=== PATIENT | male | born 1945 | race Caucasian/White ===

== ENCOUNTER 2016-09-10 17:21 | Inpatient (IN) | payer MEDICARE, OTHER ==
[~2016-09-10] VITALS: Ht 157.5 cm; Wt 54.0 kg
[2016-09-10 18:25] LABS: BASO % 1 % (0-3); EOS % 0 % (0-3); HEMATOCRIT 51.1 % (39.0-53.0); HEMOGLOBIN 16.7 g/dL (13.0-17.5); LYMPH # 1.4 x10^3/uL (1.0-4.8); LYMPH % 18 % (24-48); MEAN CORPUSCULAR HEMOGLOBIN 26 pg (25-35); MEAN CORPUSCULAR HGB CONC 33 g/dL (31-37); MEAN CORPUSCULAR VOLUME 81 fL (79-100); MONO % 12 % (0-9); NEUT # 5.6 x10^3uL (1.8-7.7); NEUT % 70 % (31-73); PLATELET COUNT 220 x10^3/uL (140-400); RED BLOOD COUNT 6.33 x10^6/uL (4.30-5.70); RED CELL DISTRIBUTION WIDTH 19.1 % (11.5-14.5)
[2016-09-10 18:38] LABS: ALBUMIN 4.1 g/dL (3.4-5.0); ALBUMIN/GLOBULIN RATIO 0.7 (1.0-1.7); CALCIUM 10.2 mg/dL (8.5-10.1); CREATININE 1.4 mg/dL (0.7-1.3); GFR 49.8; MAGNESIUM 2.7 mg/dL (1.8-2.4); POTASSIUM 4.3 mmol/L (3.5-5.1); TOTAL BILIRUBIN 1.3 mg/dL (0.2-1.0); TOTAL PROTEIN 9.9 g/dL (6.4-8.2)
--- NOTE | 2016-09-10 18:53 | PHYS DOC ---
General Chief Complaint: PSYCH EVALUATION Stated Complaint: ALTERED MENTAL STATUS Time Seen by MD: 18:25 Source: patient, group home records Exam Limitations: clinical condition Problems: History of Present Illness Initial Comments Pt is 71/M to ED from [facility] in [place], [place] for medical clearance and [facility] admission. [place] records indicate pt has been refusing meds, combative, not eating, and resistant to redirection for past week. Pt has h/o schizophrenia/dementia, he' s been paranoid he'll be electrocuted and claiming to have fur. Prior ERP gave zyprexa on pt arrival as he was refusing labs etc initially. Pt is confused, alert, oriented only to self. He is full code Timing/Duration: 1 week, getting worse Severity: severe Modifying Factors: improves with other Associated Symptoms: denies symptoms Allergies: Coded Allergies: Aminoglycosides (Verified Allergy, Unknown, 09/10/16) benzalkonium (Verified Allergy, Unknown, 09/10/16) pramoxine (Verified Allergy, Unknown, 09/10/16) Past Medical History Medical History: other (urosepsis, schizophrenia, dementia, CAD, CHF, CVA, COPD , depression, GERD, HLP, schizoaffective) Surgical History: noncontributory Social History Smoker: non-smoker Alcohol: none Drugs: none Review of Systems All Other Systems: Reviewed and Negative (pt confused accurate ROS unobtainable ) Physical Exam General Appearance: no apparent distress (lying naked, resting), thin Eyes: bilateral eye normal inspection, bilateral eye PERRL, bilateral eye EOMI Ear, Nose, Throat: hearing grossly normal, normal ENT inspection, normal pharynx Neck: non-tender, supple Respiratory: normal breath sounds, no respiratory distress Cardiovascular: normal peripheral pulses, regular rate, rhythm Gastrointestinal: non tender, soft Back: no CVA tenderness, no vertebral tenderness Extremities: non-tender, normal inspection Neurologic/Psychiatric: male model II-XII nml as tested, no motor/sensory deficits, alert, depressed affect, disoriented x 3 Skin: warm/dry COURSE Allergies Coded Allergies Type Severity Reaction Last Updated Verified Aminoglycosides Allergy Unknown 09/10/16 Yes benzalkonium Allergy Unknown 09/10/16 Yes pramoxine Allergy Unknown 09/10/16 Yes Laboratory Tests Test 09/10/16 18:10 09/10/16 18:30 White Blood Count 8.0 x10^3/uL (4.0-11.0) Red Blood Count 6.33 x10^6/uL (4.30-5.70) Hemoglobin 16.7 g/dL (13.0-17.5) Hematocrit 51.1 % (39.0-53.0) Mean Corpuscular Volume 81 fL (79-100) Mean Corpuscular Hemoglobin 26 pg (25-35) Mean Corpuscular Hemoglobin Concent 33 g/dL (31-37) Red Cell Distribution Width 19.1 % (11.5-14.5) Platelet Count 220 x10^3/uL (140-400) Neutrophils (%) (Auto) 70 % (31-73) Lymphocytes (%) (Auto) 18 % (24-48) Monocytes (%) (Auto) 12 % (0-9) Eosinophils (%) (Auto) 0 % (0-3) Basophils (%) (Auto) 1 % (0-3) Neutrophils # (Auto) 5.6 x10^3uL (1.8-7.7) Lymphocytes # (Auto) 1.4 x10^3/uL (1.0-4.8) Monocytes # (Auto) 1.0 x10^3/uL (0.0-1.1) Eosinophils # (Auto) 0.0 x10^3/uL (0.0-0.7) Basophils # (Auto) 0.0 x10^3/uL (0.0-0.2) Sodium Level 145 mmol/L (136-145) Potassium Level 4.3 mmol/L (3.5-5.1) Chloride Level 102 mmol/L (98-107) Carbon Dioxide Level 20 mmol/L (21-32) Anion Gap 23 (6-14) Blood Urea Nitrogen 26 mg/dL (8-26) Creatinine 1.4 mg/dL (0.7-1.3) Estimated GFR (Cockcroft-Gault) 49.8 BUN/Creatinine Ratio 19 (6-20) Glucose Level 88 mg/dL (70-99) Calcium Level 10.2 mg/dL (8.5-10.1) Magnesium Level 2.7 mg/dL (1.8-2.4) Total Bilirubin 1.3 mg/dL (0.2-1.0) Aspartate Amino Transf (AST/SGOT) 44 U/L (15-37) Alanine Aminotransferase (ALT/SGPT) 22 U/L (16-63) Alkaline Phosphatase 107 U/L (46-116) Total Protein 9.9 g/dL (6.4-8.2) Albumin 4.1 g/dL (3.4-5.0) Albumin/Globulin Ratio 0.7 (1.0-1.7) Creatine Kinase 461 U/L (39-308) Troponin I Quantitative < 0.017 ng/mL (0-0.055) Current Medications Medications (Trade) Dose Ordered Sig/Gilles Route PRN Reason Start Time Stop Time Status Last Admin Dose Admin Olanzapine (ZyPREXA ZYDIS) 5 mg 1X ONCE PO 09/10/16 18:45 09/10/16 20:28 DC Haloperidol Lactate (Haldol) 5 mg 1X ONCE IM 09/10/16 19:00 09/10/16 20:28 DC 09/10/16 19:08 Lorazepam (Ativan) 1 mg 1X ONCE IM 09/10/16 21:30 09/10/16 21:31 DC 09/10/16 21:25 Orders Procedure Category Date Status Time Ua, Cult If Indicated LAB 09/10/16 Logged 17:39 Cbc W Autodiff LAB 09/10/16 Complete 17:39 Comprehensive LAB 09/10/16 Complete Metabolic Panel 17:39 Magnesium LAB 09/10/16 Complete 17:39 Iron Profile LAB 09/10/16 In Process 17:39 Troponin I LAB 09/10/16 Complete 18:33 Creatine Kinase LAB 09/10/16 Complete 18:33 Thyroid Stim Hormone LAB 09/10/16 In Process (Tsh) 18:33 Olanzapine Zydis PHA 09/10/16 Complete (Zyprexa Zydis) 18:45 Haloperidol Lact PHA 09/10/16 Complete (Haldol) 19:00 Lorazepam (Ativan) PHA 09/10/16 Complete 21:30 Admit Orders ADT 09/10/16 Transmitted 22:42 Code Status CODE 09/10/16 Transmitted 22:42 Vital Signs, Per MARILIA 09/10/16 In Process Protocol 22:42 Weight Every Saturday MARILIA 09/10/16 In Process 22:42 Notify Provider MARILIA 7/3/17 In Process 22:42 Notify Provider MARILIA 09/10/16 In Process 22:42 Notify Provider-Neuro MARILIA 09/10/16 In Process Deficit 22:42 Fall Precautions MARILIA 09/10/16 In Process 22:42 Escape/Elopement MARILIA 09/10/16 In Process 22:42 Advance Diet As MARILIA 09/10/16 In Process Tolerated 22:42 Ambulate Ad Toshia MARILIA 09/10/16 In Process 22:42 Creatine Kinase LAB 09/11/16 Verified 07:00 Cbc W Autodiff LAB 09/11/16 Verified 07:00 Comprehensive LAB 09/11/16 Verified Metabolic Panel 07:00 Vital Signs Date Time Temp Pulse Resp B/P (MAP) Pulse Ox O2 Delivery O2 Flow Rate FiO2 09/10/16 17:43 97.3 62 18 93 Room Air Haldol 5mg IM, ativan 1mg IM given in ED to try to settle pt and allow UA collection. 2238: Pt has refused to produce urine specimen. ED staff obtained cath specimen, results pending. BUN 26, Cr 1.4, mg 2.7, t. bili 1.3, AST 44, CK 461 , UA pending. Pt medically clear for [facility] admission Dr Weiner is accepting Departure Time of Disposition: 22:40 Disposition: ADMITTED INPATIENT Diagnosis: MDD, schizoaffective disorder, Elev CK, renal insu Condition: STABLE Additional Instructions: Admit to [facility] Dr Weiner is accepting. Recheck CK in am. Departure Disposition: ADMITTED INPATIENT Diagnosis: MDD, schizoaffective disorder, Elev CK, renal insu Condition: STABLE Additional Instructions: Admit to [facility] Dr Weiner is accepting. Recheck CK in am. AMALIA BUCKLEY DO Sep 10, 2016 18:53
[2016-09-10] MEDS ORDERED: HALOPERIDOL LACT 5 MG/ML VIAL. IM ONE (19:00)
[2016-09-10] MEDS ORDERED: LORazepam 2 MG/ML VIAL IM ONE (21:30)
[2016-09-10] MEDS ORDERED: MINE120C TP (21:58)
[2016-09-10] MEDS ORDERED: PHEN26CR RC (21:58)
[2016-09-10] MEDS ORDERED: ACET325T9 PO (21:58)
[2016-09-10] MEDS ORDERED: CETI10TA16 PO (21:58)
[2016-09-10] MEDS ORDERED: CHOL10003 PO (21:58)
[2016-09-10] MEDS ORDERED: OLAN5TAB5 PO (21:58)
[2016-09-10] MEDS ORDERED: CYAN10002 SQ (21:58)
[2016-09-10] MEDS ORDERED: ASPI-630 PO (21:58)
[2016-09-10] MEDS ORDERED: FURO40TA4 PO (21:58)
[2016-09-10] MEDS ORDERED: FOLI1TAB16 PO (21:58)
[2016-09-10] MEDS ORDERED: TAMS0.4C97 PO (21:58)
[2016-09-10] MEDS ORDERED: CLOP75TA57 PO (21:58)
[2016-09-10] MEDS ORDERED: SIME80TA14 PO (21:58)
[2016-09-10] MEDS ORDERED: FURO20TA3 PO (21:58)
[2016-09-10] MEDS ORDERED: METO25TA4 PO (21:58)
[2016-09-10] MEDS ORDERED: GABA-586 PO (21:58)
[2016-09-10] MEDS ORDERED: PANT40TA3 PO (21:58)
[2016-09-10] MEDS ORDERED: ISOS30TA19 PO (21:58)
[2016-09-10] MEDS ORDERED: NITR0.4T SL (21:58)
[2016-09-10 22:58] VITALS: BP 149/86
[2016-09-10 23:13] LABS: BILIRUBIN,URINE NEG (NEG); CLARITY,URINE HAZY; COLOR,URINE AMBER; GLUCOSE,URINE NEG (NEG); NITRITE,URINE POS (NEG); UROBILINOGEN,URINE 1 mg/dL (0.2 mg/dL)
[2016-09-10 23:14] LABS: AMORPHOUS SEDIMENT,UR PRESENT /HPF; BACTERIA,URINE FEW /HPF (0-FEW); SQUAMOUS EPITHELIAL CELL,UR FEW /LPF; WBC,URINE OCC /HPF (0-4)
[2016-09-10] MEDS ORDERED: ACETAMINOPHEN 325 MG TABLET PO PRN (23:45)
[2016-09-10] MEDS ORDERED: MAGNESIUM HYDROXIDE 2,400 MG/30 ML ORAL.SUSP. PO PRN (23:45)
[2016-09-10] MEDS ORDERED: MAG HYDROX/AL HYDROX/SIMETH 30 ML ORAL.SUSP PO PRN (23:45)
[2016-09-10] MEDS ORDERED: METHYL SALICYLATE/MENTHOL TOPICAL OINTMENT 29GM TUBE. TP PRN (23:45)
[2016-09-11] MEDS ORDERED: NITROGLYCERIN SUBLINGUAL 0.4 MG BOTTLE OF 25. SL PRN
[2016-09-11] MEDS ORDERED: PHENYLEPH/MINERAL OIL/PETROLAT RECTAL OINTMENT 28GM TUBE. RC PRN
[2016-09-11] MEDS ORDERED: ACETAMINOPHEN 325 MG TABLET PO PRN
[2016-09-11] MEDS ORDERED: MINERAL OIL/PETROLATUM TOPICAL CREAM 113GM JAR. TP PRN
[2016-09-11] MEDS ORDERED: IV NORMAL SALINE 1,000ML 1,000 ML ONE (01:27)
--- NOTE | 2016-09-11 03:31 | ACF ---
Admission Criteria Forms MAJOR DEPRESSIVE DISORDER Clinical Indications for Admission to Inpatient Care ( Place 'X' for any and all applicable criteria): Hospital admission is needed for appropriate care of the patient because of ANY ONE of the following[A](3)(4)(5): [ ]I. Inpatient behavioral care is needed as indicated by ALL of the following: [ ]a) Treatment is needed because of patient risk due to ANY ONE of the following: [ ]i) Imminent danger to self due to ANY ONE of the following ( 7)(8): [ ]1) Imminent risk for recurrence of a suicide attempt or act of serious self-harm as indicated by ALL of the following: [ ]A. Very recent suicide attempt or deliberate act of serious self-harm [ ]B. Absence of sufficient relief of the action' s precipitants [ ]2) Current plan for suicide or serious self-harm [ ]3) Persistent thoughts of suicide or serious self- harm that cannot be adequately monitored at a lower level of care because of ANY ONE of the following: [ ]A. Insufficient behavioral care provider availability [ ]B. Inadequate patient support system [ ]C. Patient characteristics such as high impulsivity or unreliability [ ]D. Ruminative flooding; uncontrollable and overwhelming profusion of negative thoughts [ ]E. Frantic hopelessness; fatalistic conviction that life will not improve along with oppressive sense of entrapment and doom [ ]F. Active substance use disorder is present [ ]G. Ready access to lethal means is present [ ]ii) Imminent danger to others due to ANY ONE of the following( 10)(11): [ ]1) Imminent risk for recurrence of an attempt to seriously harm another as indicated by ALL of the following: [ ]A. Very recent attempt to seriously harm another [ ]B. Absence of sufficient relief of the action' s precipitants [ ]2) Current plan for homicide or seriously harming another [ ]3) Command auditory hallucination for serious self harm to self or others [ ]4) Persistent thoughts of homicide or seriously harming another that cannot be adequately monitored at a lower level of care because of ANY ONE of the following: [ ]A. Insufficient behavioral care provider availability [ ]B. Inadequate patient support system [ ]C. Patient characteristics such as high impulsivity or unreliability [ ]D. Active substance use disorder is present [ ]E. Ready access to lethal means is present [ ]iii) Behavioral health disorder is present with ALL of the following: (12)(16)(17)(18): [ ]1) Severe psychiatric or behavioral symptoms are present , including ANY ONE of the following: [ ]A. Hallucinations that are very bothersome to patient or are associated with severe pressure to respond to voices(17)(18) [ ]B. Delusions that are very bothersome to patient or are associated with severe pressure to act on beliefs(17)(18) [ ]C. Disorganized speech that is almost impossible to follow(17)(18) [ ]D. Motor behavior that is almost constantly abnormal or bizarre or catatonic(17)(18) [ ]E. Severe negative symptoms (eg, severe decrease in facial expression or self-initiated behavior)(17)(18) [ ]F. Severe nydia (eg, daily periods of extensive mood elevation or irritability)(19)(20)(21)(22) [ ]G. Severe depression (eg, daily symptoms of deep hopelessness)[C] [ ]H. Severe anxiety[D] [ ]I. Severe comorbid substance use disorder with inability to control use, intense withdrawal symptoms, or extreme negative impact on primary psychiatric disorder(2)(7)(25) [ ]J. Severe impairment in cognition, memory, judgment, or impulse control(26)(27) [ ]K. Severe impairment in behavior, including physical or verbal aggression, disruptive behaviors, or internal or external anger manifestations (eg, rumination or outbursts)(28) [ ]L. Other psychiatric symptoms which are acute or represent worsening over baseline (eg, hyperactivity, agitation, obsessions, or compulsions)(29)(30)(31) [ ]2) Severe dysfunction in daily living is present as indicated by ANY ONE of the following: [ ]A. Extreme deterioration in social interactions ( eg, threatening behaviors with little or no provocation) [ ]B. Complete withdrawal from all social interactions [ ]C. Complete neglect of self-care with associated impairment in physical status [ ]D. Extreme disruption in vegetative function (eg , life-sustaining functions such as eating) [ ]E. Complete inability to maintain any appropriate aspect of personal responsibility in any adult roles (eg, occupational, parental) [ ]b) Treatment situation and needs are appropriate for level as indicated by ANY ONE of the following(13)(16): [ ]i) Patient unwilling to participate voluntarily and requires treatment (eg, legal commitment) in an involuntary unit [ ]ii) Voluntary treatment at lower level not feasible (e.g., very short-term crisis intervention or residential care unavailable or unacceptable for patient condition) [ ]iii) Need for physical restraint, seclusion, or other involuntary control (e.g., actively violent patient and adequate clinical rapport cannot be established to control violence) (25) [ ]iv) Vofhdy-imo-sraps medical or nursing care to address symptoms and initiate intervention is required; specific need has been identified [ ]II. Delirium as described by ANY ONE of the following (26)(27)(28): [ ]a) Delirium due to alcohol or sedative [B] withdrawal (16)(29)(30)( 31) [ ]b) Delirium of uncertain etiology that has not responded to appropriate treatment in emergency department or urgent care setting (32)(33) [ ]c) Delirium that prevents performance of a life-sustaining function (eg, feeding or hydrating oneself) (9) [ ]III. Administration of a somatic treatment that requires uqaenp-yvs-evkvd medical or nursing care because of a potential adverse physical effect or medical comorbidity(7) [X]IV. Behavioral Health condition, symptom, or finding for which emergency and observation care have failed or are not considered appropriate (Contents from [facility] clinical indications for admission to inpatient care have been integrated in this form) The original [facility] content created by [facility] has been revised. The portions of the content which have been revised are identified through the use of italic text or in bold, and [facility] has neither reviewed nor approved the modified material. All other unmodified content is copyright [facility]. Please see references footnoted in the original [facility] edition 2016 Admission Criteria Met?: Yes MISSY URENA Sep 11, 2016 03:31
[2016-09-11] MEDS ORDERED: PANTOPRAZOLE 40 MG TABLET. PO SCH (07:30)
[2016-09-11] MEDS ORDERED: TAMSULOSIN 0.4 MG CAP.ER.24H. PO SCH (09:00)
[2016-09-11] MEDS ORDERED: FUROSEMIDE 40 MG TABLET PO SCH (09:00)
[2016-09-11] MEDS ORDERED: GABAPENTIN 300 MG CAPSULE. PO SCH (09:00)
[2016-09-11] MEDS ORDERED: CETIRIZINE HCL 10 MG TABLET PO SCH (09:00)
[2016-09-11] MEDS ORDERED: CLOPIDOGREL BISULFATE 75 MG TABLET PO SCH (09:00)
[2016-09-11] MEDS ORDERED: METOPROLOL TART IMMED RELEASE 25 MG TABLET PO SCH (09:00)
[2016-09-11] MEDS ORDERED: CHOLECALCIFEROL (VITAMIN D3) 1,000 UNIT TABLET PO SCH (09:00)
[2016-09-11] MEDS ORDERED: FOLIC ACID 1 MG TABLET PO SCH (09:00)
[2016-09-11] MEDS ORDERED: FUROSEMIDE 20 MG TABLET PO SCH (09:00)
[2016-09-11] MEDS ORDERED: SIMETHICONE 80 MG TAB.CHEW PO SCH (09:00)
[2016-09-11] MEDS ORDERED: ASPIRIN 81 MG TAB.CHEW PO SCH (09:00)
--- NOTE | 2016-09-11 15:01 | PDOC1 ---
History of Present Illness Reason for Visit: Transferred from [facility] for marked dehydration History of Present Illness The patient was sent to [facility] from [facility] as he has been refusing to eat or drink refusing to take his medication He states that he has no mouth claiming that he is elctrocuted and that he has fur rather than hair Chief Complaint: PSYCH EVALUATION Allergies: Coded Allergies: Aminoglycosides (Verified Allergy, Intermediate, 09/11/16) benzalkonium (Verified Allergy, Intermediate, 09/11/16) pramoxine (Verified Allergy, Intermediate, 09/11/16) Past Medical History Cardiac: CAD, CHF, hyperipidemia Pulmonary: COPD 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 See HPI for pertinent positives and negative responses, other hodges all other systems are negative, non pertinent or non contributory Allergies: Coded Allergies: Aminoglycosides (Verified Allergy, Intermediate, 09/11/16) benzalkonium (Verified Allergy, Intermediate, 09/11/16) pramoxine (Verified Allergy, Intermediate, 09/11/16) Medications Current Medications Olanzapine (ZyPREXA ZYDIS) 5 mg 1X ONCE PO ; Start 09/10/16 at 18:45; Stop at 20:28; Status DC Haloperidol Lactate (Haldol) 5 mg 1X ONCE IM Last administered on 09/10/16 19: 08; Start 09/10/16 at 19:00; Stop 09/10/16 at 20:28; Status DC Lorazepam (Ativan) 1 mg 1X ONCE IM Last administered on 09/10/16 21:25; Start 09/10/16 at 21:30; Stop 09/10/16 at 21:31; Status DC Acetaminophen (Tylenol) 650 mg PRN Q6HRS PRN PO PAIN / TEMP; Start 09/10/16 at 23:45; Stop 09/11/16 at 01:20; Status DC Multi-Ingredient Ointment (Analgesic Fishers) 1 francia PRN QID PRN TP MUSCLE PAIN; Start 09/10/16 at 23:45; Stop 09/11/16 at 01:20; Status DC Al Hydroxide/Mg Hydroxide (Mylanta Plus Xs) 15 ml PRN AFTMEALHC PRN PO DYSPEPSIA; Start 09/10/16 at 23:45; Stop 09/11/16 at 01:20; Status DC Magnesium Hydroxide (Milk Of Magnesia) 2,400 mg PRN QHS PRN PO CONSTIPATION; Start 09/10/16 at 23:45; Stop 09/11/16 at 01:20; Status DC Olanzapine (ZyPREXA ZYDIS) 5 mg HS PO ; Start 09/11/16 at 21:00; Stop 09/11/16 at 21:00; Status DC Acetaminophen (Tylenol) 650 mg PRN Q4HRS PRN PO PAIN / TEMP; Start 09/11/16 at 00:00; Stop 09/11/16 at 01:20; Status DC Aspirin (Children'S Aspirin) 81 mg DAILY PO ; Start 09/11/16 at 09:00; Stop at 09:00; Status DC Cetirizine HCl (ZyrTEC) 10 mg DAILY PO ; Start 09/11/16 at 09:00; Stop 09/11/16 at 09:00; Status DC Vitamin D (Vitamin D3) 2,000 unit DAILY PO ; Start 09/11/16 at 09:00; Stop at 09:00; Status DC Clopidogrel Bisulfate (Plavix) 75 mg DAILY PO ; Start 09/11/16 at 09:00; Stop 09/11/16 at 09:00; Status DC Cyanocobalamin (Vitamin B-12) 1,000 mcg QMONTH SQ ; Start 10/10/16 at 09:00; Stop 10/10/16 at 09:00; Status DC Folic Acid (Folic Acid) 1 mg DAILY PO ; Start 09/11/16 at 09:00; Stop 09/11/16 at 09:00; Status DC Furosemide (Lasix) 20 mg DAILY PO ; Start 09/11/16 at 09:00; Stop 09/11/16 at 09: 00; Status DC Furosemide (Lasix) 40 mg DAILY PO ; Start 09/11/16 at 09:00; Stop 09/11/16 at 09: 00; Status DC Gabapentin (Neurontin) 300 mg TID PO ; Start 09/11/16 at 09:00; Stop 09/11/16 at 09:00; Status DC Metoprolol Tartrate (Lopressor) 12.5 mg BID PO ; Start 09/11/16 at 09:00; Stop at 09:00; Status DC Multi-Ingred Cream/Lotion/Oil/ Oint (Hydrocerin) 1 francia PRN BID PRN TP Dry Skin ; Start 09/11/16 at 00:00; Stop 09/11/16 at 01:20; Status DC Nitroglycerin (Nitrostat) 0.4 mg PRN Q5MIN PRN SL CHEST PAIN; Start 09/11/16 at 00:00; Stop 09/11/16 at 01:20; Status DC Pantoprazole Sodium (Protonix) 40 mg BIDBFRMEAL PO ; Start 09/11/16 at 07:30; Stop 09/11/16 at 07:30; Status DC Simethicone (Gas-X) 120 mg BID PO ; Start 09/11/16 at 09:00; Stop 09/11/16 at 09: 00; Status DC Tamsulosin HCl (Flomax) 0.4 mg BID PO ; Start 09/11/16 at 09:00; Stop 09/11/16 at 09:00; Status DC Non-Formulary Medication 30 mg HS PO ; Start 09/11/16 at 21:00; Stop 09/11/16 at 21:00; Status DC Phenyleph/Shark Oil/Min Oil/Petrol (Preparation H) 1 francia PRN BID PRN RC Hemmoroids; Start 09/11/16 at 00:00; Stop 09/11/16 at 01:20; Status DC Sodium Chloride 1,000 ml @ As Directed STK-MED ONCE .ROUTE ; Start 09/11/16 at 01:27; Stop 09/11/16 at 01:28; Status DC Active Scripts Active Reported Preparation H Cream (Phenyleph/Pramoxin/Glycr/W.pet) 26 Gm Cream..g. 1 Francia RC PRN BID PRN Tylenol (Acetaminophen) 325 Mg Tablet 650 Mg PO PRN Q4HRS PRN Nitrostat (Nitroglycerin) 0.4 Mg Tab.subl 0.4 Mg SL PRN Q5MIN PRN Eucerin Creme (Mineral Oil/Petrolatum,White) 120 Gm Cream..g. 1 Francia TP PRN PRN Gabapentin 300 Mg Capsule 300 Mg PO TID Vitamin D3 (Cholecalciferol (Vitamin D3)) 1,000 Unit Tablet 2,000 Unit PO DAILY Flomax (Tamsulosin Hcl) 0.4 Mg Cap.er.24h 0.4 Mg PO BID Simethicone 80 Mg Tab.chew 120 Mg PO BID Protonix (Pantoprazole Sodium) 40 Mg Tablet.dr 40 Mg PO BID Cyanocobalamin Injection (Cyanocobalamin (Vitamin B-12)) 1,000 Mcg/1 Ml Vial 1, 000 Mcg SQ QMONTH Once monthly on the Furosemide 20 Mg Tablet 20 Mg PO DAILY Daily on Saturday, Saturday, & Saturday Folic Acid 1 Mg Tablet 1 Tab PO DAILY Plavix (Clopidogrel Bisulfate) 75 Mg Tablet 75 Mg PO DAILY Cetirizine Hcl 10 Mg Tablet 10 Mg PO DAILY Aspirin 81 Mg Tab.chew 81 Mg PO DAILY Zyprexa Zydis (Olanzapine) 5 Mg Tab.rapdis 5 Mg PO HS Furosemide 40 Mg Tablet 40 Mg PO DAILY Daily on Saturday, Saturday, , & Saturday only Metoprolol Tartrate 25 Mg Tablet 12.5 Mg PO BID Isosorbide Dinitrate 30 Mg Tablet 30 Mg PO HS Exam Vital Signs Vital Signs Date Time Temp Pulse Resp B/P (MAP) Pulse Ox O2 Delivery O2 Flow Rate FiO2 09/10/16 22:58 83 16 149/86 (107) 90 09/10/16 17:43 97.3 Room Air General Appearance: Alert, No acute distress, Other HEENT: Atraumatic, PERRLA Heart: Regular rate, Normal S1, Normal S2 Cardiac: CAD, CHF, HTN, hyperipidemia BREASTS: Normal Abdominal: Normal bowel sounds Male Genitals Exam: normal genitalia Extremities: No clubbing, No cyanosis, No edema, Normal pulses, No tenderness/ swelling Rectal Exam: Deferred, not indicated Pelvic Exam: Nml ext genitalia Skin: No rashes Neuro: Normal tone, Cranial nerves 3-12 NL, Reflexes 2+ Psych/Mental Status: Other (Paranoid schzophrenia, denentia) Assessment/Plan Assessment/Plan Paranoid Schizophrenia Dementia Marked Dehydration Rhabdomyolysis CATALINA COURSE Allergies Coded Allergies Type Severity Reaction Last Updated Verified Aminoglycosides Allergy Intermediate 09/11/16 Yes benzalkonium Allergy Intermediate 09/11/16 Yes pramoxine Allergy Intermediate 09/11/16 Yes Laboratory Tests Test 09/10/16 16:10 09/10/16 18:10 09/10/16 18:30 09/10/16 22:30 Thyroid Stimulating Hormone (TSH) 1.097 uIU/mL (0.358-3.740) White Blood Count 8.0 x10^3/uL (4.0-11.0) Red Blood Count 6.33 x10^6/uL (4.30-5.70) Hemoglobin 16.7 g/dL (13.0-17.5) Hematocrit 51.1 % (39.0-53.0) Mean Corpuscular Volume 81 fL (79-100) Mean Corpuscular Hemoglobin 26 pg (25-35) Mean Corpuscular Hemoglobin Concent 33 g/dL (31-37) Red Cell Distribution Width 19.1 % (11.5-14.5) Platelet Count 220 x10^3/uL (140-400) Neutrophils (%) (Auto) 70 % (31-73) Lymphocytes (%) (Auto) 18 % (24-48) Monocytes (%) (Auto) 12 % (0-9) Eosinophils (%) (Auto) 0 % (0-3) Basophils (%) (Auto) 1 % (0-3) Neutrophils # (Auto) 5.6 x10^3uL (1.8-7.7) Lymphocytes # (Auto) 1.4 x10^3/uL (1.0-4.8) Monocytes # (Auto) 1.0 x10^3/uL (0.0-1.1) Eosinophils # (Auto) 0.0 x10^3/uL (0.0-0.7) Basophils # (Auto) 0.0 x10^3/uL (0.0-0.2) Sodium Level 145 mmol/L (136-145) Potassium Level 4.3 mmol/L (3.5-5.1) Chloride Level 102 mmol/L (98-107) Carbon Dioxide Level 20 mmol/L (21-32) Anion Gap 23 (6-14) Blood Urea Nitrogen 26 mg/dL (8-26) Creatinine 1.4 mg/dL (0.7-1.3) Estimated GFR (Cockcroft-Gault) 49.8 BUN/Creatinine Ratio 19 (6-20) Glucose Level 88 mg/dL (70-99) Calcium Level 10.2 mg/dL (8.5-10.1) Magnesium Level 2.7 mg/dL (1.8-2.4) Iron Level 66 ug/dL (65-175) Total Iron Binding Capacity 311 ug/dL (250-450) Iron Saturation 21 % (15-34) Total Bilirubin 1.3 mg/dL (0.2-1.0) Aspartate Amino Transf (AST/SGOT) 44 U/L (15-37) Alanine Aminotransferase (ALT/SGPT) 22 U/L (16-63) Alkaline Phosphatase 107 U/L (46-116) Total Protein 9.9 g/dL (6.4-8.2) Albumin 4.1 g/dL (3.4-5.0) Albumin/Globulin Ratio 0.7 (1.0-1.7) Triglycerides Level 104 mg/dL (0-150) Cholesterol Level 258 mg/dL (0-200) LDL Cholesterol, Calculated 188 mg/dL (0-100) VLDL Cholesterol, Calculated 20 mg/dL (0-40) Non-HDL Cholesterol Calculated 208 mg/dL (0-129) HDL Cholesterol 50 mg/dL (40-60) Cholesterol/HDL Ratio 5.0 Vitamin B12 Level > 2000 pg/mL (247-911) Creatine Kinase 461 U/L (39-308) Troponin I Quantitative < 0.017 ng/mL (0-0.055) Urine Collection Type Unknown Urine Color Michell Urine Clarity Hazy Urine pH 5.0 Urine Specific [place] >=1.030 Urine Protein 100 mg/dl (NEG-TRACE) Urine Glucose (UA) Neg mg/dL (NEG) Urine Ketones (Stick) 15 mg/dL (NEG) Urine Blood Small (NEG) Urine Nitrite Pos (NEG) Urine Bilirubin Neg (NEG) Urine Urobilinogen Dipstick 1 mg/dL (0.2 mg/dL) Urine Leukocyte Esterase Neg (NEG) Urine RBC 3-5 /HPF (0-2) Urine WBC Occ /HPF (0-4) Urine Squamous Epithelial Cells Few /LPF Urine Transitional Epithelial Cells Few /LPF Urine Amorphous Sediment Present /HPF Urine Bacteria Few /HPF (0-FEW) Current Medications Medications (Trade) Dose Ordered Sig/Gilles Route PRN Reason Start Time Stop Time Status Last Admin Dose Admin Olanzapine (ZyPREXA ZYDIS) 5 mg 1X ONCE PO 09/10/16 18:45 09/10/16 20:28 DC Haloperidol Lactate (Haldol) 5 mg 1X ONCE IM 09/10/16 19:00 09/10/16 20:28 DC 09/10/16 19:08 Lorazepam (Ativan) 1 mg 1X ONCE IM 09/10/16 21:30 09/10/16 21:31 DC 09/10/16 21:25 Acetaminophen (Tylenol) 650 mg PRN Q6HRS PRN PO PAIN / TEMP 09/10/16 23:45 09/11/16 01:20 DC Multi-Ingredient Ointment (Analgesic Fishers) 1 francia PRN QID PRN TP MUSCLE PAIN 09/10/16 23:45 09/11/16 01:20 DC Al Hydroxide/Mg Hydroxide (Mylanta Plus Xs) 15 ml PRN AFTMEALHC PRN PO DYSPEPSIA 09/10/16 23:45 09/11/16 01:20 DC Magnesium Hydroxide (Milk Of Magnesia) 2,400 mg PRN QHS PRN PO CONSTIPATION 09/10/16 23:45 09/11/16 01:20 DC Olanzapine (ZyPREXA ZYDIS) 5 mg HS PO 09/11/16 21:00 09/11/16 21:00 DC Acetaminophen (Tylenol) 650 mg PRN Q4HRS PRN PO PAIN / TEMP 09/11/16 00:00 09/11/16 01:20 DC Aspirin (Children'S Aspirin) 81 mg DAILY PO 09/11/16 09:00 09/11/16 09:00 DC Cetirizine HCl (ZyrTEC) 10 mg DAILY PO 09/11/16 09:00 09/11/16 09:00 DC Vitamin D (Vitamin D3) 2,000 unit DAILY PO 09/11/16 09:00 09/11/16 09:00 DC Clopidogrel Bisulfate (Plavix) 75 mg DAILY PO 09/11/16 09:00 09/11/16 09:00 DC Cyanocobalamin (Vitamin B-12) 1,000 mcg QMONTH SQ 10/10/16 09:00 10/10/16 09:00 DC Folic Acid (Folic Acid) 1 mg DAILY PO 09/11/16 09:00 09/11/16 09:00 DC Furosemide (Lasix) 20 mg DAILY PO 09/11/16 09:00 09/11/16 09:00 DC Furosemide (Lasix) 40 mg DAILY PO 09/11/16 09:00 09/11/16 09:00 DC Gabapentin (Neurontin) 300 mg TID PO 09/11/16 09:00 09/11/16 09:00 DC Metoprolol Tartrate (Lopressor) 12.5 mg BID PO 09/11/16 09:00 09/11/16 09:00 DC Multi-Ingred Cream/Lotion/Oil/ Oint (Hydrocerin) 1 francia PRN BID PRN TP Dry Skin 09/11/16 00:00 09/11/16 01:20 DC Nitroglycerin (Nitrostat) 0.4 mg PRN Q5MIN PRN SL CHEST PAIN 09/11/16 00:00 09/11/16 01:20 DC Pantoprazole Sodium (Protonix) 40 mg BIDBFRMEAL PO 09/11/16 07:30 09/11/16 07:30 DC Simethicone (Gas-X) 120 mg BID PO 09/11/16 09:00 09/11/16 09:00 DC Tamsulosin HCl (Flomax) 0.4 mg BID PO 09/11/16 09:00 09/11/16 09:00 DC Non-Formulary Medication 30 mg HS PO 09/11/16 21:00 09/11/16 21:00 DC Phenyleph/Shark Oil/Min Oil/Petrol (Preparation H) 1 francia PRN BID PRN RC Hemmoroids 09/11/16 00:00 09/11/16 01:20 DC Sodium Chloride 1,000 ml @ As Directed STK-MED ONCE .ROUTE 09/11/16 01:27 09/11/16 01:28 DC Orders Procedure Category Date Status Time Cbc W Autodiff LAB 09/10/16 Complete 17:39 Comprehensive LAB 09/10/16 Complete Metabolic Panel 17:39 Magnesium LAB 09/10/16 Complete 17:39 Iron Profile LAB 09/10/16 Complete 17:39 Troponin I LAB 09/10/16 Complete 18:33 Creatine Kinase LAB 09/10/16 Complete 18:33 Thyroid Stim Hormone LAB 09/10/16 Complete (Tsh) 18:33 Olanzapine Zydis PHA 09/10/16 Complete (Zyprexa Zydis) 18:45 Haloperidol Lact PHA 09/10/16 Complete (Haldol) 19:00 Lorazepam (Ativan) PHA 09/10/16 Complete 21:30 Admit Orders ADT 09/10/16 Transmitted 22:42 Code Status CODE 09/10/16 Transmitted 22:42 Vital Signs, Per [facility] 09/10/16 Complete Protocol 22:42 Weight Every Saturday [facility] 09/10/16 Complete 22:42 Notify Provider [facility] 09/10/16 Complete 22:42 Notify Provider [facility] 09/10/16 Complete 22:42 Notify Provider-Neuro [facility] 09/10/16 Complete Deficit 22:42 Fall Precautions [facility] 09/10/16 Complete 22:42 Escape/Elopement [facility] 09/10/16 Complete 22:42 Advance Diet As [facility] 09/10/16 Complete Tolerated 22:42 Ambulate Ad Toshia [facility] 09/10/16 Complete 22:42 Ua W Microscopic LAB 09/10/16 Complete 22:30 Dietary Cons For NOURISH 09/10/16 Transmitted Malnutrition 23:31 Admit Orders ADT 09/10/16 Transmitted 23:43 Voluntary [facility] 09/10/16 Complete 23:43 Guardian Status [facility] 09/10/16 Complete 23:43 Pt Will Attend Group [facility] 09/10/16 Complete & Activit 23:43 Ambulate With [facility] 09/10/16 Complete Assistance 23:43 Acetaminophen PHA 09/10/16 Complete (Tylenol) 23:45 Methyl PHA 09/10/16 Complete Salicylate/Menthol 23:45 Mag Hydrox/Al PHA 09/10/16 Complete Hydrox/Simeth 23:45 Magnesium Hydroxide PHA 09/10/16 Complete (Milk Of Magnesia) 23:45 Ua, Cult If Indicated LAB 09/10/16 Uncollected 23:43 Pt Eval And Treat PT 09/10/16 Logged 23:43 Ot Eval And Treat OT 09/10/16 Logged 23:43 12 Lead Ekg EKG 09/10/16 Logged 23:43 Hemoglobin A1c LAB 09/10/16 In Process 23:43 Lipid Panel LAB 09/10/16 Complete 23:43 Vitamin-B12 LAB 09/10/16 Complete 23:43 Vte Prophylax OTHER 09/10/16 Transmitted Contraindication 23:43 Olanzapine Zydis PHA 09/11/16 Complete (Zyprexa Zydis) 21:00 Acetaminophen PHA 09/11/16 Complete (Tylenol) 00:00 Aspirin (Children's PHA 09/11/16 Complete Aspirin) 09:00 Cetirizine Hcl PHA 09/11/16 Complete (Zyrtec) 09:00 Cholecalciferol PHA 09/11/16 Complete (Vitamin D3) (Vitamin 09:00 Clopidogrel Bisulfate PHA 09/11/16 Complete (Plavix) 09:00 Cyanocobalamin PHA 10/10/16 Complete (Vitamin B-12) 09:00 Folic Acid (Folic PHA 09/11/16 Complete Acid) 09:00 Furosemide Tablet PHA 09/11/16 Complete (Lasix) 09:00 Furosemide Tablet PHA 09/11/16 Complete (Lasix) 09:00 Gabapentin (Neurontin) PHA 09/11/16 Complete 09:00 Metoprolol Tart Immed PHA 09/11/16 Complete Release (Lopressor 09:00 Mineral PHA 09/11/16 Complete Oil/Petrolatum 00:00 Nitroglycerin PHA 09/11/16 Complete Sublingual (Nitrostat) 00:00 Pantoprazole PHA 09/11/16 Complete (Protonix) 07:30 Simethicone (Gas-X) PHA 09/11/16 Complete 09:00 Tamsulosin (Flomax) PHA 09/11/16 Complete 09:00 (Nf) Isosorbide PHA 09/11/16 Complete Dinitrate 21:00 Phenyleph/Mineral PHA 09/11/16 Complete Oil/Petrolat (Preparat 00:00 Discharge From ADT 09/11/16 Transmitted Hospital Iv Normal Saline PHA 09/11/16 Complete 1,000ml (Iv Sodium 01:27 Vital Signs Date Time Temp Pulse Resp B/P (MAP) Pulse Ox O2 Delivery O2 Flow Rate FiO2 09/10/16 22:58 83 16 149/86 (107) 90 09/10/16 17:43 97.3 Room Air RALPH MORROW MD Sep 11, 2016 15:01
[2016-09-11] MEDS ORDERED: IV DEXTROSE 5 %-0.2 % NACL 1,000 ML IV SCH (15:30)
[2016-09-11] MEDS ORDERED: ISOSORBIDE DINITRATE 30 MG PO SCH (21:00)
[2016-09-12 00:06] LABS: HEMOGLOBIN A1C 5.4 % (4.8-5.6)
[2016-09-12] MEDS ORDERED: FURO40TA4 PO (20:42)
--- NOTE | 2016-09-13 21:30 | PDOC ---
Exam Harjeet Demential Exam: Harjeet Note: Please also refer to the separate dictated note~for this date of service dictated separately.~Patient seen individually. Discussed the patient with Nursing staff reviewed the chart.~Reviewed interim history and current functioning. Reviewed vital signs,~Labs/ Radiology~and current medications noted below. Continue current treatment with the changes noted in the dictated addendum note DATE OF SERVICE: 09/11/2016. ADMISSION/DISCHARGE NOTE IDENTIFYING DATA: The patient is a 71-year-old male referred to us from [facility] by Dr. Domínguez for worsening psychotic symptoms, agitation, confusion, failure of outpatient psychiatric interventions in the past, history of schizoaffective disorder. The patient went to the emergency room at [facility], was seen by Dr. Guerra. Then admitted on the geriatric psychiatry unit, but he was found to be medically unstable to be on our unit and Dr. Moncada transferred him to the medical surgical floor for treatment of his urosepsis and dehydration. I did not see the patient as he was on our unit on 09/10/2016 for just about one hour and this note essentially covers for the admission/discharge notes. FINAL DIAGNOSES: Psychotic disorder unspecified; urosepsis; cognitive disorder , unspecified; elevated CK; altered mental status. PLAN: The patient is transferred to [facility] and once he is medically stable we will reassess whether he needs to be back on our unit for psychiatric stabilization. Assessment: Vital Signs: Vital Signs Date Time Temp Pulse Resp B/P (MAP) Pulse Ox O2 Delivery O2 Flow Rate FiO2 09/10/16 22:58 83 16 149/86 (107) 90 09/10/16 17:43 97.3 Room Air Current Medications: Meds: Current Medications Olanzapine (ZyPREXA ZYDIS) 5 mg 1X ONCE PO ; Start 09/10/16 at 18:45; Stop at 20:28; Status DC Haloperidol Lactate (Haldol) 5 mg 1X ONCE IM Last administered on 09/10/16 19: 08; Start 09/10/16 at 19:00; Stop 09/10/16 at 20:28; Status DC Lorazepam (Ativan) 1 mg 1X ONCE IM Last administered on 09/10/16 21:25; Start 09/10/16 at 21:30; Stop 09/10/16 at 21:31; Status DC Acetaminophen (Tylenol) 650 mg PRN Q6HRS PRN PO PAIN / TEMP; Start 09/10/16 at 23:45; Stop 09/11/16 at 01:20; Status DC Multi-Ingredient Ointment (Analgesic [place]) 1 francia PRN QID PRN TP MUSCLE PAIN; Start 09/10/16 at 23:45; Stop 09/11/16 at 01:20; Status DC Al Hydroxide/Mg Hydroxide (Mylanta Plus Xs) 15 ml PRN AFTMEALHC PRN PO DYSPEPSIA; Start 09/10/16 at 23:45; Stop 09/11/16 at 01:20; Status DC Magnesium Hydroxide (Milk Of Magnesia) 2,400 mg PRN QHS PRN PO CONSTIPATION; Start 09/10/16 at 23:45; Stop 09/11/16 at 01:20; Status DC Olanzapine (ZyPREXA ZYDIS) 5 mg HS PO ; Start 09/11/16 at 21:00; Stop 09/11/16 at 21:00; Status DC Acetaminophen (Tylenol) 650 mg PRN Q4HRS PRN PO PAIN / TEMP; Start 09/11/16 at 00:00; Stop 09/11/16 at 01:20; Status DC Aspirin (Children'S Aspirin) 81 mg DAILY PO ; Start 09/11/16 at 09:00; Stop at 09:00; Status DC Cetirizine HCl (ZyrTEC) 10 mg DAILY PO ; Start 09/11/16 at 09:00; Stop 09/11/16 at 09:00; Status DC Vitamin D (Vitamin D3) 2,000 unit DAILY PO ; Start 09/11/16 at 09:00; Stop at 09:00; Status DC Clopidogrel Bisulfate (Plavix) 75 mg DAILY PO ; Start 09/11/16 at 09:00; Stop 09/11/16 at 09:00; Status DC Cyanocobalamin (Vitamin B-12) 1,000 mcg QMONTH SQ ; Start 10/10/16 at 09:00; Stop 10/10/16 at 09:00; Status DC Folic Acid (Folic Acid) 1 mg DAILY PO ; Start 09/11/16 at 09:00; Stop 09/11/16 at 09:00; Status DC Furosemide (Lasix) 20 mg DAILY PO ; Start 09/11/16 at 09:00; Stop 09/11/16 at 09: 00; Status DC Furosemide (Lasix) 40 mg DAILY PO ; Start 09/11/16 at 09:00; Stop 09/11/16 at 09: 00; Status DC Gabapentin (Neurontin) 300 mg TID PO ; Start 09/11/16 at 09:00; Stop 09/11/16 at 09:00; Status DC Metoprolol Tartrate (Lopressor) 12.5 mg BID PO ; Start 09/11/16 at 09:00; Stop at 09:00; Status DC Multi-Ingred Cream/Lotion/Oil/ Oint (Hydrocerin) 1 francia PRN BID PRN TP Dry Skin ; Start 09/11/16 at 00:00; Stop 09/11/16 at 01:20; Status DC Nitroglycerin (Nitrostat) 0.4 mg PRN Q5MIN PRN SL CHEST PAIN; Start 09/11/16 at 00:00; Stop 09/11/16 at 01:20; Status DC Pantoprazole Sodium (Protonix) 40 mg BIDBFRMEAL PO ; Start 09/11/16 at 07:30; Stop 09/11/16 at 07:30; Status DC Simethicone (Gas-X) 120 mg BID PO ; Start 09/11/16 at 09:00; Stop 09/11/16 at 09: 00; Status DC Tamsulosin HCl (Flomax) 0.4 mg BID PO ; Start 09/11/16 at 09:00; Stop 09/11/16 at 09:00; Status DC Non-Formulary Medication 30 mg HS PO ; Start 09/11/16 at 21:00; Stop 09/11/16 at 21:00; Status DC Phenyleph/Shark Oil/Min Oil/Petrol (Preparation H) 1 francia PRN BID PRN RC Hemmoroids; Start 09/11/16 at 00:00; Stop 09/11/16 at 01:20; Status DC Sodium Chloride 1,000 ml @ As Directed STK-MED ONCE .ROUTE ; Start 09/11/16 at 01:27; Stop 09/11/16 at 15:06; Status DC Dextrose/Sodium Chloride 1,000 ml @ 100 mls/hr Q10H IV ; Start 09/11/16 at 15:30 Active Scripts Active Reported Risperidone 0.5 Mg Tablet 1 Tab PO HS Furosemide 40 Mg Tablet 40 Mg PO SAT,,,SAT Tylenol (Acetaminophen) 325 Mg Tablet 650 Mg PO PRN Q4HRS PRN Nitrostat (Nitroglycerin) 0.4 Mg Tab.subl 0.4 Mg SL PRN Q5MIN PRN Eucerin Creme (Mineral Oil/Petrolatum,White) 120 Gm Cream..g. 1 Francia TP PRN PRN Gabapentin 300 Mg Capsule 300 Mg PO TID Vitamin D3 (Cholecalciferol (Vitamin D3)) 1,000 Unit Tablet 2,000 Unit PO DAILY Flomax (Tamsulosin Hcl) 0.4 Mg Cap.er.24h 0.4 Mg PO BID Simethicone 80 Mg Tab.chew 120 Mg PO BID Protonix (Pantoprazole Sodium) 40 Mg Tablet.dr 40 Mg PO BID Cyanocobalamin Injection (Cyanocobalamin (Vitamin B-12)) 1,000 Mcg/1 Ml Vial 1, 000 Mcg SQ QMONTH Once monthly on the Furosemide 20 Mg Tablet 20 Mg PO DAILY Daily on Saturday, Saturday, & Saturday Folic Acid 1 Mg Tablet 1 Tab PO DAILY Plavix (Clopidogrel Bisulfate) 75 Mg Tablet 75 Mg PO DAILY Cetirizine Hcl 10 Mg Tablet 10 Mg PO DAILY Aspirin 81 Mg Tab.chew 81 Mg PO DAILY Metoprolol Tartrate 25 Mg Tablet 12.5 Mg PO BID Isosorbide Dinitrate 30 Mg Tablet 30 Mg PO HS CHELY LAMB MD Sep 13, 2016 21:30
[2016-10-10] MEDS ORDERED: CYANOCOBALAMIN (VITAMIN B-12) 1,000 MCG/ML VIAL SQ SCH (09:00)
== END 2016-09-11 01:15 | disposition short-term general hospital (02) | DRG 885 ==
LOC: ER 17:21 → GEROPSY 23:06
PROVIDERS: ADMIT Psychiatry & Neurology Psychiatry; ATTEND Psychiatry & Neurology Psychiatry
DX: F20.0 Paranoid schizophrenia (principal); M62.82 Rhabdomyolysis; N17.9 Acute kidney failure, unspecified; I25.10 Atherosclerotic heart disease of native coronary artery without angina pectoris; I50.9 Heart failure, unspecified; F03.90 Unspecified dementia, unspecified severity, without behavioral disturbance, psychotic disturbance, mood disturbance, and anxiety; E86.0 Dehydration; E78.5 Hyperlipidemia, unspecified; J44.9 Chronic obstructive pulmonary disease, unspecified; K21.9 Gastro-esophageal reflux disease without esophagitis; F32.9 Major depressive disorder, single episode, unspecified; Z86.73 Personal history of transient ischemic attack (TIA), and cerebral infarction without residual deficits; Z88.4 Allergy status to anesthetic agent; Z88.8 Allergy status to other drugs, medicaments and biological substances
CPT/HCPCS: 36415; 80053; 80061; 81001; 82550; 82607; 83036; 83540; 83550; 83735; 84443; 84484; 85027; 96372; J1630; J2060; 99285-25

== ENCOUNTER 2016-09-11 01:15 | Inpatient (IN) | payer MEDICARE, OTHER ==
[~2016-09-11] VITALS: Ht 157.5 cm; Wt 51.8 kg
[~2016-09-11 01:15] MED LIST: ACET325T9 PO; ASPI-630 PO; CETI10TA16 PO; CHOL10003 PO; CLOP75TA57 PO; CYAN10002 SQ; FOLI1TAB16 PO; FURO20TA3 PO; FURO40TA4 PO; GABA-586 PO; ISOS30TA19 PO; METO25TA4 PO; MINE120C TP; NITR0.4T SL; OLAN5TAB5 PO; PANT40TA3 PO; PHEN26CR RC; SIME80TA14 PO; TAMS0.4C97 PO
[2016-09-11] MEDS: IV NORMAL SALINE 1,000ML 1,000 ML IV SCH ×2 (02:00→14:30)
[2016-09-11] MEDS ORDERED: MINERAL OIL/PETROLATUM TOPICAL CREAM 113GM JAR. TP PRN (02:15)
[2016-09-11] MEDS ORDERED: NITROGLYCERIN SUBLINGUAL 0.4 MG BOTTLE OF 25. SL PRN (02:15)
[2016-09-11] MEDS ORDERED: PHENYLEPH/MINERAL OIL/PETROLAT RECTAL OINTMENT 28GM TUBE. RC PRN (02:15)
[2016-09-11] MEDS ORDERED: ACETAMINOPHEN 325 MG TABLET PO PRN (02:15)
[2016-09-11 02:17] VITALS: BP 161/95
[2016-09-11 05:30] VITALS: BP 149/75
[2016-09-11 06:27] LABS: BASO # 0.1 x10^3/uL (0.0-0.2); BASO % 1 % (0-3); EOS % 0 % (0-3); HEMATOCRIT 43.7 % (39.0-53.0); HEMOGLOBIN 14.5 g/dL (13.0-17.5); LYMPH # 0.8 x10^3/uL (1.0-4.8); LYMPH % 12 % (24-48); MEAN CORPUSCULAR HEMOGLOBIN 26 pg (25-35); MEAN CORPUSCULAR HGB CONC 33 g/dL (31-37); MEAN CORPUSCULAR VOLUME 79 fL (79-100); MONO # 0.8 x10^3/uL (0.0-1.1); MONO % 12 % (0-9); NEUT # 5.1 x10^3uL (1.8-7.7); NEUT % 74 % (31-73); PLATELET COUNT 173 x10^3/uL (140-400); RED BLOOD COUNT 5.55 x10^6/uL (4.30-5.70); RED CELL DISTRIBUTION WIDTH 18.9 % (11.5-14.5); WHITE BLOOD COUNT 6.9 x10^3/uL (4.0-11.0)
[2016-09-11 06:46] LABS: ALBUMIN 3.6 g/dL (3.4-5.0); ALBUMIN/GLOBULIN RATIO 0.8 (1.0-1.7); CALCIUM 9.5 mg/dL (8.5-10.1); CREATININE 1.3 mg/dL (0.7-1.3); GFR 54.3; POTASSIUM 4.3 mmol/L (3.5-5.1); TOTAL BILIRUBIN 0.9 mg/dL (0.2-1.0); TOTAL PROTEIN 8.4 g/dL (6.4-8.2)
[2016-09-11] MEDS ORDERED: CYANOCOBALAMIN (VITAMIN B-12) 1,000 MCG/ML VIAL SQ SCH (09:00)
[2016-09-11] MEDS: FOLIC ACID 1 MG TABLET PO SCH (12:14)
[2016-09-11] MEDS: PANTOPRAZOLE 40 MG TABLET. PO SCH ×2 (12:14→16:30)
[2016-09-11] MEDS: TAMSULOSIN 0.4 MG CAP.ER.24H. PO SCH ×2 (12:14→21:48)
[2016-09-11] MEDS: ASPIRIN 81 MG TAB.CHEW PO SCH (12:14)
[2016-09-11] MEDS: SIMETHICONE 80 MG TAB.CHEW PO SCH ×2 (12:15→21:48)
[2016-09-11] MEDS: CETIRIZINE HCL 10 MG TABLET PO SCH (12:16)
[2016-09-11] MEDS: CLOPIDOGREL BISULFATE 75 MG TABLET PO SCH (12:16)
[2016-09-11] MEDS: GABAPENTIN 300 MG CAPSULE. PO SCH ×3 (12:16→21:48)
[2016-09-11] MEDS: METOPROLOL TART IMMED RELEASE 25 MG TABLET PO SCH ×2 (12:16→21:49)
[2016-09-11 13:56] VITALS: BP 164/80
[2016-09-11] MEDS: IV DEXTROSE 5 %-0.2 % NACL 1,000 ML IV SCH (17:49)
[2016-09-11 19:00] VITALS: BP 159/80
--- NOTE | 2016-09-11 20:58 | PDOC ---
Exam Harjeet Demential Exam: Harjeet Note: Please also refer to the separate dictated note~for this date of service dictated separately.~Patient seen individually. Discussed the patient with Nursing staff reviewed the chart.~Reviewed interim history and current functioning. Reviewed vital signs,~Labs/ Radiology~and current medications noted below. Continue current treatment with the changes noted in the dictated addendum note Assessment: Vital Signs: Vital Signs Date Time Temp Pulse Resp B/P (MAP) Pulse Ox O2 Delivery O2 Flow Rate FiO2 09/11/16 13:56 97.5 92 20 164/80 (108) 97 Room Air I&O Intake and Output 09/11/16 07:00 Intake Total 360 ml Output Total 0 ml Balance 360 ml Intake Oral 0 ml IV Total 360 ml Output Urine Total 0 ml Labs: Laboratory Tests Test 09/11/16 01:20 09/11/16 06:05 Nasal Screen MRSA (PCR) Positive (Negative) H White Blood Count 6.9 x10^3/uL (4.0-11.0) Red Blood Count 5.55 x10^6/uL (4.30-5.70) Hemoglobin 14.5 g/dL (13.0-17.5) Hematocrit 43.7 % (39.0-53.0) Mean Corpuscular Volume 79 fL (79-100) Mean Corpuscular Hemoglobin 26 pg (25-35) Mean Corpuscular Hemoglobin Concent 33 g/dL (31-37) Red Cell Distribution Width 18.9 % (11.5-14.5) H Platelet Count 173 x10^3/uL (140-400) Neutrophils (%) (Auto) 74 % (31-73) H Lymphocytes (%) (Auto) 12 % (24-48) L Monocytes (%) (Auto) 12 % (0-9) H Eosinophils (%) (Auto) 0 % (0-3) Basophils (%) (Auto) 1 % (0-3) Neutrophils # (Auto) 5.1 x10^3uL (1.8-7.7) Lymphocytes # (Auto) 0.8 x10^3/uL (1.0-4.8) L Monocytes # (Auto) 0.8 x10^3/uL (0.0-1.1) Eosinophils # (Auto) 0.0 x10^3/uL (0.0-0.7) Basophils # (Auto) 0.1 x10^3/uL (0.0-0.2) Sodium Level 146 mmol/L (136-145) H Potassium Level 4.3 mmol/L (3.5-5.1) Chloride Level 106 mmol/L (98-107) Carbon Dioxide Level 28 mmol/L (21-32) Anion Gap 12 (6-14) Blood Urea Nitrogen 31 mg/dL (8-26) H Creatinine 1.3 mg/dL (0.7-1.3) Estimated GFR (Cockcroft-Gault) 54.3 BUN/Creatinine Ratio 24 (6-20) H Glucose Level 96 mg/dL (70-99) Calcium Level 9.5 mg/dL (8.5-10.1) Total Bilirubin 0.9 mg/dL (0.2-1.0) Aspartate Amino Transferase (AST) 33 U/L (15-37) Alanine Aminotransferase (ALT) 20 U/L (16-63) Alkaline Phosphatase 88 U/L (46-116) Creatine Kinase 440 U/L (39-308) H Total Protein 8.4 g/dL (6.4-8.2) H Albumin 3.6 g/dL (3.4-5.0) Albumin/Globulin Ratio 0.8 (1.0-1.7) L Current Medications: Meds: Current Medications Sodium Chloride 1,000 ml @ 75 mls/hr [id number] IV Last administered on 09/11/16 14:30; Start 09/11/16 at 02:00; Stop 09/11/16 at 17:01; Status DC Acetaminophen (Tylenol) 650 mg PRN Q4HRS PRN PO PAIN / TEMP; Start 09/11/16 at 02:15 Aspirin (Children'S Aspirin) 81 mg DAILY PO Last administered on 09/11/16 12:14 ; Start 09/11/16 at 09:00 Cetirizine HCl (ZyrTEC) 10 mg DAILY PO Last administered on 09/11/16 12:16; Start 09/11/16 at 09:00 Clopidogrel Bisulfate (Plavix) 75 mg DAILY PO Last administered on 09/11/16 12: 16; Start 09/11/16 at 09:00 Cyanocobalamin (Vitamin B-12) 1,000 mcg QMONTH SQ Last administered on 17:53; Start 09/11/16 at 09:00 Folic Acid (Folic Acid) 1 mg DAILY PO Last administered on 09/11/16 12:14; Start 09/11/16 at 09:00 Gabapentin (Neurontin) 300 mg TID PO Last administered on 09/11/16 14:45; Start 09/11/16 at 09:00 Metoprolol Tartrate (Lopressor) 12.5 mg BID PO Last administered on 09/11/16 12 :16; Start 09/11/16 at 09:00 Multi-Ingred Cream/Lotion/Oil/ Oint (Hydrocerin) 1 francia PRN BID PRN TP Dry Skin ; Start 09/11/16 at 02:15 Nitroglycerin (Nitrostat) 0.4 mg PRN Q5MIN PRN SL CHEST PAIN; Start 09/11/16 at 02:15 Olanzapine (ZyPREXA ZYDIS) 5 mg HS PO ; Start 09/11/16 at 21:00 Pantoprazole Sodium (Protonix) 40 mg BIDBFRMEAL PO Last administered on 12:14; Start 09/11/16 at 07:30; Stop 09/11/16 at 17:25; Status DC Simethicone (Gas-X) 120 mg BID PO Last administered on 09/11/16 12:15; Start at 09:00 Tamsulosin HCl (Flomax) 0.4 mg BID PO Last administered on 09/11/16 12:14; Start 09/11/16 at 09:00 Isosorbide Mononitrate (Imdur) 30 mg QHS PO ; Start 09/11/16 at 21:00 Phenyleph/Shark Oil/Min Oil/Petrol (Preparation H) 1 francia PRN BID PRN RC Hemmoroids; Start 09/11/16 at 02:15 Dextrose/Sodium Chloride 1,000 ml @ 100 mls/hr Q10H IV Last administered on 17:49; Start 09/11/16 at 17:00 Pantoprazole Sodium (Protonix Vial) 40 mg DAILYAC IVP ; Start 09/12/16 at 07:30 Active Scripts Active Reported Preparation H Cream (Phenyleph/Pramoxin/Glycr/W.pet) 26 Gm Cream..g. 1 Francia RC PRN BID PRN Tylenol (Acetaminophen) 325 Mg Tablet 650 Mg PO PRN Q4HRS PRN Nitrostat (Nitroglycerin) 0.4 Mg Tab.subl 0.4 Mg SL PRN Q5MIN PRN Eucerin Creme (Mineral Oil/Petrolatum,White) 120 Gm Cream..g. 1 Francia TP PRN PRN Gabapentin 300 Mg Capsule 300 Mg PO TID Vitamin D3 (Cholecalciferol (Vitamin D3)) 1,000 Unit Tablet 2,000 Unit PO DAILY Flomax (Tamsulosin Hcl) 0.4 Mg Cap.er.24h 0.4 Mg PO BID Simethicone 80 Mg Tab.chew 120 Mg PO BID Protonix (Pantoprazole Sodium) 40 Mg Tablet.dr 40 Mg PO BID Cyanocobalamin Injection (Cyanocobalamin (Vitamin B-12)) 1,000 Mcg/1 Ml Vial 1, 000 Mcg SQ QMONTH Once monthly on the Furosemide 20 Mg Tablet 20 Mg PO DAILY Daily on Saturday, Saturday, & Saturday Folic Acid 1 Mg Tablet 1 Tab PO DAILY Plavix (Clopidogrel Bisulfate) 75 Mg Tablet 75 Mg PO DAILY Cetirizine Hcl 10 Mg Tablet 10 Mg PO DAILY Aspirin 81 Mg Tab.chew 81 Mg PO DAILY Zyprexa Zydis (Olanzapine) 5 Mg Tab.rapdis 5 Mg PO HS Furosemide 40 Mg Tablet 40 Mg PO DAILY Daily on Saturday, Saturday, , & Saturday only Metoprolol Tartrate 25 Mg Tablet 12.5 Mg PO BID Isosorbide Dinitrate 30 Mg Tablet 30 Mg PO HS Diagnosis: Problems: (1) Schizophrenia, disorganized, subchronic with acute exacerbation (2) Schizoaffective disorder (3) Major depressive disorder CHELY LAMB MD Sep 11, 2016 20:58
[2016-09-11] MEDS ORDERED: ISOSORBIDE MONONITRATE ER 30 MG TAB.ER.24H PO SCH (21:00)
[2016-09-12 00:54] VITALS: BP 115/64
[2016-09-12] MEDS: IV DEXTROSE 5 %-0.2 % NACL 1,000 ML IV SCH ×2 (03:22→13:36)
[2016-09-12 06:30] LABS: BASO # 0.1 x10^3/uL (0.0-0.2); BASO % 1 % (0-3); EOS # 0.1 x10^3/uL (0.0-0.7); EOS % 1 % (0-3); HEMATOCRIT 40.1 % (39.0-53.0); HEMOGLOBIN 12.4 g/dL (13.0-17.5); LYMPH # 1.3 x10^3/uL (1.0-4.8); LYMPH % 19 % (24-48); MEAN CORPUSCULAR HEMOGLOBIN 26 pg (25-35); MEAN CORPUSCULAR HGB CONC 31 g/dL (31-37); MEAN CORPUSCULAR VOLUME 84 fL (79-100); MONO # 0.8 x10^3/uL (0.0-1.1); MONO % 11 % (0-9); NEUT # 4.4 x10^3uL (1.8-7.7); NEUT % 67 % (31-73); PLATELET COUNT 134 x10^3/uL (140-400); RED BLOOD COUNT 4.76 x10^6/uL (4.30-5.70); RED CELL DISTRIBUTION WIDTH 19.2 % (11.5-14.5); WHITE BLOOD COUNT 6.6 x10^3/uL (4.0-11.0)
[2016-09-12 06:31] VITALS: BP 93/57
[2016-09-12] MEDS ORDERED: PANTOPRAZOLE IV PUSH 40 MG VIAL. IVP SCH (07:30)
[2016-09-12 07:36] LABS: CALCIUM 8.3 mg/dL (8.5-10.1); CREATININE 1.3 mg/dL (0.7-1.3); GFR 54.3
[2016-09-12] MEDS: METOPROLOL TART IMMED RELEASE 25 MG TABLET PO SCH (09:00)
[2016-09-12] MEDS: TAMSULOSIN 0.4 MG CAP.ER.24H. PO SCH (09:26)
[2016-09-12] MEDS: CLOPIDOGREL BISULFATE 75 MG TABLET PO SCH (09:27)
[2016-09-12] MEDS: FOLIC ACID 1 MG TABLET PO SCH (09:27)
[2016-09-12] MEDS: GABAPENTIN 300 MG CAPSULE. PO SCH ×2 (09:27→13:36)
[2016-09-12] MEDS: ASPIRIN 81 MG TAB.CHEW PO SCH (09:28)
[2016-09-12] MEDS: SIMETHICONE 80 MG TAB.CHEW PO SCH (09:28)
[2016-09-12] MEDS: CETIRIZINE HCL 10 MG TABLET PO SCH (09:28)
[2016-09-12 13:21] VITALS: BP 121/68
--- NOTE | 2016-09-12 15:19 | DISCH ---
DISCHARGE INSTRUCTIONS-DC Condition on Discharge Condition on Discharge: Stable Problems: Activity after Discharge Activity Instructions for Disc: No restrictions Diet after Discharge Diet after Discharge: Regular RALPH MORROW MD Sep 12, 2016 15:19
--- NOTE | 2016-09-12 15:24 | PDOC3 ---
Discharge Summary Visit Information Date of Admission: Sep 11, 2016 Date of Discharge: Sep 12, 2016 Problems: (1) Renal insufficiency (2) Elevated creatine kinase (3) Major depressive disorder (4) Schizophrenia, disorganized, subchronic with acute exacerbation (5) Dehydration Brief Hospital Course Allergies Allergies Coded Allergies Type Severity Reaction Last Updated Verified Aminoglycosides Allergy Intermediate 09/11/16 Yes benzalkonium Allergy Intermediate 09/11/16 Yes pramoxine Allergy Intermediate 09/11/16 Yes I S O L A T I O N *CONTACT* Allergy Unknown 09/12/16 Yes Vital Signs Vital Signs Date Time Temp Pulse Resp B/P (MAP) Pulse Ox O2 Delivery O2 Flow Rate FiO2 09/12/16 13:21 98.0 89 16 121/68 (85) 98 Room Air Lab Results Laboratory Tests Test 09/11/16 01:20 09/11/16 06:05 09/12/16 06:15 Nasal Screen MRSA (PCR) Positive (Negative) White Blood Count 6.9 x10^3/uL (4.0-11.0) 6.6 x10^3/uL (4.0-11.0) Red Blood Count 5.55 x10^6/uL (4.30-5.70) 4.76 x10^6/uL (4.30-5.70) Hemoglobin 14.5 g/dL (13.0-17.5) 12.4 g/dL (13.0-17.5) Hematocrit 43.7 % (39.0-53.0) 40.1 % (39.0-53.0) Mean Corpuscular Volume 79 fL (79-100) 84 fL (79-100) Mean Corpuscular Hemoglobin 26 pg (25-35) 26 pg (25-35) Mean Corpuscular Hemoglobin Concent 33 g/dL (31-37) 31 g/dL (31-37) Red Cell Distribution Width 18.9 % (11.5-14.5) 19.2 % (11.5-14.5) Platelet Count 173 x10^3/uL (140-400) 134 x10^3/uL (140-400) Neutrophils (%) (Auto) 74 % (31-73) 67 % (31-73) Lymphocytes (%) (Auto) 12 % (24-48) 19 % (24-48) Monocytes (%) (Auto) 12 % (0-9) 11 % (0-9) Eosinophils (%) (Auto) 0 % (0-3) 1 % (0-3) Basophils (%) (Auto) 1 % (0-3) 1 % (0-3) Neutrophils # (Auto) 5.1 x10^3uL (1.8-7.7) 4.4 x10^3uL (1.8-7.7) Lymphocytes # (Auto) 0.8 x10^3/uL (1.0-4.8) 1.3 x10^3/uL (1.0-4.8) Monocytes # (Auto) 0.8 x10^3/uL (0.0-1.1) 0.8 x10^3/uL (0.0-1.1) Eosinophils # (Auto) 0.0 x10^3/uL (0.0-0.7) 0.1 x10^3/uL (0.0-0.7) Basophils # (Auto) 0.1 x10^3/uL (0.0-0.2) 0.1 x10^3/uL (0.0-0.2) Sodium Level 146 mmol/L (136-145) 138 mmol/L (136-145) Potassium Level 4.3 mmol/L (3.5-5.1) 3.0 mmol/L (3.5-5.1) Chloride Level 106 mmol/L (98-107) 103 mmol/L (98-107) Carbon Dioxide Level 28 mmol/L (21-32) 28 mmol/L (21-32) Anion Gap 12 (6-14) 7 (6-14) Blood Urea Nitrogen 31 mg/dL (8-26) 20 mg/dL (8-26) Creatinine 1.3 mg/dL (0.7-1.3) 1.3 mg/dL (0.7-1.3) Estimated GFR (Cockcroft-Gault) 54.3 54.3 BUN/Creatinine Ratio 24 (6-20) Glucose Level 96 mg/dL (70-99) 131 mg/dL (70-99) Calcium Level 9.5 mg/dL (8.5-10.1) 8.3 mg/dL (8.5-10.1) Total Bilirubin 0.9 mg/dL (0.2-1.0) Aspartate Amino Transf (AST/SGOT) 33 U/L (15-37) Alanine Aminotransferase (ALT/SGPT) 20 U/L (16-63) Alkaline Phosphatase 88 U/L (46-116) Creatine Kinase 440 U/L (39-308) 254 U/L (39-308) Total Protein 8.4 g/dL (6.4-8.2) Albumin 3.6 g/dL (3.4-5.0) Albumin/Globulin Ratio 0.8 (1.0-1.7) Brief Hospital Course Mr. Marrero is a 71 old male who presented with was [facility] on account of severe dehydration and elevated BUN/creatinine as well as was hypernatremia He was started on IV fluid form of D5 quarter saline his kidney function and sodium had normalized We transferred back to [facility] behavioral unit inpatient psychiatric treatment. Discharge Information Dischare Medications Current Medications Sodium Chloride 1,000 ml @ 75 mls/hr [id number] IV Last administered on 09/11/16 14:30; Start 09/11/16 at 02:00; Stop 09/11/16 at 17:01; Status DC Acetaminophen (Tylenol) 650 mg PRN Q4HRS PRN PO PAIN / TEMP; Start 09/11/16 at 02:15 Aspirin (Children'S Aspirin) 81 mg DAILY PO Last administered on 09/12/16 09:28 ; Start 09/11/16 at 09:00 Cetirizine HCl (ZyrTEC) 10 mg DAILY PO Last administered on 09/12/16 09:28; Start 09/11/16 at 09:00 Clopidogrel Bisulfate (Plavix) 75 mg DAILY PO Last administered on 09/12/16 09: 27; Start 09/11/16 at 09:00 Cyanocobalamin (Vitamin B-12) 1,000 mcg QMONTH SQ Last administered on 17:53; Start 09/11/16 at 09:00 Folic Acid (Folic Acid) 1 mg DAILY PO Last administered on 09/12/16 09:27; Start 09/11/16 at 09:00 Gabapentin (Neurontin) 300 mg TID PO Last administered on 09/12/16 13:36; Start 09/11/16 at 09:00 Metoprolol Tartrate (Lopressor) 12.5 mg BID PO Last administered on 09/11/16 21 :49; Start 09/11/16 at 09:00 Multi-Ingred Cream/Lotion/Oil/ Oint (Hydrocerin) 1 francia PRN BID PRN TP Dry Skin ; Start 09/11/16 at 02:15 Nitroglycerin (Nitrostat) 0.4 mg PRN Q5MIN PRN SL CHEST PAIN; Start 09/11/16 at 02:15 Olanzapine (ZyPREXA ZYDIS) 5 mg HS PO Last administered on 09/11/16 21:48; Start 09/11/16 at 21:00 Pantoprazole Sodium (Protonix) 40 mg BIDBFRMEAL PO Last administered on 12:14; Start 09/11/16 at 07:30; Stop 09/11/16 at 17:25; Status DC Simethicone (Gas-X) 120 mg BID PO Last administered on 09/12/16 09:28; Start at 09:00 Tamsulosin HCl (Flomax) 0.4 mg BID PO Last administered on 09/12/16 09:26; Start 09/11/16 at 09:00 Isosorbide Mononitrate (Imdur) 30 mg QHS PO Last administered on 09/11/16 21:48 ; Start 09/11/16 at 21:00 Phenyleph/Shark Oil/Min Oil/Petrol (Preparation H) 1 francia PRN BID PRN RC Hemmoroids; Start 09/11/16 at 02:15 Dextrose/Sodium Chloride 1,000 ml @ 100 mls/hr Q10H IV Last administered on 13:36; Start 09/11/16 at 17:00 Pantoprazole Sodium (Protonix Vial) 40 mg DAILYAC IVP Last administered on 09:46; Start 09/12/16 at 07:30 Potassium Chloride (Klor-Con) 40 meq 1X ONCE PO ; Start 09/12/16 at 15:30; Stop 09/12/16 at 15:31 Active Scripts Active Reported Preparation H Cream (Phenyleph/Pramoxin/Glycr/W.pet) 26 Gm Cream..g. 1 Francia RC PRN BID PRN Tylenol (Acetaminophen) 325 Mg Tablet 650 Mg PO PRN Q4HRS PRN Nitrostat (Nitroglycerin) 0.4 Mg Tab.subl 0.4 Mg SL PRN Q5MIN PRN Eucerin Creme (Mineral Oil/Petrolatum,White) 120 Gm Cream..g. 1 Francia TP PRN PRN Gabapentin 300 Mg Capsule 300 Mg PO TID Vitamin D3 (Cholecalciferol (Vitamin D3)) 1,000 Unit Tablet 2,000 Unit PO DAILY Flomax (Tamsulosin Hcl) 0.4 Mg Cap.er.24h 0.4 Mg PO BID Simethicone 80 Mg Tab.chew 120 Mg PO BID Protonix (Pantoprazole Sodium) 40 Mg Tablet.dr 40 Mg PO BID Cyanocobalamin Injection (Cyanocobalamin (Vitamin B-12)) 1,000 Mcg/1 Ml Vial 1, 000 Mcg SQ QMONTH Once monthly on the Furosemide 20 Mg Tablet 20 Mg PO DAILY Daily on Saturday, Saturday, & Saturday Folic Acid 1 Mg Tablet 1 Tab PO DAILY Plavix (Clopidogrel Bisulfate) 75 Mg Tablet 75 Mg PO DAILY Cetirizine Hcl 10 Mg Tablet 10 Mg PO DAILY Aspirin 81 Mg Tab.chew 81 Mg PO DAILY Zyprexa Zydis (Olanzapine) 5 Mg Tab.rapdis 5 Mg PO HS Metoprolol Tartrate 25 Mg Tablet 12.5 Mg PO BID Isosorbide Dinitrate 30 Mg Tablet 30 Mg PO HS RALPH MORROW MD Sep 12, 2016 15:24
[2016-09-12] MEDS ORDERED: POTASSIUM CHLORIDE 20 MEQ TABLET.ER. PO ONE (15:30)
[2016-09-12 16:16] VITALS: BP 120/67
[2016-09-12] MEDS ORDERED: FURO40TA4 PO (20:42)
[2016-09-13] MEDS ORDERED: RISP0.5T3 PO (14:00)
== END 2016-09-12 19:00 | DRG 641 ==
LOC: 1 SOUTH 01:15 → UNDOADMIN 01:26 → 1 SOUTH 01:26
PROVIDERS: ADMIT Internal Medicine; ATTEND Internal Medicine
DX: E86.0 Dehydration (principal); F20.1 Disorganized schizophrenia; E87.0 Hyperosmolality and hypernatremia; N28.9 Disorder of kidney and ureter, unspecified; F32.9 Major depressive disorder, single episode, unspecified; Z79.02 Long term (current) use of antithrombotics/antiplatelets; Z79.82 Long term (current) use of aspirin; Z79.899 Other long term (current) drug therapy; Z88.8 Allergy status to other drugs, medicaments and biological substances
CPT/HCPCS: 36415; 80048; 80053; 82550; 85027; 87641; C9113; J3420; J7030

== ENCOUNTER 2016-09-12 18:44 | Inpatient (IN) | payer MEDICARE, OTHER ==
[~2016-09-12] VITALS: Ht 157.5 cm; Wt 51.7 kg
[2016-09-12 19:00] VITALS: BP 124/57
--- NOTE | 2016-09-12 19:49 | PDOC ---
Exam Harjeet Demential Exam: Harjeet Note: Please also refer to the separate dictated note~for this date of service dictated separately.~Patient seen individually. Discussed the patient with Nursing staff reviewed the chart.~Reviewed interim history and current functioning. Reviewed vital signs,~Labs/ Radiology~and current medications noted below. Continue current treatment with the changes noted in the dictated addendum note Current Medications: Meds: Active Scripts Active Reported Preparation H Cream (Phenyleph/Pramoxin/Glycr/W.pet) 26 Gm Cream..g. 1 Francia RC PRN BID PRN Tylenol (Acetaminophen) 325 Mg Tablet 650 Mg PO PRN Q4HRS PRN Nitrostat (Nitroglycerin) 0.4 Mg Tab.subl 0.4 Mg SL PRN Q5MIN PRN Eucerin Creme (Mineral Oil/Petrolatum,White) 120 Gm Cream..g. 1 Francia TP PRN PRN Gabapentin 300 Mg Capsule 300 Mg PO TID Vitamin D3 (Cholecalciferol (Vitamin D3)) 1,000 Unit Tablet 2,000 Unit PO DAILY Flomax (Tamsulosin Hcl) 0.4 Mg Cap.er.24h 0.4 Mg PO BID Simethicone 80 Mg Tab.chew 120 Mg PO BID Protonix (Pantoprazole Sodium) 40 Mg Tablet.dr 40 Mg PO BID Cyanocobalamin Injection (Cyanocobalamin (Vitamin B-12)) 1,000 Mcg/1 Ml Vial 1, 000 Mcg SQ QMONTH Once monthly on the Furosemide 20 Mg Tablet 20 Mg PO DAILY Daily on Saturday, Saturday, & Saturday Folic Acid 1 Mg Tablet 1 Tab PO DAILY Plavix (Clopidogrel Bisulfate) 75 Mg Tablet 75 Mg PO DAILY Cetirizine Hcl 10 Mg Tablet 10 Mg PO DAILY Aspirin 81 Mg Tab.chew 81 Mg PO DAILY Zyprexa Zydis (Olanzapine) 5 Mg Tab.rapdis 5 Mg PO HS Metoprolol Tartrate 25 Mg Tablet 12.5 Mg PO BID Isosorbide Dinitrate 30 Mg Tablet 30 Mg PO HS Diagnosis: Problems: (1) Major depressive disorder (2) Schizoaffective disorder (3) Schizophrenia, disorganized, subchronic with acute exacerbation CHELY LAMB MD Sep 12, 2016 19:49
[2016-09-12] MEDS ORDERED: FURO40TA4 PO (20:42)
[2016-09-12] MEDS ORDERED: MINERAL OIL/PETROLATUM TOPICAL CREAM 113GM JAR. TP PRN (20:45)
[2016-09-12] MEDS ORDERED: [UNRECOGNIZED DRUG - OTHER] RC PRN (20:45)
[2016-09-12] MEDS ORDERED: ACETAMINOPHEN 325 MG TABLET PO PRN ×2 (20:45→21:00)
[2016-09-12] MEDS ORDERED: NITROGLYCERIN SUBLINGUAL 0.4 MG BOTTLE OF 25. SL PRN (20:45)
[2016-09-12] MEDS ORDERED: MAG HYDROX/AL HYDROX/SIMETH 30 ML ORAL.SUSP PO PRN (21:00)
[2016-09-12] MEDS ORDERED: METHYL SALICYLATE/MENTHOL TOPICAL OINTMENT 29GM TUBE. TP PRN (21:00)
[2016-09-12] MEDS ORDERED: MAGNESIUM HYDROXIDE 2,400 MG/30 ML ORAL.SUSP. PO PRN (21:00)
[2016-09-12] MEDS: METOPROLOL TART IMMED RELEASE 25 MG TABLET PO SCH (21:30)
[2016-09-12] MEDS: ISOSORBIDE MONONITRATE ER 30 MG TAB.ER.24H PO SCH ×2 (21:30→22:19)
[2016-09-12] MEDS: PANTOPRAZOLE 40 MG TABLET. PO SCH (21:30)
[2016-09-12 21:37] LABS: BASO % 0 % (0-3); EOS % 0 % (0-3); HEMATOCRIT 38.4 % (39.0-53.0); HEMOGLOBIN 12.6 g/dL (13.0-17.5); LYMPH # 0.6 x10^3/uL (1.0-4.8); LYMPH % 6 % (24-48); MEAN CORPUSCULAR HEMOGLOBIN 26 pg (25-35); MEAN CORPUSCULAR HGB CONC 33 g/dL (31-37); MEAN CORPUSCULAR VOLUME 80 fL (79-100); MONO # 0.6 x10^3/uL (0.0-1.1); MONO % 6 % (0-9); NEUT # 8.7 x10^3uL (1.8-7.7); NEUT % 87 % (31-73); PLATELET COUNT 192 x10^3/uL (140-400); RED BLOOD COUNT 4.82 x10^6/uL (4.30-5.70); RED CELL DISTRIBUTION WIDTH 19.6 % (11.5-14.5)
[2016-09-12 21:52] LABS: ALBUMIN/GLOBULIN RATIO 0.7 (1.0-1.7); CALCIUM 8.3 mg/dL (8.5-10.1); CREATININE 1.2 mg/dL (0.7-1.3); GFR 59.5; MAGNESIUM 1.8 mg/dL (1.8-2.4); POTASSIUM 4.2 mmol/L (3.5-5.1); TOTAL BILIRUBIN 0.9 mg/dL (0.2-1.0); TOTAL PROTEIN 7.2 g/dL (6.4-8.2)
[2016-09-12] MEDS: SIMETHICONE 80 MG TAB.CHEW PO SCH (22:19)
[2016-09-12] MEDS: TAMSULOSIN 0.4 MG CAP.ER.24H. PO SCH (22:19)
[2016-09-12] MEDS: GABAPENTIN 300 MG CAPSULE. PO SCH (22:19)
[2016-09-12] MEDS ORDERED: risperiDONE 0.5 MG TABLET. PO SCH (22:30)
[2016-09-13 06:06] VITALS: BP 150/65
--- NOTE | 2016-09-13 06:21 | EKG ---
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
[2016-09-13] MEDS: METOPROLOL TART IMMED RELEASE 25 MG TABLET PO SCH ×2 (09:00→09:22)
[2016-09-13] MEDS: FUROSEMIDE 40 MG TABLET PO SCH ×2 (09:00→09:28)
[2016-09-13] MEDS: PANTOPRAZOLE 40 MG TABLET. PO SCH ×2 (09:00→09:20)
[2016-09-13] MEDS: TAMSULOSIN 0.4 MG CAP.ER.24H. PO SCH ×2 (09:00→09:20)
[2016-09-13] MEDS: SIMETHICONE 80 MG TAB.CHEW PO SCH ×2 (09:00→09:30)
[2016-09-13] MEDS: CETIRIZINE HCL 10 MG TABLET PO SCH ×2 (09:00→09:27)
[2016-09-13] MEDS: ASPIRIN 81 MG TAB.CHEW PO SCH ×2 (09:00→09:27)
[2016-09-13] MEDS: FOLIC ACID 1 MG TABLET PO SCH ×2 (09:00→09:28)
[2016-09-13] MEDS: GABAPENTIN 300 MG CAPSULE. PO SCH ×3 (09:00→14:00)
[2016-09-13] MEDS: CLOPIDOGREL BISULFATE 75 MG TABLET PO SCH ×2 (09:00→09:27)
[2016-09-13] MEDS: CHOLECALCIFEROL (VITAMIN D3) 1,000 UNIT TABLET PO SCH ×2 (09:00→09:27)
[2016-09-13 12:29] LABS: BILIRUBIN,URINE NEG (NEG); CLARITY,URINE HAZY; COLOR,URINE AMBER; GLUCOSE,URINE NEG (NEG); NITRITE,URINE NEG (NEG); UROBILINOGEN,URINE 1 mg/dL (0.2 mg/dL)
[2016-09-13 12:30] LABS: BACTERIA,URINE MOD /HPF (0-FEW); SQUAMOUS EPITHELIAL CELL,UR FEW /LPF
[2016-09-13] MEDS ORDERED: RISP0.5T3 PO (14:00)
[2016-09-13 15:48] LABS: THYROID STIM HORMONE (TSH) 0.861 uIU/mL (0.358-3.740)
[2016-09-13 19:13] LABS: T3 TOTAL 67 ng/dL (71-180); THYROXINE 9.1 ug/dL (4.5-12.0)
--- NOTE | 2016-09-13 21:34 | PDOC ---
Exam Harjeet Demential Exam: Harjeet Note: Please also refer to the separate dictated note~for this date of service dictated separately.~Patient seen individually. Discussed the patient with Nursing staff reviewed the chart.~Reviewed interim history and current functioning. Reviewed vital signs,~Labs/ Radiology~and current medications noted below. Continue current treatment with the changes noted in the dictated addendum note DATE OF SERVICE: 09/11/2016 PSYCHIATRIC EVALUATION The patient seen individually evening of September 11, 2016, for this assessment, discussed with nursing staff, reviewed the chart. Also discussed with nursing staff on the [facility] Unit. IDENTIFYING DATA: The patient is a 71-year-old male initially referred to us from [facility] for psychiatric stabilization on account of worsening psychosis, confusion, refusing medications, being combative, making statements I do not have a throat and therefore I cannot eat and I am not real. The patient states he was going to get electrocuted, refusing to eat. I do no have whiskers on my face, I have fur. He had failed outpatient psychiatric interventions with Dr. Clark. He is briefly admitted to [facility], felt to be medically unstable, transferred to [facility] for treatment of urosepsis, and I have been asked to consult to follow him from a physiatric standpoint. CHIEF COMPLAINT: I came here today. I do not have a throat. Things are not real. I am burning in my skin. There is electricity in me. My memory is alright. It is September 11, 2016. 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 I used to drink heavy when I was young. I do not have any children. I have never been . I used to see a psychiatrist in [facility]. HISTORY OF PRESENT ILLNESS: The patient has a history of schizophrenia versus schizoaffective disorder and has been treated on Zyprexa [facility] mg h.s[facility]. Over the last several days he has been increasingly psychotic, agitated, with sleep and appetite changes, worsening confusion. No active suicidal or homicidal ideation. No clear symptoms of bipolar disorder. PAST PSYCHIATRIC HISTORY: Positive for schizophrenia versus schizoaffective disorder. MEDICAL HISTORY: Well documented in the chart. Positive for dehydration, coronary artery disease, CHF, hyperlipidemia, COPD status post CABG, GERD. DRUG ALLERGIES: Aminoglycosides, Benzalkonium, pramoxine. CURRENT PSYCHOTROPICS: Zyprexa 5 mg p.o. h.s. FAMILY HISTORY: Noncontributory. SOCIAL HISTORY: The patient is single. Past history of alcohol abuse. No physical, sexual, elder abuse history. MENTAL STATUS EXAM: The patient is aware is September 11, 2016. He knew that he was admitted last night. Speech is coherent. He is quite delusional, psychotic, convinced he has got electricity flowing through him amongst other things noted above. No active suicidal or homicidal ideation. Attention span short. Short- term memory, does have some deficits. LABS: Reviewed. IMPRESSION: Psychotic disorder, unspecified versus schizophrenia chronic undifferentiated with acute exacerbation; anxiety disorder, unspecified. Rest diagnoses as above. PLAN: Change Zyprexa to Risperdal later once his medically stable and if psychotic symptoms persist. He does have a history of CVA and we will have to be careful with the change, and I would like to defer it until after he is medically stabilized. Assessment: Vital Signs: Vital Signs Date Time Temp Pulse Resp B/P (MAP) Pulse Ox O2 Delivery O2 Flow Rate FiO2 09/13/16 06:06 97.7 84 20 150/65 (93) 94 Room Air I&O Intake and Output 09/13/16 07:00 Intake Total 120 ml Output Total 450 ml Balance -330 ml Intake Oral 120 ml Output Urine Total 450 ml Labs: Laboratory Tests Test 09/13/16 11:45 Urine Collection Type U cath Urine Color Michell Urine Clarity Hazy Urine pH 5.0 Urine Specific Homer <=1.005 Urine Protein Neg (NEG-TRACE) Urine Glucose (UA) Neg mg/dL (NEG) Urine Ketones (Stick) Neg mg/dL (NEG) Urine Blood Large (NEG) Urine Nitrite Neg (NEG) Urine Bilirubin Neg (NEG) Urine Urobilinogen Dipstick 1 mg/dL (0.2 mg/dL) Urine Leukocyte Esterase Trace (NEG) Urine RBC 11-20 /HPF (0-2) Urine WBC 11-20 /HPF (0-4) Urine Squamous Epithelial Cells Few /LPF Urine Bacteria Mod /HPF (0-FEW) Urine Mucus Mod /LPF Current Medications: Meds: Current Medications Olanzapine (ZyPREXA ZYDIS) 5 mg HS PO ; Start 09/12/16 at 21:00; Stop 09/12/16 at 22:20; Status DC Acetaminophen (Tylenol) 650 mg PRN Q4HRS PRN PO PAIN / TEMP; Start 09/12/16 at 20:45; Stop 09/13/16 at 15:36; Status DC Aspirin (Children'S Aspirin) 81 mg DAILY PO ; Start 09/13/16 at 09:00; Stop at 15:36; Status DC Cetirizine HCl (ZyrTEC) 10 mg DAILY PO ; Start 09/13/16 at 09:00; Stop 09/13/16 at 15:36; Status DC Vitamin D (Vitamin D3) 2,000 unit DAILY PO ; Start 09/13/16 at 09:00; Stop at 15:36; Status DC Clopidogrel Bisulfate (Plavix) 75 mg DAILY PO ; Start 09/13/16 at 09:00; Stop 09/13/16 at 15:36; Status DC Cyanocobalamin (Vitamin B-12) 1,000 mcg QMONTH SQ ; Start 10/12/16 at 09:00; Stop 10/12/16 at 09:00; Status DC Folic Acid (Folic Acid) 1 mg DAILY PO ; Start 09/13/16 at 09:00; Stop 09/13/16 at 15:36; Status DC Furosemide (Lasix) 20 mg QWE PO ; Start 09/19/16 at 16:00; Stop 09/19/16 at 16: 00; Status DC Furosemide (Lasix) 40 mg QMTUTHSA PO ; Start 09/13/16 at 09:00; Stop 09/13/16 at 15:36; Status DC Gabapentin (Neurontin) 300 mg TID PO ; Start 09/12/16 at 21:00; Stop 09/13/16 at 15:36; Status DC Metoprolol Tartrate (Lopressor) 12.5 mg BID PO ; Start 09/12/16 at 21:30; Stop at 15:36; Status DC Multi-Ingred Cream/Lotion/Oil/ Oint (Hydrocerin) 1 francia PRN BID PRN TP Dry Skin ; Start 09/12/16 at 20:45; Stop 09/13/16 at 15:36; Status DC Nitroglycerin (Nitrostat) 0.4 mg PRN Q5MIN PRN SL CHEST PAIN; Start 09/12/16 at 20:45; Stop 09/13/16 at 15:36; Status DC Pantoprazole Sodium (Protonix) 40 mg BID PO ; Start 09/12/16 at 21:30; Stop at 15:36; Status DC Simethicone (Gas-X) 120 mg BID PO ; Start 09/12/16 at 21:30; Stop 09/13/16 at 15: 36; Status DC Tamsulosin HCl (Flomax) 0.4 mg BID PO ; Start 09/12/16 at 21:30; Stop 09/13/16 at 15:36; Status DC Isosorbide Mononitrate (Imdur) 30 mg QHS PO ; Start 09/12/16 at 21:30; Stop at 15:36; Status DC Non-Formulary Medication 1 frnacia PRN BID PRN RC Hemmoroids; Start 09/12/16 at 20: 45; Stop 09/12/16 at 21:20; Status DC Acetaminophen (Tylenol) 650 mg PRN Q6HRS PRN PO PAIN / TEMP; Start 09/12/16 at 21:00; Stop 09/12/16 at 21:07; Status DC Multi-Ingredient Ointment (Analgesic [place]) 1 francia PRN QID PRN TP MUSCLE PAIN; Start 09/12/16 at 21:00; Stop 09/13/16 at 15:36; Status DC Al Hydroxide/Mg Hydroxide (Mylanta Plus Xs) 15 ml PRN AFTMEALHC PRN PO DYSPEPSIA; Start 09/12/16 at 21:00; Stop 09/13/16 at 15:36; Status DC Magnesium Hydroxide (Milk Of Magnesia) 2,400 mg PRN QHS PRN PO CONSTIPATION; Start 09/12/16 at 21:00; Stop 09/13/16 at 15:36; Status DC Furosemide (Lasix) 20 mg QFR PO ; Start 09/14/16 at 16:00; Stop 09/14/16 at 16:00 ; Status DC Furosemide (Lasix) 20 mg QSU PO ; Start 09/16/16 at 16:00; Stop 09/16/16 at 16:00 ; Status DC Risperidone (RisperDAL) 0.5 mg HS PO ; Start 09/12/16 at 22:30; Stop 09/13/16 at 15:36; Status DC Active Scripts Active Reported Risperidone 0.5 Mg Tablet 1 Tab PO HS Furosemide 40 Mg Tablet 40 Mg PO SAT,,,SAT Tylenol (Acetaminophen) 325 Mg Tablet 650 Mg PO PRN Q4HRS PRN Nitrostat (Nitroglycerin) 0.4 Mg Tab.subl 0.4 Mg SL PRN Q5MIN PRN Eucerin Creme (Mineral Oil/Petrolatum,White) 120 Gm Cream..g. 1 Francia TP PRN PRN Gabapentin 300 Mg Capsule 300 Mg PO TID Vitamin D3 (Cholecalciferol (Vitamin D3)) 1,000 Unit Tablet 2,000 Unit PO DAILY Flomax (Tamsulosin Hcl) 0.4 Mg Cap.er.24h 0.4 Mg PO BID Simethicone 80 Mg Tab.chew 120 Mg PO BID Protonix (Pantoprazole Sodium) 40 Mg Tablet.dr 40 Mg PO BID Cyanocobalamin Injection (Cyanocobalamin (Vitamin B-12)) 1,000 Mcg/1 Ml Vial 1, 000 Mcg SQ QMONTH Once monthly on the Furosemide 20 Mg Tablet 20 Mg PO DAILY Daily on Saturday, Saturday, & Saturday Folic Acid 1 Mg Tablet 1 Tab PO DAILY Plavix (Clopidogrel Bisulfate) 75 Mg Tablet 75 Mg PO DAILY Cetirizine Hcl 10 Mg Tablet 10 Mg PO DAILY Aspirin 81 Mg Tab.chew 81 Mg PO DAILY Metoprolol Tartrate 25 Mg Tablet 12.5 Mg PO BID Isosorbide Dinitrate 30 Mg Tablet 30 Mg PO HS CHELY LAMB MD Sep 13, 2016 21:34
[2016-09-14 03:22] LABS: HEMOGLOBIN A1C 5.4 % (4.8-5.6)
[2016-09-14] MEDS ORDERED: FUROSEMIDE 20 MG TABLET PO SCH (16:00)
[2016-09-16] MEDS ORDERED: FUROSEMIDE 20 MG TABLET PO SCH (16:00)
--- NOTE | 2016-09-18 20:26 | PDOC3 ---
Discharge Summary Brief Hospital Course Allergies Allergies Coded Allergies Type Severity Reaction Last Updated Verified Aminoglycosides Allergy Intermediate 09/11/16 Yes benzalkonium Allergy Intermediate 09/11/16 Yes pramoxine Allergy Intermediate 09/11/16 Yes I S O L A T I O N *CONTACT* Allergy Unknown 09/12/16 Yes Vital Signs Vital Signs Date Time Temp Pulse Resp B/P (MAP) Pulse Ox O2 Delivery O2 Flow Rate FiO2 09/13/16 06:06 97.7 84 20 150/65 (93) 94 Room Air Brief Hospital Course Mr. Marrero is a 71 old [sex] who presented with [ ] This is a late entry for date of service 09/13/2016. Reason for Admission: Please refer the admission history for detail. Briefly, the patient is a 71-year-old male referred to us from [facility] Surgical floor after he was stabilized there for dehydration, acute kidney injury within the context of a UTI after he was referred from [facility] for increasing psychotic symptoms and delusions that are well described in my initial psychiatric assessment. Significant Findings/Clinical Course Following Admission: The patient was seen daily individually by myself, followed medically by Dr. Fountain/Dr. Moncada. The patient remains psychotic and delusional within the context of his past history of schizophrenia and borderline intellectual functioning. He believed he was being electrocuted, had no throat, and had fur on his feet, which he believed the electrocution was burning off. 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 The patient's Zyprexa 5 mg h.s. was changed to Risperdal 0.5 mg h.s. evening of September 12. On September 13, he was found to have urinary retention and was transferred to [facility] per Dr. Moncada for further medical follow up. Review of Systems: No CV, , Pulmonary, Eye system symptoms on review. Reliability varies. MSE: The patient remains psychotic. No active suicidal or homicidal ideation. Conditions at Discharge: Slightly improved from admission since the hospitalization was abbreviated due to his medical condition. Final Diagnoses: Schizophrenia, chronic undifferentiated with acute exacerbation; anxiety disorder unspecified; impulse control disorder unspecified. Rest of the diagnoses is unchanged from admission. Discharge Medications: Please refer to the EMRAD. If the patient is stable post medical stabilization at [place], he will return back to the residential. If he is still extremely psychotic, we will reassess whether he meets readmission criteria to our unit. Discharge Information Dischare Medications Current Medications Olanzapine (ZyPREXA ZYDIS) 5 mg HS PO ; Start 09/12/16 at 21:00; Stop 09/12/16 at 22:20; Status DC Acetaminophen (Tylenol) 650 mg PRN Q4HRS PRN PO PAIN / TEMP; Start 09/12/16 at 20:45; Stop 09/13/16 at 15:36; Status DC Aspirin (Children'S Aspirin) 81 mg DAILY PO ; Start 09/13/16 at 09:00; Stop at 15:36; Status DC Cetirizine HCl (ZyrTEC) 10 mg DAILY PO ; Start 09/13/16 at 09:00; Stop 09/13/16 at 15:36; Status DC Vitamin D (Vitamin D3) 2,000 unit DAILY PO ; Start 09/13/16 at 09:00; Stop at 15:36; Status DC Clopidogrel Bisulfate (Plavix) 75 mg DAILY PO ; Start 09/13/16 at 09:00; Stop 09/13/16 at 15:36; Status DC Cyanocobalamin (Vitamin B-12) 1,000 mcg QMONTH SQ ; Start 10/12/16 at 09:00; Stop 10/12/16 at 09:00; Status DC Folic Acid (Folic Acid) 1 mg DAILY PO ; Start 09/13/16 at 09:00; Stop 09/13/16 at 15:36; Status DC Furosemide (Lasix) 20 mg QWE PO ; Start 09/19/16 at 16:00; Stop 09/19/16 at 16: 00; Status DC Furosemide (Lasix) 40 mg QMTUTHSA PO ; Start 09/13/16 at 09:00; Stop 09/13/16 at 15:36; Status DC Gabapentin (Neurontin) 300 mg TID PO ; Start 09/12/16 at 21:00; Stop 09/13/16 at 15:36; Status DC Metoprolol Tartrate (Lopressor) 12.5 mg BID PO ; Start 09/12/16 at 21:30; Stop at 15:36; Status DC Multi-Ingred Cream/Lotion/Oil/ Oint (Hydrocerin) 1 francia PRN BID PRN TP Dry Skin ; Start 09/12/16 at 20:45; Stop 09/13/16 at 15:36; Status DC Nitroglycerin (Nitrostat) 0.4 mg PRN Q5MIN PRN SL CHEST PAIN; Start 09/12/16 at 20:45; Stop 09/13/16 at 15:36; Status DC Pantoprazole Sodium (Protonix) 40 mg BID PO ; Start 09/12/16 at 21:30; Stop at 15:36; Status DC Simethicone (Gas-X) 120 mg BID PO ; Start 09/12/16 at 21:30; Stop 09/13/16 at 15: 36; Status DC Tamsulosin HCl (Flomax) 0.4 mg BID PO ; Start 09/12/16 at 21:30; Stop 09/13/16 at 15:36; Status DC Isosorbide Mononitrate (Imdur) 30 mg QHS PO ; Start 09/12/16 at 21:30; Stop at 15:36; Status DC Non-Formulary Medication 1 francia PRN BID PRN RC Hemmoroids; Start 09/12/16 at 20: 45; Stop 09/12/16 at 21:20; Status DC Acetaminophen (Tylenol) 650 mg PRN Q6HRS PRN PO PAIN / TEMP; Start 09/12/16 at 21:00; Stop 09/12/16 at 21:07; Status DC Multi-Ingredient Ointment (Analgesic [place]) 1 francia PRN QID PRN TP MUSCLE PAIN; Start 09/12/16 at 21:00; Stop 09/13/16 at 15:36; Status DC Al Hydroxide/Mg Hydroxide (Mylanta Plus Xs) 15 ml PRN AFTMEALHC PRN PO DYSPEPSIA; Start 09/12/16 at 21:00; Stop 09/13/16 at 15:36; Status DC Magnesium Hydroxide (Milk Of Magnesia) 2,400 mg PRN QHS PRN PO CONSTIPATION; Start 09/12/16 at 21:00; Stop 09/13/16 at 15:36; Status DC Furosemide (Lasix) 20 mg QFR PO ; Start 09/14/16 at 16:00; Stop 09/14/16 at 16:00 ; Status DC Furosemide (Lasix) 20 mg QSU PO ; Start 09/16/16 at 16:00; Stop 09/16/16 at 16:00 ; Status DC Risperidone (RisperDAL) 0.5 mg HS PO ; Start 09/12/16 at 22:30; Stop 09/13/16 at 15:36; Status DC Active Scripts Active Reported Risperidone 0.5 Mg Tablet 0.5 Mg PO HS Furosemide 40 Mg Tablet 40 Mg PO QMTUTHSA Tylenol (Acetaminophen) 325 Mg Tablet 650 Mg PO PRN Q4HRS PRN Nitrostat (Nitroglycerin) 0.4 Mg Tab.subl 0.4 Mg SL PRN Q5MIN PRN Eucerin Creme (Mineral Oil/Petrolatum,White) 120 Gm Cream..g. 1 Francia TP PRN PRN Gabapentin 300 Mg Capsule 300 Mg PO TID Vitamin D3 (Cholecalciferol (Vitamin D3)) 1,000 Unit Tablet 2,000 Unit PO DAILY Flomax (Tamsulosin Hcl) 0.4 Mg Cap.er.24h 0.4 Mg PO BID Simethicone 80 Mg Tab.chew 120 Mg PO BID Protonix (Pantoprazole Sodium) 40 Mg Tablet.dr 40 Mg PO BID Cyanocobalamin Injection (Cyanocobalamin (Vitamin B-12)) 1,000 Mcg/1 Ml Vial 1, 000 Mcg SQ QMONTH Once monthly on the Furosemide 20 Mg Tablet 20 Mg PO 3X/WEEK On Saturday, Saturday, & Saturday Folic Acid 1 Mg Tablet 1 Mg PO DAILY Plavix (Clopidogrel Bisulfate) 75 Mg Tablet 75 Mg PO DAILY Cetirizine Hcl 10 Mg Tablet 10 Mg PO DAILY Aspirin 81 Mg Tab.chew 81 Mg PO DAILY Metoprolol Tartrate 25 Mg Tablet 12.5 Mg PO BID Isosorbide Dinitrate 30 Mg Tablet 30 Mg PO HS CHELY LAMB MD Sep 18, 2016 20:26
[2016-09-19] MEDS ORDERED: FUROSEMIDE 20 MG TABLET PO SCH (16:00)
[2016-10-12] MEDS ORDERED: CYANOCOBALAMIN (VITAMIN B-12) 1,000 MCG/ML VIAL SQ SCH (09:00)
== END 2016-09-13 15:34 | disposition short-term general hospital (02) | DRG 885 ==
LOC: GEROPSY 18:44
PROVIDERS: ADMIT Psychiatry & Neurology Psychiatry; ATTEND Psychiatry & Neurology Psychiatry
DX: F20.1 Disorganized schizophrenia (principal); E86.0 Dehydration; E78.5 Hyperlipidemia, unspecified; F32.9 Major depressive disorder, single episode, unspecified; F41.9 Anxiety disorder, unspecified; I25.10 Atherosclerotic heart disease of native coronary artery without angina pectoris; I50.9 Heart failure, unspecified; J44.9 Chronic obstructive pulmonary disease, unspecified; K21.9 Gastro-esophageal reflux disease without esophagitis; F10.10 Alcohol abuse, uncomplicated; F29 Unspecified psychosis not due to a substance or known physiological condition; Z95.1 Presence of aortocoronary bypass graft; Z88.1 Allergy status to other antibiotic agents; Z88.8 Allergy status to other drugs, medicaments and biological substances; Z86.73 Personal history of transient ischemic attack (TIA), and cerebral infarction without residual deficits
CPT/HCPCS: 36415; 80053; 80061; 81001; 82306; 82607; 83036; 83540; 83550; 83735; 84436; 84443; 84480; 85027; 86592; 86593; 87086; 93005

== ENCOUNTER 2016-09-14 18:56 | Inpatient (IN) | payer MEDICARE, OTHER ==
[~2016-09-14] VITALS: Ht 165.1 cm; Wt 57.4 kg
[~2016-09-14 18:56] MED LIST changes: +RISP0.5T3 PO
[2016-09-14 19:51] VITALS: BP 123/70
--- NOTE | 2016-09-14 20:04 | PDOC ---
Exam Harjeet Demential Exam: Harjeet Note: Please also refer to the separate dictated note~for this date of service dictated separately.~Patient seen individually. Discussed the patient with Nursing staff reviewed the chart.~Reviewed interim history and current functioning. Reviewed vital signs,~Labs/ Radiology~and current medications noted below. Continue current treatment with the changes noted in the dictated addendum note Assessment: Vital Signs: Vital Signs Date Time Temp Pulse Resp B/P (MAP) Pulse Ox O2 Delivery O2 Flow Rate FiO2 09/14/16 19:51 98.5 101 20 123/70 (87) 95.0 Current Medications: Meds: Active Scripts Active Reported Risperidone 0.5 Mg Tablet 1 Tab PO HS Furosemide 40 Mg Tablet 40 Mg PO SAT,,,SAT Tylenol (Acetaminophen) 325 Mg Tablet 650 Mg PO PRN Q4HRS PRN Nitrostat (Nitroglycerin) 0.4 Mg Tab.subl 0.4 Mg SL PRN Q5MIN PRN Eucerin Creme (Mineral Oil/Petrolatum,White) 120 Gm Cream..g. 1 Francia TP PRN PRN Gabapentin 300 Mg Capsule 300 Mg PO TID Vitamin D3 (Cholecalciferol (Vitamin D3)) 1,000 Unit Tablet 2,000 Unit PO DAILY Flomax (Tamsulosin Hcl) 0.4 Mg Cap.er.24h 0.4 Mg PO BID Simethicone 80 Mg Tab.chew 120 Mg PO BID Protonix (Pantoprazole Sodium) 40 Mg Tablet.dr 40 Mg PO BID Cyanocobalamin Injection (Cyanocobalamin (Vitamin B-12)) 1,000 Mcg/1 Ml Vial 1, 000 Mcg SQ QMONTH Once monthly on the Furosemide 20 Mg Tablet 20 Mg PO DAILY Daily on Saturday, Saturday, & Saturday Folic Acid 1 Mg Tablet 1 Tab PO DAILY Plavix (Clopidogrel Bisulfate) 75 Mg Tablet 75 Mg PO DAILY Cetirizine Hcl 10 Mg Tablet 10 Mg PO DAILY Aspirin 81 Mg Tab.chew 81 Mg PO DAILY Metoprolol Tartrate 25 Mg Tablet 12.5 Mg PO BID Isosorbide Dinitrate 30 Mg Tablet 30 Mg PO HS Diagnosis: Problems: (1) Major depressive disorder (2) Schizoaffective disorder (3) Schizophrenia, disorganized, subchronic with acute exacerbation CHELY LAMB MD Sep 14, 2016 20:04
[2016-09-14] MEDS ORDERED: NITROGLYCERIN SUBLINGUAL 0.4 MG BOTTLE OF 25. SL PRN (21:30)
[2016-09-14] MEDS ORDERED: MINERAL OIL/PETROLATUM TOPICAL CREAM 113GM JAR. TP PRN (21:30)
[2016-09-14] MEDS: risperiDONE 0.5 MG TABLET. PO SCH (21:52)
[2016-09-14 22:21] VITALS: BP 123/77
[2016-09-15 06:08] VITALS: BP 132/65
[2016-09-15] MEDS: CLOPIDOGREL BISULFATE 75 MG TABLET PO SCH (07:47)
[2016-09-15] MEDS: SIMETHICONE 80 MG TAB.CHEW PO SCH ×2 (07:47→19:52)
[2016-09-15] MEDS: CHOLECALCIFEROL (VITAMIN D3) 1,000 UNIT TABLET PO SCH (07:47)
[2016-09-15] MEDS: FOLIC ACID 1 MG TABLET PO SCH (07:48)
[2016-09-15] MEDS: METOPROLOL TART IMMED RELEASE 25 MG TABLET PO SCH ×2 (07:48→19:52)
[2016-09-15] MEDS: ASPIRIN 81 MG TAB.CHEW PO SCH (07:48)
[2016-09-15] MEDS: TAMSULOSIN 0.4 MG CAP.ER.24H. PO SCH ×2 (07:48→19:52)
[2016-09-15] MEDS: GABAPENTIN 300 MG CAPSULE. PO SCH ×3 (07:48→19:52)
[2016-09-15] MEDS: CETIRIZINE HCL 10 MG TABLET PO SCH (07:49)
[2016-09-15] MEDS: PANTOPRAZOLE 40 MG TABLET. PO SCH ×2 (07:49→19:52)
[2016-09-15] MEDS: FUROSEMIDE 40 MG TABLET PO SCH (07:50)
[2016-09-15 08:02] LABS: BASO % 0 % (0-3); EOS % 0 % (0-3); HEMATOCRIT 36.7 % (39.0-53.0); HEMOGLOBIN 12.2 g/dL (13.0-17.5); LYMPH # 0.9 x10^3/uL (1.0-4.8); LYMPH % 12 % (24-48); MEAN CORPUSCULAR HEMOGLOBIN 26 pg (25-35); MEAN CORPUSCULAR HGB CONC 33 g/dL (31-37); MEAN CORPUSCULAR VOLUME 78 fL (79-100); MONO # 0.7 x10^3/uL (0.0-1.1); MONO % 9 % (0-9); NEUT # 5.6 x10^3uL (1.8-7.7); NEUT % 78 % (31-73); PLATELET COUNT 143 x10^3/uL (140-400); RED BLOOD COUNT 4.68 x10^6/uL (4.30-5.70); RED CELL DISTRIBUTION WIDTH 19.6 % (11.5-14.5); WHITE BLOOD COUNT 7.2 x10^3/uL (4.0-11.0)
[2016-09-15 08:12] LABS: ALBUMIN 2.7 g/dL (3.4-5.0); ALBUMIN/GLOBULIN RATIO 0.6 (1.0-1.7); CALCIUM 8.6 mg/dL (8.5-10.1); CREATININE 1.3 mg/dL (0.7-1.3); GFR 54.3; TOTAL BILIRUBIN 0.3 mg/dL (0.2-1.0); TOTAL PROTEIN 7.2 g/dL (6.4-8.2)
[2016-09-15 11:31] LABS: THYROID STIM HORMONE (TSH) 1.236 uIU/mL (0.358-3.740)
[2016-09-15 14:09] LABS: T3 TOTAL 59 ng/dL (71-180); THYROXINE 8.6 ug/dL (4.5-12.0)
--- NOTE | 2016-09-15 14:33 | PDOC1 ---
History of Present Illness Reason for Visit: Behaviors History of Present Illness Pt sent to [facility] for eval in our [facility] unit. He was discharged from [facility] after having a cloud catheter placed via cystoscopy. His scope was unremarkable except for some bladder atony. Pt is to have his catheter in for 2 weeks. He is a poor historian and per nursing is doing ok, but he does not respond to questions other than to say he is "feeling fine." Chief Complaint: Behaviors Allergies: Coded Allergies: Aminoglycosides (Verified Allergy, Intermediate, 09/11/16) benzalkonium (Verified Allergy, Intermediate, 09/11/16) pramoxine (Verified Allergy, Intermediate, 09/11/16) I S O L A T I O N *CONTACT* (Verified Allergy, Unknown, 09/12/16) +MRSA nares 09/11/2016 Past Medical History Cardiac: CAD, HTN Pulmonary: COPD [employer]: Dementia Renal/: Benign prostatic enlarg., Other (Urinary retention) Past Surgical History: Other (Angioplasty, TURP, cystoscopy) Family History: No pertinent hx Past Social History Smoke: No Alcohol: none Drugs: None Review of Systems Review Of Systems ROS unobtainable due to pt's mental status Allergies: Coded Allergies: Aminoglycosides (Verified Allergy, Intermediate, 09/11/16) benzalkonium (Verified Allergy, Intermediate, 09/11/16) pramoxine (Verified Allergy, Intermediate, 09/11/16) I S O L A T I O N *CONTACT* (Verified Allergy, Unknown, 09/12/16) +MRSA nares 09/11/2016 Medications Current Medications Risperidone (RisperDAL) 0.5 mg HS PO Last administered on 09/14/16 21:52; Start 09/14/16 at 21:30 Acetaminophen (Tylenol) 650 mg PRN Q4HRS PRN PO PAIN / TEMP; Start 09/14/16 at 21:30 Aspirin (Children'S Aspirin) 81 mg DAILY PO Last administered on 09/15/16 07:48 ; Start 09/15/16 at 09:00 Cetirizine HCl (ZyrTEC) 10 mg DAILY PO Last administered on 09/15/16 07:49; Start 09/15/16 at 09:00 Vitamin D (Vitamin D3) 2,000 unit DAILY PO Last administered on 09/15/16 07:47 ; Start 09/15/16 at 09:00 Clopidogrel Bisulfate (Plavix) 75 mg DAILY PO Last administered on 09/15/16 07: 47; Start 09/15/16 at 09:00 Cyanocobalamin (Vitamin B-12) 1,000 mcg QMONTH SQ ; Start 10/14/16 at 09:00 Folic Acid (Folic Acid) 1 mg DAILY PO Last administered on 09/15/16 07:48; Start 09/15/16 at 09:00 Furosemide (Lasix) 20 mg SuWeFr PO ; Start 09/16/16 at 09:00 Furosemide (Lasix) 40 mg MoTuThSa PO Last administered on 09/15/16 07:50; Start 09/15/16 at 09:00 Gabapentin (Neurontin) 300 mg TID PO Last administered on 09/15/16 12:23; Start 09/15/16 at 09:00 Metoprolol Tartrate (Lopressor) 12.5 mg BID PO Last administered on 09/15/16 07 :48; Start 09/15/16 at 09:00 Multi-Ingred Cream/Lotion/Oil/ Oint (Hydrocerin) 1 francia DAILY PRN TP Dry Skin; Start 09/14/16 at 21:30 Nitroglycerin (Nitrostat) 0.4 mg PRN Q5MIN PRN SL CHEST PAIN; Start 09/14/16 at 21:30 Pantoprazole Sodium (Protonix) 40 mg BID PO Last administered on 09/15/16 07:49 ; Start 09/15/16 at 09:00 Simethicone (Gas-X) 120 mg BID PO Last administered on 09/15/16 07:47; Start at 09:00 Tamsulosin HCl (Flomax) 0.4 mg BID PO Last administered on 09/15/16 07:48; Start 09/15/16 at 09:00 Isosorbide Mononitrate (Imdur) 30 mg HS PO ; Start 09/15/16 at 21:00 Active Scripts Active Reported Risperidone 0.5 Mg Tablet 0.5 Mg PO HS Furosemide 40 Mg Tablet 40 Mg PO QMTUTHSA Tylenol (Acetaminophen) 325 Mg Tablet 650 Mg PO PRN Q4HRS PRN Nitrostat (Nitroglycerin) 0.4 Mg Tab.subl 0.4 Mg SL PRN Q5MIN PRN Eucerin Creme (Mineral Oil/Petrolatum,White) 120 Gm Cream..g. 1 Francia TP PRN PRN Gabapentin 300 Mg Capsule 300 Mg PO TID Vitamin D3 (Cholecalciferol (Vitamin D3)) 1,000 Unit Tablet 2,000 Unit PO DAILY Flomax (Tamsulosin Hcl) 0.4 Mg Cap.er.24h 0.4 Mg PO BID Simethicone 80 Mg Tab.chew 120 Mg PO BID Protonix (Pantoprazole Sodium) 40 Mg Tablet.dr 40 Mg PO BID Cyanocobalamin Injection (Cyanocobalamin (Vitamin B-12)) 1,000 Mcg/1 Ml Vial 1, 000 Mcg SQ QMONTH Once monthly on the Furosemide 20 Mg Tablet 20 Mg PO 3X/WEEK On Saturday, Saturday, & Saturday Folic Acid 1 Mg Tablet 1 Mg PO DAILY Plavix (Clopidogrel Bisulfate) 75 Mg Tablet 75 Mg PO DAILY Cetirizine Hcl 10 Mg Tablet 10 Mg PO DAILY Aspirin 81 Mg Tab.chew 81 Mg PO DAILY Metoprolol Tartrate 25 Mg Tablet 12.5 Mg PO BID Isosorbide Dinitrate 30 Mg Tablet 30 Mg PO HS Exam Vital Signs Vital Signs Date Time Temp Pulse Resp B/P (MAP) Pulse Ox O2 Delivery O2 Flow Rate FiO2 09/15/16 07:48 93 132/65 09/15/16 06:08 97.9 20 90 Room Air 09/14/16 19:51 95.0 General Appearance: Alert, Cooperative, No acute distress HEENT: Atraumatic, PERRLA, EOMI, Mucous membr. moist/pink, Other (Neck without JVD or LAD) Respiratory: Clear to auscultation, Normal air movement Heart: Regular rate, Normal S1, Normal S2, No murmurs Abdominal: Soft, No tenderness Male Genitals Exam: other (Catheter in place, no bleeding or swelling. ) Extremities: No edema, Normal pulses Skin: No rashes Neuro: Strength at 5/5 X4 ext, Normal tone Psych/Mental Status: Other (Baseline per staff) Assessment/Plan Assessment/Plan 1. Dementia w/ behaviors: Per Dr. Weiner. 2. Urinary retention: Continue cloud for 7-14 days per urology, and f/u with urology. 3. CAD: Cont home meds. 4. HTN: COnt home meds. 5. DVT proph: Pt is a fall risk, will defer anticoagulants beyond what he is already on. COURSE Allergies Coded Allergies Type Severity Reaction Last Updated Verified Aminoglycosides Allergy Intermediate 09/11/16 Yes benzalkonium Allergy Intermediate 09/11/16 Yes pramoxine Allergy Intermediate 09/11/16 Yes I S O L A T I O N *CONTACT* Allergy Unknown 09/12/16 Yes Laboratory Tests Test 09/15/16 07:33 White Blood Count 7.2 x10^3/uL (4.0-11.0) Red Blood Count 4.68 x10^6/uL (4.30-5.70) Hemoglobin 12.2 g/dL (13.0-17.5) Hematocrit 36.7 % (39.0-53.0) Mean Corpuscular Volume 78 fL (79-100) Mean Corpuscular Hemoglobin 26 pg (25-35) Mean Corpuscular Hemoglobin Concent 33 g/dL (31-37) Red Cell Distribution Width 19.6 % (11.5-14.5) Platelet Count 143 x10^3/uL (140-400) Neutrophils (%) (Auto) 78 % (31-73) Lymphocytes (%) (Auto) 12 % (24-48) Monocytes (%) (Auto) 9 % (0-9) Eosinophils (%) (Auto) 0 % (0-3) Basophils (%) (Auto) 0 % (0-3) Neutrophils # (Auto) 5.6 x10^3uL (1.8-7.7) Lymphocytes # (Auto) 0.9 x10^3/uL (1.0-4.8) Monocytes # (Auto) 0.7 x10^3/uL (0.0-1.1) Eosinophils # (Auto) 0.0 x10^3/uL (0.0-0.7) Basophils # (Auto) 0.0 x10^3/uL (0.0-0.2) Sodium Level 140 mmol/L (136-145) Potassium Level 4.0 mmol/L (3.5-5.1) Chloride Level 103 mmol/L (98-107) Carbon Dioxide Level 33 mmol/L (21-32) Anion Gap 4 (6-14) Blood Urea Nitrogen 21 mg/dL (8-26) Creatinine 1.3 mg/dL (0.7-1.3) Estimated GFR (Cockcroft-Gault) 54.3 BUN/Creatinine Ratio 16 (6-20) Glucose Level 82 mg/dL (70-99) Calcium Level 8.6 mg/dL (8.5-10.1) Magnesium Level 2.0 mg/dL (1.8-2.4) Iron Level 34 ug/dL (65-175) Total Iron Binding Capacity 209 ug/dL (250-450) Iron Saturation 16 % (15-34) Total Bilirubin 0.3 mg/dL (0.2-1.0) Aspartate Amino Transf (AST/SGOT) 27 U/L (15-37) Alanine Aminotransferase (ALT/SGPT) 20 U/L (16-63) Alkaline Phosphatase 89 U/L (46-116) Total Protein 7.2 g/dL (6.4-8.2) Albumin 2.7 g/dL (3.4-5.0) Albumin/Globulin Ratio 0.6 (1.0-1.7) Triglycerides Level 82 mg/dL (0-150) Cholesterol Level 156 mg/dL (0-200) LDL Cholesterol, Calculated 103 mg/dL (0-100) VLDL Cholesterol, Calculated 16 mg/dL (0-40) Non-HDL Cholesterol Calculated 119 mg/dL (0-129) HDL Cholesterol 37 mg/dL (40-60) Cholesterol/HDL Ratio 4.0 Thyroid Stimulating Hormone (TSH) 1.236 uIU/mL (0.358-3.740) Thyroxine (T4) 8.6 ug/dL (4.5-12.0) Total Triiodothyronine 59 ng/dL (71-180) Current Medications Medications (Trade) Dose Ordered Sig/Gilles Route PRN Reason Start Time Stop Time Status Last Admin Dose Admin Risperidone (RisperDAL) 0.5 mg HS PO 09/14/16 21:30 09/14/16 21:52 Acetaminophen (Tylenol) 650 mg PRN Q4HRS PRN PO PAIN / TEMP 09/14/16 21:30 Aspirin (Children'S Aspirin) 81 mg DAILY PO 09/15/16 09:00 09/15/16 07:48 Cetirizine HCl (ZyrTEC) 10 mg DAILY PO 09/15/16 09:00 09/15/16 07:49 Vitamin D (Vitamin D3) 2,000 unit DAILY PO 09/15/16 09:00 09/15/16 07:47 Clopidogrel Bisulfate (Plavix) 75 mg DAILY PO 09/15/16 09:00 09/15/16 07:47 Cyanocobalamin (Vitamin B-12) 1,000 mcg QMONTH SQ 10/14/16 09:00 Folic Acid (Folic Acid) 1 mg DAILY PO 09/15/16 09:00 09/15/16 07:48 Furosemide (Lasix) 20 mg SuWeFr PO 09/16/16 09:00 Furosemide (Lasix) 40 mg MoTuThSa PO 09/15/16 09:00 09/15/16 07:50 Gabapentin (Neurontin) 300 mg TID PO 09/15/16 09:00 09/15/16 12:23 Metoprolol Tartrate (Lopressor) 12.5 mg BID PO 09/15/16 09:00 09/15/16 07:48 Multi-Ingred Cream/Lotion/Oil/ Oint (Hydrocerin) 1 francia DAILY PRN TP Dry Skin 09/14/16 21:30 Nitroglycerin (Nitrostat) 0.4 mg PRN Q5MIN PRN SL CHEST PAIN 09/14/16 21:30 Pantoprazole Sodium (Protonix) 40 mg BID PO 09/15/16 09:00 09/15/16 07:49 Simethicone (Gas-X) 120 mg BID PO 09/15/16 09:00 09/15/16 07:47 Tamsulosin HCl (Flomax) 0.4 mg BID PO 09/15/16 09:00 09/15/16 07:48 Isosorbide Mononitrate (Imdur) 30 mg HS PO 09/15/16 21:00 I & O 09/14/16 23:59 Intake Total 480 ml Balance 480 ml Date Time Temp Pulse Resp B/P (MAP) Pulse Ox O2 Delivery O2 Flow Rate FiO2 09/15/16 07:48 93 132/65 09/15/16 06:08 97.9 20 90 Room Air 09/14/16 19:51 95.0 MARYAM HOOD MD Sep 15, 2016 14:33
[2016-09-15 15:16] LABS: BILIRUBIN,URINE NEG (NEG); CLARITY,URINE CLEAR; COLOR,URINE YELLOW; GLUCOSE,URINE NEG (NEG)
[2016-09-15 15:17] LABS: BACTERIA,URINE 0 /HPF (0-FEW); NITRITE,URINE NEG (NEG); SQUAMOUS EPITHELIAL CELL,UR FEW /LPF; UROBILINOGEN,URINE 1 mg/dL (0.2 mg/dL); WBC,URINE 0 /HPF (0-4)
[2016-09-15 15:52] VITALS: BP 127/72
[2016-09-15] MEDS: risperiDONE 0.5 MG TABLET. PO SCH (19:52)
[2016-09-15] MEDS: ISOSORBIDE MONONITRATE ER 30 MG TAB.ER.24H PO SCH (19:53)
--- NOTE | 2016-09-15 23:19 | PDOC ---
Exam Harjeet Demential Exam: Harjeet Note: Please also refer to the separate dictated note~for this date of service dictated separately.~Patient seen individually. Discussed the patient with Nursing staff reviewed the chart.~Reviewed interim history and current functioning. Reviewed vital signs,~Labs/ Radiology~and current medications noted below. Continue current treatment with the changes noted in the dictated addendum note Assessment: Vital Signs: Vital Signs Date Time Temp Pulse Resp B/P (MAP) Pulse Ox O2 Delivery O2 Flow Rate FiO2 09/15/16 19:53 79 127/72 09/15/16 15:52 97.6 18 93 Room Air 09/14/16 19:51 95.0 I&O Intake and Output 09/15/16 07:00 Intake Total 480 ml Output Total 125 ml Balance 355 ml Intake Oral 480 ml Output Urine Total 125 ml Labs: Laboratory Tests Test 09/15/16 07:33 09/15/16 15:00 White Blood Count 7.2 x10^3/uL (4.0-11.0) Red Blood Count 4.68 x10^6/uL (4.30-5.70) Hemoglobin 12.2 g/dL (13.0-17.5) L Hematocrit 36.7 % (39.0-53.0) L Mean Corpuscular Volume 78 fL (79-100) L Mean Corpuscular Hemoglobin 26 pg (25-35) Mean Corpuscular Hemoglobin Concent 33 g/dL (31-37) Red Cell Distribution Width 19.6 % (11.5-14.5) H Platelet Count 143 x10^3/uL (140-400) Neutrophils (%) (Auto) 78 % (31-73) H Lymphocytes (%) (Auto) 12 % (24-48) L Monocytes (%) (Auto) 9 % (0-9) Eosinophils (%) (Auto) 0 % (0-3) Basophils (%) (Auto) 0 % (0-3) Neutrophils # (Auto) 5.6 x10^3uL (1.8-7.7) Lymphocytes # (Auto) 0.9 x10^3/uL (1.0-4.8) L Monocytes # (Auto) 0.7 x10^3/uL (0.0-1.1) Eosinophils # (Auto) 0.0 x10^3/uL (0.0-0.7) Basophils # (Auto) 0.0 x10^3/uL (0.0-0.2) Sodium Level 140 mmol/L (136-145) Potassium Level 4.0 mmol/L (3.5-5.1) Chloride Level 103 mmol/L (98-107) Carbon Dioxide Level 33 mmol/L (21-32) H Anion Gap 4 (6-14) L Blood Urea Nitrogen 21 mg/dL (8-26) Creatinine 1.3 mg/dL (0.7-1.3) Estimated GFR (Cockcroft-Gault) 54.3 BUN/Creatinine Ratio 16 (6-20) Glucose Level 82 mg/dL (70-99) Calcium Level 8.6 mg/dL (8.5-10.1) Magnesium Level 2.0 mg/dL (1.8-2.4) Iron Level 34 ug/dL (65-175) L Total Iron Binding Capacity 209 ug/dL (250-450) L Iron Saturation 16 % (15-34) Total Bilirubin 0.3 mg/dL (0.2-1.0) Aspartate Amino Transferase (AST) 27 U/L (15-37) Alanine Aminotransferase (ALT) 20 U/L (16-63) Alkaline Phosphatase 89 U/L (46-116) Total Protein 7.2 g/dL (6.4-8.2) Albumin 2.7 g/dL (3.4-5.0) L Albumin/Globulin Ratio 0.6 (1.0-1.7) L Triglycerides Level 82 mg/dL (0-150) Cholesterol Level 156 mg/dL (0-200) LDL Cholesterol, Calculated 103 mg/dL (0-100) H VLDL Cholesterol, Calculated 16 mg/dL (0-40) Non-HDL Cholesterol Calculated 119 mg/dL (0-129) HDL Cholesterol 37 mg/dL (40-60) L Cholesterol/HDL Ratio 4.0 25-Hydroxy Vitamin D Total Pending Thyroid Stimulating Hormone (TSH) 1.236 uIU/mL (0.358-3.740) Thyroxine (T4) 8.6 ug/dL (4.5-12.0) Total Triiodothyronine (TT3) 59 ng/dL (71-180) L RPR Titer Additional Testing Pending Urine Collection Type Void Urine Color Yellow Urine Clarity Clear Urine pH 5.0 Urine Specific [place] 1.020 Urine Protein 30 mg/dl (NEG-TRACE) Urine Glucose (UA) Neg mg/dL (NEG) Urine Ketones (Stick) Neg mg/dL (NEG) Urine Blood Large (NEG) Urine Nitrite Neg (NEG) Urine Bilirubin Neg (NEG) Urine Urobilinogen Dipstick 1 mg/dL (0.2 mg/dL) Urine Leukocyte Esterase Neg (NEG) Urine RBC 6-10 /HPF (0-2) Urine WBC 0 /HPF (0-4) Urine Squamous Epithelial Cells Few /LPF Urine Bacteria 0 /HPF (0-FEW) Current Medications: Meds: Current Medications Risperidone (RisperDAL) 0.5 mg HS PO Last administered on 09/15/16 19:52; Start 09/14/16 at 21:30 Acetaminophen (Tylenol) 650 mg PRN Q4HRS PRN PO PAIN / TEMP; Start 09/14/16 at 21:30 Aspirin (Children'S Aspirin) 81 mg DAILY PO Last administered on 09/15/16 07:48 ; Start 09/15/16 at 09:00 Cetirizine HCl (ZyrTEC) 10 mg DAILY PO Last administered on 09/15/16 07:49; Start 09/15/16 at 09:00 Vitamin D (Vitamin D3) 2,000 unit DAILY PO Last administered on 09/15/16 07:47 ; Start 09/15/16 at 09:00 Clopidogrel Bisulfate (Plavix) 75 mg DAILY PO Last administered on 09/15/16 07: 47; Start 09/15/16 at 09:00 Cyanocobalamin (Vitamin B-12) 1,000 mcg QMONTH SQ ; Start 10/14/16 at 09:00 Folic Acid (Folic Acid) 1 mg DAILY PO Last administered on 09/15/16 07:48; Start 09/15/16 at 09:00 Furosemide (Lasix) 20 mg SuWeFr PO ; Start 09/16/16 at 09:00 Furosemide (Lasix) 40 mg MoTuThSa PO Last administered on 09/15/16 07:50; Start 09/15/16 at 09:00 Gabapentin (Neurontin) 300 mg TID PO Last administered on 09/15/16 19:52; Start 09/15/16 at 09:00 Metoprolol Tartrate (Lopressor) 12.5 mg BID PO Last administered on 09/15/16 19 :52; Start 09/15/16 at 09:00 Multi-Ingred Cream/Lotion/Oil/ Oint (Hydrocerin) 1 francia DAILY PRN TP Dry Skin; Start 09/14/16 at 21:30 Nitroglycerin (Nitrostat) 0.4 mg PRN Q5MIN PRN SL CHEST PAIN; Start 09/14/16 at 21:30 Pantoprazole Sodium (Protonix) 40 mg BID PO Last administered on 09/15/16 19:52 ; Start 09/15/16 at 09:00 Simethicone (Gas-X) 120 mg BID PO Last administered on 09/15/16 19:52; Start at 09:00 Tamsulosin HCl (Flomax) 0.4 mg BID PO Last administered on 09/15/16 19:52; Start 09/15/16 at 09:00 Isosorbide Mononitrate (Imdur) 30 mg HS PO Last administered on 09/15/16 19:53 ; Start 09/15/16 at 21:00 Active Scripts Active Reported Risperidone 0.5 Mg Tablet 0.5 Mg PO HS Furosemide 40 Mg Tablet 40 Mg PO QMTUTHSA Tylenol (Acetaminophen) 325 Mg Tablet 650 Mg PO PRN Q4HRS PRN Nitrostat (Nitroglycerin) 0.4 Mg Tab.subl 0.4 Mg SL PRN Q5MIN PRN Eucerin Creme (Mineral Oil/Petrolatum,White) 120 Gm Cream..g. 1 Francia TP PRN PRN Gabapentin 300 Mg Capsule 300 Mg PO TID Vitamin D3 (Cholecalciferol (Vitamin D3)) 1,000 Unit Tablet 2,000 Unit PO DAILY Flomax (Tamsulosin Hcl) 0.4 Mg Cap.er.24h 0.4 Mg PO BID Simethicone 80 Mg Tab.chew 120 Mg PO BID Protonix (Pantoprazole Sodium) 40 Mg Tablet.dr 40 Mg PO BID Cyanocobalamin Injection (Cyanocobalamin (Vitamin B-12)) 1,000 Mcg/1 Ml Vial 1, 000 Mcg SQ QMONTH Once monthly on the Furosemide 20 Mg Tablet 20 Mg PO 3X/WEEK On Saturday, Saturday, & Saturday Folic Acid 1 Mg Tablet 1 Mg PO DAILY Plavix (Clopidogrel Bisulfate) 75 Mg Tablet 75 Mg PO DAILY Cetirizine Hcl 10 Mg Tablet 10 Mg PO DAILY Aspirin 81 Mg Tab.chew 81 Mg PO DAILY Metoprolol Tartrate 25 Mg Tablet 12.5 Mg PO BID Isosorbide Dinitrate 30 Mg Tablet 30 Mg PO HS Diagnosis: Problems: (1) Major depressive disorder (2) Schizoaffective disorder (3) Schizophrenia, disorganized, subchronic with acute exacerbation CHELY LAMB MD Sep 15, 2016 23:19
[2016-09-16 00:09] LABS: HEMOGLOBIN A1C 5.4 % (4.8-5.6)
--- NOTE | 2016-09-16 00:34 | EKG ---
[address] [address] Test Date: 2016-09-15 Test Time: 21:52:27 Pat Name: KEYSHA SUH Department: Room: [address] [place] [address] Gender: M Rn Plastics: : 1945 Requested By: CHELY LAMB Order Number: [id number] Reading MD: Measurements Intervals [place] Rate: 94 P: 9 MT: 138 QRS: 3 QRSD: 82 T: 36 QT: 366 QTc: 463 Interpretive Statements SINUS RHYTHM NO SPECIFIC ECG ABNORMALITIES RI6.01 Unconfirmed report No previous ECG available for comparison
[2016-09-16 06:17] VITALS: BP 119/61
[2016-09-16] MEDS: ASPIRIN 81 MG TAB.CHEW PO SCH (07:34)
[2016-09-16] MEDS: FOLIC ACID 1 MG TABLET PO SCH (07:34)
[2016-09-16] MEDS: METOPROLOL TART IMMED RELEASE 25 MG TABLET PO SCH ×2 (07:34→19:51)
[2016-09-16] MEDS: SIMETHICONE 80 MG TAB.CHEW PO SCH ×2 (07:35→19:50)
[2016-09-16] MEDS: TAMSULOSIN 0.4 MG CAP.ER.24H. PO SCH ×2 (07:35→19:50)
[2016-09-16] MEDS: CLOPIDOGREL BISULFATE 75 MG TABLET PO SCH (07:35)
[2016-09-16] MEDS: GABAPENTIN 300 MG CAPSULE. PO SCH ×3 (07:35→19:52)
[2016-09-16] MEDS: CETIRIZINE HCL 10 MG TABLET PO SCH (07:35)
[2016-09-16] MEDS: PANTOPRAZOLE 40 MG TABLET. PO SCH ×2 (07:35→19:52)
[2016-09-16] MEDS: CHOLECALCIFEROL (VITAMIN D3) 1,000 UNIT TABLET PO SCH (07:36)
[2016-09-16] MEDS: FUROSEMIDE 20 MG TABLET PO SCH (07:37)
[2016-09-16 16:37] VITALS: BP 107/60
[2016-09-16] MEDS: ISOSORBIDE MONONITRATE ER 30 MG TAB.ER.24H PO SCH (19:52)
[2016-09-16] MEDS: risperiDONE 0.5 MG TABLET. PO SCH (19:52)
--- NOTE | 2016-09-16 20:13 | PDOC ---
Exam Harjeet Demential Exam: Harjeet Note: Please also refer to the separate dictated note~for this date of service dictated separately.~Patient seen individually. Discussed the patient with Nursing staff reviewed the chart.~Reviewed interim history and current functioning. Reviewed vital signs,~Labs/ Radiology~and current medications noted below. Continue current treatment with the changes noted in the dictated addendum note Assessment: Vital Signs: Vital Signs Date Time Temp Pulse Resp B/P (MAP) Pulse Ox O2 Delivery O2 Flow Rate FiO2 09/16/16 19:52 79 127/72 09/16/16 16:37 98.2 20 93 09/16/16 06:17 Room Air 09/14/16 19:51 95.0 I&O Intake and Output 09/16/16 07:00 Intake Total 1440 ml Output Total 1050 ml Balance 390 ml Intake Oral 1440 ml Output Urine Total 1050 ml Current Medications: Meds: Current Medications Risperidone (RisperDAL) 0.5 mg HS PO Last administered on 09/16/16 19:52; Start 09/14/16 at 21:30 Acetaminophen (Tylenol) 650 mg PRN Q4HRS PRN PO PAIN / TEMP; Start 09/14/16 at 21:30 Aspirin (Children'S Aspirin) 81 mg DAILY PO Last administered on 09/16/16 07:34 ; Start 09/15/16 at 09:00 Cetirizine HCl (ZyrTEC) 10 mg DAILY PO Last administered on 09/16/16 07:35; Start 09/15/16 at 09:00 Vitamin D (Vitamin D3) 2,000 unit DAILY PO Last administered on 09/16/16 07:36 ; Start 09/15/16 at 09:00 Clopidogrel Bisulfate (Plavix) 75 mg DAILY PO Last administered on 09/16/16 07: 35; Start 09/15/16 at 09:00 Cyanocobalamin (Vitamin B-12) 1,000 mcg QMONTH SQ ; Start 10/14/16 at 09:00 Folic Acid (Folic Acid) 1 mg DAILY PO Last administered on 09/16/16 07:34; Start 09/15/16 at 09:00 Furosemide (Lasix) 20 mg SuWeFr PO Last administered on 09/16/16 07:37; Start 09/16/16 at 09:00 Furosemide (Lasix) 40 mg MoTuThSa PO Last administered on 09/15/16 07:50; Start 09/15/16 at 09:00 Gabapentin (Neurontin) 300 mg TID PO Last administered on 09/16/16 19:52; Start 09/15/16 at 09:00 Metoprolol Tartrate (Lopressor) 12.5 mg BID PO Last administered on 09/16/16 19 :51; Start 09/15/16 at 09:00 Multi-Ingred Cream/Lotion/Oil/ Oint (Hydrocerin) 1 francia DAILY PRN TP Dry Skin; Start 09/14/16 at 21:30 Nitroglycerin (Nitrostat) 0.4 mg PRN Q5MIN PRN SL CHEST PAIN; Start 09/14/16 at 21:30 Pantoprazole Sodium (Protonix) 40 mg BID PO Last administered on 09/16/16 19:52 ; Start 09/15/16 at 09:00 Simethicone (Gas-X) 120 mg BID PO Last administered on 09/16/16 19:50; Start at 09:00 Tamsulosin HCl (Flomax) 0.4 mg BID PO Last administered on 09/16/16 19:50; Start 09/15/16 at 09:00 Isosorbide Mononitrate (Imdur) 30 mg HS PO Last administered on 09/16/16 19:52 ; Start 09/15/16 at 21:00 Active Scripts Active Reported Risperidone 0.5 Mg Tablet 0.5 Mg PO HS Furosemide 40 Mg Tablet 40 Mg PO QMTUTHSA Tylenol (Acetaminophen) 325 Mg Tablet 650 Mg PO PRN Q4HRS PRN Nitrostat (Nitroglycerin) 0.4 Mg Tab.subl 0.4 Mg SL PRN Q5MIN PRN Eucerin Creme (Mineral Oil/Petrolatum,White) 120 Gm Cream..g. 1 Francia TP PRN PRN Gabapentin 300 Mg Capsule 300 Mg PO TID Vitamin D3 (Cholecalciferol (Vitamin D3)) 1,000 Unit Tablet 2,000 Unit PO DAILY Flomax (Tamsulosin Hcl) 0.4 Mg Cap.er.24h 0.4 Mg PO BID Simethicone 80 Mg Tab.chew 120 Mg PO BID Protonix (Pantoprazole Sodium) 40 Mg Tablet.dr 40 Mg PO BID Cyanocobalamin Injection (Cyanocobalamin (Vitamin B-12)) 1,000 Mcg/1 Ml Vial 1, 000 Mcg SQ QMONTH Once monthly on the Furosemide 20 Mg Tablet 20 Mg PO 3X/WEEK On Saturday, Saturday, & Saturday Folic Acid 1 Mg Tablet 1 Mg PO DAILY Plavix (Clopidogrel Bisulfate) 75 Mg Tablet 75 Mg PO DAILY Cetirizine Hcl 10 Mg Tablet 10 Mg PO DAILY Aspirin 81 Mg Tab.chew 81 Mg PO DAILY Metoprolol Tartrate 25 Mg Tablet 12.5 Mg PO BID Isosorbide Dinitrate 30 Mg Tablet 30 Mg PO HS Diagnosis: Problems: (1) Major depressive disorder (2) Schizoaffective disorder (3) Schizophrenia, disorganized, subchronic with acute exacerbation CHELY LAMB MD Sep 16, 2016 20:13
[2016-09-16] MEDS: ACETAMINOPHEN 325 MG TABLET PO PRN (21:17)
[2016-09-17 05:52] VITALS: BP 118/55
[2016-09-17] MEDS: METOPROLOL TART IMMED RELEASE 25 MG TABLET PO SCH ×2 (08:10→19:35)
[2016-09-17] MEDS: ASPIRIN 81 MG TAB.CHEW PO SCH ×2 (08:11→09:00)
[2016-09-17] MEDS: FUROSEMIDE 40 MG TABLET PO SCH ×2 (08:11→09:00)
[2016-09-17] MEDS: GABAPENTIN 300 MG CAPSULE. PO SCH ×4 (08:12→19:35)
[2016-09-17] MEDS: CHOLECALCIFEROL (VITAMIN D3) 1,000 UNIT TABLET PO SCH ×2 (08:12→09:00)
[2016-09-17] MEDS: CLOPIDOGREL BISULFATE 75 MG TABLET PO SCH ×2 (08:12→09:00)
[2016-09-17] MEDS: SIMETHICONE 80 MG TAB.CHEW PO SCH ×3 (08:12→19:34)
[2016-09-17] MEDS: PANTOPRAZOLE 40 MG TABLET. PO SCH ×3 (08:12→19:35)
[2016-09-17] MEDS: CETIRIZINE HCL 10 MG TABLET PO SCH ×2 (08:12→09:00)
[2016-09-17] MEDS: FOLIC ACID 1 MG TABLET PO SCH ×2 (08:12→09:00)
[2016-09-17] MEDS: TAMSULOSIN 0.4 MG CAP.ER.24H. PO SCH ×3 (08:12→19:34)
[2016-09-17 15:32] VITALS: BP 139/74
[2016-09-17] MEDS: ISOSORBIDE MONONITRATE ER 30 MG TAB.ER.24H PO SCH (19:35)
[2016-09-17] MEDS: risperiDONE ORAL 1 MG/ML 30ml BOTTLE. SL SCH (19:39)
--- NOTE | 2016-09-17 20:09 | PDOC ---
Exam Harjeet Demential Exam: Harjeet Note: Please also refer to the separate dictated note~for this date of service dictated separately.~Patient seen individually. Discussed the patient with Nursing staff reviewed the chart.~Reviewed interim history and current functioning. Reviewed vital signs,~Labs/ Radiology~and current medications noted below. Continue current treatment with the changes noted in the dictated addendum note Assessment: Vital Signs: Vital Signs Date Time Temp Pulse Resp B/P (MAP) Pulse Ox O2 Delivery O2 Flow Rate FiO2 09/17/16 19:35 96 139/74 09/17/16 15:32 98.9 20 97 09/16/16 06:17 Room Air 09/14/16 19:51 95.0 I&O Intake and Output 09/17/16 07:00 Intake Total 1020 ml Output Total 850 ml Balance 170 ml Intake Oral 1020 ml Output Urine Total 850 ml Current Medications: Meds: Current Medications Risperidone (RisperDAL) 0.5 mg HS PO Last administered on 09/16/16 19:52; Start 09/14/16 at 21:30; Stop 09/17/16 at 18:20; Status DC Acetaminophen (Tylenol) 650 mg PRN Q4HRS PRN PO PAIN / TEMP Last administered on 09/16/16 21:17; Start 09/14/16 at 21:30 Aspirin (Children'S Aspirin) 81 mg DAILY PO Last administered on 09/16/16 07:34 ; Start 09/15/16 at 09:00 Cetirizine HCl (ZyrTEC) 10 mg DAILY PO Last administered on 09/16/16 07:35; Start 09/15/16 at 09:00 Vitamin D (Vitamin D3) 2,000 unit DAILY PO Last administered on 09/16/16 07:36 ; Start 09/15/16 at 09:00 Clopidogrel Bisulfate (Plavix) 75 mg DAILY PO Last administered on 09/16/16 07: 35; Start 09/15/16 at 09:00 Cyanocobalamin (Vitamin B-12) 1,000 mcg QMONTH SQ ; Start 10/14/16 at 09:00 Folic Acid (Folic Acid) 1 mg DAILY PO Last administered on 09/16/16 07:34; Start 09/15/16 at 09:00 Furosemide (Lasix) 20 mg SuWeFr PO Last administered on 09/16/16 07:37; Start 09/16/16 at 09:00 Furosemide (Lasix) 40 mg MoTuThSa PO Last administered on 09/15/16 07:50; Start 09/15/16 at 09:00 Gabapentin (Neurontin) 300 mg TID PO Last administered on 09/17/16 19:35; Start 09/15/16 at 09:00 Metoprolol Tartrate (Lopressor) 12.5 mg BID PO Last administered on 09/17/16 19:35; Start 09/15/16 at 09:00 Multi-Ingred Cream/Lotion/Oil/ Oint (Hydrocerin) 1 francia DAILY PRN TP Dry Skin; Start 09/14/16 at 21:30 Nitroglycerin (Nitrostat) 0.4 mg PRN Q5MIN PRN SL CHEST PAIN; Start 09/14/16 at 21:30 Pantoprazole Sodium (Protonix) 40 mg BID PO Last administered on 09/17/16 19: 35; Start 09/15/16 at 09:00 Simethicone (Gas-X) 120 mg BID PO Last administered on 09/17/16 19:34; Start 09/15/16 at 09:00 Tamsulosin HCl (Flomax) 0.4 mg BID PO Last administered on 09/17/16 19:34; Start 09/15/16 at 09:00 Isosorbide Mononitrate (Imdur) 30 mg HS PO Last administered on 09/17/16 19:35 ; Start 09/15/16 at 21:00 Sertraline HCl (Zoloft) 50 mg DAILY PO ; Start 09/18/16 at 09:00 Risperidone (RisperDAL) 0.5 mg BID SL Last administered on 09/17/16 19:39; Start 09/17/16 at 21:00 Active Scripts Active Reported Risperidone 0.5 Mg Tablet 0.5 Mg PO HS Furosemide 40 Mg Tablet 40 Mg PO QMTUTHSA Tylenol (Acetaminophen) 325 Mg Tablet 650 Mg PO PRN Q4HRS PRN Nitrostat (Nitroglycerin) 0.4 Mg Tab.subl 0.4 Mg SL PRN Q5MIN PRN Eucerin Creme (Mineral Oil/Petrolatum,White) 120 Gm Cream..g. 1 Francia TP PRN PRN Gabapentin 300 Mg Capsule 300 Mg PO TID Vitamin D3 (Cholecalciferol (Vitamin D3)) 1,000 Unit Tablet 2,000 Unit PO DAILY Flomax (Tamsulosin Hcl) 0.4 Mg Cap.er.24h 0.4 Mg PO BID Simethicone 80 Mg Tab.chew 120 Mg PO BID Protonix (Pantoprazole Sodium) 40 Mg Tablet.dr 40 Mg PO BID Cyanocobalamin Injection (Cyanocobalamin (Vitamin B-12)) 1,000 Mcg/1 Ml Vial 1, 000 Mcg SQ QMONTH Once monthly on the Furosemide 20 Mg Tablet 20 Mg PO 3X/WEEK On Saturday, Saturday, & Saturday Folic Acid 1 Mg Tablet 1 Mg PO DAILY Plavix (Clopidogrel Bisulfate) 75 Mg Tablet 75 Mg PO DAILY Cetirizine Hcl 10 Mg Tablet 10 Mg PO DAILY Aspirin 81 Mg Tab.chew 81 Mg PO DAILY Metoprolol Tartrate 25 Mg Tablet 12.5 Mg PO BID Isosorbide Dinitrate 30 Mg Tablet 30 Mg PO HS Diagnosis: Problems: (1) Major depressive disorder (2) Schizoaffective disorder (3) Schizophrenia, disorganized, subchronic with acute exacerbation CHELY LAMB MD Sep 17, 2016 20:09
--- NOTE | 2016-09-17 21:21 | PDOC1 ---
History and Physicial PSYCHIATRIC ADMISSION HISTORY/EVALUATION This is a late entry for Date of Service 09/12/2016. The patient seen individually evening of 09/12/2016. Discussed with nursing staff. Reviewed the chart. IDENTIFYING DATA: The patient is a 71-year-old male transferred from [facility] after patient was treated for dehydration, acute kidney injury, rhabdomyolysis, and medically stabilized. He was initially referred from the [facility] to the [facility] having failed outpatient psychiatric interventions by Dr. Clark, and now on account of worsening delusions believing he is going to be electrocuted that he had no throat that he had fur rather than hair on his face. He is making all gestures with sign language, quite psychotic, had an exacerbation of his schizophrenia chronic undifferentiated, had failed outpatient psychiatric interventions resulting in this referral. Once he is medically stabilized he is transferred to us for psychiatric stabilization. CHIEF COMPLAINT: There is electricity running under my skin. HISTORY OF PRESENT ILLNESS: The patient has a long history of schizophrenia chronic undifferentiated. He had been stable recently but over the past several days has been increasingly psychotic, delusional, refusing medications, believes he has no throat amongst other things. No active suicidal or homicidal ideation. No clear history of bipolar disorder. PAST PSYCHIATRIC HISTORY: As above. 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 CURRENT PSYCHOTROPICS: Zyprexa 5 mg h.s. FAMILY HISTORY: Noncontributory. SOCIAL HISTORY: Past history of alcohol abuse. No drug abuse. No physical, sexual, elder abuse history is noted. He is not known to be a perpetrator. 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 Lived in [facility]. MENTAL STATUS EXAM: The patient is in his wheelchair. He is oriented to himself and situation at times. Speech has some latency, coherent. Abstraction fair. Computation impaired. Language function intact. Mood and affect somewhat labile. He is delusional. Again talking about being electrocuted and electricity under his skin amongst other things. Suspicious. No active suicidal or homicidal ideation. Intellect borderline. LABS: Reviewed. 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 Rest diagnoses as above. PLAN: Continue the patient on his current psychotropics. We will go ahead and change the Zyprexa to Risperdal 0.5 mg p.o. h.s. S. We will go ahead and change the Zyprexa to Risperdal 0.5 mg p.o. h.s. We need to add Depakote. I will see the patient daily individually from a psychiatric standpoint. Request medical followup with Dr. Fountain/Dr. Moncada. Problems: CHELY LAMB MD Sep 17, 2016 21:21
[2016-09-18 06:04] VITALS: BP 136/74
[2016-09-18] MEDS: GABAPENTIN 300 MG CAPSULE. PO SCH ×3 (09:01→19:38)
[2016-09-18] MEDS: FOLIC ACID 1 MG TABLET PO SCH (09:01)
[2016-09-18] MEDS: CLOPIDOGREL BISULFATE 75 MG TABLET PO SCH (09:01)
[2016-09-18] MEDS: TAMSULOSIN 0.4 MG CAP.ER.24H. PO SCH ×2 (09:01→19:36)
[2016-09-18] MEDS: FUROSEMIDE 40 MG TABLET PO SCH (09:01)
[2016-09-18] MEDS: CETIRIZINE HCL 10 MG TABLET PO SCH (09:01)
[2016-09-18] MEDS: ASPIRIN 81 MG TAB.CHEW PO SCH (09:01)
[2016-09-18] MEDS: PANTOPRAZOLE 40 MG TABLET. PO SCH ×2 (09:01→19:38)
[2016-09-18] MEDS: METOPROLOL TART IMMED RELEASE 25 MG TABLET PO SCH ×2 (09:02→19:38)
[2016-09-18] MEDS: CHOLECALCIFEROL (VITAMIN D3) 1,000 UNIT TABLET PO SCH (09:02)
[2016-09-18] MEDS: SIMETHICONE 80 MG TAB.CHEW PO SCH ×2 (09:02→19:37)
[2016-09-18] MEDS: SERTRALINE 25 MG TABLET. PO SCH (09:03)
[2016-09-18] MEDS: risperiDONE ORAL 1 MG/ML 30ml BOTTLE. SL SCH ×2 (09:04→19:39)
[2016-09-18 15:56] VITALS: BP 126/73
[2016-09-18] MEDS: ISOSORBIDE MONONITRATE ER 30 MG TAB.ER.24H PO SCH (19:37)
--- NOTE | 2016-09-18 20:13 | PDOC ---
Exam Harjeet Demential Exam: Harjeet Note: Please also refer to the separate dictated note~for this date of service dictated separately.~Patient seen individually. Discussed the patient with Nursing staff reviewed the chart.~Reviewed interim history and current functioning. Reviewed vital signs,~Labs/ Radiology~and current medications noted below. Continue current treatment with the changes noted in the dictated addendum note Assessment: Vital Signs: Vital Signs Date Time Temp Pulse Resp B/P (MAP) Pulse Ox O2 Delivery O2 Flow Rate FiO2 09/18/16 19:38 97 126/73 09/18/16 15:56 98.6 16 94 Room Air 09/14/16 19:51 95.0 I&O Intake and Output 09/18/16 07:00 Intake Total 920 ml Output Total 600 ml Balance 320 ml Intake Oral 920 ml Output Urine Total 600 ml Current Medications: Meds: Current Medications Risperidone (RisperDAL) 0.5 mg HS PO Last administered on 09/16/16 19:52; Start 09/14/16 at 21:30; Stop 09/17/16 at 18:20; Status DC Acetaminophen (Tylenol) 650 mg PRN Q4HRS PRN PO PAIN / TEMP Last administered on 09/16/16 21:17; Start 09/14/16 at 21:30 Aspirin (Children'S Aspirin) 81 mg DAILY PO Last administered on 09/18/16 09: 01; Start 09/15/16 at 09:00 Cetirizine HCl (ZyrTEC) 10 mg DAILY PO Last administered on 09/18/16 09:01; Start 09/15/16 at 09:00 Vitamin D (Vitamin D3) 2,000 unit DAILY PO Last administered on 09/18/16 09:02 ; Start 09/15/16 at 09:00 Clopidogrel Bisulfate (Plavix) 75 mg DAILY PO Last administered on 09/18/16 09 :01; Start 09/15/16 at 09:00 Cyanocobalamin (Vitamin B-12) 1,000 mcg QMONTH SQ ; Start 10/14/16 at 09:00 Folic Acid (Folic Acid) 1 mg DAILY PO Last administered on 09/18/16 09:01; Start 09/15/16 at 09:00 Furosemide (Lasix) 20 mg SuWeFr PO Last administered on 09/16/16 07:37; Start 09/16/16 at 09:00 Furosemide (Lasix) 40 mg MoTuThSa PO Last administered on 09/18/16 09:01; Start 09/15/16 at 09:00 Gabapentin (Neurontin) 300 mg TID PO Last administered on 09/18/16 19:38; Start 09/15/16 at 09:00 Metoprolol Tartrate (Lopressor) 12.5 mg BID PO Last administered on 09/18/16 19:38; Start 09/15/16 at 09:00 Multi-Ingred Cream/Lotion/Oil/ Oint (Hydrocerin) 1 francia DAILY PRN TP Dry Skin; Start 09/14/16 at 21:30 Nitroglycerin (Nitrostat) 0.4 mg PRN Q5MIN PRN SL CHEST PAIN; Start 09/14/16 at 21:30 Pantoprazole Sodium (Protonix) 40 mg BID PO Last administered on 09/18/16 19: 38; Start 09/15/16 at 09:00 Simethicone (Gas-X) 120 mg BID PO Last administered on 09/18/16 19:37; Start 09/15/16 at 09:00 Tamsulosin HCl (Flomax) 0.4 mg BID PO Last administered on 09/18/16 19:36; Start 09/15/16 at 09:00 Isosorbide Mononitrate (Imdur) 30 mg HS PO Last administered on 09/18/16 19:37 ; Start 09/15/16 at 21:00 Sertraline HCl (Zoloft) 50 mg DAILY PO Last administered on 09/18/16 09:03; Start 09/18/16 at 09:00 Risperidone (RisperDAL) 0.5 mg BID SL Last administered on 09/18/16 19:39; Start 09/17/16 at 21:00 Active Scripts Active Reported Risperidone 0.5 Mg Tablet 0.5 Mg PO HS Furosemide 40 Mg Tablet 40 Mg PO QMTUTHSA Tylenol (Acetaminophen) 325 Mg Tablet 650 Mg PO PRN Q4HRS PRN Nitrostat (Nitroglycerin) 0.4 Mg Tab.subl 0.4 Mg SL PRN Q5MIN PRN Eucerin Creme (Mineral Oil/Petrolatum,White) 120 Gm Cream..g. 1 Francia TP PRN PRN Gabapentin 300 Mg Capsule 300 Mg PO TID Vitamin D3 (Cholecalciferol (Vitamin D3)) 1,000 Unit Tablet 2,000 Unit PO DAILY Flomax (Tamsulosin Hcl) 0.4 Mg Cap.er.24h 0.4 Mg PO BID Simethicone 80 Mg Tab.chew 120 Mg PO BID Protonix (Pantoprazole Sodium) 40 Mg Tablet.dr 40 Mg PO BID Cyanocobalamin Injection (Cyanocobalamin (Vitamin B-12)) 1,000 Mcg/1 Ml Vial 1, 000 Mcg SQ QMONTH Once monthly on the Furosemide 20 Mg Tablet 20 Mg PO 3X/WEEK On Saturday, Saturday, & Saturday Folic Acid 1 Mg Tablet 1 Mg PO DAILY Plavix (Clopidogrel Bisulfate) 75 Mg Tablet 75 Mg PO DAILY Cetirizine Hcl 10 Mg Tablet 10 Mg PO DAILY Aspirin 81 Mg Tab.chew 81 Mg PO DAILY Metoprolol Tartrate 25 Mg Tablet 12.5 Mg PO BID Isosorbide Dinitrate 30 Mg Tablet 30 Mg PO HS Diagnosis: Problems: (1) Major depressive disorder (2) Schizoaffective disorder (3) Schizophrenia, disorganized, subchronic with acute exacerbation CHELY LAMB MD Sep 18, 2016 20:12
[2016-09-19 05:51] VITALS: BP 115/62
[2016-09-19] MEDS: CLOPIDOGREL BISULFATE 75 MG TABLET PO SCH (08:32)
[2016-09-19] MEDS: TAMSULOSIN 0.4 MG CAP.ER.24H. PO SCH ×2 (08:32→19:47)
[2016-09-19] MEDS: CETIRIZINE HCL 10 MG TABLET PO SCH (08:32)
[2016-09-19] MEDS: GABAPENTIN 300 MG CAPSULE. PO SCH ×3 (08:32→19:48)
[2016-09-19] MEDS: SIMETHICONE 80 MG TAB.CHEW PO SCH ×2 (08:32→19:47)
[2016-09-19] MEDS: CHOLECALCIFEROL (VITAMIN D3) 1,000 UNIT TABLET PO SCH (08:32)
[2016-09-19] MEDS: SERTRALINE 25 MG TABLET. PO SCH (08:32)
[2016-09-19] MEDS: FUROSEMIDE 20 MG TABLET PO SCH (08:33)
[2016-09-19] MEDS: PANTOPRAZOLE 40 MG TABLET. PO SCH ×2 (08:34→19:48)
[2016-09-19] MEDS: ASPIRIN 81 MG TAB.CHEW PO SCH (08:34)
[2016-09-19] MEDS: METOPROLOL TART IMMED RELEASE 25 MG TABLET PO SCH ×2 (08:34→19:48)
[2016-09-19] MEDS: FOLIC ACID 1 MG TABLET PO SCH (08:34)
[2016-09-19] MEDS: risperiDONE ORAL 1 MG/ML 30ml BOTTLE. SL SCH ×2 (08:35→19:49)
[2016-09-19 16:08] VITALS: BP 145/76
[2016-09-19] MEDS: ISOSORBIDE MONONITRATE ER 30 MG TAB.ER.24H PO SCH (19:48)
--- NOTE | 2016-09-19 19:49 | PDOC ---
Exam Harjeet Demential Exam: Harjeet Note: Please also refer to the separate dictated note~for this date of service dictated separately.~Patient seen individually. Discussed the patient with Nursing staff reviewed the chart.~Reviewed interim history and current functioning. Reviewed vital signs,~Labs/ Radiology~and current medications noted below. Continue current treatment with the changes noted in the dictated addendum note Assessment: Vital Signs: Vital Signs Date Time Temp Pulse Resp B/P (MAP) Pulse Ox O2 Delivery O2 Flow Rate FiO2 09/19/16 16:08 99.2 70 18 145/76 (99) 98 Room Air 09/14/16 19:51 95.0 I&O Intake and Output 09/19/16 07:00 Intake Total 1500 ml Output Total 1225 ml Balance 275 ml Intake Oral 1500 ml Output Urine Total 1225 ml Current Medications: Meds: Current Medications Risperidone (RisperDAL) 0.5 mg HS PO Last administered on 09/16/16 19:52; Start 09/14/16 at 21:30; Stop 09/17/16 at 18:20; Status DC Acetaminophen (Tylenol) 650 mg PRN Q4HRS PRN PO PAIN / TEMP Last administered on 09/16/16 21:17; Start 09/14/16 at 21:30 Aspirin (Children'S Aspirin) 81 mg DAILY PO Last administered on 09/19/16 08: 34; Start 09/15/16 at 09:00 Cetirizine HCl (ZyrTEC) 10 mg DAILY PO Last administered on 09/19/16 08:32; Start 09/15/16 at 09:00 Vitamin D (Vitamin D3) 2,000 unit DAILY PO Last administered on 09/19/16 08:32 ; Start 09/15/16 at 09:00 Clopidogrel Bisulfate (Plavix) 75 mg DAILY PO Last administered on 09/19/16 08 :32; Start 09/15/16 at 09:00 Cyanocobalamin (Vitamin B-12) 1,000 mcg QMONTH SQ ; Start 10/14/16 at 09:00 Folic Acid (Folic Acid) 1 mg DAILY PO Last administered on 09/19/16 08:34; Start 09/15/16 at 09:00 Furosemide (Lasix) 20 mg SuWeFr PO Last administered on 09/19/16 08:33; Start 09/16/16 at 09:00 Furosemide (Lasix) 40 mg MoTuThSa PO Last administered on 09/18/16 09:01; Start 09/15/16 at 09:00 Gabapentin (Neurontin) 300 mg TID PO Last administered on 09/19/16 12:44; Start 09/15/16 at 09:00 Metoprolol Tartrate (Lopressor) 12.5 mg BID PO Last administered on 09/19/16 08:34; Start 09/15/16 at 09:00 Multi-Ingred Cream/Lotion/Oil/ Oint (Hydrocerin) 1 francia DAILY PRN TP Dry Skin; Start 09/14/16 at 21:30 Nitroglycerin (Nitrostat) 0.4 mg PRN Q5MIN PRN SL CHEST PAIN; Start 09/14/16 at 21:30 Pantoprazole Sodium (Protonix) 40 mg BID PO Last administered on 09/19/16 08: 34; Start 09/15/16 at 09:00 Simethicone (Gas-X) 120 mg BID PO Last administered on 09/19/16 08:32; Start 09/15/16 at 09:00 Tamsulosin HCl (Flomax) 0.4 mg BID PO Last administered on 09/19/16 08:32; Start 09/15/16 at 09:00 Isosorbide Mononitrate (Imdur) 30 mg HS PO Last administered on 09/18/16 19:37 ; Start 09/15/16 at 21:00 Sertraline HCl (Zoloft) 50 mg DAILY PO Last administered on 09/19/16 08:32; Start 09/18/16 at 09:00 Risperidone (RisperDAL) 0.5 mg BID SL Last administered on 09/19/16 08:35; Start 09/17/16 at 21:00 Active Scripts Active Reported Risperidone 0.5 Mg Tablet 0.5 Mg PO HS Furosemide 40 Mg Tablet 40 Mg PO QMTUTHSA Tylenol (Acetaminophen) 325 Mg Tablet 650 Mg PO PRN Q4HRS PRN Nitrostat (Nitroglycerin) 0.4 Mg Tab.subl 0.4 Mg SL PRN Q5MIN PRN Eucerin Creme (Mineral Oil/Petrolatum,White) 120 Gm Cream..g. 1 Francia TP PRN PRN Gabapentin 300 Mg Capsule 300 Mg PO TID Vitamin D3 (Cholecalciferol (Vitamin D3)) 1,000 Unit Tablet 2,000 Unit PO DAILY Flomax (Tamsulosin Hcl) 0.4 Mg Cap.er.24h 0.4 Mg PO BID Simethicone 80 Mg Tab.chew 120 Mg PO BID Protonix (Pantoprazole Sodium) 40 Mg Tablet.dr 40 Mg PO BID Cyanocobalamin Injection (Cyanocobalamin (Vitamin B-12)) 1,000 Mcg/1 Ml Vial 1, 000 Mcg SQ QMONTH Once monthly on the Furosemide 20 Mg Tablet 20 Mg PO 3X/WEEK On Saturday, Saturday, & Saturday Folic Acid 1 Mg Tablet 1 Mg PO DAILY Plavix (Clopidogrel Bisulfate) 75 Mg Tablet 75 Mg PO DAILY Cetirizine Hcl 10 Mg Tablet 10 Mg PO DAILY Aspirin 81 Mg Tab.chew 81 Mg PO DAILY Metoprolol Tartrate 25 Mg Tablet 12.5 Mg PO BID Isosorbide Dinitrate 30 Mg Tablet 30 Mg PO HS Diagnosis: Problems: (1) Major depressive disorder (2) Schizoaffective disorder (3) Schizophrenia, disorganized, subchronic with acute exacerbation CHELY LAMB MD Sep 19, 2016 19:49
--- NOTE | 2016-09-19 20:08 | PDOC1 ---
History and Physicial This is a late entry for 09/15/2016. Identifying data: The patient is a 71-year-old male who returns [facility] to us [facility] where he was transferred from the [facility] due to urinary retention. The patient is medically stabilized, continued to be psychotic, believing he has no esophagus, he has fur growing all over him, making statements he does not have a throat and therefore cannot eat "I'm not real." This is similar to what he has been convinced off in the past but he had medical problems necessitating the transfer , now referred back to us by Dr. Moncada. Chief complaint: "There is electricity running under my skin. My tools are dropping off." H P I: The patient was in his room on the unit in the wheelchair with the urine bag on the floor and staffer wants to assist him with this. The patient has a history of schizophrenia, chronic undifferentiated type but he has been stable in the recent past living at [facility] followed from the psychiatric standpoint by Dr. Clark. Over the last few weeks, he has been increasingly psychotic delusional as noted above, refusing to eat. Confusion has been worsening as well. No active suicidal or homicidal ideation. No clear history of bipolar disorder. Past Psychiatric History: As above. Borderline intellectual functioning. Medical History: Positive for urinary retention, CHF, coronary artery disease, BPH, status post UTI, COPD, neuropathy, and urinary retention. He is a full code. Allergies: Aminoglycosides, pramoxine, Benzalkonium. Current Psychotropics: Risperdal 0.5 mg h.s., he has not been eating well except Boost and takes his meds and Boost. Quite withdrawn to his room. Family H/o: Noncontributory. Social H/o: No alcohol or drug abuse, physical, sexual, and/or abuse history is noted. He is not known to be a perpetrator. 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 and then at [facility] before he retired. MSE: The patient is seen in his room, in his wheelchair, urinary bag on the floor, Black in place. He has consumed by describing to me the electricity he believes was running in his body. Speech is coherent. Abstraction is fair. Computation is impaired. Language function is intact. Attention span is short. Mood and affect is somewhat labile. No active suicidal or homicidal ideation. Labs: Reviewed. Impression: Psychotic disorder, unspecified versus schizophrenia chronic and differentiated with acute exacerbation; anxiety disorder, unspecified. Rest of the diagnoses as above. Plan: Continue Risperdal 0.5 mg h.s. We need to increase this gradually. I will see the patient daily, individually from a psychiatric standpoint. Request medical follow up with Dr. Fountain/Dr. Moncada. Problems: CHELY LAMB MD Sep 19, 2016 20:08
--- NOTE | 2016-09-19 20:47 | PDOC ---
Exam Harjeet Demential Exam: Harjeet Note: Please also refer to the separate dictated note~for this date of service dictated separately.~Patient seen individually. Discussed the patient with Nursing staff reviewed the chart.~Reviewed interim history and current functioning. Reviewed vital signs,~Labs/ Radiology~and current medications noted below. Continue current treatment with the changes noted in the dictated addendum note S/O: This is a late entry for date of service 09/16/2016 and covers the elements that are not covered in my initial note. The patient was seen individually on evening of 09/16/2016. Per nursing report, the patient is eating well. Appetite is fair. Took Boost for breakfast, lunch, and at supper. He is somewhat withdrawn to his mood, still psychotic, believes there is electricity running under his skin. Review of Systems: Ambulation impaired, in wheelchair. No CV, , Eye, ENT, Pulmonary system symptoms on review. Paresthesia is in his hands. MSE: Oriented to himself and situation. Speech is coherent. Abstraction, fair. Computation, impaired. Language function, intact. Mood and affect, still somewhat anxious and labile. Labs: Reviewed. Imp: Unchanged from the initial note. Plan: Continue Risperdal 0.5 mg h.s. We need to increase this in due course. Assessment: Vital Signs: Vital Signs Date Time Temp Pulse Resp B/P (MAP) Pulse Ox O2 Delivery O2 Flow Rate FiO2 09/19/16 19:48 70 145/76 09/19/16 16:08 99.2 18 98 Room Air 09/14/16 19:51 95.0 I&O Intake and Output 09/19/16 07:00 Intake Total 1500 ml Output Total 1225 ml Balance 275 ml Intake Oral 1500 ml Output Urine Total 1225 ml Current Medications: Meds: Current Medications Risperidone (RisperDAL) 0.5 mg HS PO Last administered on 09/16/16 19:52; Start 09/14/16 at 21:30; Stop 09/17/16 at 18:20; Status DC Acetaminophen (Tylenol) 650 mg PRN Q4HRS PRN PO PAIN / TEMP Last administered on 09/16/16 21:17; Start 09/14/16 at 21:30 Aspirin (Children'S Aspirin) 81 mg DAILY PO Last administered on 09/19/16 08: 34; Start 09/15/16 at 09:00 Cetirizine HCl (ZyrTEC) 10 mg DAILY PO Last administered on 09/19/16 08:32; Start 09/15/16 at 09:00 Vitamin D (Vitamin D3) 2,000 unit DAILY PO Last administered on 09/19/16 08:32 ; Start 09/15/16 at 09:00 Clopidogrel Bisulfate (Plavix) 75 mg DAILY PO Last administered on 09/19/16 08 :32; Start 09/15/16 at 09:00 Cyanocobalamin (Vitamin B-12) 1,000 mcg QMONTH SQ ; Start 10/14/16 at 09:00 Folic Acid (Folic Acid) 1 mg DAILY PO Last administered on 09/19/16 08:34; Start 09/15/16 at 09:00 Furosemide (Lasix) 20 mg SuWeFr PO Last administered on 09/19/16 08:33; Start 09/16/16 at 09:00 Furosemide (Lasix) 40 mg MoTuThSa PO Last administered on 09/18/16 09:01; Start 09/15/16 at 09:00 Gabapentin (Neurontin) 300 mg TID PO Last administered on 09/19/16 19:48; Start 09/15/16 at 09:00 Metoprolol Tartrate (Lopressor) 12.5 mg BID PO Last administered on 09/19/16 19:48; Start 09/15/16 at 09:00 Multi-Ingred Cream/Lotion/Oil/ Oint (Hydrocerin) 1 francia DAILY PRN TP Dry Skin; Start 09/14/16 at 21:30 Nitroglycerin (Nitrostat) 0.4 mg PRN Q5MIN PRN SL CHEST PAIN; Start 09/14/16 at 21:30 Pantoprazole Sodium (Protonix) 40 mg BID PO Last administered on 09/19/16 19: 48; Start 09/15/16 at 09:00 Simethicone (Gas-X) 120 mg BID PO Last administered on 09/19/16 19:47; Start 09/15/16 at 09:00 Tamsulosin HCl (Flomax) 0.4 mg BID PO Last administered on 09/19/16 19:47; Start 09/15/16 at 09:00 Isosorbide Mononitrate (Imdur) 30 mg HS PO Last administered on 09/19/16 19:48 ; Start 09/15/16 at 21:00 Sertraline HCl (Zoloft) 50 mg DAILY PO Last administered on 09/19/16 08:32; Start 09/18/16 at 09:00 Risperidone (RisperDAL) 0.5 mg BID SL Last administered on 09/19/16 19:49; Start 09/17/16 at 21:00 Active Scripts Active Reported Risperidone 0.5 Mg Tablet 0.5 Mg PO HS Furosemide 40 Mg Tablet 40 Mg PO QMTUTHSA Tylenol (Acetaminophen) 325 Mg Tablet 650 Mg PO PRN Q4HRS PRN Nitrostat (Nitroglycerin) 0.4 Mg Tab.subl 0.4 Mg SL PRN Q5MIN PRN Eucerin Creme (Mineral Oil/Petrolatum,White) 120 Gm Cream..g. 1 Francia TP PRN PRN Gabapentin 300 Mg Capsule 300 Mg PO TID Vitamin D3 (Cholecalciferol (Vitamin D3)) 1,000 Unit Tablet 2,000 Unit PO DAILY Flomax (Tamsulosin Hcl) 0.4 Mg Cap.er.24h 0.4 Mg PO BID Simethicone 80 Mg Tab.chew 120 Mg PO BID Protonix (Pantoprazole Sodium) 40 Mg Tablet.dr 40 Mg PO BID Cyanocobalamin Injection (Cyanocobalamin (Vitamin B-12)) 1,000 Mcg/1 Ml Vial 1, 000 Mcg SQ QMONTH Once monthly on the Furosemide 20 Mg Tablet 20 Mg PO 3X/WEEK On Saturday, Saturday, & Saturday Folic Acid 1 Mg Tablet 1 Mg PO DAILY Plavix (Clopidogrel Bisulfate) 75 Mg Tablet 75 Mg PO DAILY Cetirizine Hcl 10 Mg Tablet 10 Mg PO DAILY Aspirin 81 Mg Tab.chew 81 Mg PO DAILY Metoprolol Tartrate 25 Mg Tablet 12.5 Mg PO BID Isosorbide Dinitrate 30 Mg Tablet 30 Mg PO HS CHELY LAMB MD Sep 19, 2016 20:47
[2016-09-20 05:51] VITALS: BP 147/75
[2016-09-20] MEDS: ASPIRIN 81 MG TAB.CHEW PO SCH (09:00)
[2016-09-20] MEDS: CHOLECALCIFEROL (VITAMIN D3) 1,000 UNIT TABLET PO SCH (09:00)
[2016-09-20] MEDS: CETIRIZINE HCL 10 MG TABLET PO SCH (09:00)
[2016-09-20] MEDS: FOLIC ACID 1 MG TABLET PO SCH (09:00)
[2016-09-20] MEDS: FUROSEMIDE 40 MG TABLET PO SCH (09:00)
[2016-09-20] MEDS: PANTOPRAZOLE 40 MG TABLET. PO SCH ×2 (09:00→20:51)
[2016-09-20] MEDS: risperiDONE ORAL 1 MG/ML 30ml BOTTLE. SL SCH ×3 (09:45→21:00)
[2016-09-20] MEDS: SIMETHICONE 80 MG TAB.CHEW PO SCH ×3 (11:03→21:00)
[2016-09-20] MEDS: CLOPIDOGREL BISULFATE 75 MG TABLET PO SCH (11:03)
[2016-09-20] MEDS: SERTRALINE 25 MG TABLET. PO SCH (11:03)
[2016-09-20] MEDS: TAMSULOSIN 0.4 MG CAP.ER.24H. PO SCH ×2 (11:03→20:51)
[2016-09-20] MEDS: METOPROLOL TART IMMED RELEASE 25 MG TABLET PO SCH ×3 (11:04→21:00)
[2016-09-20] MEDS: GABAPENTIN 300 MG CAPSULE. PO SCH ×4 (11:04→21:00)
[2016-09-20 15:31] VITALS: BP 147/75
[2016-09-20 15:53] LABS: BASO # 0.1 x10^3/uL (0.0-0.2); BASO % 1 % (0-3); EOS # 0.1 x10^3/uL (0.0-0.7); EOS % 2 % (0-3); HEMATOCRIT 35.6 % (39.0-53.0); HEMOGLOBIN 11.8 g/dL (13.0-17.5); LYMPH # 0.8 x10^3/uL (1.0-4.8); LYMPH % 13 % (24-48); MEAN CORPUSCULAR HEMOGLOBIN 26 pg (25-35); MEAN CORPUSCULAR HGB CONC 33 g/dL (31-37); MEAN CORPUSCULAR VOLUME 80 fL (79-100); MONO # 0.8 x10^3/uL (0.0-1.1); MONO % 13 % (0-9); NEUT # 4.3 x10^3uL (1.8-7.7); NEUT % 71 % (31-73); PLATELET COUNT 207 x10^3/uL (140-400); RED BLOOD COUNT 4.48 x10^6/uL (4.30-5.70); RED CELL DISTRIBUTION WIDTH 19.7 % (11.5-14.5); WHITE BLOOD COUNT 6.1 x10^3/uL (4.0-11.0)
[2016-09-20 15:54] LABS: ALBUMIN 3.2 g/dL (3.4-5.0); ALBUMIN/GLOBULIN RATIO 0.6 (1.0-1.7); CREATININE 1.3 mg/dL (0.7-1.3); GFR 54.3; MAGNESIUM 2.2 mg/dL (1.8-2.4); POTASSIUM 4.3 mmol/L (3.5-5.1); TOTAL BILIRUBIN 0.4 mg/dL (0.2-1.0); TOTAL PROTEIN 8.2 g/dL (6.4-8.2)
--- NOTE | 2016-09-20 20:01 | PDOC ---
Exam Harjeet Demential Exam: Harjeet Note: Please also refer to the separate dictated note~for this date of service dictated separately.~Patient seen individually. Discussed the patient with Nursing staff reviewed the chart.~Reviewed interim history and current functioning. Reviewed vital signs,~Labs/ Radiology~and current medications noted below. Continue current treatment with the changes noted in the dictated addendum note Assessment: Vital Signs: Vital Signs Date Time Temp Pulse Resp B/P (MAP) Pulse Ox O2 Delivery O2 Flow Rate FiO2 09/20/16 15:31 97.7 66 18 147/75 (99) 96 09/19/16 16:08 Room Air 09/14/16 19:51 95.0 I&O Intake and Output 09/20/16 07:00 Intake Total 360 ml Output Total 650 ml Balance -290 ml Intake Oral 360 ml Output Urine Total 650 ml Labs: Laboratory Tests Test 09/20/16 15:33 White Blood Count 6.1 x10^3/uL (4.0-11.0) Red Blood Count 4.48 x10^6/uL (4.30-5.70) Hemoglobin 11.8 g/dL (13.0-17.5) L Hematocrit 35.6 % (39.0-53.0) L Mean Corpuscular Volume 80 fL (79-100) Mean Corpuscular Hemoglobin 26 pg (25-35) Mean Corpuscular Hemoglobin Concent 33 g/dL (31-37) Red Cell Distribution Width 19.7 % (11.5-14.5) H Platelet Count 207 x10^3/uL (140-400) Neutrophils (%) (Auto) 71 % (31-73) Lymphocytes (%) (Auto) 13 % (24-48) L Monocytes (%) (Auto) 13 % (0-9) H Eosinophils (%) (Auto) 2 % (0-3) Basophils (%) (Auto) 1 % (0-3) Neutrophils # (Auto) 4.3 x10^3uL (1.8-7.7) Lymphocytes # (Auto) 0.8 x10^3/uL (1.0-4.8) L Monocytes # (Auto) 0.8 x10^3/uL (0.0-1.1) Eosinophils # (Auto) 0.1 x10^3/uL (0.0-0.7) Basophils # (Auto) 0.1 x10^3/uL (0.0-0.2) Sodium Level 138 mmol/L (136-145) Potassium Level 4.3 mmol/L (3.5-5.1) Chloride Level 99 mmol/L (98-107) Carbon Dioxide Level 35 mmol/L (21-32) H Anion Gap 4 (6-14) L Blood Urea Nitrogen 28 mg/dL (8-26) H Creatinine 1.3 mg/dL (0.7-1.3) Estimated GFR (Cockcroft-Gault) 54.3 BUN/Creatinine Ratio 22 (6-20) H Glucose Level 122 mg/dL (70-99) H Calcium Level 9.0 mg/dL (8.5-10.1) Magnesium Level 2.2 mg/dL (1.8-2.4) Total Bilirubin 0.4 mg/dL (0.2-1.0) Aspartate Amino Transferase (AST) 23 U/L (15-37) Alanine Aminotransferase (ALT) 23 U/L (16-63) Alkaline Phosphatase 100 U/L (46-116) Total Protein 8.2 g/dL (6.4-8.2) Albumin 3.2 g/dL (3.4-5.0) L Albumin/Globulin Ratio 0.6 (1.0-1.7) L Current Medications: Meds: Current Medications Risperidone (RisperDAL) 0.5 mg HS PO Last administered on 09/16/16 19:52; Start 09/14/16 at 21:30; Stop 09/17/16 at 18:20; Status DC Acetaminophen (Tylenol) 650 mg PRN Q4HRS PRN PO PAIN / TEMP Last administered on 09/16/16 21:17; Start 09/14/16 at 21:30 Aspirin (Children'S Aspirin) 81 mg DAILY PO Last administered on 09/20/16 09: 00; Start 09/15/16 at 09:00 Cetirizine HCl (ZyrTEC) 10 mg DAILY PO Last administered on 09/19/16 08:32; Start 09/15/16 at 09:00 Vitamin D (Vitamin D3) 2,000 unit DAILY PO Last administered on 09/19/16 08:32 ; Start 09/15/16 at 09:00 Clopidogrel Bisulfate (Plavix) 75 mg DAILY PO Last administered on 09/20/16 11 :03; Start 09/15/16 at 09:00 Cyanocobalamin (Vitamin B-12) 1,000 mcg QMONTH SQ ; Start 10/14/16 at 09:00 Folic Acid (Folic Acid) 1 mg DAILY PO Last administered on 09/19/16 08:34; Start 09/15/16 at 09:00 Furosemide (Lasix) 20 mg SuWeFr PO Last administered on 09/19/16 08:33; Start 09/16/16 at 09:00 Furosemide (Lasix) 40 mg MoTuThSa PO Last administered on 09/18/16 09:01; Start 09/15/16 at 09:00 Gabapentin (Neurontin) 300 mg TID PO Last administered on 09/20/16 13:59; Start 09/15/16 at 09:00 Metoprolol Tartrate (Lopressor) 12.5 mg BID PO Last administered on 09/20/16 11:04; Start 09/15/16 at 09:00 Multi-Ingred Cream/Lotion/Oil/ Oint (Hydrocerin) 1 francia DAILY PRN TP Dry Skin; Start 09/14/16 at 21:30 Nitroglycerin (Nitrostat) 0.4 mg PRN Q5MIN PRN SL CHEST PAIN; Start 09/14/16 at 21:30 Pantoprazole Sodium (Protonix) 40 mg BID PO Last administered on 09/19/16 19: 48; Start 09/15/16 at 09:00 Simethicone (Gas-X) 120 mg BID PO Last administered on 09/20/16 11:03; Start 09/15/16 at 09:00 Tamsulosin HCl (Flomax) 0.4 mg BID PO Last administered on 09/20/16 11:03; Start 09/15/16 at 09:00 Isosorbide Mononitrate (Imdur) 30 mg HS PO Last administered on 09/19/16 19:48 ; Start 09/15/16 at 21:00 Sertraline HCl (Zoloft) 50 mg DAILY PO Last administered on 09/20/16 11:03; Start 09/18/16 at 09:00 Risperidone (RisperDAL) 0.5 mg BID SL Last administered on 09/20/16t 09:45; Start 09/17/16 at 21:00 Active Scripts Active Reported Risperidone 0.5 Mg Tablet 0.5 Mg PO HS Furosemide 40 Mg Tablet 40 Mg PO QMTUTHSA Tylenol (Acetaminophen) 325 Mg Tablet 650 Mg PO PRN Q4HRS PRN Nitrostat (Nitroglycerin) 0.4 Mg Tab.subl 0.4 Mg SL PRN Q5MIN PRN Eucerin Creme (Mineral Oil/Petrolatum,White) 120 Gm Cream..g. 1 Francia TP PRN PRN Gabapentin 300 Mg Capsule 300 Mg PO TID Vitamin D3 (Cholecalciferol (Vitamin D3)) 1,000 Unit Tablet 2,000 Unit PO DAILY Flomax (Tamsulosin Hcl) 0.4 Mg Cap.er.24h 0.4 Mg PO BID Simethicone 80 Mg Tab.chew 120 Mg PO BID Protonix (Pantoprazole Sodium) 40 Mg Tablet.dr 40 Mg PO BID Cyanocobalamin Injection (Cyanocobalamin (Vitamin B-12)) 1,000 Mcg/1 Ml Vial 1, 000 Mcg SQ QMONTH Once monthly on the Furosemide 20 Mg Tablet 20 Mg PO 3X/WEEK On Saturday, Saturday, & Saturday Folic Acid 1 Mg Tablet 1 Mg PO DAILY Plavix (Clopidogrel Bisulfate) 75 Mg Tablet 75 Mg PO DAILY Cetirizine Hcl 10 Mg Tablet 10 Mg PO DAILY Aspirin 81 Mg Tab.chew 81 Mg PO DAILY Metoprolol Tartrate 25 Mg Tablet 12.5 Mg PO BID Isosorbide Dinitrate 30 Mg Tablet 30 Mg PO HS Diagnosis: Problems: (1) Major depressive disorder (2) Schizoaffective disorder (3) Schizophrenia, disorganized, subchronic with acute exacerbation CHELY LAMB MD Sep 20, 2016 20:01
--- NOTE | 2016-09-20 20:19 | PDOC ---
Exam Harjeet Demential Exam: Harjeet Note: Please also refer to the separate dictated note~for this date of service dictated separately.~Patient seen individually. Discussed the patient with Nursing staff reviewed the chart.~Reviewed interim history and current functioning. Reviewed vital signs,~Labs/ Radiology~and current medications noted below. Continue current treatment with the changes noted in the dictated addendum note S/O: This is a late entry for 09/17/2016 and covers elements not covered in my initial note. The patient was seen individually on the evening of 09/17/2016. He continues to be psychotic, believes he has no throat, there is electricity running under his skin but perhaps a little less than before. Review of Systems: Positive for vague somatic symptoms as above, impaired ambulation, in wheelchair. No CV, , Pulmonary, Eye system symptoms on review. MSE: Oriented to himself and situation. Speech is coherent. Abstraction fair. Computation impaired. He is quite psychotic. No active suicidal or homicidal ideation. Anxious and obsessive. Labs: Reviewed. Imp: Unchanged from initial note. Plan: Increase Risperdal from 0.5 mg daily to 0.5 mg twice a day liquid and start Zoloft 50 mg a day, adjust as clinically indicated. Assessment: Vital Signs: Vital Signs Date Time Temp Pulse Resp B/P (MAP) Pulse Ox O2 Delivery O2 Flow Rate FiO2 09/20/16 15:31 97.7 66 18 147/75 (99) 96 09/19/16 16:08 Room Air 09/14/16 19:51 95.0 I&O Intake and Output 09/20/16 07:00 Intake Total 360 ml Output Total 650 ml Balance -290 ml Intake Oral 360 ml Output Urine Total 650 ml Labs: Laboratory Tests Test 09/20/16 15:33 White Blood Count 6.1 x10^3/uL (4.0-11.0) Red Blood Count 4.48 x10^6/uL (4.30-5.70) Hemoglobin 11.8 g/dL (13.0-17.5) L Hematocrit 35.6 % (39.0-53.0) L Mean Corpuscular Volume 80 fL (79-100) Mean Corpuscular Hemoglobin 26 pg (25-35) Mean Corpuscular Hemoglobin Concent 33 g/dL (31-37) Red Cell Distribution Width 19.7 % (11.5-14.5) H Platelet Count 207 x10^3/uL (140-400) Neutrophils (%) (Auto) 71 % (31-73) Lymphocytes (%) (Auto) 13 % (24-48) L Monocytes (%) (Auto) 13 % (0-9) H Eosinophils (%) (Auto) 2 % (0-3) Basophils (%) (Auto) 1 % (0-3) Neutrophils # (Auto) 4.3 x10^3uL (1.8-7.7) Lymphocytes # (Auto) 0.8 x10^3/uL (1.0-4.8) L Monocytes # (Auto) 0.8 x10^3/uL (0.0-1.1) Eosinophils # (Auto) 0.1 x10^3/uL (0.0-0.7) Basophils # (Auto) 0.1 x10^3/uL (0.0-0.2) Sodium Level 138 mmol/L (136-145) Potassium Level 4.3 mmol/L (3.5-5.1) Chloride Level 99 mmol/L (98-107) Carbon Dioxide Level 35 mmol/L (21-32) H Anion Gap 4 (6-14) L Blood Urea Nitrogen 28 mg/dL (8-26) H Creatinine 1.3 mg/dL (0.7-1.3) Estimated GFR (Cockcroft-Gault) 54.3 BUN/Creatinine Ratio 22 (6-20) H Glucose Level 122 mg/dL (70-99) H Calcium Level 9.0 mg/dL (8.5-10.1) Magnesium Level 2.2 mg/dL (1.8-2.4) Total Bilirubin 0.4 mg/dL (0.2-1.0) Aspartate Amino Transferase (AST) 23 U/L (15-37) Alanine Aminotransferase (ALT) 23 U/L (16-63) Alkaline Phosphatase 100 U/L (46-116) Total Protein 8.2 g/dL (6.4-8.2) Albumin 3.2 g/dL (3.4-5.0) L Albumin/Globulin Ratio 0.6 (1.0-1.7) L Current Medications: Meds: Current Medications Risperidone (RisperDAL) 0.5 mg HS PO Last administered on 09/16/16 19:52; Start 09/14/16 at 21:30; Stop 09/17/16 at 18:20; Status DC Acetaminophen (Tylenol) 650 mg PRN Q4HRS PRN PO PAIN / TEMP Last administered on 09/16/16 21:17; Start 09/14/16 at 21:30 Aspirin (Children'S Aspirin) 81 mg DAILY PO Last administered on 09/20/16 09: 00; Start 09/15/16 at 09:00 Cetirizine HCl (ZyrTEC) 10 mg DAILY PO Last administered on 09/19/16 08:32; Start 09/15/16 at 09:00 Vitamin D (Vitamin D3) 2,000 unit DAILY PO Last administered on 09/19/16 08:32 ; Start 09/15/16 at 09:00 Clopidogrel Bisulfate (Plavix) 75 mg DAILY PO Last administered on 09/20/16 11 :03; Start 09/15/16 at 09:00 Cyanocobalamin (Vitamin B-12) 1,000 mcg QMONTH SQ ; Start 10/14/16 at 09:00 Folic Acid (Folic Acid) 1 mg DAILY PO Last administered on 09/19/16 08:34; Start 09/15/16 at 09:00 Furosemide (Lasix) 20 mg SuWeFr PO Last administered on 09/19/16 08:33; Start 09/16/16 at 09:00 Furosemide (Lasix) 40 mg MoTuThSa PO Last administered on 09/18/16 09:01; Start 09/15/16 at 09:00 Gabapentin (Neurontin) 300 mg TID PO Last administered on 09/20/16 13:59; Start 09/15/16 at 09:00 Metoprolol Tartrate (Lopressor) 12.5 mg BID PO Last administered on 09/20/16 11:04; Start 09/15/16 at 09:00 Multi-Ingred Cream/Lotion/Oil/ Oint (Hydrocerin) 1 francia DAILY PRN TP Dry Skin; Start 09/14/16 at 21:30 Nitroglycerin (Nitrostat) 0.4 mg PRN Q5MIN PRN SL CHEST PAIN; Start 09/14/16 at 21:30 Pantoprazole Sodium (Protonix) 40 mg BID PO Last administered on 09/19/16 19: 48; Start 09/15/16 at 09:00 Simethicone (Gas-X) 120 mg BID PO Last administered on 09/20/16 11:03; Start 09/15/16 at 09:00 Tamsulosin HCl (Flomax) 0.4 mg BID PO Last administered on 09/20/16 11:03; Start 09/15/16 at 09:00 Isosorbide Mononitrate (Imdur) 30 mg HS PO Last administered on 09/19/16 19:48 ; Start 09/15/16 at 21:00 Sertraline HCl (Zoloft) 50 mg DAILY PO Last administered on 09/20/16 11:03; Start 09/18/16 at 09:00 Risperidone (RisperDAL) 0.5 mg BID SL Last administered on 09/20/16 09:45; Start 09/17/16 at 21:00 Active Scripts Active Reported Risperidone 0.5 Mg Tablet 0.5 Mg PO HS Furosemide 40 Mg Tablet 40 Mg PO QMTUTHSA Tylenol (Acetaminophen) 325 Mg Tablet 650 Mg PO PRN Q4HRS PRN Nitrostat (Nitroglycerin) 0.4 Mg Tab.subl 0.4 Mg SL PRN Q5MIN PRN Eucerin Creme (Mineral Oil/Petrolatum,White) 120 Gm Cream..g. 1 Francia TP PRN PRN Gabapentin 300 Mg Capsule 300 Mg PO TID Vitamin D3 (Cholecalciferol (Vitamin D3)) 1,000 Unit Tablet 2,000 Unit PO DAILY Flomax (Tamsulosin Hcl) 0.4 Mg Cap.er.24h 0.4 Mg PO BID Simethicone 80 Mg Tab.chew 120 Mg PO BID Protonix (Pantoprazole Sodium) 40 Mg Tablet.dr 40 Mg PO BID Cyanocobalamin Injection (Cyanocobalamin (Vitamin B-12)) 1,000 Mcg/1 Ml Vial 1, 000 Mcg SQ QMONTH Once monthly on the Furosemide 20 Mg Tablet 20 Mg PO 3X/WEEK On Saturday, Saturday, & Saturday Folic Acid 1 Mg Tablet 1 Mg PO DAILY Plavix (Clopidogrel Bisulfate) 75 Mg Tablet 75 Mg PO DAILY Cetirizine Hcl 10 Mg Tablet 10 Mg PO DAILY Aspirin 81 Mg Tab.chew 81 Mg PO DAILY Metoprolol Tartrate 25 Mg Tablet 12.5 Mg PO BID Isosorbide Dinitrate 30 Mg Tablet 30 Mg PO HS CHELY LAMB MD Sep 20, 2016 20:19
[2016-09-20] MEDS: ISOSORBIDE MONONITRATE ER 30 MG TAB.ER.24H PO SCH ×2 (20:53→21:00)
--- NOTE | 2016-09-20 20:54 | PDOC ---
Exam Harjeet Demential Exam: Harjeet Note: Please also refer to the separate dictated note~for this date of service dictated separately.~Patient seen individually. Discussed the patient with Nursing staff reviewed the chart.~Reviewed interim history and current functioning. Reviewed vital signs,~Labs/ Radiology~and current medications noted below. Continue current treatment with the changes noted in the dictated addendum note S/O: This is a late entry for 09/18/2016 and covers elements not covered in my initial note. The patient was seen individually on the evening of 09/18/2016. Per nursing report, the patient has been delusional. He states he does not have an esophagus and cannot swallow, though he was able to take his medications whole later and seemed less psychotic. Review of Systems: Ambulation impaired, in wheelchair. No CV, , Eye, ENT system symptoms on review. Reliability poor. MSE: Oriented to himself and situation. Speech coherent. Abstraction fair. Computation impaired. Language function intact. Mood and affect remain somewhat withdrawn. I met with him in his room. Labs: Reviewed. Imp: Unchanged from initial note. Plan: Continue current psychotropics. May need to increase Risperdal in due course. Continue Zoloft 50 mg a day. Assessment: Vital Signs: Vital Signs Date Time Temp Pulse Resp B/P (MAP) Pulse Ox O2 Delivery O2 Flow Rate FiO2 09/20/16 15:31 97.7 66 18 147/75 (99) 96 09/19/16 16:08 Room Air 09/14/16 19:51 95.0 I&O Intake and Output 09/20/16 07:00 Intake Total 360 ml Output Total 650 ml Balance -290 ml Intake Oral 360 ml Output Urine Total 650 ml Labs: Laboratory Tests Test 09/20/16 15:33 White Blood Count 6.1 x10^3/uL (4.0-11.0) Red Blood Count 4.48 x10^6/uL (4.30-5.70) Hemoglobin 11.8 g/dL (13.0-17.5) L Hematocrit 35.6 % (39.0-53.0) L Mean Corpuscular Volume 80 fL (79-100) Mean Corpuscular Hemoglobin 26 pg (25-35) Mean Corpuscular Hemoglobin Concent 33 g/dL (31-37) Red Cell Distribution Width 19.7 % (11.5-14.5) H Platelet Count 207 x10^3/uL (140-400) Neutrophils (%) (Auto) 71 % (31-73) Lymphocytes (%) (Auto) 13 % (24-48) L Monocytes (%) (Auto) 13 % (0-9) H Eosinophils (%) (Auto) 2 % (0-3) Basophils (%) (Auto) 1 % (0-3) Neutrophils # (Auto) 4.3 x10^3uL (1.8-7.7) Lymphocytes # (Auto) 0.8 x10^3/uL (1.0-4.8) L Monocytes # (Auto) 0.8 x10^3/uL (0.0-1.1) Eosinophils # (Auto) 0.1 x10^3/uL (0.0-0.7) Basophils # (Auto) 0.1 x10^3/uL (0.0-0.2) Sodium Level 138 mmol/L (136-145) Potassium Level 4.3 mmol/L (3.5-5.1) Chloride Level 99 mmol/L (98-107) Carbon Dioxide Level 35 mmol/L (21-32) H Anion Gap 4 (6-14) L Blood Urea Nitrogen 28 mg/dL (8-26) H Creatinine 1.3 mg/dL (0.7-1.3) Estimated GFR (Cockcroft-Gault) 54.3 BUN/Creatinine Ratio 22 (6-20) H Glucose Level 122 mg/dL (70-99) H Calcium Level 9.0 mg/dL (8.5-10.1) Magnesium Level 2.2 mg/dL (1.8-2.4) Total Bilirubin 0.4 mg/dL (0.2-1.0) Aspartate Amino Transferase (AST) 23 U/L (15-37) Alanine Aminotransferase (ALT) 23 U/L (16-63) Alkaline Phosphatase 100 U/L (46-116) Total Protein 8.2 g/dL (6.4-8.2) Albumin 3.2 g/dL (3.4-5.0) L Albumin/Globulin Ratio 0.6 (1.0-1.7) L Current Medications: Meds: Current Medications Risperidone (RisperDAL) 0.5 mg HS PO Last administered on 09/16/16 19:52; Start 09/14/16 at 21:30; Stop 09/17/16 at 18:20; Status DC Acetaminophen (Tylenol) 650 mg PRN Q4HRS PRN PO PAIN / TEMP Last administered on 09/16/16 21:17; Start 09/14/16 at 21:30 Aspirin (Children'S Aspirin) 81 mg DAILY PO Last administered on 09/20/16 09: 00; Start 09/15/16 at 09:00 Cetirizine HCl (ZyrTEC) 10 mg DAILY PO Last administered on 09/19/16 08:32; Start 09/15/16 at 09:00 Vitamin D (Vitamin D3) 2,000 unit DAILY PO Last administered on 09/19/16 08:32 ; Start 09/15/16 at 09:00 Clopidogrel Bisulfate (Plavix) 75 mg DAILY PO Last administered on 09/20/16 11 :03; Start 09/15/16 at 09:00 Cyanocobalamin (Vitamin B-12) 1,000 mcg QMONTH SQ ; Start 10/14/16 at 09:00 Folic Acid (Folic Acid) 1 mg DAILY PO Last administered on 09/19/16 08:34; Start 09/15/16 at 09:00 Furosemide (Lasix) 20 mg SuWeFr PO Last administered on 09/19/16 08:33; Start 09/16/16 at 09:00 Furosemide (Lasix) 40 mg MoTuThSa PO Last administered on 09/18/16 09:01; Start 09/15/16 at 09:00 Gabapentin (Neurontin) 300 mg TID PO Last administered on 09/20/16 13:59; Start 09/15/16 at 09:00 Metoprolol Tartrate (Lopressor) 12.5 mg BID PO Last administered on 09/20/16 11:04; Start 09/15/16 at 09:00 Multi-Ingred Cream/Lotion/Oil/ Oint (Hydrocerin) 1 francia DAILY PRN TP Dry Skin; Start 09/14/16 at 21:30 Nitroglycerin (Nitrostat) 0.4 mg PRN Q5MIN PRN SL CHEST PAIN; Start 09/14/16 at 21:30 Pantoprazole Sodium (Protonix) 40 mg BID PO Last administered on 09/19/16 19: 48; Start 09/15/16 at 09:00 Simethicone (Gas-X) 120 mg BID PO Last administered on 09/20/16 11:03; Start 09/15/16 at 09:00 Tamsulosin HCl (Flomax) 0.4 mg BID PO Last administered on 09/20/16 11:03; Start 09/15/16 at 09:00 Isosorbide Mononitrate (Imdur) 30 mg HS PO Last administered on 09/19/16 19:48 ; Start 09/15/16 at 21:00 Sertraline HCl (Zoloft) 50 mg DAILY PO Last administered on 09/20/16 11:03; Start 09/18/16 at 09:00 Risperidone (RisperDAL) 0.5 mg BID SL Last administered on 09/20/16 09:45; Start 09/17/16 at 21:00 Active Scripts Active Reported Risperidone 0.5 Mg Tablet 0.5 Mg PO HS Furosemide 40 Mg Tablet 40 Mg PO QMTUTHSA Tylenol (Acetaminophen) 325 Mg Tablet 650 Mg PO PRN Q4HRS PRN Nitrostat (Nitroglycerin) 0.4 Mg Tab.subl 0.4 Mg SL PRN Q5MIN PRN Eucerin Creme (Mineral Oil/Petrolatum,White) 120 Gm Cream..g. 1 Francia TP PRN PRN Gabapentin 300 Mg Capsule 300 Mg PO TID Vitamin D3 (Cholecalciferol (Vitamin D3)) 1,000 Unit Tablet 2,000 Unit PO DAILY Flomax (Tamsulosin Hcl) 0.4 Mg Cap.er.24h 0.4 Mg PO BID Simethicone 80 Mg Tab.chew 120 Mg PO BID Protonix (Pantoprazole Sodium) 40 Mg Tablet.dr 40 Mg PO BID Cyanocobalamin Injection (Cyanocobalamin (Vitamin B-12)) 1,000 Mcg/1 Ml Vial 1, 000 Mcg SQ QMONTH Once monthly on the Furosemide 20 Mg Tablet 20 Mg PO 3X/WEEK On Saturday, Saturday, & Saturday Folic Acid 1 Mg Tablet 1 Mg PO DAILY Plavix (Clopidogrel Bisulfate) 75 Mg Tablet 75 Mg PO DAILY Cetirizine Hcl 10 Mg Tablet 10 Mg PO DAILY Aspirin 81 Mg Tab.chew 81 Mg PO DAILY Metoprolol Tartrate 25 Mg Tablet 12.5 Mg PO BID Isosorbide Dinitrate 30 Mg Tablet 30 Mg PO HS CHELY LAMB MD Sep 20, 2016 20:54
[2016-09-21 06:14] VITALS: BP 111/60
[2016-09-21 06:19] LABS: BASO # 0.1 x10^3/uL (0.0-0.2); BASO % 1 % (0-3); EOS # 0.2 x10^3/uL (0.0-0.7); EOS % 3 % (0-3); HEMATOCRIT 30.3 % (39.0-53.0); LYMPH # 0.9 x10^3/uL (1.0-4.8); LYMPH % 16 % (24-48); MEAN CORPUSCULAR HEMOGLOBIN 26 pg (25-35); MEAN CORPUSCULAR HGB CONC 33 g/dL (31-37); MEAN CORPUSCULAR VOLUME 79 fL (79-100); MONO # 0.9 x10^3/uL (0.0-1.1); MONO % 16 % (0-9); NEUT # 3.5 x10^3uL (1.8-7.7); NEUT % 65 % (31-73); PLATELET COUNT 178 x10^3/uL (140-400); RED BLOOD COUNT 3.83 x10^6/uL (4.30-5.70); RED CELL DISTRIBUTION WIDTH 19.6 % (11.5-14.5); WHITE BLOOD COUNT 5.5 x10^3/uL (4.0-11.0)
[2016-09-21 06:26] LABS: ALBUMIN 2.5 g/dL (3.4-5.0); ALBUMIN/GLOBULIN RATIO 0.6 (1.0-1.7); CREATININE 1.2 mg/dL (0.7-1.3); GFR 59.5; POTASSIUM 4.2 mmol/L (3.5-5.1); TOTAL BILIRUBIN 0.4 mg/dL (0.2-1.0); TOTAL PROTEIN 6.4 g/dL (6.4-8.2)
[2016-09-21] MEDS: TAMSULOSIN 0.4 MG CAP.ER.24H. PO SCH ×2 (08:02→20:42)
[2016-09-21] MEDS: GABAPENTIN 300 MG CAPSULE. PO SCH ×3 (08:02→20:41)
[2016-09-21] MEDS: SERTRALINE 25 MG TABLET. PO SCH (08:02)
[2016-09-21] MEDS: CLOPIDOGREL BISULFATE 75 MG TABLET PO SCH (08:02)
[2016-09-21] MEDS: risperiDONE ORAL 1 MG/ML 30ml BOTTLE. SL SCH ×2 (08:04→20:45)
[2016-09-21] MEDS: FUROSEMIDE 20 MG TABLET PO SCH (08:04)
[2016-09-21] MEDS: FOLIC ACID 1 MG TABLET PO SCH (08:08)
[2016-09-21] MEDS: SIMETHICONE 80 MG TAB.CHEW PO SCH ×2 (08:08→20:42)
[2016-09-21] MEDS: ASPIRIN 81 MG TAB.CHEW PO SCH (08:08)
[2016-09-21] MEDS: CETIRIZINE HCL 10 MG TABLET PO SCH (08:08)
[2016-09-21] MEDS: CHOLECALCIFEROL (VITAMIN D3) 1,000 UNIT TABLET PO SCH (08:08)
[2016-09-21] MEDS: PANTOPRAZOLE 40 MG TABLET. PO SCH ×2 (08:09→20:42)
[2016-09-21] MEDS: METOPROLOL TART IMMED RELEASE 25 MG TABLET PO SCH ×2 (09:10→20:41)
[2016-09-21 16:31] VITALS: BP 132/67
--- NOTE | 2016-09-21 20:03 | PDOC ---
Exam Harjeet Demential Exam: Harjeet Note: Please also refer to the separate dictated note~for this date of service dictated separately.~Patient seen individually. Discussed the patient with Nursing staff reviewed the chart.~Reviewed interim history and current functioning. Reviewed vital signs,~Labs/ Radiology~and current medications noted below. Continue current treatment with the changes noted in the dictated addendum note Assessment: Vital Signs: Vital Signs Date Time Temp Pulse Resp B/P (MAP) Pulse Ox O2 Delivery O2 Flow Rate FiO2 09/21/16 16:31 98.0 70 16 132/67 (88) 96 09/19/16 16:08 Room Air I&O Intake and Output 09/21/16 07:00 Intake Total 870 ml Output Total 325 ml Balance 545 ml Intake Oral 870 ml Output Urine Total 325 ml # Voids 1 Labs: Laboratory Tests Test 09/21/16 05:47 White Blood Count 5.5 x10^3/uL (4.0-11.0) Red Blood Count 3.83 x10^6/uL (4.30-5.70) L Hemoglobin 10.0 g/dL (13.0-17.5) L Hematocrit 30.3 % (39.0-53.0) L Mean Corpuscular Volume 79 fL (79-100) Mean Corpuscular Hemoglobin 26 pg (25-35) Mean Corpuscular Hemoglobin Concent 33 g/dL (31-37) Red Cell Distribution Width 19.6 % (11.5-14.5) H Platelet Count 178 x10^3/uL (140-400) Neutrophils (%) (Auto) 65 % (31-73) Lymphocytes (%) (Auto) 16 % (24-48) L Monocytes (%) (Auto) 16 % (0-9) H Eosinophils (%) (Auto) 3 % (0-3) Basophils (%) (Auto) 1 % (0-3) Neutrophils # (Auto) 3.5 x10^3uL (1.8-7.7) Lymphocytes # (Auto) 0.9 x10^3/uL (1.0-4.8) L Monocytes # (Auto) 0.9 x10^3/uL (0.0-1.1) Eosinophils # (Auto) 0.2 x10^3/uL (0.0-0.7) Basophils # (Auto) 0.1 x10^3/uL (0.0-0.2) Sodium Level 139 mmol/L (136-145) Potassium Level 4.2 mmol/L (3.5-5.1) Chloride Level 103 mmol/L (98-107) Carbon Dioxide Level 31 mmol/L (21-32) Anion Gap 5 (6-14) L Blood Urea Nitrogen 27 mg/dL (8-26) H Creatinine 1.2 mg/dL (0.7-1.3) Estimated GFR (Cockcroft-Gault) 59.5 BUN/Creatinine Ratio 23 (6-20) H Glucose Level 85 mg/dL (70-99) Calcium Level 8.0 mg/dL (8.5-10.1) #L Magnesium Level 2.0 mg/dL (1.8-2.4) Total Bilirubin 0.4 mg/dL (0.2-1.0) Aspartate Amino Transferase (AST) 20 U/L (15-37) Alanine Aminotransferase (ALT) 15 U/L (16-63) L Alkaline Phosphatase 73 U/L (46-116) Total Protein 6.4 g/dL (6.4-8.2) Albumin 2.5 g/dL (3.4-5.0) L Albumin/Globulin Ratio 0.6 (1.0-1.7) L Current Medications: Meds: Current Medications Risperidone (RisperDAL) 0.5 mg HS PO Last administered on 09/16/16 19:52; Start 09/14/16 at 21:30; Stop 09/17/16 at 18:20; Status DC Acetaminophen (Tylenol) 650 mg PRN Q4HRS PRN PO PAIN / TEMP Last administered on 09/16/16 21:17; Start 09/14/16 at 21:30 Aspirin (Children'S Aspirin) 81 mg DAILY PO Last administered on 09/21/16 08: 08; Start 09/15/16 at 09:00 Cetirizine HCl (ZyrTEC) 10 mg DAILY PO Last administered on 09/21/16 08:08; Start 09/15/16 at 09:00 Vitamin D (Vitamin D3) 2,000 unit DAILY PO Last administered on 09/21/16 08:08 ; Start 09/15/16 at 09:00 Clopidogrel Bisulfate (Plavix) 75 mg DAILY PO Last administered on 09/21/16 08 :02; Start 09/15/16 at 09:00 Cyanocobalamin (Vitamin B-12) 1,000 mcg QMONTH SQ ; Start 10/14/16 at 09:00 Folic Acid (Folic Acid) 1 mg DAILY PO Last administered on 09/21/16 08:08; Start 09/15/16 at 09:00 Furosemide (Lasix) 20 mg SuWeFr PO Last administered on 09/21/16 08:04; Start 09/16/16 at 09:00 Furosemide (Lasix) 40 mg MoTuThSa PO Last administered on 09/18/16 09:01; Start 09/15/16 at 09:00 Gabapentin (Neurontin) 300 mg TID PO Last administered on 09/21/16 15:58; Start 09/15/16 at 09:00 Metoprolol Tartrate (Lopressor) 12.5 mg BID PO Last administered on 09/21/16 09:10; Start 09/15/16 at 09:00 Multi-Ingred Cream/Lotion/Oil/ Oint (Hydrocerin) 1 francia DAILY PRN TP Dry Skin; Start 09/14/16 at 21:30 Nitroglycerin (Nitrostat) 0.4 mg PRN Q5MIN PRN SL CHEST PAIN; Start 09/14/16 at 21:30 Pantoprazole Sodium (Protonix) 40 mg BID PO Last administered on 09/21/16 08: 09; Start 09/15/16 at 09:00 Simethicone (Gas-X) 120 mg BID PO Last administered on 09/21/16 08:08; Start 09/15/16 at 09:00 Tamsulosin HCl (Flomax) 0.4 mg BID PO Last administered on 09/21/16 08:02; Start 09/15/16 at 09:00 Isosorbide Mononitrate (Imdur) 30 mg HS PO Last administered on 09/19/16 19:48 ; Start 09/15/16 at 21:00 Sertraline HCl (Zoloft) 50 mg DAILY PO Last administered on 09/21/16 08:02; Start 09/18/16 at 09:00 Risperidone (RisperDAL) 0.5 mg BID SL Last administered on 09/21/16t 08:04; Start 09/17/16 at 21:00 Ferrous Sulfate (Feosol) 325 mg DAILYWBKFT PO ; Start 09/22/16 at 08:00 Active Scripts Active Reported Risperidone 0.5 Mg Tablet 0.5 Mg PO HS Furosemide 40 Mg Tablet 40 Mg PO QMTUTHSA Tylenol (Acetaminophen) 325 Mg Tablet 650 Mg PO PRN Q4HRS PRN Nitrostat (Nitroglycerin) 0.4 Mg Tab.subl 0.4 Mg SL PRN Q5MIN PRN Eucerin Creme (Mineral Oil/Petrolatum,White) 120 Gm Cream..g. 1 Francia TP PRN PRN Gabapentin 300 Mg Capsule 300 Mg PO TID Vitamin D3 (Cholecalciferol (Vitamin D3)) 1,000 Unit Tablet 2,000 Unit PO DAILY Flomax (Tamsulosin Hcl) 0.4 Mg Cap.er.24h 0.4 Mg PO BID Simethicone 80 Mg Tab.chew 120 Mg PO BID Protonix (Pantoprazole Sodium) 40 Mg Tablet.dr 40 Mg PO BID Cyanocobalamin Injection (Cyanocobalamin (Vitamin B-12)) 1,000 Mcg/1 Ml Vial 1, 000 Mcg SQ QMONTH Once monthly on the Furosemide 20 Mg Tablet 20 Mg PO 3X/WEEK On Saturday, Saturday, & Saturday Folic Acid 1 Mg Tablet 1 Mg PO DAILY Plavix (Clopidogrel Bisulfate) 75 Mg Tablet 75 Mg PO DAILY Cetirizine Hcl 10 Mg Tablet 10 Mg PO DAILY Aspirin 81 Mg Tab.chew 81 Mg PO DAILY Metoprolol Tartrate 25 Mg Tablet 12.5 Mg PO BID Isosorbide Dinitrate 30 Mg Tablet 30 Mg PO HS Diagnosis: Problems: (1) Major depressive disorder (2) Schizoaffective disorder (3) Schizophrenia, disorganized, subchronic with acute exacerbation CHELY LAMB MD Sep 21, 2016 20:03
--- NOTE | 2016-09-21 20:36 | PDOC ---
Exam Harjeet Demential Exam: Harjeet Note: Please also refer to the separate dictated note~for this date of service dictated separately.~Patient seen individually. Discussed the patient with Nursing staff reviewed the chart.~Reviewed interim history and current functioning. Reviewed vital signs,~Labs/ Radiology~and current medications noted below. Continue current treatment with the changes noted in the dictated addendum note S/O: This is a late entry for September 19 covers elements not covered in my initial note. The patient was seen individually in the evening of September 19. Overall, the patient slept post breakfast this morning, took one bite of his meds, refused the evening medications, later took them in Boost, still remains psychotic, and states the electricity is running under his skin. Review of Systems: Ambulation impaired, in wheelchair. No CV, , Pulmonary, Eye, ENT system symptoms on review though he still believes he does not have an esophagus. MSE: Oriented to himself and situation. Speech is coherent, has some latency. Abstraction fair. Computation impaired. Language function intact. Attention span short. Mood and affect somewhat anxious, labile, still psychotic. Labs: Reviewed. Imp: Unchanged from initial note. Plan: Continue current psychotropics. Neurology consult with Dr. Thorne to rule out neuropathy causing his paresthesias. We will increase Risperdal gradually, but for now we will keep it 0.5 mg b.i.d. to be given any time of the day together with Zoloft 50 mg a day. Assessment: Vital Signs: Vital Signs Date Time Temp Pulse Resp B/P (MAP) Pulse Ox O2 Delivery O2 Flow Rate FiO2 09/21/16 16:31 98.0 70 16 132/67 (88) 96 09/19/16 16:08 Room Air I&O Intake and Output 09/21/16 07:00 Intake Total 870 ml Output Total 325 ml Balance 545 ml Intake Oral 870 ml Output Urine Total 325 ml # Voids 1 Labs: Laboratory Tests Test 09/21/16 05:47 White Blood Count 5.5 x10^3/uL (4.0-11.0) Red Blood Count 3.83 x10^6/uL (4.30-5.70) L Hemoglobin 10.0 g/dL (13.0-17.5) L Hematocrit 30.3 % (39.0-53.0) L Mean Corpuscular Volume 79 fL (79-100) Mean Corpuscular Hemoglobin 26 pg (25-35) Mean Corpuscular Hemoglobin Concent 33 g/dL (31-37) Red Cell Distribution Width 19.6 % (11.5-14.5) H Platelet Count 178 x10^3/uL (140-400) Neutrophils (%) (Auto) 65 % (31-73) Lymphocytes (%) (Auto) 16 % (24-48) L Monocytes (%) (Auto) 16 % (0-9) H Eosinophils (%) (Auto) 3 % (0-3) Basophils (%) (Auto) 1 % (0-3) Neutrophils # (Auto) 3.5 x10^3uL (1.8-7.7) Lymphocytes # (Auto) 0.9 x10^3/uL (1.0-4.8) L Monocytes # (Auto) 0.9 x10^3/uL (0.0-1.1) Eosinophils # (Auto) 0.2 x10^3/uL (0.0-0.7) Basophils # (Auto) 0.1 x10^3/uL (0.0-0.2) Sodium Level 139 mmol/L (136-145) Potassium Level 4.2 mmol/L (3.5-5.1) Chloride Level 103 mmol/L (98-107) Carbon Dioxide Level 31 mmol/L (21-32) Anion Gap 5 (6-14) L Blood Urea Nitrogen 27 mg/dL (8-26) H Creatinine 1.2 mg/dL (0.7-1.3) Estimated GFR (Cockcroft-Gault) 59.5 BUN/Creatinine Ratio 23 (6-20) H Glucose Level 85 mg/dL (70-99) Calcium Level 8.0 mg/dL (8.5-10.1) #L Magnesium Level 2.0 mg/dL (1.8-2.4) Total Bilirubin 0.4 mg/dL (0.2-1.0) Aspartate Amino Transferase (AST) 20 U/L (15-37) Alanine Aminotransferase (ALT) 15 U/L (16-63) L Alkaline Phosphatase 73 U/L (46-116) Total Protein 6.4 g/dL (6.4-8.2) Albumin 2.5 g/dL (3.4-5.0) L Albumin/Globulin Ratio 0.6 (1.0-1.7) L Current Medications: Meds: Current Medications Risperidone (RisperDAL) 0.5 mg HS PO Last administered on 09/16/16 19:52; Start 09/14/16 at 21:30; Stop 09/17/16 at 18:20; Status DC Acetaminophen (Tylenol) 650 mg PRN Q4HRS PRN PO PAIN / TEMP Last administered on 09/16/16 21:17; Start 09/14/16 at 21:30 Aspirin (Children'S Aspirin) 81 mg DAILY PO Last administered on 09/21/16 08: 08; Start 09/15/16 at 09:00 Cetirizine HCl (ZyrTEC) 10 mg DAILY PO Last administered on 09/21/16 08:08; Start 09/15/16 at 09:00 Vitamin D (Vitamin D3) 2,000 unit DAILY PO Last administered on 09/21/16 08:08 ; Start 09/15/16 at 09:00 Clopidogrel Bisulfate (Plavix) 75 mg DAILY PO Last administered on 09/21/16 08 :02; Start 09/15/16 at 09:00 Cyanocobalamin (Vitamin B-12) 1,000 mcg QMONTH SQ ; Start 10/14/16 at 09:00 Folic Acid (Folic Acid) 1 mg DAILY PO Last administered on 09/21/16 08:08; Start 09/15/16 at 09:00 Furosemide (Lasix) 20 mg SuWeFr PO Last administered on 09/21/16 08:04; Start 09/16/16 at 09:00 Furosemide (Lasix) 40 mg MoTuThSa PO Last administered on 09/18/16 09:01; Start 09/15/16 at 09:00 Gabapentin (Neurontin) 300 mg TID PO Last administered on 09/21/16 15:58; Start 09/15/16 at 09:00 Metoprolol Tartrate (Lopressor) 12.5 mg BID PO Last administered on 09/21/16 09:10; Start 09/15/16 at 09:00 Multi-Ingred Cream/Lotion/Oil/ Oint (Hydrocerin) 1 francia DAILY PRN TP Dry Skin; Start 09/14/16 at 21:30 Nitroglycerin (Nitrostat) 0.4 mg PRN Q5MIN PRN SL CHEST PAIN; Start 09/14/16 at 21:30 Pantoprazole Sodium (Protonix) 40 mg BID PO Last administered on 09/21/16 08: 09; Start 09/15/16 at 09:00 Simethicone (Gas-X) 120 mg BID PO Last administered on 09/21/16 08:08; Start 09/15/16 at 09:00 Tamsulosin HCl (Flomax) 0.4 mg BID PO Last administered on 09/21/16 08:02; Start 09/15/16 at 09:00 Isosorbide Mononitrate (Imdur) 30 mg HS PO Last administered on 09/19/16 19:48 ; Start 09/15/16 at 21:00 Sertraline HCl (Zoloft) 50 mg DAILY PO Last administered on 09/21/16 08:02; Start 09/18/16 at 09:00 Risperidone (RisperDAL) 0.5 mg BID SL Last administered on 09/21/16 08:04; Start 09/17/16 at 21:00 Ferrous Sulfate (Feosol) 325 mg DAILYWBKFT PO ; Start 09/22/16 at 08:00 Active Scripts Active Reported Risperidone 0.5 Mg Tablet 0.5 Mg PO HS Furosemide 40 Mg Tablet 40 Mg PO QMTUTHSA Tylenol (Acetaminophen) 325 Mg Tablet 650 Mg PO PRN Q4HRS PRN Nitrostat (Nitroglycerin) 0.4 Mg Tab.subl 0.4 Mg SL PRN Q5MIN PRN Eucerin Creme (Mineral Oil/Petrolatum,White) 120 Gm Cream..g. 1 Francia TP PRN PRN Gabapentin 300 Mg Capsule 300 Mg PO TID Vitamin D3 (Cholecalciferol (Vitamin D3)) 1,000 Unit Tablet 2,000 Unit PO DAILY Flomax (Tamsulosin Hcl) 0.4 Mg Cap.er.24h 0.4 Mg PO BID Simethicone 80 Mg Tab.chew 120 Mg PO BID Protonix (Pantoprazole Sodium) 40 Mg Tablet.dr 40 Mg PO BID Cyanocobalamin Injection (Cyanocobalamin (Vitamin B-12)) 1,000 Mcg/1 Ml Vial 1, 000 Mcg SQ QMONTH Once monthly on the Furosemide 20 Mg Tablet 20 Mg PO 3X/WEEK On Saturday, Saturday, & Saturday Folic Acid 1 Mg Tablet 1 Mg PO DAILY Plavix (Clopidogrel Bisulfate) 75 Mg Tablet 75 Mg PO DAILY Cetirizine Hcl 10 Mg Tablet 10 Mg PO DAILY Aspirin 81 Mg Tab.chew 81 Mg PO DAILY Metoprolol Tartrate 25 Mg Tablet 12.5 Mg PO BID Isosorbide Dinitrate 30 Mg Tablet 30 Mg PO HS CHELY LAMB MD Sep 21, 2016 20:36
[2016-09-21] MEDS: ISOSORBIDE MONONITRATE ER 30 MG TAB.ER.24H PO SCH (20:42)
[2016-09-22 06:03] VITALS: BP 117/63
[2016-09-22] MEDS: FERROUS SULFATE 325 MG TABLET PO SCH ×2 (08:00→08:14)
[2016-09-22] MEDS: CHOLECALCIFEROL (VITAMIN D3) 1,000 UNIT TABLET PO SCH ×2 (08:10→09:00)
[2016-09-22] MEDS: SIMETHICONE 80 MG TAB.CHEW PO SCH ×3 (08:11→20:32)
[2016-09-22] MEDS: FOLIC ACID 1 MG TABLET PO SCH ×2 (08:11→09:00)
[2016-09-22] MEDS: METOPROLOL TART IMMED RELEASE 25 MG TABLET PO SCH ×3 (08:11→20:31)
[2016-09-22] MEDS: PANTOPRAZOLE 40 MG TABLET. PO SCH ×3 (08:11→20:29)
[2016-09-22] MEDS: ASPIRIN 81 MG TAB.CHEW PO SCH ×2 (08:11→09:00)
[2016-09-22] MEDS: SERTRALINE 25 MG TABLET. PO SCH ×2 (08:11→09:00)
[2016-09-22] MEDS: TAMSULOSIN 0.4 MG CAP.ER.24H. PO SCH ×3 (08:11→20:31)
[2016-09-22] MEDS: CETIRIZINE HCL 10 MG TABLET PO SCH ×2 (08:12→09:00)
[2016-09-22] MEDS: GABAPENTIN 300 MG CAPSULE. PO SCH ×4 (08:12→20:31)
[2016-09-22] MEDS: CLOPIDOGREL BISULFATE 75 MG TABLET PO SCH ×2 (08:12→09:00)
[2016-09-22] MEDS: risperiDONE ORAL 1 MG/ML 30ml BOTTLE. SL SCH ×3 (08:14→20:42)
[2016-09-22] MEDS: FUROSEMIDE 40 MG TABLET PO SCH ×2 (08:18→09:00)
[2016-09-22 16:08] VITALS: BP 151/79
--- NOTE | 2016-09-22 19:09 | PDOC ---
Exam Harjeet Demential Exam: Harjeet Note: ~Patient seen individually. Discussed the patient with Nursing staff reviewed the chart.~Reviewed interim history and current functioning. Reviewed vital signs,~Labs/ Radiology~and current medications noted below. Continue current treatment with the changes noted in the dictated addendum note I met with the patient individually evening of 09/22. Per nursing report patient continues to refuse his medications. He did take the Risperdal at lunchtime and later took the Neurontin but nothing else. He remains paranoid and delusional according to nursing staff complaining of electricity running under his skin. This is reflective of his neuropathy and he is on Neurontin to help with this. Review of systems: Positive for impaired ambulation. He is in his wheelchair complains of electricity as above and paresthesias no CV GI/ pulmonary eye ENT system symptoms on review Mental status exam patient was seen in his room. He is oriented to himself and situation speech has some latency coherent abstraction fair computation somewhat impaired language function intact attention span short he remains somewhat delusional no suicidal or homicidal ideation. During their visit we processed his perceived symptoms of electricity under his skin as symptoms of neuropathy and he showed some insight into this. Plan: Increase Zoloft to 75 mg a day continued Risperdal liquid 0.5 mg twice a day. If obsessive repetitive thought processes persistently may change the Zoloft to Luvox Assessment: Vital Signs: Vital Signs Date Time Temp Pulse Resp B/P (MAP) Pulse Ox O2 Delivery O2 Flow Rate FiO2 09/22/16 16:08 97.9 86 18 151/79 (103) 97 Room Air I&O Intake and Output 09/22/16 07:00 Intake Total 120 ml Output Total 1050 ml Balance -930 ml Intake Oral 120 ml Output Urine Total 1050 ml Current Medications: Meds: Current Medications Risperidone (RisperDAL) 0.5 mg HS PO Last administered on 09/16/16 19:52; Start 09/14/16 at 21:30; Stop 09/17/16 at 18:20; Status DC Acetaminophen (Tylenol) 650 mg PRN Q4HRS PRN PO PAIN / TEMP Last administered on 09/16/16 21:17; Start 09/14/16 at 21:30 Aspirin (Children'S Aspirin) 81 mg DAILY PO Last administered on 09/21/16 08: 08; Start 09/15/16 at 09:00 Cetirizine HCl (ZyrTEC) 10 mg DAILY PO Last administered on 09/21/16 08:08; Start 09/15/16 at 09:00 Vitamin D (Vitamin D3) 2,000 unit DAILY PO Last administered on 09/21/16 08:08 ; Start 09/15/16 at 09:00 Clopidogrel Bisulfate (Plavix) 75 mg DAILY PO Last administered on 09/21/16 08 :02; Start 09/15/16 at 09:00 Cyanocobalamin (Vitamin B-12) 1,000 mcg QMONTH SQ ; Start 10/14/16 at 09:00 Folic Acid (Folic Acid) 1 mg DAILY PO Last administered on 09/21/16 08:08; Start 09/15/16 at 09:00 Furosemide (Lasix) 20 mg SuWeFr PO Last administered on 09/21/16 08:04; Start 09/16/16 at 09:00 Furosemide (Lasix) 40 mg MoTuThSa PO Last administered on 09/18/16 09:01; Start 09/15/16 at 09:00 Gabapentin (Neurontin) 300 mg TID PO Last administered on 09/22/16 14:01; Start 09/15/16 at 09:00 Metoprolol Tartrate (Lopressor) 12.5 mg BID PO Last administered on 09/21/16 20:41; Start 09/15/16 at 09:00 Multi-Ingred Cream/Lotion/Oil/ Oint (Hydrocerin) 1 francia DAILY PRN TP Dry Skin; Start 09/14/16 at 21:30 Nitroglycerin (Nitrostat) 0.4 mg PRN Q5MIN PRN SL CHEST PAIN; Start 09/14/16 at 21:30 Pantoprazole Sodium (Protonix) 40 mg BID PO Last administered on 09/21/16 20: 42; Start 09/15/16 at 09:00 Simethicone (Gas-X) 120 mg BID PO Last administered on 09/21/16 20:42; Start 09/15/16 at 09:00 Tamsulosin HCl (Flomax) 0.4 mg BID PO Last administered on 09/21/16 20:42; Start 09/15/16 at 09:00 Isosorbide Mononitrate (Imdur) 30 mg HS PO Last administered on 09/21/16 20:42 ; Start 09/15/16 at 21:00 Sertraline HCl (Zoloft) 50 mg DAILY PO Last administered on 09/21/16 08:02; Start 09/18/16 at 09:00; Stop 09/22/16 at 16:27; Status DC Risperidone (RisperDAL) 0.5 mg BID SL Last administered on 09/21/16 20:45; Start 09/17/16 at 21:00 Ferrous Sulfate (Feosol) 325 mg DAILYWBKFT PO ; Start 09/22/16 at 08:00 Sertraline HCl (Zoloft) 50 mg DAILY PO ; Start 09/23/16 at 09:00; Stop 09/23/16 at 09:00; Status DC Sertraline HCl (Zoloft) 75 mg DAILY PO ; Start 09/23/16 at 09:00 Active Scripts Active Reported Risperidone 0.5 Mg Tablet 0.5 Mg PO HS Furosemide 40 Mg Tablet 40 Mg PO QMTUTHSA Tylenol (Acetaminophen) 325 Mg Tablet 650 Mg PO PRN Q4HRS PRN Nitrostat (Nitroglycerin) 0.4 Mg Tab.subl 0.4 Mg SL PRN Q5MIN PRN Eucerin Creme (Mineral Oil/Petrolatum,White) 120 Gm Cream..g. 1 Francia TP PRN PRN Gabapentin 300 Mg Capsule 300 Mg PO TID Vitamin D3 (Cholecalciferol (Vitamin D3)) 1,000 Unit Tablet 2,000 Unit PO DAILY Flomax (Tamsulosin Hcl) 0.4 Mg Cap.er.24h 0.4 Mg PO BID Simethicone 80 Mg Tab.chew 120 Mg PO BID Protonix (Pantoprazole Sodium) 40 Mg Tablet.dr 40 Mg PO BID Cyanocobalamin Injection (Cyanocobalamin (Vitamin B-12)) 1,000 Mcg/1 Ml Vial 1, 000 Mcg SQ QMONTH Once monthly on the Furosemide 20 Mg Tablet 20 Mg PO 3X/WEEK On Saturday, Saturday, & Saturday Folic Acid 1 Mg Tablet 1 Mg PO DAILY Plavix (Clopidogrel Bisulfate) 75 Mg Tablet 75 Mg PO DAILY Cetirizine Hcl 10 Mg Tablet 10 Mg PO DAILY Aspirin 81 Mg Tab.chew 81 Mg PO DAILY Metoprolol Tartrate 25 Mg Tablet 12.5 Mg PO BID Isosorbide Dinitrate 30 Mg Tablet 30 Mg PO HS Diagnosis: Problems: (1) Schizophrenia, disorganized, subchronic with acute exacerbation (2) Major depressive disorder (3) Schizoaffective disorder CHELY LAMB MD Sep 22, 2016 19:09
[2016-09-22] MEDS: ISOSORBIDE MONONITRATE ER 30 MG TAB.ER.24H PO SCH (20:29)
[2016-09-22] MEDS: ACETAMINOPHEN 325 MG TABLET PO PRN (23:36)
[2016-09-23 06:38] VITALS: BP 113/53
[2016-09-23] MEDS: FERROUS SULFATE 325 MG TABLET PO SCH (07:48)
[2016-09-23] MEDS: TAMSULOSIN 0.4 MG CAP.ER.24H. PO SCH ×2 (07:48→20:02)
[2016-09-23] MEDS: CHOLECALCIFEROL (VITAMIN D3) 1,000 UNIT TABLET PO SCH (07:48)
[2016-09-23] MEDS: CETIRIZINE HCL 10 MG TABLET PO SCH (07:48)
[2016-09-23] MEDS: GABAPENTIN 300 MG CAPSULE. PO SCH ×3 (07:48→20:02)
[2016-09-23] MEDS: SIMETHICONE 80 MG TAB.CHEW PO SCH ×3 (07:49→20:16)
[2016-09-23] MEDS: PANTOPRAZOLE 40 MG TABLET. PO SCH ×2 (07:49→20:02)
[2016-09-23] MEDS: FOLIC ACID 1 MG TABLET PO SCH (07:49)
[2016-09-23] MEDS: CLOPIDOGREL BISULFATE 75 MG TABLET PO SCH (07:49)
[2016-09-23] MEDS: FUROSEMIDE 20 MG TABLET PO SCH (07:49)
[2016-09-23] MEDS: ASPIRIN 81 MG TAB.CHEW PO SCH (07:49)
[2016-09-23] MEDS: SERTRALINE 50 MG TABLET. PO SCH (07:51)
[2016-09-23] MEDS: risperiDONE ORAL 1 MG/ML 30ml BOTTLE. SL SCH ×2 (08:54→23:47)
[2016-09-23] MEDS: METOPROLOL TART IMMED RELEASE 25 MG TABLET PO SCH ×2 (08:55→20:02)
[2016-09-23] MEDS ORDERED: SERTRALINE 50 MG TABLET. PO SCH (09:00)
[2016-09-23 15:16] LABS: BASO # 0.1 x10^3/uL (0.0-0.2); BASO % 1 % (0-3); EOS # 0.1 x10^3/uL (0.0-0.7); EOS % 2 % (0-3); HEMOGLOBIN 10.5 g/dL (13.0-17.5); LYMPH # 0.8 x10^3/uL (1.0-4.8); LYMPH % 12 % (24-48); MEAN CORPUSCULAR HEMOGLOBIN 27 pg (25-35); MEAN CORPUSCULAR HGB CONC 33 g/dL (31-37); MEAN CORPUSCULAR VOLUME 81 fL (79-100); MONO # 0.6 x10^3/uL (0.0-1.1); MONO % 9 % (0-9); NEUT # 4.8 x10^3uL (1.8-7.7); NEUT % 76 % (31-73); PLATELET COUNT 203 x10^3/uL (140-400); RED BLOOD COUNT 3.97 x10^6/uL (4.30-5.70); RED CELL DISTRIBUTION WIDTH 19.5 % (11.5-14.5); WHITE BLOOD COUNT 6.3 x10^3/uL (4.0-11.0)
[2016-09-23 15:56] VITALS: BP 137/68
--- NOTE | 2016-09-23 20:01 | PDOC ---
Exam Harjeet Demential Exam: Harjeet Note: Please also refer to the separate dictated note~for this date of service dictated separately.~Patient seen individually. Discussed the patient with Nursing staff reviewed the chart.~Reviewed interim history and current functioning. Reviewed vital signs,~Labs/ Radiology~and current medications noted below. Continue current treatment with the changes noted in the dictated addendum note Assessment: Vital Signs: Vital Signs Date Time Temp Pulse Resp B/P (MAP) Pulse Ox O2 Delivery O2 Flow Rate FiO2 09/23/16 15:56 97.5 62 19 137/68 (91) 99 09/22/16 16:08 Room Air I&O Intake and Output 09/23/16 07:00 Intake Total 690 ml Output Total 700 ml Balance -10 ml Intake Oral 690 ml Output Urine Total 700 ml # Bowel Movements 1 Labs: Laboratory Tests Test 09/23/16 14:54 White Blood Count 6.3 x10^3/uL (4.0-11.0) Red Blood Count 3.97 x10^6/uL (4.30-5.70) L Hemoglobin 10.5 g/dL (13.0-17.5) L Hematocrit 32.0 % (39.0-53.0) L Mean Corpuscular Volume 81 fL (79-100) Mean Corpuscular Hemoglobin 27 pg (25-35) Mean Corpuscular Hemoglobin Concent 33 g/dL (31-37) Red Cell Distribution Width 19.5 % (11.5-14.5) H Platelet Count 203 x10^3/uL (140-400) Neutrophils (%) (Auto) 76 % (31-73) H Lymphocytes (%) (Auto) 12 % (24-48) L Monocytes (%) (Auto) 9 % (0-9) Eosinophils (%) (Auto) 2 % (0-3) Basophils (%) (Auto) 1 % (0-3) Neutrophils # (Auto) 4.8 x10^3uL (1.8-7.7) Lymphocytes # (Auto) 0.8 x10^3/uL (1.0-4.8) L Monocytes # (Auto) 0.6 x10^3/uL (0.0-1.1) Eosinophils # (Auto) 0.1 x10^3/uL (0.0-0.7) Basophils # (Auto) 0.1 x10^3/uL (0.0-0.2) Current Medications: Meds: Current Medications Risperidone (RisperDAL) 0.5 mg HS PO Last administered on 09/16/16 19:52; Start 09/14/16 at 21:30; Stop 09/17/16 at 18:20; Status DC Acetaminophen (Tylenol) 650 mg PRN Q4HRS PRN PO PAIN / TEMP Last administered on 09/22/16 23:36; Start 09/14/16 at 21:30 Aspirin (Children'S Aspirin) 81 mg DAILY PO Last administered on 09/23/16 07: 49; Start 09/15/16 at 09:00 Cetirizine HCl (ZyrTEC) 10 mg DAILY PO Last administered on 09/23/16 07:48; Start 09/15/16 at 09:00 Vitamin D (Vitamin D3) 2,000 unit DAILY PO Last administered on 09/23/16 07:48 ; Start 09/15/16 at 09:00 Clopidogrel Bisulfate (Plavix) 75 mg DAILY PO Last administered on 09/23/16 07 :49; Start 09/15/16 at 09:00 Cyanocobalamin (Vitamin B-12) 1,000 mcg QMONTH SQ ; Start 10/14/16 at 09:00 Folic Acid (Folic Acid) 1 mg DAILY PO Last administered on 09/23/16 07:49; Start 09/15/16 at 09:00 Furosemide (Lasix) 20 mg SuWeFr PO Last administered on 09/23/16 07:49; Start 09/16/16 at 09:00 Furosemide (Lasix) 40 mg MoTuThSa PO Last administered on 09/18/16 09:01; Start 09/15/16 at 09:00 Gabapentin (Neurontin) 300 mg TID PO Last administered on 09/23/16 13:12; Start 09/15/16 at 09:00 Metoprolol Tartrate (Lopressor) 12.5 mg BID PO Last administered on 09/22/16 20:31; Start 09/15/16 at 09:00 Multi-Ingred Cream/Lotion/Oil/ Oint (Hydrocerin) 1 francia DAILY PRN TP Dry Skin; Start 09/14/16 at 21:30 Nitroglycerin (Nitrostat) 0.4 mg PRN Q5MIN PRN SL CHEST PAIN; Start 09/14/16 at 21:30 Pantoprazole Sodium (Protonix) 40 mg BID PO Last administered on 09/23/16 07: 49; Start 09/15/16 at 09:00 Simethicone (Gas-X) 120 mg BID PO Last administered on 09/23/16 07:49; Start 09/15/16 at 09:00 Tamsulosin HCl (Flomax) 0.4 mg BID PO Last administered on 09/23/16 07:48; Start 09/15/16 at 09:00 Isosorbide Mononitrate (Imdur) 30 mg HS PO Last administered on 09/22/16 20:29 ; Start 09/15/16 at 21:00 Sertraline HCl (Zoloft) 50 mg DAILY PO Last administered on 09/21/16 08:02; Start 09/18/16 at 09:00; Stop 09/22/16 at 16:27; Status DC Risperidone (RisperDAL) 0.5 mg BID SL Last administered on 09/23/16 08:54; Start 09/17/16 at 21:00 Ferrous Sulfate (Feosol) 325 mg DAILYWBKFT PO Last administered on 09/23/16 07 :48; Start 09/22/16 at 08:00 Sertraline HCl (Zoloft) 50 mg DAILY PO ; Start 09/23/16 at 09:00; Stop 09/23/16 at 09:00; Status DC Sertraline HCl (Zoloft) 75 mg DAILY PO Last administered on 09/23/16 07:51; Start 09/23/16 at 09:00 Trazodone HCl (Desyrel) 50 mg QHS PO ; Start 09/23/16 at 21:00 Active Scripts Active Reported Risperidone 0.5 Mg Tablet 0.5 Mg PO HS Furosemide 40 Mg Tablet 40 Mg PO QMTUTHSA Tylenol (Acetaminophen) 325 Mg Tablet 650 Mg PO PRN Q4HRS PRN Nitrostat (Nitroglycerin) 0.4 Mg Tab.subl 0.4 Mg SL PRN Q5MIN PRN Eucerin Creme (Mineral Oil/Petrolatum,White) 120 Gm Cream..g. 1 Francia TP PRN PRN Gabapentin 300 Mg Capsule 300 Mg PO TID Vitamin D3 (Cholecalciferol (Vitamin D3)) 1,000 Unit Tablet 2,000 Unit PO DAILY Flomax (Tamsulosin Hcl) 0.4 Mg Cap.er.24h 0.4 Mg PO BID Simethicone 80 Mg Tab.chew 120 Mg PO BID Protonix (Pantoprazole Sodium) 40 Mg Tablet.dr 40 Mg PO BID Cyanocobalamin Injection (Cyanocobalamin (Vitamin B-12)) 1,000 Mcg/1 Ml Vial 1, 000 Mcg SQ QMONTH Once monthly on the Furosemide 20 Mg Tablet 20 Mg PO 3X/WEEK On Saturday, Saturday, & Saturday Folic Acid 1 Mg Tablet 1 Mg PO DAILY Plavix (Clopidogrel Bisulfate) 75 Mg Tablet 75 Mg PO DAILY Cetirizine Hcl 10 Mg Tablet 10 Mg PO DAILY Aspirin 81 Mg Tab.chew 81 Mg PO DAILY Metoprolol Tartrate 25 Mg Tablet 12.5 Mg PO BID Isosorbide Dinitrate 30 Mg Tablet 30 Mg PO HS Diagnosis: Problems: (1) Major depressive disorder (2) Schizoaffective disorder (3) Schizophrenia, disorganized, subchronic with acute exacerbation CHELY LAMB MD Sep 23, 2016 20:01
[2016-09-23] MEDS: ISOSORBIDE MONONITRATE ER 30 MG TAB.ER.24H PO SCH (20:03)
[2016-09-23] MEDS ORDERED: traZODone 50 MG TABLET. PO SCH (21:00)
[2016-09-23] MEDS ORDERED: FERR-26 PO (22:15)
[2016-09-24 06:06] VITALS: BP 107/54
[2016-09-24] MEDS: FOLIC ACID 1 MG TABLET PO SCH (08:26)
[2016-09-24] MEDS: PANTOPRAZOLE 40 MG TABLET. PO SCH (08:27)
[2016-09-24 08:28] VITALS: BP 107/54
[2016-09-24] MEDS: CETIRIZINE HCL 10 MG TABLET PO SCH (08:28)
[2016-09-24] MEDS: METOPROLOL TART IMMED RELEASE 25 MG TABLET PO SCH (08:28)
[2016-09-24] MEDS: CLOPIDOGREL BISULFATE 75 MG TABLET PO SCH (08:28)
[2016-09-24] MEDS: GABAPENTIN 300 MG CAPSULE. PO SCH (08:28)
[2016-09-24] MEDS: ASPIRIN 81 MG TAB.CHEW PO SCH (08:28)
[2016-09-24] MEDS: CHOLECALCIFEROL (VITAMIN D3) 1,000 UNIT TABLET PO SCH (08:28)
[2016-09-24] MEDS: SERTRALINE 50 MG TABLET. PO SCH (08:28)
[2016-09-24] MEDS: FUROSEMIDE 40 MG TABLET PO SCH (08:29)
[2016-09-24] MEDS: SIMETHICONE 80 MG TAB.CHEW PO SCH (08:29)
[2016-09-24] MEDS: FERROUS SULFATE 325 MG TABLET PO SCH (08:29)
[2016-09-24] MEDS: TAMSULOSIN 0.4 MG CAP.ER.24H. PO SCH (08:29)
[2016-09-24] MEDS: risperiDONE ORAL 1 MG/ML 30ml BOTTLE. SL SCH (08:30)
[2016-09-24] MEDS ORDERED: SERT25TA PO (09:36)
--- NOTE | 2016-09-24 20:34 | PDOC ---
Exam Harjeet Demential Exam: Harjeet Note: Please also refer to the separate dictated note~for this date of service dictated separately.~Patient seen individually. Discussed the patient with Nursing staff reviewed the chart.~Reviewed interim history and current functioning. Reviewed vital signs,~Labs/ Radiology~and current medications noted below. Continue current treatment with the changes noted in the dictated addendum note S/O: This is a late entry for 09/20/2016, covers the elements that are not covered in my initial note. The patient was staffed treatment team meeting with the entire team on morning of 09/20/2016, seen individually on the evening of 09/20/2016. Appetite is fair 70%, sleeping about 7 hours, calm, takes meds and ice-cream. He refused groups yesterday. He went to groups nicely on Saturday. He took his meds for today. Still feels laxity under his skin. I have discussed the patient with Dr. Thorne for a neurology consult. Review of Systems: Ambulation is impaired, in wheelchair. No CV, , Pulmonary , Eye, ENT system symptoms on review. MSE: Oriented to himself and situation. Speech has some latency and coherent. Abstraction is fair. Computation is impaired. Language function is intact. Mood and affect is somewhat withdrawn. Labs: Reviewed. Imp: Unchanged from initial note. Plan: Continue current psychotropics including Risperdal 0.5 mg b.i.d. Assessment: Vital Signs: Vital Signs Date Time Temp Pulse Resp B/P (MAP) Pulse Ox O2 Delivery O2 Flow Rate FiO2 09/24/16 08:28 79 107/54 09/24/16 06:06 97.9 24 91 09/22/16 16:08 Room Air I&O Intake and Output 09/24/16 07:00 Intake Total 840 ml Output Total 650 ml Balance 190 ml Intake Oral 840 ml Output Urine Total 650 ml Current Medications: Meds: Current Medications Risperidone (RisperDAL) 0.5 mg HS PO Last administered on 09/16/16 19:52; Start 09/14/16 at 21:30; Stop 09/17/16 at 18:20; Status DC Acetaminophen (Tylenol) 650 mg PRN Q4HRS PRN PO PAIN / TEMP Last administered on 09/22/16 23:36; Start 09/14/16 at 21:30; Stop 09/24/16 at 12:21; Status DC Aspirin (Children'S Aspirin) 81 mg DAILY PO Last administered on 09/24/16 08: 28; Start 09/15/16 at 09:00; Stop 09/24/16 at 12:21; Status DC Cetirizine HCl (ZyrTEC) 10 mg DAILY PO Last administered on 09/24/16 08:28; Start 09/15/16 at 09:00; Stop 09/24/16 at 12:21; Status DC Vitamin D (Vitamin D3) 2,000 unit DAILY PO Last administered on 09/24/16 08:28 ; Start 09/15/16 at 09:00; Stop 09/24/16 at 12:21; Status DC Clopidogrel Bisulfate (Plavix) 75 mg DAILY PO Last administered on 09/24/16 08 :28; Start 09/15/16 at 09:00; Stop 09/24/16 at 12:21; Status DC Cyanocobalamin (Vitamin B-12) 1,000 mcg QMONTH SQ ; Start 10/14/16 at 09:00; Stop 10/14/16 at 09:00; Status DC Folic Acid (Folic Acid) 1 mg DAILY PO Last administered on 09/24/16 08:26; Start 09/15/16 at 09:00; Stop 09/24/16 at 12:21; Status DC Furosemide (Lasix) 20 mg SuWeFr PO Last administered on 09/23/16 07:49; Start 09/16/16 at 09:00; Stop 09/24/16 at 12:21; Status DC Furosemide (Lasix) 40 mg MoTuThSa PO Last administered on 09/24/16 08:29; Start 09/15/16 at 09:00; Stop 09/24/16 at 12:21; Status DC Gabapentin (Neurontin) 300 mg TID PO Last administered on 09/24/16 08:28; Start 09/15/16 at 09:00; Stop 09/24/16 at 12:21; Status DC Metoprolol Tartrate (Lopressor) 12.5 mg BID PO Last administered on 09/24/16 08:28; Start 09/15/16 at 09:00; Stop 09/24/16 at 12:21; Status DC Multi-Ingred Cream/Lotion/Oil/ Oint (Hydrocerin) 1 francia DAILY PRN TP Dry Skin; Start 09/14/16 at 21:30; Stop 09/24/16 at 12:21; Status DC Nitroglycerin (Nitrostat) 0.4 mg PRN Q5MIN PRN SL CHEST PAIN; Start 09/14/16 at 21:30; Stop 09/24/16 at 12:21; Status DC Pantoprazole Sodium (Protonix) 40 mg BID PO Last administered on 09/24/16 08: 27; Start 09/15/16 at 09:00; Stop 09/24/16 at 12:21; Status DC Simethicone (Gas-X) 120 mg BID PO Last administered on 09/24/16 08:29; Start 09/15/16 at 09:00; Stop 09/24/16 at 12:21; Status DC Tamsulosin HCl (Flomax) 0.4 mg BID PO Last administered on 09/24/16 08:29; Start 09/15/16 at 09:00; Stop 09/24/16 at 12:21; Status DC Isosorbide Mononitrate (Imdur) 30 mg HS PO Last administered on 09/23/16 20:03 ; Start 09/15/16 at 21:00; Stop 09/24/16 at 12:21; Status DC Sertraline HCl (Zoloft) 50 mg DAILY PO Last administered on 09/21/16 08:02; Start 09/18/16 at 09:00; Stop 09/22/16 at 16:27; Status DC Risperidone (RisperDAL) 0.5 mg BID SL Last administered on 09/24/16 08:30; Start 09/17/16 at 21:00; Stop 09/24/16 at 12:21; Status DC Ferrous Sulfate (Feosol) 325 mg DAILYWBKFT PO Last administered on 09/24/16 08 :29; Start 09/22/16 at 08:00; Stop 09/24/16 at 12:21; Status DC Sertraline HCl (Zoloft) 50 mg DAILY PO ; Start 09/23/16 at 09:00; Stop 09/23/16 at 09:00; Status DC Sertraline HCl (Zoloft) 75 mg DAILY PO Last administered on 09/24/16 08:28; Start 09/23/16 at 09:00; Stop 09/24/16 at 12:21; Status DC Trazodone HCl (Desyrel) 50 mg QHS PO Last administered on 09/23/16 20:16; Start 09/23/16 at 21:00; Stop 09/24/16 at 12:21; Status DC Active Scripts Active Reported Zoloft (Sertraline Hcl) 25 Mg Tablet 75 Mg PO DAILY Ferrous Sulfate 325 Mg Tablet 325 Mg PO DAILYWBKFT Risperidone 0.5 Mg Tablet 0.5 Mg PO BID Furosemide 40 Mg Tablet 40 Mg PO QMTUTHSA Tylenol (Acetaminophen) 325 Mg Tablet 650 Mg PO PRN Q4HRS PRN Nitrostat (Nitroglycerin) 0.4 Mg Tab.subl 0.4 Mg SL PRN Q5MIN PRN Eucerin Creme (Mineral Oil/Petrolatum,White) 120 Gm Cream..g. 1 Francia TP PRN PRN Gabapentin 300 Mg Capsule 300 Mg PO TID Vitamin D3 (Cholecalciferol (Vitamin D3)) 1,000 Unit Tablet 2,000 Unit PO DAILY Flomax (Tamsulosin Hcl) 0.4 Mg Cap.er.24h 0.4 Mg PO BID Simethicone 80 Mg Tab.chew 120 Mg PO BID Protonix (Pantoprazole Sodium) 40 Mg Tablet.dr 40 Mg PO BID Cyanocobalamin Injection (Cyanocobalamin (Vitamin B-12)) 1,000 Mcg/1 Ml Vial 1, 000 Mcg SQ QMONTH Once monthly on the Furosemide 20 Mg Tablet 20 Mg PO 3X/WEEK On Saturday, Saturday, & Saturday Folic Acid 1 Mg Tablet 1 Mg PO DAILY Plavix (Clopidogrel Bisulfate) 75 Mg Tablet 75 Mg PO DAILY Cetirizine Hcl 10 Mg Tablet 10 Mg PO DAILY Aspirin 81 Mg Tab.chew 81 Mg PO DAILY Metoprolol Tartrate 25 Mg Tablet 12.5 Mg PO BID Isosorbide Dinitrate 30 Mg Tablet 30 Mg PO HS CHELY LAMB MD Sep 24, 2016 20:34
--- NOTE | 2016-09-25 21:05 | PDOC ---
Exam Harjeet Demential Exam: Harjeet Note: Please also refer to the separate dictated note~for this date of service dictated separately.~Patient seen individually. Discussed the patient with Nursing staff reviewed the chart.~Reviewed interim history and current functioning. Reviewed vital signs,~Labs/ Radiology~and current medications noted below. Continue current treatment with the changes noted in the dictated addendum note S/O: This is a late entry for date of service 09/21/2016 covers elements not covered in my initial note. The patient was seen by Dr. Thorne, started on Neurontin for neuropathy. He refused his h.s. meds previous evening. He complains of burning pain in his extremities and feels this is electricity in fact. Symptoms reflective of his neuropathy, started on Neurontin, more compliant with taking psychotropics. Review of Systems: Ambulation impaired, in wheelchair. No CV, , Pulmonary, Eye system symptoms on review. He complains of the neuropathy symptoms. MSE: Speech is coherent, has some latency. Abstraction fair. Computation impaired. Language function intact. Mood and affect remains labile. Labs: Reviewed. Imp: Unchanged. Plan: Continue current psychotropics along with Neurontin and adjust as indicated. Assessment: Vital Signs: Vital Signs Date Time Temp Pulse Resp B/P (MAP) Pulse Ox O2 Delivery O2 Flow Rate FiO2 09/24/16 08:28 79 107/54 09/24/16 06:06 97.9 24 91 09/22/16 16:08 Room Air I&O Intake and Output 09/25/16 07:00 Intake Total 240 ml Balance 240 ml Intake Oral 240 ml Current Medications: Meds: Current Medications Risperidone (RisperDAL) 0.5 mg HS PO Last administered on 09/16/16 19:52; Start 09/14/16 at 21:30; Stop 09/17/16 at 18:20; Status DC Acetaminophen (Tylenol) 650 mg PRN Q4HRS PRN PO PAIN / TEMP Last administered on 09/22/16 23:36; Start 09/14/16 at 21:30; Stop 09/24/16 at 12:21; Status DC Aspirin (Children'S Aspirin) 81 mg DAILY PO Last administered on 09/24/16 08: 28; Start 09/15/16 at 09:00; Stop 09/24/16 at 12:21; Status DC Cetirizine HCl (ZyrTEC) 10 mg DAILY PO Last administered on 09/24/16 08:28; Start 09/15/16 at 09:00; Stop 09/24/16 at 12:21; Status DC Vitamin D (Vitamin D3) 2,000 unit DAILY PO Last administered on 09/24/16 08:28 ; Start 09/15/16 at 09:00; Stop 09/24/16 at 12:21; Status DC Clopidogrel Bisulfate (Plavix) 75 mg DAILY PO Last administered on 09/24/16 08 :28; Start 09/15/16 at 09:00; Stop 09/24/16 at 12:21; Status DC Cyanocobalamin (Vitamin B-12) 1,000 mcg QMONTH SQ ; Start 10/14/16 at 09:00; Stop 10/14/16 at 09:00; Status DC Folic Acid (Folic Acid) 1 mg DAILY PO Last administered on 09/24/16 08:26; Start 09/15/16 at 09:00; Stop 09/24/16 at 12:21; Status DC Furosemide (Lasix) 20 mg SuWeFr PO Last administered on 09/23/16 07:49; Start 09/16/16 at 09:00; Stop 09/24/16 at 12:21; Status DC Furosemide (Lasix) 40 mg MoTuThSa PO Last administered on 09/24/16 08:29; Start 09/15/16 at 09:00; Stop 09/24/16 at 12:21; Status DC Gabapentin (Neurontin) 300 mg TID PO Last administered on 09/24/16 08:28; Start 09/15/16 at 09:00; Stop 09/24/16 at 12:21; Status DC Metoprolol Tartrate (Lopressor) 12.5 mg BID PO Last administered on 09/24/16 08:28; Start 09/15/16 at 09:00; Stop 09/24/16 at 12:21; Status DC Multi-Ingred Cream/Lotion/Oil/ Oint (Hydrocerin) 1 francia DAILY PRN TP Dry Skin; Start 09/14/16 at 21:30; Stop 09/24/16 at 12:21; Status DC Nitroglycerin (Nitrostat) 0.4 mg PRN Q5MIN PRN SL CHEST PAIN; Start 09/14/16 at 21:30; Stop 09/24/16 at 12:21; Status DC Pantoprazole Sodium (Protonix) 40 mg BID PO Last administered on 09/24/16 08: 27; Start 09/15/16 at 09:00; Stop 09/24/16 at 12:21; Status DC Simethicone (Gas-X) 120 mg BID PO Last administered on 09/24/16 08:29; Start 09/15/16 at 09:00; Stop 09/24/16 at 12:21; Status DC Tamsulosin HCl (Flomax) 0.4 mg BID PO Last administered on 09/24/16 08:29; Start 09/15/16 at 09:00; Stop 09/24/16 at 12:21; Status DC Isosorbide Mononitrate (Imdur) 30 mg HS PO Last administered on 09/23/16 20:03 ; Start 09/15/16 at 21:00; Stop 09/24/16 at 12:21; Status DC Sertraline HCl (Zoloft) 50 mg DAILY PO Last administered on 09/21/16 08:02; Start 09/18/16 at 09:00; Stop 09/22/16 at 16:27; Status DC Risperidone (RisperDAL) 0.5 mg BID SL Last administered on 09/24/16 08:30; Start 09/17/16 at 21:00; Stop 09/24/16 at 12:21; Status DC Ferrous Sulfate (Feosol) 325 mg DAILYWBKFT PO Last administered on 09/24/16 08 :29; Start 09/22/16 at 08:00; Stop 09/24/16 at 12:21; Status DC Sertraline HCl (Zoloft) 50 mg DAILY PO ; Start 09/23/16 at 09:00; Stop 09/23/16 at 09:00; Status DC Sertraline HCl (Zoloft) 75 mg DAILY PO Last administered on 09/24/16 08:28; Start 09/23/16 at 09:00; Stop 09/24/16 at 12:21; Status DC Trazodone HCl (Desyrel) 50 mg QHS PO Last administered on 7/16/17at 20:16; Start 09/23/16 at 21:00; Stop 09/24/16 at 12:21; Status DC Active Scripts Active Reported Zoloft (Sertraline Hcl) 25 Mg Tablet 75 Mg PO DAILY Ferrous Sulfate 325 Mg Tablet 325 Mg PO DAILYWBKFT Risperidone 0.5 Mg Tablet 0.5 Mg PO BID Furosemide 40 Mg Tablet 40 Mg PO QMTUTHSA Tylenol (Acetaminophen) 325 Mg Tablet 650 Mg PO PRN Q4HRS PRN Nitrostat (Nitroglycerin) 0.4 Mg Tab.subl 0.4 Mg SL PRN Q5MIN PRN Eucerin Creme (Mineral Oil/Petrolatum,White) 120 Gm Cream..g. 1 Francia TP PRN PRN Gabapentin 300 Mg Capsule 300 Mg PO TID Vitamin D3 (Cholecalciferol (Vitamin D3)) 1,000 Unit Tablet 2,000 Unit PO DAILY Flomax (Tamsulosin Hcl) 0.4 Mg Cap.er.24h 0.4 Mg PO BID Simethicone 80 Mg Tab.chew 120 Mg PO BID Protonix (Pantoprazole Sodium) 40 Mg Tablet.dr 40 Mg PO BID Cyanocobalamin Injection (Cyanocobalamin (Vitamin B-12)) 1,000 Mcg/1 Ml Vial 1, 000 Mcg SQ QMONTH Once monthly on the Furosemide 20 Mg Tablet 20 Mg PO 3X/WEEK On Saturday, Saturday, & Saturday Folic Acid 1 Mg Tablet 1 Mg PO DAILY Plavix (Clopidogrel Bisulfate) 75 Mg Tablet 75 Mg PO DAILY Cetirizine Hcl 10 Mg Tablet 10 Mg PO DAILY Aspirin 81 Mg Tab.chew 81 Mg PO DAILY Metoprolol Tartrate 25 Mg Tablet 12.5 Mg PO BID Isosorbide Dinitrate 30 Mg Tablet 30 Mg PO CHELY LAMB MD Sep 25, 2016 21:05
--- NOTE | 2016-09-26 21:11 | PDOC ---
Exam Harjeet Demential Exam: Harjeet Note: Please also refer to the separate dictated note~for this date of service dictated separately.~Patient seen individually. Discussed the patient with Nursing staff reviewed the chart.~Reviewed interim history and current functioning. Reviewed vital signs,~Labs/ Radiology~and current medications noted below. Continue current treatment with the changes noted in the dictated addendum note S/O: This is a late entry for date of service 09/23/2016. I met with the patient individually on evening of September 23, discussed with nursing staff, and reviewed the chart. This note covers elements not covered in my initial note. The patient slept 4 hours last night. He takes his medications whole last night. He took his afternoon medications whole, at times resistive. Review of Systems: Ambulation is impaired, in wheelchair. No CV, , Pulmonary , Eye, ENT system symptoms on review. MSE: Oriented to himself, situation. Speech moderate latency, often responses monosyllabic. Abstraction is fair. Computation is impaired. Language function is intact. Mood and affect is somewhat withdrawn. Labs: Reviewed. Imp: Unchanged from initial note. Plan: The patient slept just 4 hours. We will add trazodone 50 mg h.s., may repeat x1 p.r.n. insomnia. Continue rest of the psychotropics. Assessment: Vital Signs: Vital Signs Date Time Temp Pulse Resp B/P (MAP) Pulse Ox O2 Delivery O2 Flow Rate FiO2 09/24/16 08:28 79 107/54 09/24/16 06:06 97.9 24 91 09/22/16 16:08 Room Air Current Medications: Meds: Current Medications Risperidone (RisperDAL) 0.5 mg HS PO Last administered on 09/16/16 19:52; Start 09/14/16 at 21:30; Stop 09/17/16 at 18:20; Status DC Acetaminophen (Tylenol) 650 mg PRN Q4HRS PRN PO PAIN / TEMP Last administered on 09/22/16 23:36; Start 09/14/16 at 21:30; Stop 09/24/16 at 12:21; Status DC Aspirin (Children'S Aspirin) 81 mg DAILY PO Last administered on 09/24/16 08: 28; Start 09/15/16 at 09:00; Stop 09/24/16 at 12:21; Status DC Cetirizine HCl (ZyrTEC) 10 mg DAILY PO Last administered on 09/24/16 08:28; Start 09/15/16 at 09:00; Stop 09/24/16 at 12:21; Status DC Vitamin D (Vitamin D3) 2,000 unit DAILY PO Last administered on 09/24/16 08:28 ; Start 09/15/16 at 09:00; Stop 09/24/16 at 12:21; Status DC Clopidogrel Bisulfate (Plavix) 75 mg DAILY PO Last administered on 09/24/16 08 :28; Start 09/15/16 at 09:00; Stop 09/24/16 at 12:21; Status DC Cyanocobalamin (Vitamin B-12) 1,000 mcg QMONTH SQ ; Start 10/14/16 at 09:00; Stop 10/14/16 at 09:00; Status DC Folic Acid (Folic Acid) 1 mg DAILY PO Last administered on 09/24/16 08:26; Start 09/15/16 at 09:00; Stop 09/24/16 at 12:21; Status DC Furosemide (Lasix) 20 mg SuWeFr PO Last administered on 09/23/16 07:49; Start 09/16/16 at 09:00; Stop 09/24/16 at 12:21; Status DC Furosemide (Lasix) 40 mg MoTuThSa PO Last administered on 09/24/16 08:29; Start 09/15/16 at 09:00; Stop 09/24/16 at 12:21; Status DC Gabapentin (Neurontin) 300 mg TID PO Last administered on 09/24/16 08:28; Start 09/15/16 at 09:00; Stop 09/24/16 at 12:21; Status DC Metoprolol Tartrate (Lopressor) 12.5 mg BID PO Last administered on 09/24/16 08:28; Start 09/15/16 at 09:00; Stop 09/24/16 at 12:21; Status DC Multi-Ingred Cream/Lotion/Oil/ Oint (Hydrocerin) 1 francia DAILY PRN TP Dry Skin; Start 09/14/16 at 21:30; Stop 09/24/16 at 12:21; Status DC Nitroglycerin (Nitrostat) 0.4 mg PRN Q5MIN PRN SL CHEST PAIN; Start 09/14/16 at 21:30; Stop 09/24/16 at 12:21; Status DC Pantoprazole Sodium (Protonix) 40 mg BID PO Last administered on 09/24/16 08: 27; Start 09/15/16 at 09:00; Stop 09/24/16 at 12:21; Status DC Simethicone (Gas-X) 120 mg BID PO Last administered on 09/24/16 08:29; Start 09/15/16 at 09:00; Stop 09/24/16 at 12:21; Status DC Tamsulosin HCl (Flomax) 0.4 mg BID PO Last administered on 09/24/16 08:29; Start 09/15/16 at 09:00; Stop 09/24/16 at 12:21; Status DC Isosorbide Mononitrate (Imdur) 30 mg HS PO Last administered on 09/23/16 20:03 ; Start 09/15/16 at 21:00; Stop 09/24/16 at 12:21; Status DC Sertraline HCl (Zoloft) 50 mg DAILY PO Last administered on 09/21/16 08:02; Start 09/18/16 at 09:00; Stop 09/22/16 at 16:27; Status DC Risperidone (RisperDAL) 0.5 mg BID SL Last administered on 09/24/16 08:30; Start 09/17/16 at 21:00; Stop 09/24/16 at 12:21; Status DC Ferrous Sulfate (Feosol) 325 mg DAILYWBKFT PO Last administered on 09/24/16 08 :29; Start 09/22/16 at 08:00; Stop 09/24/16 at 12:21; Status DC Sertraline HCl (Zoloft) 50 mg DAILY PO ; Start 09/23/16 at 09:00; Stop 09/23/16 at 09:00; Status DC Sertraline HCl (Zoloft) 75 mg DAILY PO Last administered on 09/24/16 08:28; Start 09/23/16 at 09:00; Stop 09/24/16 at 12:21; Status DC Trazodone HCl (Desyrel) 50 mg QHS PO Last administered on 09/23/16 20:16; Start 09/23/16 at 21:00; Stop 09/24/16 at 12:21; Status DC Active Scripts Active Reported Zoloft (Sertraline Hcl) 25 Mg Tablet 75 Mg PO DAILY Ferrous Sulfate 325 Mg Tablet 325 Mg PO DAILYWBKFT Risperidone 0.5 Mg Tablet 0.5 Mg PO BID Furosemide 40 Mg Tablet 40 Mg PO QMTUTHSA Tylenol (Acetaminophen) 325 Mg Tablet 650 Mg PO PRN Q4HRS PRN Nitrostat (Nitroglycerin) 0.4 Mg Tab.subl 0.4 Mg SL PRN Q5MIN PRN Eucerin Creme (Mineral Oil/Petrolatum,White) 120 Gm Cream..g. 1 Francia TP PRN PRN Gabapentin 300 Mg Capsule 300 Mg PO TID Vitamin D3 (Cholecalciferol (Vitamin D3)) 1,000 Unit Tablet 2,000 Unit PO DAILY Flomax (Tamsulosin Hcl) 0.4 Mg Cap.er.24h 0.4 Mg PO BID Simethicone 80 Mg Tab.chew 120 Mg PO BID Protonix (Pantoprazole Sodium) 40 Mg Tablet.dr 40 Mg PO BID Cyanocobalamin Injection (Cyanocobalamin (Vitamin B-12)) 1,000 Mcg/1 Ml Vial 1, 000 Mcg SQ QMONTH Once monthly on the Furosemide 20 Mg Tablet 20 Mg PO 3X/WEEK On Saturday, Saturday, & Saturday Folic Acid 1 Mg Tablet 1 Mg PO DAILY Plavix (Clopidogrel Bisulfate) 75 Mg Tablet 75 Mg PO DAILY Cetirizine Hcl 10 Mg Tablet 10 Mg PO DAILY Aspirin 81 Mg Tab.chew 81 Mg PO DAILY Metoprolol Tartrate 25 Mg Tablet 12.5 Mg PO BID Isosorbide Dinitrate 30 Mg Tablet 30 Mg PO CHELY LAMB MD Sep 26, 2016 21:11
[2016-10-14] MEDS ORDERED: CYANOCOBALAMIN (VITAMIN B-12) 1,000 MCG/ML VIAL SQ SCH (09:00)
== END 2016-09-24 12:00 | DRG 885 ==
LOC: GEROPSY 19:02
PROVIDERS: ADMIT Psychiatry & Neurology Psychiatry; ATTEND Psychiatry & Neurology Psychiatry
DX: F20.1 Disorganized schizophrenia (principal); E43 Unspecified severe protein-calorie malnutrition; M62.82 Rhabdomyolysis; F32.9 Major depressive disorder, single episode, unspecified; F41.9 Anxiety disorder, unspecified; G62.9 Polyneuropathy, unspecified; F10.10 Alcohol abuse, uncomplicated; F63.9 Impulse disorder, unspecified; I11.0 Hypertensive heart disease with heart failure; I50.9 Heart failure, unspecified; I25.10 Atherosclerotic heart disease of native coronary artery without angina pectoris; J44.9 Chronic obstructive pulmonary disease, unspecified; F03.90 Unspecified dementia, unspecified severity, without behavioral disturbance, psychotic disturbance, mood disturbance, and anxiety; F20.5 Residual schizophrenia; R41.83 Borderline intellectual functioning; N40.1 Benign prostatic hyperplasia with lower urinary tract symptoms; R33.9 Retention of urine, unspecified; Z87.440 Personal history of urinary (tract) infections; Z91.81 History of falling; Z68.21 Body mass index [BMI] 21.0-21.9, adult; Z88.1 Allergy status to other antibiotic agents; Z88.8 Allergy status to other drugs, medicaments and biological substances; Z98.61 Coronary angioplasty status; Z90.79 Acquired absence of other genital organ(s)
CPT/HCPCS: 36415; 80053; 80061; 81001; 82306; 82607; 83036; 83540; 83550; 83735; 84436; 84443; 84480; 85027; 86592; 86593; 93005

== ENCOUNTER 2017-04-04 17:49 | Inpatient (IN) | payer MEDICARE, OTHER ==
[~2017-04-04 17:49] MED LIST changes: +FERR-26 PO; +OLAN10VI IM; +SERT25TA PO
[2017-04-04 18:39] LABS: BASO # 0.1 x10^3/uL (0.0-0.2); BASO % 2 % (0-3); EOS # 0.1 x10^3/uL (0.0-0.7); EOS % 1 % (0-3); HEMATOCRIT 43.8 % (39.0-53.0); HEMOGLOBIN 14.1 g/dL (13.0-17.5); LYMPH # 0.7 x10^3/uL (1.0-4.8); LYMPH % 12 % (24-48); MEAN CORPUSCULAR HEMOGLOBIN 25 pg (25-35); MEAN CORPUSCULAR HGB CONC 32 g/dL (31-37); MEAN CORPUSCULAR VOLUME 76 fL (79-100); MONO # 0.9 x10^3/uL (0.0-1.1); MONO % 15 % (0-9); NEUT # 4.3 x10^3uL (1.8-7.7); NEUT % 70 % (31-73); PLATELET COUNT 194 x10^3/uL (140-400); RED BLOOD COUNT 5.73 x10^6/uL (4.30-5.70); RED CELL DISTRIBUTION WIDTH 17.1 % (11.5-14.5); WHITE BLOOD COUNT 6.1 x10^3/uL (4.0-11.0)
[2017-04-04 18:54] LABS: ALBUMIN 3.8 g/dL (3.4-5.0); ALBUMIN/GLOBULIN RATIO 0.8 (1.0-1.7); CALCIUM 9.5 mg/dL (8.5-10.1); CREATININE 1.3 mg/dL (0.7-1.3); GFR 54.1; MAGNESIUM 2.2 mg/dL (1.8-2.4); POTASSIUM 4.8 mmol/L (3.5-5.1); TOTAL BILIRUBIN 0.8 mg/dL (0.2-1.0); TOTAL PROTEIN 8.3 g/dL (6.4-8.2)
--- NOTE | 2017-04-04 18:59 | PHYS DOC ---
General Chief Complaint: PSYCH EVALUATION Stated Complaint: EVAL Time Seen by MD: 18:01 Source: patient Exam Limitations: clinical condition Problems: History of Present Illness Initial Comments Patient is a 72-year-old male sent from [facility] for medical clearance and [facility] admission. Facility reports that the patient has been refusing meds and interventions, he' s had worsening of confusion, refusing to eat and not sleeping well. In the emergency department the patient does appear to be confused at one point he says he hurts all over however at other times denies any complaints. He is overall calm and cooperative throughout the ED course, on my evaluation he does not appear to be any acute distress. ED vitals: 97.8, 108, 20, 142/82, 96% room air. Patient has had for [facility] admits since September 2016. Patient is ambulatory with assistance but needs help with all other personal-care. He is on Plavix anticoagulation and takes Lasix 20 mg Wednesdays, Fridays, and Sundays, takes 40 mg of Lasix all other days among other home meds. Patient has a DNR. Timing/Duration: other Modifying Factors: improves with other Associated Symptoms: denies symptoms Allergies: Coded Allergies: Aminoglycosides (Verified Allergy, Intermediate, 09/11/16) benzalkonium (Verified Allergy, Intermediate, 09/11/16) pramoxine (Verified Allergy, Intermediate, 09/11/16) Past Medical History Medical History: other (dementia, schizophrenia, BPH, urinary retention, major depressive disorder, coronary artery disease, hypertension, COPD, thrombocytopenia,) Surgical History: angioplasty, other (TURP, cystoscopy) Social History Smoker: quit greater than 1 year Alcohol: none Drugs: none Review of Systems All Other Systems: Reviewed and Negative (see history of present illness due to dementia. Review of systems is unobtainable.) Physical Exam General Appearance: no apparent distress Ear, Nose, Throat: hearing grossly normal, normal ENT inspection, normal pharynx Neck: non-tender, supple Respiratory: other (mild rales at the bases with good air movement no accessory muscle use no respiratory distress chest wall is nontender) Cardiovascular: normal peripheral pulses, regular rate, rhythm, other (2+ pitting lower extremity edema) Gastrointestinal: non tender, soft Back: no CVA tenderness, no vertebral tenderness Extremities: normal range of motion, non-tender, no calf tenderness Neurologic/Psychiatric: community health agent II-XII nml as tested, no motor/sensory deficits, alert, disoriented x 3 Orders, Labs, Meds EKG: Extensive baseline wander artifact due to patient's "cooperation", sinus rhythm 92 bpm, no ST segment elevation interpreted by me. Chest AP: Cardiac silhouette and mediastinal structures appear normal, no effusions or focal consolidations there is mild cephalization interpreted by me. Pertinent labs: BNP 2355 An additional 20 mg of Lasix given IV in the emergency department. Catheterization of the bladder returns very little urine not enough for lab to process. 2052: Due to the patient's elevated BNP and mild physical exam symptoms of congestive heart failure I called fire operations forester hospitalist Dr. Gaxiola to discuss whether he wanted to place the patient on the medical floor or go ahead and admit him to [facility]. After thorough discussion of the patient's history, ED presentation, as well as ED findings it was determined the patient would go ahead and be admitted to [facility]. Due to the patient's confusion and history of falls as well as his anticoagulation thinking is that the patient will have more supervision on the H floor with minimal added benefit of medical floor admission. Patient will be admitted to [facility] doctor Weiner is accepting. Departure Time of Disposition: 20:56 Disposition: 09 ADMITTED INPATIENT Diagnosis: MDD, CHF Condition: STABLE Additional Instructions: [facility] admission Dr. Weiner is accepting AMALIA BUCKLEY DO Apr 04, 2017 18:59
[2017-04-04] MEDS ORDERED: RISP37.5 IM (19:36)
[2017-04-04] MEDS ORDERED: PHEN26CR RC (19:36)
[2017-04-04 19:40] LABS: % BANDS 1 % (0-9); % BASOS 1 % (0-3); % EOS 2 % (0-5); % LYMPHS 9 % (24-48); % MONOS 11 % (0-10); % SEGS 73 % (35-66)
[2017-04-04 20:13] LABS: PLT ESTIMATE ADEQUATE (ADEQUATE)
[2017-04-04 20:15] LABS: ANISOCYTOSIS PRESENT
[2017-04-04] MEDS ORDERED: FUROSEMIDE 40 MG/4 ML VIAL IVP ONE (20:15)
[2017-04-04 20:16] LABS: HYPOCHROMIA SLIGHT
[2017-04-04 20:18] LABS: MICROCYTOSIS SLIGHT
[2017-04-04 21:02] LABS: % ATYL 3 % (0-0)
[2017-04-04] MEDS ORDERED: ACETAMINOPHEN 325 MG TABLET PO PRN ×2 (21:15→22:30)
--- NOTE | 2017-04-04 21:55 | NUR ---
Admission Note with Justification for Admission to [facility] Patient admitted to [facility] for protective oversight for emergency stabilization of acute psychiatric crisis. Pt admitted from: [facility] Mode of arrival: EMS Accompanied By: [facility] Staff Precipitating behaviors that initiated intake and admission: Refusing Meds, Not eating, Withdrawn to Room, Hallucinating Description of failure of out patient attempts at stabilization in previous setting list behavior and medication trials: Medications refused by patient Behaviors and assessment findings upon admission: Patient calm and cooperative with admission assessments. Patient is alert and oriented to self only at this time. Patient skin assessment shows no wounds or rashes. Patient lungs clear but diminished bilaterally. Patient has a non productive cough. Patient complains of abdominal pain upon palpation and states he cannot remember the last time he had a BM however patient refuses to take PRN medication for constipation. Bowel sounds are hypoactive and abdomen is firm and slightly distended. Patient heart sounds are regular. No signs of edema noted and skin turgor is good. Patient answers almost all yes/no questions with "NO" regardless of question. Patient remains in bed at this time. Plan: Admit for protective oversight for adjustment and stabilization of medications, behaviors and mood. Intense treatment regimen including groups, medication adjustments, therapy, consistent regimen for ADL's, self care, and sleep hygiene. Daily monitoring by Inpatient staff, Psychiatry, and Medical Physician.
[2017-04-04] MEDS ORDERED: MAGNESIUM HYDROXIDE 2,400 MG/30 ML ORAL.SUSP. PO PRN (22:30)
[2017-04-04] MEDS ORDERED: METHYL SALICYLATE/MENTHOL TOPICAL OINTMENT 29GM TUBE. TP PRN (22:30)
[2017-04-04] MEDS ORDERED: MAG HYDROX/AL HYDROX/SIMETH 30 ML ORAL.SUSP PO PRN (22:30)
[2017-04-04 22:33] VITALS: BP 144/98
[2017-04-04] MEDS: METOPROLOL TART IMMED RELEASE 25 MG TABLET PO SCH (23:34)
[2017-04-04] MEDS: GABAPENTIN 300 MG CAPSULE. PO SCH (23:34)
[2017-04-04] MEDS: TAMSULOSIN 0.4 MG CAP.ER.24H. PO SCH (23:34)
[2017-04-04] MEDS ORDERED: ISOSORBIDE DINITRATE 10 MG TABLET. PO SCH (23:45)
--- NOTE | 2017-04-04 23:49 | EKG ---
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
[2017-04-05 06:11] VITALS: BP 119/79
--- NOTE | 2017-04-05 07:19 | RAD ---
Portable chest, 04/04/2017: History: Cough, congestion, altered mental status The heart size is normal. There is calcific plaquing of the aorta. The pulmonary vascularity is normal. No pulmonary infiltrates are seen. There is no evidence of pleural fluid. Surgical fixation devices are noted in the lower cervical spine. IMPRESSION: No acute cardiopulmonary abnormality is detected.
[2017-04-05] MEDS ORDERED: SERTRALINE 25 MG TABLET. PO SCH (09:00)
[2017-04-05] MEDS: GABAPENTIN 300 MG CAPSULE. PO SCH ×3 (09:29→19:58)
[2017-04-05] MEDS: TAMSULOSIN 0.4 MG CAP.ER.24H. PO SCH ×2 (09:29→19:58)
[2017-04-05] MEDS: METOPROLOL TART IMMED RELEASE 25 MG TABLET PO SCH ×2 (09:30→19:59)
--- NOTE | 2017-04-05 10:30 | NUR ---
Pt obsessing over his hands, repeatedly stating "look at my hands. They are red." and "my hands are being electrocuted." Reinforced to pt that his hands were not being electrocuted and looked fine. Will continue to monitor.
--- NOTE | 2017-04-05 10:54 | NUR ---
Behavior Intervention Response and Plan: BIRP Note: Behavior: Assumed Care of patient, patient located in Day Room at shift change. Patient exhibited the following behavior Calm, Disorganized, Withdrawn. Brief assessment on rounds of vital signs, medication needs, lab studies, and pain. Treatment plan problems 1-2. Intervention: Patient assessed and the following interventions initiated safety checks 15 Minute Checks Personal Alarm in place , Cognitive Assessment , Head to toe Assessment. Response: After interactions and interventions patient responded in the following manner, Disorganized , Calm ,Cooperative. Continue to assess behaviors and condition will continue to monitor throughout the shift as needed. Patient educated on ADL's, and hand hygiene. Plan: Continue to monitor Master Treatment Plan for patient's progress toward short term goals of Decreased Agitation, Medication Compliance, termite exterminator goals to return to previous living setting vs placement. Continue to assess patient for changes in above assessment. Monitor for medication needs, pain, and safety concerns. Hourly rounding performed to ensure safe environment.
[2017-04-05 14:08] LABS: THYROID STIM HORMONE (TSH) 1.543 uIU/mL (0.358-3.740)
[2017-04-05 16:44] VITALS: BP 130/87
--- NOTE | 2017-04-05 17:14 | NUR ---
Psychosocial Assessment completed during previous admit to facility 09/24. Psychosocial Assessment completed w/Pt. and then followed up w/Pt's brother, Micky. Pt. was born and raised in [place], [place] w/his twin brother named Micky. Pt did not complete school as his parents said he was "slow". Pt. was pulled out of general education, placed in a school for special education, and then was eventually taken out of that school. Pt. only completed 7th grade and did not earn GED. No family history of alcohol or substance abuse or diagnosed MH. Pt's father was diagnosed w/Syphilis as a young person, was being treated w/medication, however, he did choose to stop taking the medication and as a result, suffered mental and physical issues. He was taken to Hospital and placed back on the medications, but it did put a strain on the marriage. Pt's parents did not divorce, but PT's mother did sleep on the couch. It was considered a loveless marriage. Pt's mother at age 47 due to "hardening of the arteries". Pt. resided w/father until he was placed in a fpc. Pt never , no children. Pt. 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 Pt. was a very loyal worker, so he when suddenly stopped showing up at work, Pt's brother went to check on him at his apt. Pt. was found to not be doing well, not eating, going to the bathroom on himself. Pt. was transitioned to [facility] for several years (4-6 years). Pt's brother checked on him periodically and at one point, Pt. again was not doing well. Pt. reported seeing demons, said he was burning up, going to bathroom on self. Pt. went to [facility] and then to [facility] where, according to PT's brother, PT. was then diagnosed w/Schizophrenia. PT's brother reports Pt. never had previous psychotic breaks, no major trauma. Pt. returned to [facility] for a short time, but then was transitioned to [place] for higher level of care and rehab. Facility prepared Pt's brother for Pt's as he decided to take Pt. off the thickened liquids and special diets. Pt. did a bounce back and was doing really well for about 2 years. July 2016, PT. began to cycle again w/the delusional thoughts, reporting he does not have a throat, refusing medications, etc. Admit to this facility 09/24 and then returned to [place]. GOALS: Healthy and return to [place] 1. Family support 2. Community Support
--- NOTE | 2017-04-05 17:18 | NUR ---
SW reviewed pt insurance upon admit. Intake and csnap state pt has Medicare A, B and no Part C. Face sheet indicates pt also has [employer] as a secondary. No auth required.
[2017-04-05] MEDS ORDERED: NITROGLYCERIN SUBLINGUAL 0.4 MG BOTTLE OF 25. SL PRN (18:15)
[2017-04-05] MEDS ORDERED: ACETAMINOPHEN 325 MG TABLET PO PRN (18:15)
[2017-04-05 19:39] VITALS: BP 122/77
[2017-04-05 19:59] VITALS: BP 122/77
[2017-04-05] MEDS ORDERED: PANTOPRAZOLE 40 MG TABLET. PO SCH (21:00)
[2017-04-05] MEDS ORDERED: SIMETHICONE 80 MG TAB.CHEW PO SCH (21:00)
[2017-04-05 21:08] LABS: T3 TOTAL 79 ng/dL (71-180)
[2017-04-05] MEDS ORDERED: ACET325T9 PO (22:40)
--- NOTE | 2017-04-05 22:47 | NUR ---
Nursing Note: Call placed to Dr. Fountain, notifed of Pt continued decline in BP with manual result of 82/47, orders received to Administer 500ml Bolus IV of Normal Saline and Discharge pt to [facility] ICU with Hypotension. Orders processed at this time.
--- NOTE | 2017-04-05 22:48 | NUR ---
Transition Record was faxed to follow-up provider with the following elements: Reason for admission, procedures, tests, principal diagnosis, pending studies, patient instructions, 01/10 contact information for unit, phone number to obtain pending test results, plan for follow-up care, physician follow-up, advanced directive information, and medication list with dose, duration and instructions. This information was included in the following documents: History and physical, lab results, study results, progress notes, social work planning form, DC instruction form, patient visit summary, and medication reconciliation form. Date & time record faxed:04/05/17 [id number] Record faxed to:ICU Record discussed with/ report given to:Herminia HELLER by Horace Guaman RN
[2017-04-05] MEDS ORDERED: IV NORMAL SALINE 500ML 500 ML IV ONE (23:00)
[2017-04-05 23:38] LABS: ALBUMIN 3.6 g/dL (3.4-5.0); ALBUMIN/GLOBULIN RATIO 0.7 (1.0-1.7); CALCIUM 9.5 mg/dL (8.5-10.1); CREATININE 2.4 mg/dL (0.7-1.3); GFR 26.7; MAGNESIUM 2.4 mg/dL (1.8-2.4); POTASSIUM 3.7 mmol/L (3.5-5.1); TOTAL BILIRUBIN 0.6 mg/dL (0.2-1.0); TOTAL PROTEIN 8.8 g/dL (6.4-8.2)
--- NOTE | 2017-04-06 00:03 | NUR ---
Nursing Note Pt in day room at shift change, generally grumpy wants to be left alone and watch TV. Attempted to give meds whole, refused, attempted to give crushed in ice cream, pt suspicious of me and refused. No meds were given. Techs took pt to the shower around 2144. He was soapy getting a warm shower when he became barrios and unresponsive, not breathing, no palpable pulse, slumped over in the shower chair. Assisted pt to the W/C with assist X3 to room, on the way there pt breathed out a large breath/grunt and opened eyes but was not breathing normally, rapid response called. Pt assisted to bed, vitals taken BP 164/80, pulse 54, sat not detectable due to cold extremities. Dr. Александр hagan, determined that pt had vagal response, and seemed to be coming around, lab work obtained, EKG and monitoring in progress. Pt more awake states he doesn't feel well. Rapid response members leave, pt seems to be doing well. Shortly after, the pt states he isn't feeling right, vision is very blurry, pt seems to be intermittently unresponsive while talking to me. Checked BP, 82/40, pulse 50. Dr. Александр hagan, orders for transfer and a fluid bolus given. #22 IV inserted to left hand X 1 attempt. Normal saline infusing. Transfer to ICU report to Herminia Hopkins
[2017-04-06 00:10] LABS: BASO # 0.1 x10^3/uL (0.0-0.2); BASO % 1 % (0-3); EOS # 0.1 x10^3/uL (0.0-0.7); EOS % 1 % (0-3); HEMATOCRIT 44.4 % (39.0-53.0); HEMOGLOBIN 14.3 g/dL (13.0-17.5); LYMPH # 1.9 x10^3/uL (1.0-4.8); LYMPH % 15 % (24-48); MEAN CORPUSCULAR HEMOGLOBIN 25 pg (25-35); MEAN CORPUSCULAR HGB CONC 32 g/dL (31-37); MEAN CORPUSCULAR VOLUME 77 fL (79-100); MONO # 1.7 x10^3/uL (0.0-1.1); MONO % 13 % (0-9); NEUT # 9.3 x10^3uL (1.8-7.7); NEUT % 71 % (31-73); PLATELET COUNT 262 x10^3/uL (140-400); RED BLOOD COUNT 5.74 x10^6/uL (4.30-5.70); RED CELL DISTRIBUTION WIDTH 17.6 % (11.5-14.5); WHITE BLOOD COUNT 13.1 x10^3/uL (4.0-11.0)
--- NOTE | 2017-04-06 00:31 | EKG ---
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
[2017-04-06 02:12] LABS: HEMOGLOBIN A1C 5.3 % (4.8-5.6)
[2017-04-06] MEDS ORDERED: MINERAL OIL/PETROLATUM TOPICAL CREAM 113GM JAR. TP SCH (09:00)
[2017-04-06] MEDS ORDERED: ASPIRIN 81 MG TAB.CHEW PO SCH (09:00)
[2017-04-06] MEDS ORDERED: CETIRIZINE HCL 10 MG TABLET PO SCH (09:00)
[2017-04-06] MEDS ORDERED: CLOPIDOGREL BISULFATE 75 MG TABLET PO SCH (09:00)
[2017-04-06] MEDS ORDERED: CHOLECALCIFEROL (VITAMIN D3) 1,000 UNIT TABLET PO SCH (09:00)
[2017-04-06] MEDS ORDERED: FOLIC ACID 1 MG TABLET PO SCH (09:00)
--- NOTE | 2017-04-06 10:45 | HP ---
ADMIT DATE: 04/05/2017 IDENTIFYING DATA: The patient is a 72-year-old male referred back to us from [facility] in [place], [place] by Dr. Tom Domínguez, his primary care physician, on account of acute exacerbation of his schizoaffective disorder, bipolar type, mixed with psychotic features. The patient has been refusing to eat, refusing medications, having active hallucinations. He was withdrawn to his room, depressed, angry, irritable, labile. He had failed outpatient psychiatric interventions with Dr. Anne Marie Clark, outpatient psychiatrist, and had failed a prior inpatient hospitalization for psychiatric stabilization in September of last year. He is referred back to us for inpatient psychiatric stabilization. CHIEF COMPLAINT: "No, I will not eat anything." HISTORY OF PRESENT ILLNESS: The patient has a long history of schizophrenia, chronic, undifferentiated versus schizoaffective disorder, bipolar type. He has also had some short term memory deficits and confusion. He was last here with us in 09/2016 with an acute exacerbation of his psychosis stabilized and has been at the [facility] since then followed from a psychiatric standpoint by Dr. Anne Marie Clark. Over the last few days, the patient has been increasingly psychotic, withdrawn, depressed, refusing to eat, refusing to take his medications, having active hallucinations. He last saw Dr. Anne Marie Clark on 04/04/2017, and has failed all these interventions. He denies active suicidal ideation, but has had vague suicidal ideation. No intent or attempt. He does have a history of significant mood swings together with his psychotic symptoms. PAST PSYCHIATRIC HISTORY: As above. MEDICAL HISTORY: COPD, acute kidney failure, borderline intellectual functioning, history of alcohol abuse, BPH, coronary artery disease, history of angioplasty, heart failure, unspecified hypertension, impulse control disorder, history of recurrent UTIs, rhabdomyolysis, polyneuropathy. CODE STATUS: DNR. ALLERGIES: AMINOGLYCOSIDES, PRAMOXINE, BENZALKONIUM. CURRENT PSYCHOTROPICS: Zoloft 75 mg a day, Risperdal Consta 25 mg IM q. 2 weeks, Zyprexa 5 mg at bedtime, Risperdal 0.5 mg b.i.d., Neurontin 300 mg 3 times a day. FAMILY HISTORY: Noncontributory. SOCIAL HISTORY: Alcohol abuse history as noted above. No physical, sexual or elder abuse history is noted. Not known to be a perpetrator. MENTAL STATUS EXAMINATION: The patient was seen individually evening of 04/05/2017. He is quite withdrawn, refusing to eat any of his meals, seemed to recognize me, smiling, was paranoid, psychotic, having intermittent hallucinations. Short term memory is impaired. No active suicidal or homicidal ideation. Mood and affect are labile. Intellect consistent with his diagnosis of borderline intellectual functioning. Judgment poor, insight, limited. LABORATORY DATA: Reviewed. CLINICAL COURSE: Following admission, I met with the patient individually. From a psychiatric standpoint, he was followed medically per Dr. Fountain/Dr. Moncada. I met with him the evening of 04/05/2017 and then late that night, I was called by the nursing staff as the patient was nonresponsive and Dr. Fountain/Dr. Moncada were going to transfer him to the ICU. 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 Rest diagnoses as above. Unresponsive episode resulting in this transfer. PLAN: The patient was discharged late at night 04/05/2017 and this note is admission discharge note combination. DISCHARGE MEDICATIONS: Please refer to the EMRAD. Further psychiatric medical followup in the ICU per Dr. Fountain. MAN Horace LAMB MD DR: ESTEFANY/aubrey JOB#: [id number] / [id number]
[2017-04-06] MEDS ORDERED: FUROSEMIDE 40 MG TABLET PO SCH (16:00)
[2017-04-07] MEDS ORDERED: FUROSEMIDE 20 MG TABLET PO SCH (16:00)
[2017-04-10] MEDS ORDERED: FUROSEMIDE 20 MG TABLET PO SCH (16:00)
[2017-04-11] MEDS ORDERED: risperiDONE MICROSPHERES 25 MG/2 ML DISP.SYRIN. IM SCH (09:00)
[2017-04-12] MEDS ORDERED: FUROSEMIDE 20 MG TABLET PO SCH (16:00)
[2017-05-05] MEDS ORDERED: CYANOCOBALAMIN (VITAMIN B-12) 1,000 MCG/ML VIAL SQ SCH (09:00)
== END 2017-04-05 22:50 | disposition short-term general hospital (02) | DRG 885 ==
LOC: EEVIPCON 17:49 → ER 17:49 → GEROPSY 21:50 → ER 21:50
PROVIDERS: ADMIT Psychiatry & Neurology Psychiatry; ATTEND Psychiatry & Neurology Psychiatry
DX: F25.0 Schizoaffective disorder, bipolar type (principal); G62.9 Polyneuropathy, unspecified; I11.0 Hypertensive heart disease with heart failure; I50.9 Heart failure, unspecified; R45.851 Suicidal ideations; G30.0 Alzheimer's disease with early onset; F01.50 Vascular dementia, unspecified severity, without behavioral disturbance, psychotic disturbance, mood disturbance, and anxiety; J44.9 Chronic obstructive pulmonary disease, unspecified; I25.10 Atherosclerotic heart disease of native coronary artery without angina pectoris; R41.83 Borderline intellectual functioning; N40.0 Benign prostatic hyperplasia without lower urinary tract symptoms; F10.11 Alcohol abuse, in remission; F41.9 Anxiety disorder, unspecified; F32.9 Major depressive disorder, single episode, unspecified; F63.9 Impulse disorder, unspecified; F02.80 Dementia in other diseases classified elsewhere, unspecified severity, without behavioral disturbance, psychotic disturbance, mood disturbance, and anxiety; Z66 Do not resuscitate; Z88.8 Allergy status to other drugs, medicaments and biological substances; Z79.02 Long term (current) use of antithrombotics/antiplatelets; Z87.440 Personal history of urinary (tract) infections; Z87.891 Personal history of nicotine dependence
CPT/HCPCS: 36415; 71045; 80053; 80061; 82550; 82607; 82947; 83036; 83540; 83550; 83735; 83880; 84436; 84443; 84480; 84484; 85007; 85025; 86593; 93005; J1940

== ENCOUNTER 2017-04-05 22:45 | Inpatient (IN) | payer MEDICARE, OTHER ==
[~2017-04-05] VITALS: Ht 170.2 cm; Wt 61.0 kg
[~2017-04-05 22:45] MED LIST changes: +RISP37.5 IM
[2017-04-05 22:50] VITALS: BP 101/62
--- NOTE | 2017-04-05 22:50 | NUR ---
The patient, KEYSHA SUH, 72 y/o, M admitted by TOVA BAÑUELOS DO, was given written information regarding hospital policies, unit procedures and contact persons. Valuables were checked and logged. Call light at bedside. Will continue to monitor.
[2017-04-05 23:30] VITALS: BP 104/68
[2017-04-05] MEDS ORDERED: IV NORMAL SALINE 500ML 500 ML IV ONE (23:45)
[2017-04-06] VITALS (20 sets, daily range): BP systolic 83–160; BP diastolic 55–86
[2017-04-06] MEDS: IV NORMAL SALINE 1,000ML 1,000 ML IV SCH ×2 (02:00→05:52)
--- NOTE | 2017-04-06 05:12 | NUR ---
Consult for Dr. Weiner faxed at this time.
--- NOTE | 2017-04-06 06:46 | PDOC ---
Exam Note: Harjeet Note: Please also refer to the separate dictated note~for this date of service dictated separately.~Patient seen individually. Discussed the patient with Nursing staff reviewed the chart.~Reviewed interim history and current functioning. Reviewed vital signs,~Labs/ Radiology~and current medications noted below. Continue current treatment with the changes noted in the dictated addendum note. This is a late entry for date of service Apr 05, 2017 Assessment: Vital Signs: Vital Signs Date Time Temp Pulse Resp B/P (MAP) Pulse Ox O2 Delivery O2 Flow Rate FiO2 04/06/17 06:24 70 16 119/65 (83) 92 Nasal Cannula 2.0 VS - Last 72 Hours, by Label Date Time Temp Pulse Resp B/P (MAP) Pulse Ox O2 Delivery O2 Flow Rate FiO2 04/06/17 06:24 70 16 119/65 (83) 92 Nasal Cannula 2.0 04/06/17 06:00 72 16 139/74 (95) 96 Nasal Cannula 2.0 04/06/17 05:00 74 16 91/56 (68) 96 Nasal Cannula 2.0 04/06/17 04:24 78 16 115/63 (80) 96 Nasal Cannula 2.0 04/06/17 04:00 Nasal Cannula 2.0 04/06/17 02:54 75 16 118/69 (85) 94 Nasal Cannula 2.0 04/06/17 02:24 77 16 85/57 (66) 94 Nasal Cannula 2.0 04/06/17 01:54 79 16 83/55 (64) 94 Nasal Cannula 2.0 04/06/17 00:54 81 16 113/75 (88) 96 Nasal Cannula 2.0 04/06/17 00:01 Nasal Cannula 2.0 04/06/17 00:01 87 16 83/60 (68) 98 Nasal Cannula 2.0 04/05/17 23:30 85 16 104/68 (80) 98 Nasal Cannula 2.0 04/05/17 22:50 90 16 101/62 (75) 90 Room Air 04/05/17 22:50 Nasal Cannula 2.0 I&O Intake and Output 04/06/17 07:00 Intake Total 711 ml Balance 711 ml Intake Oral 0 ml IV Total 711 ml Current Medications: Meds: Current Medications Sodium Chloride 500 ml @ 0 mls/hr 1X ONCE IV Last administered on 04/05/17at 23 :45; Start 04/05/17 at 23:45; Stop 04/06/17 at 01:10; Status DC Sodium Chloride 1,000 ml @ 125 mls/hr Q8H IV Last administered on 04/06/17at 05 :52; Start 04/05/17 at 23:45 Active Scripts Active Reported Risperdal Consta (Risperidone Microspheres) 37.5 Mg/2 Ml Disp.syrin 25 Mg IM Q2WKS Zoloft (Sertraline Hcl) 25 Mg Tablet 75 Mg PO DAILY Furosemide 40 Mg Tablet 40 Mg PO QMTUTHSA Tylenol (Acetaminophen) 325 Mg Tablet 650 Mg PO PRN Q4HRS PRN Nitrostat (Nitroglycerin) 0.4 Mg Tab.subl 0.4 Mg SL PRN Q5MIN PRN Eucerin Creme (Mineral Oil/Petrolatum,White) 120 Gm Cream..g. 1 Francia TP PRN PRN Gabapentin 300 Mg Capsule 300 Mg PO TID Vitamin D3 (Cholecalciferol (Vitamin D3)) 1,000 Unit Tablet 2,000 Unit PO DAILY Flomax (Tamsulosin Hcl) 0.4 Mg Cap.er.24h 0.4 Mg PO BID Simethicone 80 Mg Tab.chew 120 Mg PO BID Protonix (Pantoprazole Sodium) 40 Mg Tablet.dr 40 Mg PO BID Cyanocobalamin Injection (Cyanocobalamin (Vitamin B-12)) 1,000 Mcg/1 Ml Vial 1, 000 Mcg SQ QMONTH Once monthly on the Furosemide 20 Mg Tablet 20 Mg PO 3X/WEEK On Saturday, Saturday, & Saturday Folic Acid 1 Mg Tablet 1 Mg PO DAILY Plavix (Clopidogrel Bisulfate) 75 Mg Tablet 75 Mg PO DAILY Cetirizine Hcl 10 Mg Tablet 10 Mg PO DAILY Aspirin 81 Mg Tab.chew 81 Mg PO DAILY Metoprolol Tartrate 25 Mg Tablet 12.5 Mg PO BID Isosorbide Dinitrate 30 Mg Tablet 30 Mg PO HS I have reviewed the current psychotropics carefully including drug interactions. Risk benefit ratio favors no change other than as noted in my dictated progress note. Diagnosis: Problems: (1) Schizophrenia, disorganized, subchronic with acute exacerbation (2) Schizoaffective disorder (3) Major depressive disorder (4) Elevated creatine kinase (5) Renal insufficiency (6) Dehydration (7) Congestive heart failure (CHF) ZAINAB,MAN M MD Apr 06, 2017 06:46
[2017-04-06 07:26] LABS: BASO % 0 % (0-3); EOS % 0 % (0-3); HEMATOCRIT 41.9 % (39.0-53.0); HEMOGLOBIN 13.6 g/dL (13.0-17.5); LYMPH # 0.7 x10^3/uL (1.0-4.8); LYMPH % 7 % (24-48); MEAN CORPUSCULAR HEMOGLOBIN 25 pg (25-35); MEAN CORPUSCULAR HGB CONC 32 g/dL (31-37); MEAN CORPUSCULAR VOLUME 77 fL (79-100); MONO # 0.8 x10^3/uL (0.0-1.1); MONO % 8 % (0-9); NEUT # 8.4 x10^3uL (1.8-7.7); NEUT % 85 % (31-73); PLATELET COUNT 167 x10^3/uL (140-400); RED BLOOD COUNT 5.44 x10^6/uL (4.30-5.70); RED CELL DISTRIBUTION WIDTH 17.5 % (11.5-14.5); WHITE BLOOD COUNT 9.9 x10^3/uL (4.0-11.0)
[2017-04-06 07:54] LABS: ALBUMIN 3.3 g/dL (3.4-5.0); ALBUMIN/GLOBULIN RATIO 0.7 (1.0-1.7); CALCIUM 9.2 mg/dL (8.5-10.1); CREATININE 1.9 mg/dL (0.7-1.3); GFR 34.9; POTASSIUM 4.3 mmol/L (3.5-5.1); TOTAL BILIRUBIN 0.5 mg/dL (0.2-1.0)
[2017-04-06] MEDS ORDERED: MINERAL OIL/PETROLATUM TOPICAL CREAM 113GM JAR. TP PRN (08:15)
[2017-04-06] MEDS ORDERED: ACETAMINOPHEN 325 MG TABLET PO PRN (08:15)
[2017-04-06] MEDS ORDERED: NITROGLYCERIN SUBLINGUAL 0.4 MG BOTTLE OF 25. SL PRN (08:15)
[2017-04-06] MEDS ORDERED: TAMSULOSIN 0.4 MG CAP.ER.24H. PO SCH (09:00)
[2017-04-06] MEDS ORDERED: CLOPIDOGREL BISULFATE 75 MG TABLET PO SCH (09:00)
[2017-04-06] MEDS ORDERED: ASPIRIN 81 MG TAB.CHEW PO SCH (09:00)
[2017-04-06] MEDS ORDERED: CYANOCOBALAMIN (VITAMIN B-12) 1,000 MCG/ML VIAL SQ SCH (09:00)
[2017-04-06] MEDS ORDERED: CHOLECALCIFEROL (VITAMIN D3) 1,000 UNIT TABLET PO SCH (09:00)
[2017-04-06] MEDS: GABAPENTIN 300 MG CAPSULE. PO SCH ×2 (09:00→14:00)
[2017-04-06] MEDS ORDERED: PANTOPRAZOLE 40 MG TABLET. PO SCH (09:00)
[2017-04-06] MEDS ORDERED: FOLIC ACID 1 MG TABLET PO SCH (09:00)
[2017-04-06] MEDS ORDERED: SERTRALINE 25 MG TABLET. PO SCH (09:00)
--- NOTE | 2017-04-06 13:33 | NUR ---
Nursing: Patient sleeping most of the day. Refusing to eat and take medication. Withdrawn. Will continue to closely monitor.
--- NOTE | 2017-04-06 14:53 | NUR ---
Discharge: report called to ARRON Cabrera. All belongings with patient. Patient transferred to x2 assist. Admitted to [facility]. Copy of discharge medications sent with patient.
--- NOTE | 2017-04-06 20:03 | SSS ---
ADMIT DATE: 04/06/2017 SHORT STAY SUMMARY DISCHARGE DIAGNOSES: 1. Dehydration. 2. Refusal of care. 3. Acute renal failure secondary to dehydration. 4. Microcytosis. 5. Positive MRSA screen. 6. Schizophrenia, uncontrolled. 7. Functional paraplegia. 8. Chronic obstructive pulmonary disease. 9. Former smoker. Please note a full H and P was done before his admission to the [facility] on 04/04/2017. HISTORY OF PRESENT ILLNESS: This is a 72-year-old male who was admitted to the [facility] unit for schizophrenia and refusing care, refusing to take his medicines, not eating and hallucinating. He had a full history and physical done on the afternoon of 04/05/2017. In the late evening of 04/05/2017 developed some hypotension and was transferred down to the ICU for further evaluation. He received IV fluids and his blood work did improve. He is still continued to refuse his medication and refused to eat. OBJECTIVE: VITAL SIGNS: Blood pressure is 151/62, pulse 70, temperature is 98.5, O2 sat is 96% on 2 liters. Height 67 inches, weight 134.37 pounds. GENERAL: The patient is slightly hard of hearing. HEENT: Her eyes are clear. Complains of blurred vision. Nose patent. Tongue slightly dry. NECK: Supple. LUNGS: Clear to auscultation. CARDIOVASCULAR: Regular rhythm and rate with a 2/6 systolic murmur. ABDOMEN: Soft, bowel sounds are positive, nontender. EXTREMITIES: Without edema. He does have some neuropathy of his feet. HOSPITAL COURSE: He was treated with IV fluids. He was encouraged to eat. He still is withdrawn and refusing cares. I discussed at length with his brother who wants him to be transferred back up to [facility] to resume his medications. He has had several episodes like this in the past and once he starts taking his medications again he stops acting like this as far as not eating and complaining of being blind. As his condition is stable at the present time, arrangements have been made for him to be transferred back up to the [facility] Unit. TOVA BAÑUELOS DO DR: WAYNE/aubrey JOB#: [id number] / [id number]
[2017-04-06] MEDS ORDERED: ISOSORBIDE MONONITRATE ER 30 MG TAB.ER.24H PO SCH (21:00)
[2017-04-08] MEDS ORDERED: FUROSEMIDE 20 MG TABLET PO SCH (09:00)
[2017-04-11] MEDS ORDERED: risperiDONE MICROSPHERES 25 MG/2 ML DISP.SYRIN. IM SCH (09:00)
== END 2017-04-06 14:45 | DRG 683 ==
LOC: ICU 22:45
PROVIDERS: ADMIT Family Medicine; ATTEND Family Medicine
DX: N17.9 Acute kidney failure, unspecified (principal); F20.1 Disorganized schizophrenia; I95.9 Hypotension, unspecified; I50.9 Heart failure, unspecified; J44.9 Chronic obstructive pulmonary disease, unspecified; E86.0 Dehydration; F44.4 Conversion disorder with motor symptom or deficit; F32.9 Major depressive disorder, single episode, unspecified; Z53.20 Procedure and treatment not carried out because of patient's decision for unspecified reasons; Z87.891 Personal history of nicotine dependence
CPT/HCPCS: 36415; 80053; 85025; 87641; J3420; J7040; J7030

== ENCOUNTER 2017-04-06 13:50 | Inpatient (IN) | payer MEDICARE, OTHER ==
[~2017-04-06] VITALS: Ht 165.1 cm; Wt 38.7 kg
[~2017-04-06 13:50] MED LIST changes: -FERR-26 PO; +FERR325T14 PO
--- NOTE | 2017-04-06 15:00 | NUR ---
Admission Note with Justification for Admission to [facility] Patient admitted to [facility] for protective oversight for emergency stabilization of acute psychiatric crisis. Pt admitted from: ICU Mode of arrival: WC Accompanied By: [facility] Staff Precipitating behaviors that initiated intake and admission: REFUSING MEDICATIONS, NOT EATING, WITHDRAWN Description of failure of out patient attempts at stabilization in previous setting list behavior and medication trials: Behaviors and assessment findings upon admission: PATIENT WAS CALM AND COMPLIANT UPON ARRIVAL TO UNIT. PATIENT IS WITHDRAWN AND REFUSING TO ANSWER QUESTIONS, PATIENTS VS ARE WNL. PATIENT IS ORIENTED TO UNIT AND SCHEDULE. PATIENT IS OFFERED FOOD AND DRINK. PHOTOS OF BELONGINGS AND SKIN TEARS NOTED. Plan: Admit for protective oversight for adjustment and stabilization of medications, behaviors and mood. Intense treatment regimen including groups, medication adjustments, therapy, consistent regimen for ADL's, self care, and sleep hygiene. Daily monitoring by Inpatient staff, Psychiatry, and Medical Physician.
[2017-04-06 15:01] VITALS: BP 122/60
[2017-04-06] MEDS ORDERED: MINERAL OIL/PETROLATUM TOPICAL CREAM 113GM JAR. TP PRN (15:15)
[2017-04-06] MEDS ORDERED: ACETAMINOPHEN 325 MG TABLET PO PRN (15:15)
[2017-04-06] MEDS ORDERED: NITROGLYCERIN SUBLINGUAL 0.4 MG BOTTLE OF 25. SL PRN (15:15)
[2017-04-06] MEDS: FUROSEMIDE 40 MG TABLET PO SCH (16:00)
[2017-04-06 16:19] VITALS: BP 122/60
[2017-04-06] MEDS: TAMSULOSIN 0.4 MG CAP.ER.24H. PO SCH (20:07)
[2017-04-06] MEDS: PANTOPRAZOLE 40 MG TABLET. PO SCH (20:07)
[2017-04-06] MEDS: GABAPENTIN 300 MG CAPSULE. PO SCH (20:08)
[2017-04-06] MEDS: ISOSORBIDE MONONITRATE ER 30 MG TAB.ER.24H PO SCH (20:09)
[2017-04-06 21:08] VITALS: BP 134/71
--- NOTE | 2017-04-06 21:30 | NUR ---
Behavior Intervention Response and Plan: BIRP Note: Behavior: Assumed Care of patient, patient located in Day Room at shift change. Patient exhibited the following behavior Calm, Disorganized, Withdrawn. Brief assessment on rounds of vital signs, medication needs, lab studies, and pain. Treatment plan problems .1&2 Intervention: Patient assessed and the following interventions initiated safety checks 15 Minute Checks Cognitive Assessment , Head to toe Assessment , Medications. Response: After interactions and interventions patient responded in the following manner, Appropriate , Compliant ,Cooperative. Continue to assess behaviors and condition will continue to monitor throughout the shift as needed. Patient educated on ADL's, and hand hygiene. Plan: Continue to monitor Master Treatment Plan for patient's progress toward short term goals of Decreased Anxiety, Improved Mood, senior care goals to return to previous living setting vs placement. Continue to assess patient for changes in above assessment. Monitor for medication needs, pain, and safety concerns. Hourly rounding performed to ensure safe environment.
--- NOTE | 2017-04-06 22:24 | PDOC ---
Exam Note: Harjeet Note: Please also refer to the separate dictated note~for this date of service dictated separately.~Patient seen individually. Discussed the patient with Nursing staff reviewed the chart.~Reviewed interim history and current functioning. Reviewed vital signs,~Labs/ Radiology~and current medications noted below. Continue current treatment with the changes noted in the dictated addendum note Assessment: Vital Signs: Vital Signs Date Time Temp Pulse Resp B/P (MAP) Pulse Ox O2 Delivery O2 Flow Rate FiO2 04/06/17 21:08 94 18 134/71 (92) 95 Nasal Cannula 1.5 04/06/17 16:19 97.4 Current Medications: Meds: Current Medications Acetaminophen (Tylenol) 650 mg PRN Q4HRS PRN PO PAIN / TEMP; Start 04/06/17 at 15:15 Aspirin (Children'S Aspirin) 81 mg DAILY PO ; Start 04/07/17 at 09:00 Vitamin D (Vitamin D3) 2,000 unit DAILY PO ; Start 04/07/17 at 09:00 Clopidogrel Bisulfate (Plavix) 75 mg DAILY PO ; Start 04/07/17 at 09:00 Cyanocobalamin (Vitamin B-12) 1,000 mcg QMONTH SQ ; Start 05/06/17 at 09:00 Folic Acid (Folic Acid) 1 mg DAILY PO ; Start 04/07/17 at 09:00 Furosemide (Lasix) 20 mg 3X/WEEK PO ; Start 04/08/17 at 09:00 Furosemide (Lasix) 40 mg QMTUTHSA PO Last administered on 04/06/17at 16:00; Start 04/06/17 at 16:00 Gabapentin (Neurontin) 300 mg TID PO Last administered on 04/06/17at 20:08; Start 04/06/17 at 21:00 Multi-Ingred Cream/Lotion/Oil/ Oint (Hydrocerin) 1 francia PRN BID PRN TP Dry Skin ; Start 04/06/17 at 15:15 Nitroglycerin (Nitrostat) 0.4 mg PRN Q5MIN PRN SL CHEST PAIN; Start 04/06/17 at 15:15 Pantoprazole Sodium (Protonix) 40 mg BID PO Last administered on 04/06/17at 20: 07; Start 04/06/17 at 21:00 Sertraline HCl (Zoloft) 75 mg DAILY PO ; Start 04/07/17 at 09:00 Tamsulosin HCl (Flomax) 0.4 mg BID PO Last administered on 04/06/17at 20:07; Start 04/06/17 at 21:00 Isosorbide Mononitrate (Imdur) 30 mg HS PO Last administered on 04/06/17at 20:09 ; Start 04/06/17 at 21:00 Risperidone (RisperDAL CONSTA) 25 mg Q2WKS IM ; Start 04/11/17 at 09:00 Active Scripts Active Reported Risperdal Consta (Risperidone Microspheres) 37.5 Mg/2 Ml Disp.syrin 25 Mg IM Q2WKS Zoloft (Sertraline Hcl) 25 Mg Tablet 75 Mg PO DAILY Furosemide 40 Mg Tablet 40 Mg PO QMTUTHSA Tylenol (Acetaminophen) 325 Mg Tablet 650 Mg PO PRN Q4HRS PRN Nitrostat (Nitroglycerin) 0.4 Mg Tab.subl 0.4 Mg SL PRN Q5MIN PRN Eucerin Creme (Mineral Oil/Petrolatum,White) 120 Gm Cream..g. 1 Francia TP PRN PRN Gabapentin 300 Mg Capsule 300 Mg PO TID Vitamin D3 (Cholecalciferol (Vitamin D3)) 1,000 Unit Tablet 2,000 Unit PO DAILY Flomax (Tamsulosin Hcl) 0.4 Mg Cap.er.24h 0.4 Mg PO BID Simethicone 80 Mg Tab.chew 120 Mg PO BID Protonix (Pantoprazole Sodium) 40 Mg Tablet.dr 40 Mg PO BID Cyanocobalamin Injection (Cyanocobalamin (Vitamin B-12)) 1,000 Mcg/1 Ml Vial 1, 000 Mcg SQ QMONTH Once monthly on the Furosemide 20 Mg Tablet 20 Mg PO 3X/WEEK On Saturday, Saturday, & Saturday Folic Acid 1 Mg Tablet 1 Mg PO DAILY Plavix (Clopidogrel Bisulfate) 75 Mg Tablet 75 Mg PO DAILY Cetirizine Hcl 10 Mg Tablet 10 Mg PO DAILY Aspirin 81 Mg Tab.chew 81 Mg PO DAILY Metoprolol Tartrate 25 Mg Tablet 12.5 Mg PO BID Isosorbide Dinitrate 30 Mg Tablet 30 Mg PO HS I have reviewed the current psychotropics carefully including drug interactions. Risk benefit ratio favors no change other than as noted in my dictated progress note. Diagnosis: Problems: (1) Major depressive disorder (2) Schizoaffective disorder (3) Schizophrenia, disorganized, subchronic with acute exacerbation (4) Congestive heart failure (CHF) (5) Dehydration (6) Renal insufficiency (7) Elevated creatine kinase CHELY LAMB MD Apr 06, 2017 22:24
--- NOTE | 2017-04-07 02:04 | HP ---
ADMIT DATE: 04/06/2017 This note covers elements not covered in my initial note of 04/06/2017. IDENTIFYING DATA: The patient is a 72-year-old male, who was initially referred to us from [facility] on account of refusing to eat, refusing medications, worsening hallucinations, and acute psychotic episodes within the context of his schizophrenia, chronic, undifferentiated. He had failed outpatient psychiatric interventions. He stayed on our unit for 1 day. He was markedly hypotensive, nonresponsive, transferred to the ICU. Overnight, he was medically stabilized, felt to be medically stable to return back to our unit on 04/06/2017. CHIEF COMPLAINT: "I won't eat." HISTORY OF PRESENT ILLNESS: The patient has a long history of schizophrenia, chronic, undifferentiated versus schizoaffective disorder of bipolar type. He has been hospitalized on our unit in the past in September of last year. [facility] Over the past few days, he has been increasingly psychotic, agitated, refusing to eat, drink, or take his medications, noncompliant. He has been unmanageable at the facility. PAST PSYCHIATRIC HISTORY: As above. MEDICAL HISTORY: COPD, acute kidney failure, dementia, psychotic disorder, borderline intellectual functioning, history of alcohol abuse, BPH, coronary artery disease, history of angioplasty, history of heart failure, hypertension, UTI, polyneuropathy, rhabdomyolysis. DIET: Mechanical soft, takes meds crushed in pudding. CODE STATUS: DNR. ALLERGIES: AMINOGLYCOSIDES, PRAMOXINE, BENZALKONIUM. CURRENT PSYCHOTROPICS: Zoloft 75 mg a day, Risperdal Consta 25 mg IM q. 2 weeks, Zyprexa 5 mg at bedtime, Risperdal 0.5 mg b.i.d., Neurontin 300 mg 3 times a day. FAMILY HISTORY: Noncontributory. SOCIAL HISTORY: No physical, sexual, or elder abuse history is noted. Not known to be a perpetrator. He does have a history of alcohol abuse in the past. MENTAL STATUS EXAM: The patient was seen individually evening of 04/06/2017. He is in his wheelchair, not very verbally interactive, withdrawn. Speech, often responses monosyllabic. Abstraction fair, computation impaired, language function intact. Mood and affect withdrawn. LABORATORY DATA: Reviewed. IMPRESSION: Schizoaffective disorder, bipolar type, mixed with psychotic features, in partial remission; borderline intellectual functioning; anxiety disorder, unspecified; impulse control disorder, unspecified. Rest as above. PLAN: Admit to Geropsychiatry Unit at [facility]. I will see the patient daily individually from a psychiatric standpoint. Medical followup per Dr. Fountain/Dr. Moncada. Adjust further as clinically indicated post baseline assessment. MAN Horace LAMB MD DR: ESTEFANY/aubrey JOB#: [id number] / [id number]
[2017-04-07 06:29] VITALS: BP 147/76
[2017-04-07] MEDS: TAMSULOSIN 0.4 MG CAP.ER.24H. PO SCH ×2 (07:43→19:29)
[2017-04-07] MEDS: GABAPENTIN 300 MG CAPSULE. PO SCH ×3 (07:43→19:29)
[2017-04-07] MEDS: PANTOPRAZOLE 40 MG TABLET. PO SCH ×2 (07:43→19:29)
[2017-04-07] MEDS: FOLIC ACID 1 MG TABLET PO SCH (07:45)
[2017-04-07] MEDS: ASPIRIN 81 MG TAB.CHEW PO SCH (07:45)
[2017-04-07] MEDS: CHOLECALCIFEROL (VITAMIN D3) 1,000 UNIT TABLET PO SCH (07:48)
[2017-04-07] MEDS: SERTRALINE 25 MG TABLET. PO SCH (07:48)
[2017-04-07] MEDS: CLOPIDOGREL BISULFATE 75 MG TABLET PO SCH (07:48)
[2017-04-07 09:55] LABS: BASO % 0 % (0-3); EOS % 1 % (0-3); HEMATOCRIT 39.4 % (39.0-53.0); HEMOGLOBIN 12.5 g/dL (13.0-17.5); LYMPH # 0.4 x10^3/uL (1.0-4.8); LYMPH % 6 % (24-48); MEAN CORPUSCULAR HEMOGLOBIN 25 pg (25-35); MEAN CORPUSCULAR HGB CONC 32 g/dL (31-37); MEAN CORPUSCULAR VOLUME 78 fL (79-100); MONO # 0.4 x10^3/uL (0.0-1.1); MONO % 7 % (0-9); NEUT # 5.5 x10^3uL (1.8-7.7); NEUT % 86 % (31-73); PLATELET COUNT 160 x10^3/uL (140-400); RED BLOOD COUNT 5.05 x10^6/uL (4.30-5.70); RED CELL DISTRIBUTION WIDTH 17.9 % (11.5-14.5); WHITE BLOOD COUNT 6.4 x10^3/uL (4.0-11.0)
[2017-04-07 10:09] LABS: ALBUMIN 3.2 g/dL (3.4-5.0); ALBUMIN/GLOBULIN RATIO 0.7 (1.0-1.7); CALCIUM 8.9 mg/dL (8.5-10.1); CREATININE 1.4 mg/dL (0.7-1.3); GFR 49.7; MAGNESIUM 2.1 mg/dL (1.8-2.4); POTASSIUM 3.9 mmol/L (3.5-5.1); TOTAL BILIRUBIN 0.6 mg/dL (0.2-1.0); TOTAL PROTEIN 7.9 g/dL (6.4-8.2)
--- NOTE | 2017-04-07 10:30 | NUR ---
ACTIVITY THERAPY ASSESSMENT Completed based on observation and interview. Pt. was sitting quietly and was able to list favorite leisure interests such as: Yahtzee, cards, Bingo, watching TV and movies. Pt. keeps to himself most of the time but around groups. He will answer questions that are asked of him but he does not initiate conversations or seek socialization. Pt. often times fixated on his hands, studying both sides of them and complaining that his fingers are purple. Pt. was able to recall the name of the hospital and that he has been here before. Initial goal aimed to increase socialization and engagement: Pt. will participate in at least one group a day.
--- NOTE | 2017-04-07 11:28 | NUR ---
Behavior Intervention Response and Plan: BIRP Note: Behavior: Assumed Care of patient, patient located in Dining Room at shift change. Patient exhibited the following behavior Calm, Disorganized, Withdrawn. Brief assessment on rounds of vital signs, medication needs, lab studies, and pain. Treatment plan problems . Intervention: Patient assessed and the following interventions initiated safety checks 15 Minute Checks Head to toe Assessment , Cognitive Assessment , Medications. Response: After interactions and interventions patient responded in the following manner, Compliant , Cooperative ,Resistive. Continue to assess behaviors and condition will continue to monitor throughout the shift as needed. Patient educated on ADL's, and hand hygiene. Plan: Continue to monitor Master Treatment Plan for patient's progress toward short term goals of Improved Mood, Medication Compliance, care home goals to return to previous living setting vs placement. Continue to assess patient for changes in above assessment. Monitor for medication needs, pain, and safety concerns. Hourly rounding performed to ensure safe environment.
[2017-04-07 16:20] VITALS: BP 117/80
--- NOTE | 2017-04-07 16:35 | HP ---
ADMIT DATE: 04/06/2017 BRIEF NOTE HISTORY AND PHYSICAL. Note: There are two history and physicals on the chart. REASON FOR ADMISSION TO SENIOR BEHAVIORAL UNIT: This is a 72-year-old male who was transferred down from the Senior Behavior Unit where he had been admitted for refusing cares and depression. He was admitted down to the medical floor for hypotension. The hypotension resolved and he was transferred back up to the Senior Behavioral Unit. Please see there are no other changes in his H and P, so please see either H and P from his brief medical stay on 04/06/2017 or 04/05/2017. TOVA BAÑUELOS DO DR: WAYNE/aubrey JOB#: [id number] / [id number]
[2017-04-07] MEDS: ISOSORBIDE MONONITRATE ER 30 MG TAB.ER.24H PO SCH (19:30)
--- NOTE | 2017-04-07 20:17 | PDOC ---
Exam Note: Harjeet Note: Please also refer to the separate dictated note~for this date of service dictated separately.~Patient seen individually. Discussed the patient with Nursing staff reviewed the chart.~Reviewed interim history and current functioning. Reviewed vital signs,~Labs/ Radiology~and current medications noted below. Continue current treatment with the changes noted in the dictated addendum note Assessment: Vital Signs: Vital Signs Date Time Temp Pulse Resp B/P (MAP) Pulse Ox O2 Delivery O2 Flow Rate FiO2 04/07/17 19:30 98 117/80 04/07/17 16:20 98.3 18 96 Room Air 1.5 I&O Intake and Output 04/07/17 07:00 Intake Total 480 ml Balance 480 ml Intake Oral 480 ml Labs: Laboratory Tests Test 04/07/17 09:43 White Blood Count 6.4 x10^3/uL (4.0-11.0) Red Blood Count 5.05 x10^6/uL (4.30-5.70) Hemoglobin 12.5 g/dL (13.0-17.5) L Hematocrit 39.4 % (39.0-53.0) Mean Corpuscular Volume 78 fL (79-100) L Mean Corpuscular Hemoglobin 25 pg (25-35) Mean Corpuscular Hemoglobin Concent 32 g/dL (31-37) Red Cell Distribution Width 17.9 % (11.5-14.5) H Platelet Count 160 x10^3/uL (140-400) Neutrophils (%) (Auto) 86 % (31-73) H Lymphocytes (%) (Auto) 6 % (24-48) L Monocytes (%) (Auto) 7 % (0-9) Eosinophils (%) (Auto) 1 % (0-3) Basophils (%) (Auto) 0 % (0-3) Neutrophils # (Auto) 5.5 x10^3uL (1.8-7.7) Lymphocytes # (Auto) 0.4 x10^3/uL (1.0-4.8) L Monocytes # (Auto) 0.4 x10^3/uL (0.0-1.1) Eosinophils # (Auto) 0.0 x10^3/uL (0.0-0.7) Basophils # (Auto) 0.0 x10^3/uL (0.0-0.2) Sodium Level 139 mmol/L (136-145) Potassium Level 3.9 mmol/L (3.5-5.1) Chloride Level 104 mmol/L (98-107) Carbon Dioxide Level 27 mmol/L (21-32) Anion Gap 8 (6-14) Blood Urea Nitrogen 25 mg/dL (8-26) Creatinine 1.4 mg/dL (0.7-1.3) H Estimated GFR (Cockcroft-Gault) 49.7 BUN/Creatinine Ratio 18 (6-20) Glucose Level 163 mg/dL (70-99) H Calcium Level 8.9 mg/dL (8.5-10.1) Magnesium Level 2.1 mg/dL (1.8-2.4) Total Bilirubin 0.6 mg/dL (0.2-1.0) Aspartate Amino Transferase (AST) 19 U/L (15-37) Alanine Aminotransferase (ALT) 27 U/L (16-63) Alkaline Phosphatase 87 U/L (46-116) Total Protein 7.9 g/dL (6.4-8.2) Albumin 3.2 g/dL (3.4-5.0) L Albumin/Globulin Ratio 0.7 (1.0-1.7) L Current Medications: Meds: Current Medications Acetaminophen (Tylenol) 650 mg PRN Q4HRS PRN PO PAIN / TEMP; Start 04/06/17 at 15:15 Aspirin (Children'S Aspirin) 81 mg DAILY PO Last administered on 04/07/17at 07: 45; Start 04/07/17 at 09:00 Vitamin D (Vitamin D3) 2,000 unit DAILY PO Last administered on 04/07/17at 07:48 ; Start 04/07/17 at 09:00 Clopidogrel Bisulfate (Plavix) 75 mg DAILY PO Last administered on 04/07/17at 07 :48; Start 04/07/17 at 09:00 Cyanocobalamin (Vitamin B-12) 1,000 mcg QMONTH SQ ; Start 05/06/17 at 09:00 Folic Acid (Folic Acid) 1 mg DAILY PO Last administered on 04/07/17at 07:45; Start 04/07/17 at 09:00 Furosemide (Lasix) 20 mg 3X/WEEK PO ; Start 04/08/17 at 09:00 Furosemide (Lasix) 40 mg QMTUTHSA PO Last administered on 04/06/17at 16:00; Start 04/06/17 at 16:00 Gabapentin (Neurontin) 300 mg TID PO Last administered on 04/07/17at 19:29; Start 04/06/17 at 21:00 Multi-Ingred Cream/Lotion/Oil/ Oint (Hydrocerin) 1 francia PRN BID PRN TP Dry Skin ; Start 04/06/17 at 15:15 Nitroglycerin (Nitrostat) 0.4 mg PRN Q5MIN PRN SL CHEST PAIN; Start 04/06/17 at 15:15 Pantoprazole Sodium (Protonix) 40 mg BID PO Last administered on 04/07/17 19: 29; Start 04/06/17 at 21:00 Sertraline HCl (Zoloft) 75 mg DAILY PO Last administered on 04/07/17at 07:48; Start 04/07/17 at 09:00 Tamsulosin HCl (Flomax) 0.4 mg BID PO Last administered on 04/07/17at 19:29; Start 04/06/17 at 21:00 Isosorbide Mononitrate (Imdur) 30 mg HS PO Last administered on 04/07/17at 19:30 ; Start 04/06/17 at 21:00 Risperidone (RisperDAL CONSTA) 25 mg Q2WKS IM ; Start 04/11/17 at 09:00 Active Scripts Active Reported Risperdal Consta (Risperidone Microspheres) 37.5 Mg/2 Ml Disp.syrin 25 Mg IM Q2WKS Zoloft (Sertraline Hcl) 25 Mg Tablet 75 Mg PO DAILY Furosemide 40 Mg Tablet 40 Mg PO QMTUTHSA Tylenol (Acetaminophen) 325 Mg Tablet 650 Mg PO PRN Q4HRS PRN Nitrostat (Nitroglycerin) 0.4 Mg Tab.subl 0.4 Mg SL PRN Q5MIN PRN Eucerin Creme (Mineral Oil/Petrolatum,White) 120 Gm Cream..g. 1 Francia TP PRN PRN Gabapentin 300 Mg Capsule 300 Mg PO TID Vitamin D3 (Cholecalciferol (Vitamin D3)) 1,000 Unit Tablet 2,000 Unit PO DAILY Flomax (Tamsulosin Hcl) 0.4 Mg Cap.er.24h 0.4 Mg PO BID Simethicone 80 Mg Tab.chew 120 Mg PO BID Protonix (Pantoprazole Sodium) 40 Mg Tablet.dr 40 Mg PO BID Cyanocobalamin Injection (Cyanocobalamin (Vitamin B-12)) 1,000 Mcg/1 Ml Vial 1, 000 Mcg SQ QMONTH Once monthly on the Furosemide 20 Mg Tablet 20 Mg PO 3X/WEEK On Saturday, Saturday, & Saturday Folic Acid 1 Mg Tablet 1 Mg PO DAILY Plavix (Clopidogrel Bisulfate) 75 Mg Tablet 75 Mg PO DAILY Cetirizine Hcl 10 Mg Tablet 10 Mg PO DAILY Aspirin 81 Mg Tab.chew 81 Mg PO DAILY Metoprolol Tartrate 25 Mg Tablet 12.5 Mg PO BID Isosorbide Dinitrate 30 Mg Tablet 30 Mg PO HS I have reviewed the current psychotropics carefully including drug interactions. Risk benefit ratio favors no change other than as noted in my dictated progress note. Diagnosis: Problems: (1) Dehydration (2) Renal insufficiency (3) Elevated creatine kinase (4) Major depressive disorder (5) Schizoaffective disorder (6) Schizophrenia, disorganized, subchronic with acute exacerbation CHELY LAMB MD Apr 07, 2017 20:17
--- NOTE | 2017-04-07 22:37 | NUR ---
Behavior Intervention Response and Plan: BIRP Note: Behavior: Assumed Care of patient, patient located in Dining Room at shift change. Patient exhibited the following behavior Calm, Disorganized, Withdrawn, resistant. Brief assessment on rounds of vital signs, medication needs, lab studies, and pain. Treatment plan problems 1-2. Intervention: Patient assessed and the following interventions initiated safety checks 15 Minute Checks Head to toe Assessment , Cognitive Assessment , Medications. Response: After interactions and interventions patient responded in the following manner, Compliant , Cooperative ,Resistive. Continue to assess behaviors and condition will continue to monitor throughout the shift as needed. Patient educated on ADL's, and hand hygiene. Plan: Continue to monitor Master Treatment Plan for patient's progress toward short term goals of Improved Mood, Medication Compliance, medical terminologist goals to return to previous living setting vs placement. Continue to assess patient for changes in above assessment. Monitor for medication needs, pain, and safety concerns. Hourly rounding performed to ensure safe environment.
--- NOTE | 2017-04-08 02:51 | HP ---
ADMIT DATE: 04/06/2017 MEDICAL HISTORY AND PHYSICAL REASON FOR ADMISSION TO [facility]: This is a 72-year-old male, who came from [facility] in [place], [place]. The patient has been refusing meds, not eating, withdrawn to his room and hallucinating. I met with the patient in the dining room. He was sitting in a wheelchair, pleasant and cooperative. PAST MEDICAL HISTORY: He has 3 previous admissions to the [facility] for similar symptoms. Also dysphagia, dementia, chest pain, history of sepsis, mild mitral regurg, COPD, and schizophrenia, unspecified. ALLERGIES: AMINOGLYCOSIDES AND PRAMOXINE. IMMUNIZATIONS: Received a flu shot 12/2016. Refused pneumonia vaccine. HABITS: The patient quit smoking a few years ago. Social, never . 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 He did attend [employer]. PAST SURGICAL HISTORY: States none. REVIEW OF SYSTEMS: States his feet hurt and feels hot. His belly hurt yesterday. He has acid taste in his stomach and has a hard time digesting food. Note the patient is on numerous medications for the GI tract. The patient was queried regarding not eating and just states he just does not want to. He does not voice wanting to . OBJECTIVE: VITAL SIGNS: Blood pressure 130/87, temperature 97.4, pulse 97, and pulse ox is 92% on room air. GENERAL: A small 72-year-old, in no acute distress. He is sitting calmly in the wheelchair. NEUROLOGIC: He is calm and cooperative, able to follow directions. HEENT: Eyes are blue. Pupils are small but reactive. Throat is clear. He is edentulous. Ears were occluded by wax, wax was removed. NECK: Supple, without adenopathy. Thyroid appears slightly enlarged. LUNGS: Clear to auscultation. CARDIOVASCULAR: Regular rhythm and rate with a 2/6 systolic murmur. ABDOMEN: Soft. Bowel sounds are positive. Nontender. EXTREMITIES: Without edema. MUSCULOSKELETAL: He does not appear to have much use of his legs. He did not attempt to stand, would not extend his legs for me, does have reflexes 2+/4 bilaterally on both sides. Cranial nerves: Vision is blurry, can identify two fingers in the frontal field. Other cranial nerves are intact. LABORATORY DATA: His white count was 6.1, hemoglobin 14.1, and hematocrit 43.8. Chemistry: TSH 1.543, BNP 2355, iron slightly low at 40 and BUN 30 and creatinine 2.4 and earlier they were 19 and creatinine 1.3. ASSESSMENT: Acute kidney injury secondary to dehydration, slight hyperglycemia, schizophrenia, debilitated state, functional paraplegia, hypertension, dementia, weakness. Also anorexia and cachexia, not eating. PLAN: Monitor him for the next day or so, fluid intake and may have to have some IV fluids or appetite stimulant. ADDENDUM TO HISTORY AND PHYSICAL: Since this is a late dictation, he developed some hypotension late on the evening of 04/05/2017 and was transferred down to the [facility] for hypotension and further evaluation. TOVA BAÑUELOS DO DR: WAYNE/aubrey JOB#: [id number] / [id number]
[2017-04-08 06:07] VITALS: BP 146/76
[2017-04-08 07:49] LABS: BACTERIA,URINE MANY /HPF (0-FEW); BILIRUBIN,URINE NEG (NEG); CLARITY,URINE CLOUDY; COLOR,URINE AMBER; GLUCOSE,URINE NEG (NEG); HYALINE CASTS, URINE FEW /HPF; NITRITE,URINE POS (NEG); SQUAMOUS EPITHELIAL CELL,UR OCC /LPF; UROBILINOGEN,URINE 0.2 mg/dL (0.2 mg/dL); WBC,URINE 20-40 /HPF (0-4)
[2017-04-08] MEDS: GABAPENTIN 300 MG CAPSULE. PO SCH ×3 (08:58→19:23)
[2017-04-08] MEDS: FOLIC ACID 1 MG TABLET PO SCH (08:58)
[2017-04-08] MEDS: ASPIRIN 81 MG TAB.CHEW PO SCH (08:58)
[2017-04-08] MEDS: PANTOPRAZOLE 40 MG TABLET. PO SCH ×2 (08:58→19:23)
[2017-04-08] MEDS: SERTRALINE 25 MG TABLET. PO SCH (08:58)
[2017-04-08] MEDS: TAMSULOSIN 0.4 MG CAP.ER.24H. PO SCH ×2 (08:58→19:22)
[2017-04-08] MEDS: CHOLECALCIFEROL (VITAMIN D3) 1,000 UNIT TABLET PO SCH (08:58)
[2017-04-08] MEDS: CLOPIDOGREL BISULFATE 75 MG TABLET PO SCH (08:58)
[2017-04-08] MEDS: FUROSEMIDE 20 MG TABLET PO SCH (09:00)
[2017-04-08 16:04] VITALS: BP 133/76
[2017-04-08] MEDS: FUROSEMIDE 40 MG TABLET PO SCH (17:14)
--- NOTE | 2017-04-08 17:19 | NUR ---
Psychosocial Assessment completed during previous admit to facility 09/24 & 04/04/17. Psychosocial Assessment completed w/Pt. and then followed up w/Pt's brother, Micky. Pt. was born and raised in [place], [place] w/his twin brother named Micky. Pt did not complete school as his parents said he was "slow". Pt. was pulled out of general education, placed in a school for special education, and then was eventually taken out of that school. Pt. only completed 7th grade and did not earn GED. No family history of alcohol or substance abuse or diagnosed MH. Pt's father was diagnosed w/Syphilis as a young person, was being treated w/medication, however, he did choose to stop taking the medication and as a result, suffered mental and physical issues. He was taken to Hospital and placed back on the medications, but it did put a strain on the marriage. Pt's parents did not divorce, but PT's mother did sleep on the couch. It was considered a loveless marriage. Pt's mother at age 47 due to "hardening of the arteries". Pt. resided w/father until he was placed in a detention. Pt never , no children. Pt. 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 Pt. was a very loyal worker, so he when suddenly stopped showing up at work, Pt's brother went to check on him at his apt. Pt. was found to not be doing well, not eating, going to the bathroom on himself. Pt. was transitioned to [facility] for several years (4-6 years). Pt's brother checked on him periodically and at one point, Pt. again was not doing well. Pt. reported seeing demons, said he was burning up, going to bathroom on self. Pt. went to [facility] and then to [facility] where, according to PT's brother, PT. was then diagnosed w/Schizophrenia. PT's brother reports Pt. never had previous psychotic breaks, no major trauma. Pt. returned to [facility] for a short time, but then was transitioned to [facility] for higher level of care and rehab. Facility prepared Pt's brother for Pt's as he decided to take Pt. off the thickened liquids and special diets. Pt. did a bounce back and was doing really well for about 2 years. July 2016, PT. began to cycle again w/the delusional thoughts, reporting he does not have a throat, refusing medications, etc. Admit to this facility 09/24 and then returned to [facility]. GOALS: Healthy and return to [facility] 1. Family support 2. Community Support
--- NOTE | 2017-04-08 18:26 | NUR ---
Behavior Intervention Response and Plan: BIRP Note: Behavior: Assumed Care of patient, patient located in Dining Room at shift change. Patient exhibited the following behavior Resistive, Withdrawn, Calm. Brief assessment on rounds of vital signs, medication needs, lab studies, and pain. Treatment plan problems Alteration in Mood and Fall Risk. Intervention: Patient assessed and the following interventions initiated safety checks 15 Minute Checks Head to toe Assessment , Cognitive Assessment , Medications. Response: After interactions and interventions patient responded in the following manner, Calm , Resistive ,Withdrawn. Continue to assess behaviors and condition will continue to monitor throughout the shift as needed. Patient educated on ADL's, and hand hygiene. Plan: Continue to monitor Master Treatment Plan for patient's progress toward short term goals of Medication Compliance, No harm To self/ others, saw repairer goals to return to previous living setting vs placement. Continue to assess patient for changes in above assessment. Monitor for medication needs, pain, and safety concerns. Hourly rounding performed to ensure safe environment.
[2017-04-08] MEDS: ISOSORBIDE MONONITRATE ER 30 MG TAB.ER.24H PO SCH (19:22)
--- NOTE | 2017-04-08 20:09 | PDOC ---
Exam Note: Harjeet Note: Please also refer to the separate dictated note~for this date of service dictated separately.~Patient seen individually. Discussed the patient with Nursing staff reviewed the chart.~Reviewed interim history and current functioning. Reviewed vital signs,~Labs/ Radiology~and current medications noted below. Continue current treatment with the changes noted in the dictated addendum note Assessment: Vital Signs: Vital Signs Date Time Temp Pulse Resp B/P (MAP) Pulse Ox O2 Delivery O2 Flow Rate FiO2 04/08/17 19:22 92 133/76 04/08/17 16:04 97.8 20 97 2.0 04/07/17 16:20 Room Air I&O Intake and Output 04/08/17 07:00 Intake Total 1200 ml Balance 1200 ml Intake Oral 1200 ml Labs: Laboratory Tests Test 04/08/17 07:25 Urine Collection Type Unknown Urine Color Michell Urine Clarity Cloudy Urine pH 5.0 Urine Specific Caruthers 1.025 Urine Protein 30 mg/dl (NEG-TRACE) Urine Glucose (UA) Neg mg/dL (NEG) Urine Ketones (Stick) Trace mg/dL (NEG) Urine Blood Trace (NEG) Urine Nitrite Pos (NEG) Urine Bilirubin Neg (NEG) Urine Urobilinogen Dipstick 0.2 mg/dL (0.2 mg/dL) Urine Leukocyte Esterase Small (NEG) Urine RBC 1-2 /HPF (0-2) Urine WBC 20-40 /HPF (0-4) Urine Squamous Epithelial Cells Occ /LPF Urine Bacteria Many /HPF (0-FEW) Urine Hyaline Casts Few /HPF Urine Mucus Mod /LPF Current Medications: Meds: Current Medications Acetaminophen (Tylenol) 650 mg PRN Q4HRS PRN PO PAIN / TEMP; Start 04/06/17 at 15:15 Aspirin (Children'S Aspirin) 81 mg DAILY PO Last administered on 04/08/17at 08: 58; Start 04/07/17 at 09:00 Vitamin D (Vitamin D3) 2,000 unit DAILY PO Last administered on 04/08/17at 08:58 ; Start 04/07/17 at 09:00 Clopidogrel Bisulfate (Plavix) 75 mg DAILY PO Last administered on 04/08/17at 08 :58; Start 04/07/17 at 09:00 Cyanocobalamin (Vitamin B-12) 1,000 mcg QMONTH SQ ; Start 05/06/17 at 09:00 Folic Acid (Folic Acid) 1 mg DAILY PO Last administered on 04/08/17at 08:58; Start 04/07/17 at 09:00 Furosemide (Lasix) 20 mg 3X/WEEK PO Last administered on 04/08/17at 09:00; Start 04/08/17 at 09:00 Furosemide (Lasix) 40 mg QMTUTHSA PO Last administered on 04/08/17at 17:14; Start 04/06/17 at 16:00 Gabapentin (Neurontin) 300 mg TID PO Last administered on 04/08/17at 19:23; Start 04/06/17 at 21:00 Multi-Ingred Cream/Lotion/Oil/ Oint (Hydrocerin) 1 francia PRN BID PRN TP Dry Skin ; Start 04/06/17 at 15:15 Nitroglycerin (Nitrostat) 0.4 mg PRN Q5MIN PRN SL CHEST PAIN; Start 04/06/17 at 15:15 Pantoprazole Sodium (Protonix) 40 mg BID PO Last administered on 04/08/17at 19: 23; Start 04/06/17 at 21:00 Sertraline HCl (Zoloft) 75 mg DAILY PO Last administered on 04/08/17at 08:58; Start 04/07/17 at 09:00 Tamsulosin HCl (Flomax) 0.4 mg BID PO Last administered on 04/08/17at 19:22; Start 04/06/17 at 21:00 Isosorbide Mononitrate (Imdur) 30 mg HS PO Last administered on 04/08/17 19:22 ; Start 04/06/17 at 21:00 Risperidone (RisperDAL CONSTA) 25 mg Q2WKS IM ; Start 04/11/17 at 09:00 Active Scripts Active Reported Risperdal Consta (Risperidone Microspheres) 37.5 Mg/2 Ml Disp.syrin 25 Mg IM Q2WKS Zoloft (Sertraline Hcl) 25 Mg Tablet 75 Mg PO DAILY Furosemide 40 Mg Tablet 40 Mg PO QMTUTHSA Tylenol (Acetaminophen) 325 Mg Tablet 650 Mg PO PRN Q4HRS PRN Nitrostat (Nitroglycerin) 0.4 Mg Tab.subl 0.4 Mg SL PRN Q5MIN PRN Eucerin Creme (Mineral Oil/Petrolatum,White) 120 Gm Cream..g. 1 Francia TP PRN PRN Gabapentin 300 Mg Capsule 300 Mg PO TID Vitamin D3 (Cholecalciferol (Vitamin D3)) 1,000 Unit Tablet 2,000 Unit PO DAILY Flomax (Tamsulosin Hcl) 0.4 Mg Cap.er.24h 0.4 Mg PO BID Simethicone 80 Mg Tab.chew 120 Mg PO BID Protonix (Pantoprazole Sodium) 40 Mg Tablet.dr 40 Mg PO BID Cyanocobalamin Injection (Cyanocobalamin (Vitamin B-12)) 1,000 Mcg/1 Ml Vial 1, 000 Mcg SQ QMONTH Once monthly on the Furosemide 20 Mg Tablet 20 Mg PO 3X/WEEK On Saturday, Saturday, & Saturday Folic Acid 1 Mg Tablet 1 Mg PO DAILY Plavix (Clopidogrel Bisulfate) 75 Mg Tablet 75 Mg PO DAILY Cetirizine Hcl 10 Mg Tablet 10 Mg PO DAILY Aspirin 81 Mg Tab.chew 81 Mg PO DAILY Metoprolol Tartrate 25 Mg Tablet 12.5 Mg PO BID Isosorbide Dinitrate 30 Mg Tablet 30 Mg PO HS I have reviewed the current psychotropics carefully including drug interactions. Risk benefit ratio favors no change other than as noted in my dictated progress note. Diagnosis: Problems: (1) Major depressive disorder (2) Schizoaffective disorder (3) Schizophrenia, disorganized, subchronic with acute exacerbation CHELY LAMB MD Apr 08, 2017 20:09
--- NOTE | 2017-04-08 23:42 | NUR ---
Behavior Intervention Response and Plan: BIRP Note: Behavior: Assumed Care of patient, patient located in Day Room at shift change. Patient exhibited the following behavior Calm, Irritable, Able to Focus on Task. Brief assessment on rounds of vital signs, medication needs, lab studies, and pain. Treatment plan problems .1&2 Intervention: Patient assessed and the following interventions initiated safety checks 15 Minute Checks Cognitive Assessment , Head to toe Assessment , Medications. Response: After interactions and interventions patient responded in the following manner, Compliant , Cooperative ,Withdrawn. Continue to assess behaviors and condition will continue to monitor throughout the shift as needed. Patient educated on ADL's, and hand hygiene. Plan: Continue to monitor Master Treatment Plan for patient's progress toward short term goals of Decreased Anxiety, Decreased Agitation, long term care social worker goals to return to previous living setting vs placement. Continue to assess patient for changes in above assessment. Monitor for medication needs, pain, and safety concerns. Hourly rounding performed to ensure safe environment.
[2017-04-09 06:19] VITALS: BP 114/63
[2017-04-09] MEDS: CLOPIDOGREL BISULFATE 75 MG TABLET PO SCH (08:37)
[2017-04-09] MEDS: FOLIC ACID 1 MG TABLET PO SCH (08:37)
[2017-04-09] MEDS: TAMSULOSIN 0.4 MG CAP.ER.24H. PO SCH ×2 (08:37→19:23)
[2017-04-09] MEDS: CHOLECALCIFEROL (VITAMIN D3) 1,000 UNIT TABLET PO SCH (08:38)
[2017-04-09] MEDS: SERTRALINE 25 MG TABLET. PO SCH (08:38)
[2017-04-09] MEDS: PANTOPRAZOLE 40 MG TABLET. PO SCH ×2 (08:38→19:25)
[2017-04-09] MEDS: ASPIRIN 81 MG TAB.CHEW PO SCH (08:38)
[2017-04-09] MEDS: GABAPENTIN 300 MG CAPSULE. PO SCH ×4 (08:38→19:25)
--- NOTE | 2017-04-09 08:45 | NUR ---
Patient refused medications, states he cannot swallow. Will attempt to provide later.
--- NOTE | 2017-04-09 10:40 | NUR ---
patient continued to refuse meds, stating unable to swallow. Meds were crushed and placed in a Boost which patient drank. Will monitor for behaviours.
--- NOTE | 2017-04-09 10:40 | NUR ---
Behavior Intervention Response and Plan: BIRP Note: Behavior: Assumed Care of patient, patient located in Day Room at shift change. Patient exhibited the following behavior Disorganized, Delusions, Non Compliant with Meds. Brief assessment on rounds of vital signs, medication needs, lab studies, and pain. Treatment plan problems 1 & 2. Intervention: Patient assessed and the following interventions initiated safety checks 15 Minute Checks Cognitive Assessment , Head to toe Assessment , Medications. Response: After interactions and interventions patient responded in the following manner, Calm , Appropriate ,Compliant. Continue to assess behaviors and condition will continue to monitor throughout the shift as needed. Patient educated on ADL's, and hand hygiene. 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 Continue to assess patient for changes in above assessment. Monitor for medication needs, pain, and safety concerns. Hourly rounding performed to ensure safe environment.
--- NOTE | 2017-04-09 14:15 | NUR ---
Patient is refusing his medication, states he cannot swallow.
[2017-04-09 16:03] VITALS: BP 157/82
--- NOTE | 2017-04-09 16:19 | PN ---
DATE: 04/08/2017 SUBJECTIVE: The patient was seen today, met with the staff, chart reviewed. The patient was recently admitted from ICU, treated for hypertension. The patient has been refusing to take his medications, not eating, isolating himself in his room. The patient also has multiple physical problems. OBSERVATION: VITAL SIGNS: Temperature 97.2, blood pressure 146/76, pulse 84, respiration 18, O2 sat 96%. Slept about 6 hours last night. The patient's appetite decreased. The patient's lab reviewed. Creatinine level of 1.4, glucose level of 163, heart is within normal limits. MEDICATIONS: The patient's current medications include Risperdal 25 mg IM q. 2 weeks, Zoloft 75 mg daily, gabapentin 300 mg t.i.d. The patient currently is not having any major physical complaints. ASSESSMENT: Schizoaffective disorder, bipolar type. PLAN: To continue with the treatment. Continue to monitor his vital signs. LOREN RODRIGUEZ MD DR: HUSSEIN/aubery JOB#: [id number] / [id number]
[2017-04-09] MEDS: FUROSEMIDE 40 MG TABLET PO SCH (17:05)
[2017-04-09] MEDS: ISOSORBIDE MONONITRATE ER 30 MG TAB.ER.24H PO SCH (19:24)
--- NOTE | 2017-04-09 20:28 | NUR ---
Behavior Intervention Response and Plan: BIRP Note: Behavior: Assumed Care of patient, patient located in Day Room at shift change. Patient exhibited the following behavior Calm, Disorganized, Irritable. Brief assessment on rounds of vital signs, medication needs, lab studies, and pain. Treatment plan problems .1&2 Intervention: Patient assessed and the following interventions initiated safety checks 15 Minute Checks Cognitive Assessment , Head to toe Assessment , Medications. Response: After interactions and interventions patient responded in the following manner, Compliant , Withdrawn ,Defensive. Continue to assess behaviors and condition will continue to monitor throughout the shift as needed. Patient educated on ADL's, and hand hygiene. Plan: Continue to monitor Master Treatment Plan for patient's progress toward short term goals of Decreased Agitation, Decreased Anxiety, custodial goals to return to previous living setting vs placement. Continue to assess patient for changes in above assessment. Monitor for medication needs, pain, and safety concerns. Hourly rounding performed to ensure safe environment.
[2017-04-10 06:06] VITALS: BP 130/83
[2017-04-10] MEDS: ASPIRIN 81 MG TAB.CHEW PO SCH (08:05)
[2017-04-10] MEDS: SERTRALINE 25 MG TABLET. PO SCH (08:05)
[2017-04-10] MEDS: CLOPIDOGREL BISULFATE 75 MG TABLET PO SCH (08:05)
[2017-04-10] MEDS: GABAPENTIN 300 MG CAPSULE. PO SCH ×4 (08:05→20:04)
[2017-04-10] MEDS: TAMSULOSIN 0.4 MG CAP.ER.24H. PO SCH ×2 (08:06→20:04)
[2017-04-10] MEDS: CHOLECALCIFEROL (VITAMIN D3) 1,000 UNIT TABLET PO SCH (08:06)
[2017-04-10] MEDS: PANTOPRAZOLE 40 MG TABLET. PO SCH ×2 (08:06→20:05)
[2017-04-10] MEDS: FOLIC ACID 1 MG TABLET PO SCH (08:06)
[2017-04-10] MEDS: FUROSEMIDE 20 MG TABLET PO SCH (08:07)
--- NOTE | 2017-04-10 09:00 | NUR ---
Behavior Intervention Response and Plan: BIRP Note: Behavior: Assumed Care of patient, patient located in Day Room at shift change. Patient exhibited the following behavior Disorganized, Withdrawn, Non Compliant with Meds. Brief assessment on rounds of vital signs, medication needs, lab studies, and pain. Treatment plan problems 1 & 2. Intervention: Patient assessed and the following interventions initiated safety checks 15 Minute Checks Cognitive Assessment , Head to toe Assessment , Medications. Response: After interactions and interventions patient responded in the following manner, Calm , Appropriate ,Compliant. Continue to assess behaviors and condition will continue to monitor throughout the shift as needed. Patient educated on ADL's, and hand hygiene. Plan: Continue to monitor Master Treatment Plan for patient's progress toward short term goals of Decreased Agitation, No harm To self/ others, nutrition partner goals to return to previous living setting vs placement. Continue to assess patient for changes in above assessment. Monitor for medication needs, pain, and safety concerns. Hourly rounding performed to ensure safe environment.
--- NOTE | 2017-04-10 14:10 | NUR ---
Patient refusing gabapentin.
--- NOTE | 2017-04-10 15:00 | NUR ---
WEEKLY THERAPEUTIC RECREATION NOTE Date of Admission: 04/04/2017 Date of AT Assessment: 04/07/2017 Goal aimed: to increase socialization and engagement Initial goal: Pt. will participate in at least one group a day. Weekly progress towards goal: did not meet Group participation level: minimal Behaviors observed: sitting, awake, quiet, little interest, no socialization, calm Plan: no changes to goal
[2017-04-10 16:08] VITALS: BP 175/84
--- NOTE | 2017-04-10 17:00 | PN ---
DATE: 04/09/2017 SUBJECTIVE: The patient was seen today, met with the staff, chart reviewed. The patient continues to be hypotensive, is a fall risk. The patient has been noncompliant, refusing to take his meds, refusing to eat at times, isolating in his room. OBSERVATION: VITAL SIGNS: Temperature 97, blood pressure 114/63, pulse 86, respiration 18, O2 sat 94%. Slept about 6 hours last night. The patient's lab reviewed. The patient's current medications include Risperdal 25 mg IM q. 2 weeks, Zoloft 75 mg daily, gabapentin 300 mg t.i.d. ASSESSMENT: Schizoaffective disorder, bipolar type. PLAN: Continue with the treatment. LOREN RODRIGUEZ MD DR: HUSSEIN/aubrey JOB#: [id number] / [id number]
[2017-04-10] MEDS: cefTRIAXone IM 1 GM VIAL IM SCH (20:03)
[2017-04-10] MEDS: ISOSORBIDE MONONITRATE ER 30 MG TAB.ER.24H PO SCH (20:04)
[2017-04-10] MEDS: LACTOBACILLUS RHAMNOSUS GG 1 CAPSULE. PO SCH (20:05)
--- NOTE | 2017-04-10 20:54 | NUR ---
Behavior Intervention Response and Plan: BIRP Note: Behavior: Assumed Care of patient, patient located in Day Room at shift change. Patient exhibited the following behavior Calm, Disorganized, Irritable. Brief assessment on rounds of vital signs, medication needs, lab studies, and pain. Treatment plan problems .1&2 Intervention: Patient assessed and the following interventions initiated safety checks 15 Minute Checks Cognitive Assessment , Head to toe Assessment , Medications. Response: After interactions and interventions patient responded in the following manner, Appropriate , Compliant ,Cooperative. Continue to assess behaviors and condition will continue to monitor throughout the shift as needed. Patient educated on ADL's, and hand hygiene. Plan: Continue to monitor Master Treatment Plan for patient's progress toward short term goals of Decreased Anxiety, Medication Compliance, terminal worker goals to return to previous living setting vs placement. Continue to assess patient for changes in above assessment. Monitor for medication needs, pain, and safety concerns. Hourly rounding performed to ensure safe environment.
[2017-04-11 06:14] VITALS: BP 103/68
--- NOTE | 2017-04-11 08:19 | PN ---
DATE: 04/10/2017 SUBJECTIVE: The patient was seen today, met with the staff, chart reviewed. The patient apparently has been refusing to take his medications, not eating, isolating himself. The patient also complaining of chronic pain, mostly upper extremities. The patient also having difficulty swallowing, frequent coughing, and the patient was afraid that she may not be able to swallow. OBSERVATION: Vital signs stable. Sleeping fair. Appetite fair. MEDICATIONS: The patient's current medications include Risperdal Consta 25 mg IM q. 2 weeks, Zoloft 75 mg daily, gabapentin 300 mg t.i.d. ASSESSMENT: Schizoaffective disorder, bipolar type. PLAN: To continue with the treatment. The patient is scheduled for video swallow study to rule out aspiration. LOREN RODRIGUEZ MD DR: Akbar JOB#: [id number] / [id number]
[2017-04-11] MEDS ORDERED: risperiDONE MICROSPHERES 25 MG/2 ML DISP.SYRIN. IM SCH (09:00)
--- NOTE | 2017-04-11 09:00 | NUR ---
Behavior Intervention Response and Plan: BIRP Note: Behavior: Assumed Care of patient, patient located in Day Room at shift change. Patient exhibited the following behavior Disorganized, Non Compliant with Meds, Withdrawn. Brief assessment on rounds of vital signs, medication needs, lab studies, and pain. Treatment plan problems 1 & 2. Intervention: Patient assessed and the following interventions initiated safety checks 15 Minute Checks Cognitive Assessment , Head to toe Assessment , Medications. Response: After interactions and interventions patient responded in the following manner, Calm , Appropriate ,Anxious. Continue to assess behaviors and condition will continue to monitor throughout the shift as needed. Patient educated on ADL's, and hand hygiene. 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 Continue to assess patient for changes in above assessment. Monitor for medication needs, pain, and safety concerns. Hourly rounding performed to ensure safe environment.
[2017-04-11] MEDS: CHOLECALCIFEROL (VITAMIN D3) 1,000 UNIT TABLET PO SCH (10:12)
[2017-04-11] MEDS: FUROSEMIDE 40 MG TABLET PO SCH (10:13)
[2017-04-11] MEDS: PANTOPRAZOLE 40 MG TABLET. PO SCH ×2 (10:13→19:29)
[2017-04-11] MEDS: SERTRALINE 25 MG TABLET. PO SCH (10:13)
[2017-04-11] MEDS: LACTOBACILLUS RHAMNOSUS GG 1 CAPSULE. PO SCH ×2 (10:13→19:29)
[2017-04-11] MEDS: CLOPIDOGREL BISULFATE 75 MG TABLET PO SCH (10:13)
[2017-04-11] MEDS: TAMSULOSIN 0.4 MG CAP.ER.24H. PO SCH ×2 (10:13→19:29)
[2017-04-11] MEDS: GABAPENTIN 300 MG CAPSULE. PO SCH ×3 (10:13→19:29)
[2017-04-11] MEDS: FOLIC ACID 1 MG TABLET PO SCH (10:13)
[2017-04-11] MEDS: ASPIRIN 81 MG TAB.CHEW PO SCH (10:13)
[2017-04-11] MEDS: cefTRIAXone IM 1 GM VIAL IM SCH (10:14)
[2017-04-11 16:06] VITALS: BP 145/85
[2017-04-11] MEDS: MAGNESIUM HYDROXIDE 2,400 MG/30 ML ORAL.SUSP. PO PRN (19:28)
[2017-04-11] MEDS: ISOSORBIDE MONONITRATE ER 30 MG TAB.ER.24H PO SCH (19:29)
--- NOTE | 2017-04-11 23:39 | NUR ---
Behavior Intervention Response and Plan: BIRP Note: Behavior: Assumed Care of patient, patient located in Day Room at shift change. Patient exhibited the following behavior Calm, Non Compliant, Resistive. Brief assessment on rounds of vital signs, medication needs, lab studies, and pain. Treatment plan problems 1 and 2. Intervention: Patient assessed and the following interventions initiated safety checks 15 Minute Checks Cognitive Assessment , Head to toe Assessment , Medications. Response: After interactions and interventions patient responded in the following manner, Calm , Disorganized ,Resistive. Continue to assess behaviors and condition will continue to monitor throughout the shift as needed. Patient educated on ADL's, and hand hygiene. 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 Continue to assess patient for changes in above assessment. Monitor for medication needs, pain, and safety concerns. Hourly rounding performed to ensure safe environment.
--- NOTE | 2017-04-12 04:48 | PN ---
DATE: 04/11/2017 SUBJECTIVE: The patient was seen today, met with the staff, chart reviewed. Also discussed current condition, diagnosis and the treatment options and discharge plans in the treatment review today. The patient continues to have difficulty swallowing and has been scheduled to have a video swallow study. There is some question about whether this patient is able to cooperate. The patient has been coughing and the patient will be seen by the primary care doctor. OBSERVATION: VITAL SIGNS: Temperature 97.3, blood pressure 106/68, pulse 96, respirations 18, O2 sat 91%. Slept about 8 hours last night. CURRENT MEDICATIONS: The patient's current medications include Risperdal Consta 25 mg IM q. 2 weeks, Zoloft 75 mg at night and gabapentin 300 mg t.i.d. ASSESSMENT: Schizoaffective disorder, bipolar type. PLAN: To continue with the treatment. The patient's culture was positive and started on IM Rocephin 1 mg daily IM. The patient's lab reviewed. ASSESSMENT: Schizoaffective disorder, bipolar type. PLAN: Continue with the treatment. LOREN RODRIGUEZ MD DR: HUSSEIN/aubrey JOB#: [id number] / [id number]
[2017-04-12 06:17] VITALS: BP 116/80
--- NOTE | 2017-04-12 09:51 | NUR ---
Bedside Swallow evaluation completed. Please refer to full evaluation report in speech therapy sections for additional details. Impressions: Minimal oropharyngeal dysphagia, generally functional and appears to be at low risk of aspiration for pt's currently mechanical soft diet w/ thin liquids. Mastication inefficiency r/t edentulous status noted. RN reports improved intake and self feeding today which is new over the past 2 days. RN also reports pt will have a CXR later today. Recommendations: 1. Continue currently diet of mechanical soft/thin liquids w/ general swallow precautions. 2. No additional ST intervention planned at this time, however ST to monitor chart awaiting CXR to compare to 04/04/17 CXR which showed no acute abnormality to assess if further ST intervention may be indicated. D/w ARRON.
[2017-04-12] MEDS: SERTRALINE 25 MG TABLET. PO SCH (10:16)
[2017-04-12] MEDS: CLOPIDOGREL BISULFATE 75 MG TABLET PO SCH (10:16)
[2017-04-12] MEDS: CHOLECALCIFEROL (VITAMIN D3) 1,000 UNIT TABLET PO SCH (10:16)
[2017-04-12] MEDS: LACTOBACILLUS RHAMNOSUS GG 1 CAPSULE. PO SCH ×2 (10:16→19:16)
[2017-04-12] MEDS: GABAPENTIN 300 MG CAPSULE. PO SCH ×3 (10:16→19:15)
[2017-04-12] MEDS: FUROSEMIDE 20 MG TABLET PO SCH (10:16)
[2017-04-12] MEDS: TAMSULOSIN 0.4 MG CAP.ER.24H. PO SCH ×2 (10:16→19:16)
[2017-04-12] MEDS: ASPIRIN 81 MG TAB.CHEW PO SCH (10:17)
[2017-04-12] MEDS: PANTOPRAZOLE 40 MG TABLET. PO SCH ×2 (10:17→19:16)
[2017-04-12] MEDS: FOLIC ACID 1 MG TABLET PO SCH (10:17)
--- NOTE | 2017-04-12 10:20 | NUR ---
Behavior Intervention Response and Plan: BIRP Note: Behavior: Assumed Care of patient, patient located in Day Room at shift change. Patient exhibited the following behavior Disorganized, Withdrawn, Non Compliant with Meds. Brief assessment on rounds of vital signs, medication needs, lab studies, and pain. Treatment plan problems 1 & 2. Intervention: Patient assessed and the following interventions initiated safety checks 15 Minute Checks Cognitive Assessment , Head to toe Assessment , Medications. Response: After interactions and interventions patient responded in the following manner, Calm , Appropriate ,Compliant. Continue to assess behaviors and condition will continue to monitor throughout the shift as needed. Patient educated on ADL's, and hand hygiene. 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 Continue to assess patient for changes in above assessment. Monitor for medication needs, pain, and safety concerns. Hourly rounding performed to ensure safe environment.
[2017-04-12] MEDS: cefTRIAXone IM 1 GM VIAL IM SCH (11:19)
[2017-04-12 15:29] VITALS: BP 116/58
[2017-04-12] MEDS: ISOSORBIDE MONONITRATE ER 30 MG TAB.ER.24H PO SCH (19:16)
--- NOTE | 2017-04-12 20:32 | RAD ---
Exam performed: One view chest. Indication: Suspected aspiration, wheezing. Exam from 04/04/2017 sent for comparison Date of Service: 04/12/2017 6:15 PM Comparison: One view chest from 04/04/2017. Single AP upright portable view chest findings: Cardiomediastinal silhouette is within limits of normal. No acute infiltrates, effusion or pneumothorax is detected. The bony structures are normal. Impression: No acute cardiopulmonary process is detected. Electronically signed by: Paula Leos MD (04/12/2017 8:29 PM) [facility]
--- NOTE | 2017-04-12 22:25 | NUR ---
Behavior Intervention Response and Plan: BIRP Note: Behavior: Assumed Care of patient, patient located in Patient Room at shift change. Patient exhibited the following behavior Irritable, Resistive, Non Compliant. Brief assessment on rounds of vital signs, medication needs, lab studies, and pain. Treatment plan problems 1 and 2. Intervention: Patient assessed and the following interventions initiated safety checks 15 Minute Checks Cognitive Assessment , Head to toe Assessment , Medications. Response: After interactions and interventions patient responded in the following manner, Calm , Resistive ,Irritable. Continue to assess behaviors and condition will continue to monitor throughout the shift as needed. Patient educated on ADL's, and hand hygiene. 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 Continue to assess patient for changes in above assessment. Monitor for medication needs, pain, and safety concerns. Hourly rounding performed to ensure safe environment.
[2017-04-13 06:19] VITALS: BP 124/70
[2017-04-13] MEDS: CHOLECALCIFEROL (VITAMIN D3) 1,000 UNIT TABLET PO SCH (07:52)
[2017-04-13] MEDS: TAMSULOSIN 0.4 MG CAP.ER.24H. PO SCH ×2 (07:52→19:54)
[2017-04-13] MEDS: CLOPIDOGREL BISULFATE 75 MG TABLET PO SCH (07:52)
[2017-04-13] MEDS: SERTRALINE 25 MG TABLET. PO SCH (07:52)
[2017-04-13] MEDS: PANTOPRAZOLE 40 MG TABLET. PO SCH ×2 (07:53→19:55)
[2017-04-13] MEDS: FOLIC ACID 1 MG TABLET PO SCH (07:53)
[2017-04-13] MEDS: LACTOBACILLUS RHAMNOSUS GG 1 CAPSULE. PO SCH ×2 (07:53→19:55)
[2017-04-13] MEDS: FUROSEMIDE 40 MG TABLET PO SCH (07:53)
[2017-04-13] MEDS: GABAPENTIN 300 MG CAPSULE. PO SCH ×3 (07:53→19:54)
[2017-04-13] MEDS: ASPIRIN 81 MG TAB.CHEW PO SCH (07:53)
[2017-04-13 08:16] LABS: BASO % 1 % (0-3); EOS # 0.1 x10^3/uL (0.0-0.7); EOS % 2 % (0-3); HEMATOCRIT 32.9 % (39.0-53.0); HEMOGLOBIN 10.7 g/dL (13.0-17.5); LYMPH # 0.6 x10^3/uL (1.0-4.8); LYMPH % 11 % (24-48); MEAN CORPUSCULAR HEMOGLOBIN 25 pg (25-35); MEAN CORPUSCULAR HGB CONC 33 g/dL (31-37); MEAN CORPUSCULAR VOLUME 76 fL (79-100); MONO # 0.7 x10^3/uL (0.0-1.1); MONO % 14 % (0-9); NEUT # 3.5 x10^3uL (1.8-7.7); NEUT % 72 % (31-73); PLATELET COUNT 147 x10^3/uL (140-400); RED BLOOD COUNT 4.33 x10^6/uL (4.30-5.70); RED CELL DISTRIBUTION WIDTH 17.4 % (11.5-14.5); WHITE BLOOD COUNT 4.9 x10^3/uL (4.0-11.0)
[2017-04-13 08:18] LABS: ALBUMIN 2.7 g/dL (3.4-5.0); ALBUMIN/GLOBULIN RATIO 0.7 (1.0-1.7); CALCIUM 8.5 mg/dL (8.5-10.1); CREATININE 1.2 mg/dL (0.7-1.3); GFR 59.3; MAGNESIUM 2.2 mg/dL (1.8-2.4); TOTAL BILIRUBIN 0.3 mg/dL (0.2-1.0); TOTAL PROTEIN 6.6 g/dL (6.4-8.2)
[2017-04-13] MEDS: cefTRIAXone IM 1 GM VIAL IM SCH (10:38)
--- NOTE | 2017-04-13 10:40 | NUR ---
Behavior Intervention Response and Plan: BIRP Note: Behavior: Assumed Care of patient, patient located in Patient Room at shift change. Patient exhibited the following behavior Non Compliant with Meds, Resistive, Disorganized. Brief assessment on rounds of vital signs, medication needs, lab studies, and pain. Treatment plan problems 1 & 2. Intervention: Patient assessed and the following interventions initiated safety checks 15 Minute Checks Cognitive Assessment , Head to toe Assessment , Medications. Response: After interactions and interventions patient responded in the following manner, Calm , Appropriate ,Compliant. Continue to assess behaviors and condition will continue to monitor throughout the shift as needed. Patient educated on ADL's, and hand hygiene. Plan: Continue to monitor Master Treatment Plan for patient's progress toward short term goals of Medication Compliance, No harm To self/ others, care home goals to return to previous living setting vs placement. Continue to assess patient for changes in above assessment. Monitor for medication needs, pain, and safety concerns. Hourly rounding performed to ensure safe environment.
--- NOTE | 2017-04-13 10:40 | NUR ---
Patient refused morning meds which were then crushed and placed in a Boost that he drank. Patient was resistive to IM antibiotic and became combative when we stood him up out of his chair. Patient became still when injection was given. Will continue to monitor behaviours.
[2017-04-13] MEDS: MAGNESIUM HYDROXIDE 2,400 MG/30 ML ORAL.SUSP. PO PRN (14:30)
--- NOTE | 2017-04-13 15:24 | PN ---
DATE: 04/12/2017 SUBJECTIVE: The patient was seen today, met with the staff, chart reviewed. The patient apparently had a video swallow study and was within normal limits. The patient is still coughing with the bronchial secretions. OBSERVATION: VITAL SIGNS: Temperature 97.2, pulse 116/80, pulse 85, respirations 20, O2 sat 97%. Slept about 7-1/2 hours last night. CURRENT MEDICATIONS: The patient's appetite has improved. The patient is not having any side effects from the medications. He is on Risperdal Consta 25 mg IM q.2 weeks, Zoloft 75 mg at night, gabapentin 300 mg t.i.d. ASSESSMENT: Schizoaffective disorder, bipolar type. PLAN: To continue with the treatment. LOREN RODRIGUEZ MD DR: HUSSEIN/aubrey JOB#: [id number] / [id number]
[2017-04-13 15:53] VITALS: BP 119/79
[2017-04-13] MEDS: ISOSORBIDE MONONITRATE ER 30 MG TAB.ER.24H PO SCH (19:55)
[2017-04-13] MEDS: DOCUSATE SODIUM 100 MG CAPSULE PO SCH (19:56)
[2017-04-13] MEDS: IPRATRPIUM/ALBUTEROL 0.5/2.5MG 3 ML NEBU. NEB SCH (22:33)
--- NOTE | 2017-04-13 23:42 | NUR ---
Behavior Intervention Response and Plan: BIRP Note: Behavior: Assumed Care of patient, patient located in Day Room at shift change. Patient exhibited the following behavior Calm, Irritable, Resistive. Brief assessment on rounds of vital signs, medication needs, lab studies, and pain. Treatment plan problems 1 and 2. Intervention: Patient assessed and the following interventions initiated safety checks 15 Minute Checks Cognitive Assessment , Head to toe Assessment , Medications. Response: After interactions and interventions patient responded in the following manner, Calm , Compliant ,Resistive. Continue to assess behaviors and condition will continue to monitor throughout the shift as needed. Patient educated on ADL's, and hand hygiene. 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 Continue to assess patient for changes in above assessment. Monitor for medication needs, pain, and safety concerns. Hourly rounding performed to ensure safe environment.
[2017-04-14 06:21] VITALS: BP 145/89
[2017-04-14] MEDS: IPRATRPIUM/ALBUTEROL 0.5/2.5MG 3 ML NEBU. NEB SCH ×4 (06:28→21:35)
[2017-04-14] MEDS: FOLIC ACID 1 MG TABLET PO SCH (07:43)
[2017-04-14] MEDS: LACTOBACILLUS RHAMNOSUS GG 1 CAPSULE. PO SCH ×3 (07:43→20:53)
[2017-04-14] MEDS: CHOLECALCIFEROL (VITAMIN D3) 1,000 UNIT TABLET PO SCH (07:43)
[2017-04-14] MEDS: SERTRALINE 25 MG TABLET. PO SCH (07:44)
[2017-04-14] MEDS: GABAPENTIN 300 MG CAPSULE. PO SCH ×4 (07:44→20:53)
[2017-04-14] MEDS: cefTRIAXone IM 1 GM VIAL IM SCH (07:44)
[2017-04-14] MEDS: DOCUSATE SODIUM 100 MG CAPSULE PO SCH ×3 (07:44→20:53)
[2017-04-14] MEDS: ASPIRIN 81 MG TAB.CHEW PO SCH (07:44)
[2017-04-14] MEDS: PANTOPRAZOLE 40 MG TABLET. PO SCH ×3 (07:44→20:54)
[2017-04-14] MEDS: CLOPIDOGREL BISULFATE 75 MG TABLET PO SCH (07:44)
[2017-04-14] MEDS: TAMSULOSIN 0.4 MG CAP.ER.24H. PO SCH ×3 (07:44→20:53)
[2017-04-14] MEDS: POLYETHYLENE GLYCOL 3350 17 GM PACKET. PO SCH (07:45)
--- NOTE | 2017-04-14 14:55 | NUR ---
Behavior Intervention Response and Plan: BIRP Note: Behavior: Assumed Care of patient, patient located in Dining Room at shift change. Patient exhibited the following behavior Disorganized, Irritable, Non Compliant with Meds. Brief assessment on rounds of vital signs, medication needs, lab studies, and pain. Treatment plan problems . Intervention: Patient assessed and the following interventions initiated safety checks 15 Minute Checks Head to toe Assessment , Cognitive Assessment , Medications. Response: After interactions and interventions patient responded in the following manner, Resistive , Non Compliant ,Resistive. Continue to assess behaviors and condition will continue to monitor throughout the shift as needed. Patient educated on ADL's, and hand hygiene. Plan: Continue to monitor Master Treatment Plan for patient's progress toward short term goals of Improved Mood, Medication Compliance, long-term goals to return to previous living setting vs placement. Continue to assess patient for changes in above assessment. Monitor for medication needs, pain, and safety concerns. Hourly rounding performed to ensure safe environment.
[2017-04-14 16:27] VITALS: BP 127/59
--- NOTE | 2017-04-14 20:14 | PDOC ---
Exam Note: Harjeet Note: Please also refer to the separate dictated note~for this date of service dictated separately.~Patient seen individually. Discussed the patient with Nursing staff reviewed the chart.~Reviewed interim history and current functioning. Reviewed vital signs,~Labs/ Radiology~and current medications noted below. Continue current treatment with the changes noted in the dictated addendum note Assessment: Vital Signs: Vital Signs Date Time Temp Pulse Resp B/P (MAP) Pulse Ox O2 Delivery O2 Flow Rate FiO2 04/14/17 16:46 94 Nasal Cannula 2.0 04/14/17 16:27 98.7 89 19 127/59 (81) I&O Intake and Output 04/14/17 07:00 Intake Total 460 ml Balance 460 ml Intake Oral 460 ml # Bowel Movements 1 Current Medications: Meds: Current Medications Acetaminophen (Tylenol) 650 mg PRN Q4HRS PRN PO PAIN / TEMP; Start 04/06/17 at 15:15 Aspirin (Children'S Aspirin) 81 mg DAILY PO Last administered on 04/14/17 07:44 ; Start 04/07/17 at 09:00 Vitamin D (Vitamin D3) 2,000 unit DAILY PO Last administered on 04/14/17 07:43 ; Start 04/07/17 at 09:00 Clopidogrel Bisulfate (Plavix) 75 mg DAILY PO Last administered on 04/14/17 07: 44; Start 04/07/17 at 09:00 Cyanocobalamin (Vitamin B-12) 1,000 mcg QMONTH SQ ; Start 05/06/17 at 09:00 Folic Acid (Folic Acid) 1 mg DAILY PO Last administered on 04/14/17 07:43; Start 04/07/17 at 09:00 Furosemide (Lasix) 20 mg 3X/WEEK PO Last administered on 04/12/17at 10:16; Start 04/08/17 at 09:00 Furosemide (Lasix) 40 mg QMTUTHSA PO Last administered on 04/13/17 07:53; Start 04/06/17 at 16:00 Gabapentin (Neurontin) 300 mg TID PO Last administered on 04/14/17at 13:49; Start 04/06/17 at 21:00 Multi-Ingred Cream/Lotion/Oil/ Oint (Hydrocerin) 1 francia PRN BID PRN TP Dry Skin ; Start 04/06/17 at 15:15 Nitroglycerin (Nitrostat) 0.4 mg PRN Q5MIN PRN SL CHEST PAIN; Start 04/06/17 at 15:15 Pantoprazole Sodium (Protonix) 40 mg BID PO Last administered on 04/14/17 07:44 ; Start 04/06/17 at 21:00 Sertraline HCl (Zoloft) 75 mg DAILY PO Last administered on 04/14/17 07:44; Start 04/07/17 at 09:00 Tamsulosin HCl (Flomax) 0.4 mg BID PO Last administered on 04/14/17 07:44; Start 04/06/17 at 21:00 Isosorbide Mononitrate (Imdur) 30 mg HS PO Last administered on 04/13/17 19:55 ; Start 04/06/17 at 21:00 Risperidone (RisperDAL CONSTA) 25 mg Q2WKS IM Last administered on 04/11/17 10: 17; Start 04/11/17 at 09:00 Ceftriaxone Sodium (Rocephin Im) 1 gm DAILY IM Last administered on 04/14/17 07 :44; Start 04/10/17 at 19:00 Lactobacillus Rhamnosus (Culturelle) 1 cap BID PO Last administered on 07:43; Start 04/10/17 at 21:00 Magnesium Hydroxide (Milk Of Magnesia) 2,400 mg PRN DAILY PRN PO CONSTIPATION Last administered on 04/13/17 14:30; Start 04/10/17 at 19:00 Albuterol/ Ipratropium (Duoneb) 3 ml RTQID NEB Last administered on 04/14/17 16 :45; Start 04/13/17 at 20:00 Docusate Sodium (Colace) 100 mg BID PO Last administered on 04/14/17 07:44; Start 04/13/17 at 21:00 Polyethylene Glycol (miraLAX) 17 gm DAILY PO Last administered on 04/14/17 07: 45; Start 04/14/17 at 09:00 Active Scripts Active Reported Risperdal Consta (Risperidone Microspheres) 37.5 Mg/2 Ml Disp.syrin 25 Mg IM Q2WKS Zoloft (Sertraline Hcl) 25 Mg Tablet 75 Mg PO DAILY Furosemide 40 Mg Tablet 40 Mg PO QMTUTHSA Tylenol (Acetaminophen) 325 Mg Tablet 650 Mg PO PRN Q4HRS PRN Nitrostat (Nitroglycerin) 0.4 Mg Tab.subl 0.4 Mg SL PRN Q5MIN PRN Eucerin Creme (Mineral Oil/Petrolatum,White) 120 Gm Cream..g. 1 Francia TP PRN PRN Gabapentin 300 Mg Capsule 300 Mg PO TID Vitamin D3 (Cholecalciferol (Vitamin D3)) 1,000 Unit Tablet 2,000 Unit PO DAILY Flomax (Tamsulosin Hcl) 0.4 Mg Cap.er.24h 0.4 Mg PO BID Simethicone 80 Mg Tab.chew 120 Mg PO BID Protonix (Pantoprazole Sodium) 40 Mg Tablet.dr 40 Mg PO BID Cyanocobalamin Injection (Cyanocobalamin (Vitamin B-12)) 1,000 Mcg/1 Ml Vial 1, 000 Mcg SQ QMONTH Once monthly on the Furosemide 20 Mg Tablet 20 Mg PO 3X/WEEK On Saturday, Saturday, & Saturday Folic Acid 1 Mg Tablet 1 Mg PO DAILY Plavix (Clopidogrel Bisulfate) 75 Mg Tablet 75 Mg PO DAILY Cetirizine Hcl 10 Mg Tablet 10 Mg PO DAILY Aspirin 81 Mg Tab.chew 81 Mg PO DAILY Metoprolol Tartrate 25 Mg Tablet 12.5 Mg PO BID Isosorbide Dinitrate 30 Mg Tablet 30 Mg PO HS I have reviewed the current psychotropics carefully including drug interactions. Risk benefit ratio favors no change other than as noted in my dictated progress note. Diagnosis: Problems: (1) Dehydration (2) Renal insufficiency (3) Elevated creatine kinase (4) Major depressive disorder (5) Schizoaffective disorder (6) Schizophrenia, disorganized, subchronic with acute exacerbation CHELY LAMB MD Apr 14, 2017 20:14
[2017-04-14] MEDS: ISOSORBIDE MONONITRATE ER 30 MG TAB.ER.24H PO SCH (20:39)
--- NOTE | 2017-04-14 22:20 | NUR ---
Behavior Intervention Response and Plan: BIRP Note: Behavior: Assumed Care of patient, patient located in Day Room at shift change. Patient exhibited the following behavior Disorganized, Resistive, Non Compliant with Meds. Brief assessment on rounds of vital signs, medication needs, lab studies, and pain. Treatment plan problems Alteration in Mood and Fall Risk. Intervention: Patient assessed and the following interventions initiated safety checks 15 Minute Checks Personal Alarm in place , Cognitive Assessment , Medications. Response: After interactions and interventions patient responded in the following manner, Disorganized , Non Compliant with Meds ,Resistive. Continue to assess behaviors and condition will continue to monitor throughout the shift as needed. Patient educated on ADL's, and hand hygiene. 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 Continue to assess patient for changes in above assessment. Monitor for medication needs, pain, and safety concerns. Hourly rounding performed to ensure safe environment.
[2017-04-15 06:14] VITALS: BP 105/62
[2017-04-15] MEDS: IPRATRPIUM/ALBUTEROL 0.5/2.5MG 3 ML NEBU. NEB SCH ×4 (06:38→21:25)
--- NOTE | 2017-04-15 10:10 | NUR ---
Behavior Intervention Response and Plan: BIRP Note: Behavior: Assumed Care of patient, patient located in Day Room at shift change. Patient exhibited the following behavior Disorganized, Resistive, Non Compliant with Meds. Brief assessment on rounds of vital signs, medication needs, lab studies, and pain. Treatment plan problems 1 & 2. Intervention: Patient assessed and the following interventions initiated safety checks 15 Minute Checks Cognitive Assessment , Head to toe Assessment , Medications. Response: After interactions and interventions patient responded in the following manner, Calm , Compliant ,Cooperative. Continue to assess behaviors and condition will continue to monitor throughout the shift as needed. Patient educated on ADL's, and hand hygiene. 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 Continue to assess patient for changes in above assessment. Monitor for medication needs, pain, and safety concerns. Hourly rounding performed to ensure safe environment.
[2017-04-15] MEDS: GABAPENTIN 300 MG CAPSULE. PO SCH ×3 (10:23→19:16)
[2017-04-15] MEDS: ASPIRIN 81 MG TAB.CHEW PO SCH (10:23)
[2017-04-15] MEDS: CHOLECALCIFEROL (VITAMIN D3) 1,000 UNIT TABLET PO SCH (10:23)
--- NOTE | 2017-04-15 10:23 | NUR ---
SW faxed updated clinicals to pt's facility w/ target dc date likely end of this week.
[2017-04-15] MEDS: CLOPIDOGREL BISULFATE 75 MG TABLET PO SCH (10:24)
[2017-04-15] MEDS: FOLIC ACID 1 MG TABLET PO SCH (10:24)
[2017-04-15] MEDS: FUROSEMIDE 40 MG TABLET PO SCH ×2 (10:24→15:44)
[2017-04-15] MEDS: LACTOBACILLUS RHAMNOSUS GG 1 CAPSULE. PO SCH ×2 (10:24→19:17)
[2017-04-15] MEDS: DOCUSATE SODIUM 100 MG CAPSULE PO SCH ×2 (10:24→19:17)
[2017-04-15] MEDS: TAMSULOSIN 0.4 MG CAP.ER.24H. PO SCH ×2 (10:24→19:16)
[2017-04-15] MEDS: SERTRALINE 25 MG TABLET. PO SCH (10:24)
[2017-04-15] MEDS: PANTOPRAZOLE 40 MG TABLET. PO SCH ×2 (10:24→19:16)
[2017-04-15] MEDS: POLYETHYLENE GLYCOL 3350 17 GM PACKET. PO SCH (10:24)
[2017-04-15] MEDS: FUROSEMIDE 20 MG TABLET PO SCH (10:26)
[2017-04-15] MEDS: cefTRIAXone IM 1 GM VIAL IM SCH (11:30)
[2017-04-15 16:32] VITALS: BP 152/79
[2017-04-15] MEDS: ISOSORBIDE MONONITRATE ER 30 MG TAB.ER.24H PO SCH (19:16)
--- NOTE | 2017-04-15 21:25 | PDOC ---
Exam Note: Harjeet Note: Please also refer to the separate dictated note~for this date of service dictated separately.~Patient seen individually. Discussed the patient with Nursing staff reviewed the chart.~Reviewed interim history and current functioning. Reviewed vital signs,~Labs/ Radiology~and current medications noted below. Continue current treatment with the changes noted in the dictated addendum note Assessment: Vital Signs: Vital Signs Date Time Temp Pulse Resp B/P (MAP) Pulse Ox O2 Delivery O2 Flow Rate FiO2 04/15/17 19:16 99 152/79 04/15/17 16:32 98.3 18 97 04/15/17 15:57 Nasal Cannula 2.0 I&O Intake and Output 04/15/17 07:00 Intake Total 80 ml Balance 80 ml Intake Oral 80 ml # Voids 1 Current Medications: Meds: Current Medications Acetaminophen (Tylenol) 650 mg PRN Q4HRS PRN PO PAIN / TEMP; Start 04/06/17 at 15:15 Aspirin (Children'S Aspirin) 81 mg DAILY PO Last administered on 04/15/17 10:23 ; Start 04/07/17 at 09:00 Vitamin D (Vitamin D3) 2,000 unit DAILY PO Last administered on 04/15/17 10:23 ; Start 04/07/17 at 09:00 Clopidogrel Bisulfate (Plavix) 75 mg DAILY PO Last administered on 04/15/17 10: 24; Start 04/07/17 at 09:00 Cyanocobalamin (Vitamin B-12) 1,000 mcg QMONTH SQ ; Start 05/06/17 at 09:00 Folic Acid (Folic Acid) 1 mg DAILY PO Last administered on 04/15/17 10:24; Start 04/07/17 at 09:00 Furosemide (Lasix) 20 mg 3X/WEEK PO Last administered on 04/15/17 10:26; Start 04/08/17 at 09:00 Furosemide (Lasix) 40 mg QMTUTHSA PO Last administered on 04/15/17at 15:44; Start 04/06/17 at 16:00 Gabapentin (Neurontin) 300 mg TID PO Last administered on 04/15/17 19:16; Start 04/06/17 at 21:00 Multi-Ingred Cream/Lotion/Oil/ Oint (Hydrocerin) 1 francia PRN BID PRN TP Dry Skin ; Start 04/06/17 at 15:15 Nitroglycerin (Nitrostat) 0.4 mg PRN Q5MIN PRN SL CHEST PAIN; Start 04/06/17 at 15:15 Pantoprazole Sodium (Protonix) 40 mg BID PO Last administered on 04/15/17 19:16 ; Start 04/06/17 at 21:00 Sertraline HCl (Zoloft) 75 mg DAILY PO Last administered on 04/15/17 10:24; Start 04/07/17 at 09:00; Stop 04/15/17 at 17:45; Status DC Tamsulosin HCl (Flomax) 0.4 mg BID PO Last administered on 04/15/17 19:16; Start 04/06/17 at 21:00 Isosorbide Mononitrate (Imdur) 30 mg HS PO Last administered on 04/15/17 19:16 ; Start 04/06/17 at 21:00 Risperidone (RisperDAL CONSTA) 25 mg Q2WKS IM Last administered on 04/11/17 10: 17; Start 04/11/17 at 09:00 Ceftriaxone Sodium (Rocephin Im) 1 gm DAILY IM Last administered on 04/15/17 11 :30; Start 04/10/17 at 19:00 Lactobacillus Rhamnosus (Culturelle) 1 cap BID PO Last administered on 19:17; Start 04/10/17 at 21:00 Magnesium Hydroxide (Milk Of Magnesia) 2,400 mg PRN DAILY PRN PO CONSTIPATION Last administered on 04/13/17 14:30; Start 04/10/17 at 19:00 Albuterol/ Ipratropium (Duoneb) 3 ml RTQID NEB Last administered on 04/15/17 15 :54; Start 04/13/17 at 20:00 Docusate Sodium (Colace) 100 mg BID PO Last administered on 04/15/17 19:17; Start 04/13/17 at 21:00 Polyethylene Glycol (miraLAX) 17 gm DAILY PO Last administered on 04/15/17 10: 24; Start 04/14/17 at 09:00 Bupropion HCl (Wellbutrin Xl) 150 mg DAILY PO ; Start 04/16/17 at 09:00; Stop 2/ 6/18 at 09:00; Status DC Bupropion HCl (Wellbutrin) 75 mg BID@0900,1200 PO ; Start 04/16/17 at 09:00 Active Scripts Active Reported Risperdal Consta (Risperidone Microspheres) 37.5 Mg/2 Ml Disp.syrin 25 Mg IM Q2WKS Zoloft (Sertraline Hcl) 25 Mg Tablet 75 Mg PO DAILY Furosemide 40 Mg Tablet 40 Mg PO QMTUTHSA Tylenol (Acetaminophen) 325 Mg Tablet 650 Mg PO PRN Q4HRS PRN Nitrostat (Nitroglycerin) 0.4 Mg Tab.subl 0.4 Mg SL PRN Q5MIN PRN Eucerin Creme (Mineral Oil/Petrolatum,White) 120 Gm Cream..g. 1 Francia TP PRN PRN Gabapentin 300 Mg Capsule 300 Mg PO TID Vitamin D3 (Cholecalciferol (Vitamin D3)) 1,000 Unit Tablet 2,000 Unit PO DAILY Flomax (Tamsulosin Hcl) 0.4 Mg Cap.er.24h 0.4 Mg PO BID Simethicone 80 Mg Tab.chew 120 Mg PO BID Protonix (Pantoprazole Sodium) 40 Mg Tablet.dr 40 Mg PO BID Cyanocobalamin Injection (Cyanocobalamin (Vitamin B-12)) 1,000 Mcg/1 Ml Vial 1, 000 Mcg SQ QMONTH Once monthly on the Furosemide 20 Mg Tablet 20 Mg PO 3X/WEEK On Saturday, Saturday, & Saturday Folic Acid 1 Mg Tablet 1 Mg PO DAILY Plavix (Clopidogrel Bisulfate) 75 Mg Tablet 75 Mg PO DAILY Cetirizine Hcl 10 Mg Tablet 10 Mg PO DAILY Aspirin 81 Mg Tab.chew 81 Mg PO DAILY Metoprolol Tartrate 25 Mg Tablet 12.5 Mg PO BID Isosorbide Dinitrate 30 Mg Tablet 30 Mg PO HS I have reviewed the current psychotropics carefully including drug interactions. Risk benefit ratio favors no change other than as noted in my dictated progress note. Diagnosis: Problems: (1) Major depressive disorder (2) Schizoaffective disorder (3) Schizophrenia, disorganized, subchronic with acute exacerbation CHELY LAMB MD Apr 15, 2017 21:25
--- NOTE | 2017-04-15 23:53 | PN ---
DATE: 04/07/2017 This late entry 04/07/2017 covers elements not covered in my initial note 04/07/2017. I met with the patient evening of 04/07/2017. I had initially dictated a note contemporaneous to my visit on 04/07/2017 from an external line, but this could not be found in the system, I am redictating. Per nursing report, the patient has been calm, compliant with medications and assessment, withdrawn. Remains paranoid. REVIEW OF SYSTEMS: Ambulation impaired, in wheelchair. No CV, , pulmonary, eye system symptoms on review. MENTAL STATUS EXAM: Oriented to himself and situation. Speech moderate latency often responses monosyllabic, abstraction fair, computation impaired, language function intact, attention span short. Mood and affect somewhat withdrawn. LABORATORY DATA: Reviewed. IMPRESSION: Schizophrenia, chronic, undifferentiated versus schizoaffective disorder, bipolar type. Rest unchanged from initial note. PLAN: Continue current psychotropics, Risperdal, Zoloft. We will increase the latter if he is still depressed. Consider Wellbutrin. MAN Horace LAMB MD DR: ESTEFANY/aubrey JOB#: [id number] / [id number]
--- NOTE | 2017-04-16 01:28 | NUR ---
Behavior Intervention Response and Plan: BIRP Note: Behavior: Assumed Care of patient, patient located in Day Room at shift change. Patient exhibited the following behavior Withdrawn, Resistive, Resistive. Brief assessment on rounds of vital signs, medication needs, lab studies, and pain. Treatment plan problems Alteration in Mood and Fall Risk. Intervention: Patient assessed and the following interventions initiated safety checks 15 Minute Checks Personal Alarm in place , Cognitive Assessment , Medications. Response: After interactions and interventions patient responded in the following manner, Calm , Resistive ,Cooperative. Continue to assess behaviors and condition will continue to monitor throughout the shift as needed. Patient educated on ADL's, and hand hygiene. Plan: Continue to monitor Master Treatment Plan for patient's progress toward short term goals of Decreased Agitation, Medication Compliance, usp goals to return to previous living setting vs placement. Continue to assess patient for changes in above assessment. Monitor for medication needs, pain, and safety concerns. Hourly rounding performed to ensure safe environment.
--- NOTE | 2017-04-16 05:52 | PN ---
DATE: 04/14/2017 This is a late entry 04/14/2017 covers elements not covered in my initial note of 04/14/2017. I met with the patient in the evening of 04/14/2017, reviewed information from Dr. Garay who covered for me over the past few days. The patient has been quite withdrawn, isolative. REVIEW OF SYSTEMS: Ambulation impaired, in wheelchair. No CV, , pulmonary, eye system symptoms on review. Reliability varies. MENTAL STATUS EXAM: Oriented to himself and situation. Speech, moderate latency, often responses, monosyllabic. Abstraction fair, computation impaired, language function intact. Mood and affect depressed. LABORATORY DATA: Reviewed. IMPRESSION: Schizoaffective disorder, bipolar type, mixed with psychotic features. PLAN: Continue Risperdal Consta, changed the Zoloft to Wellbutrin. Continue Neurontin. Adjust further as clinically indicated. MAN Horace LAMB MD DR: ESTEFANY/aubrey JOB#: [id number] / [id number]
[2017-04-16 05:57] VITALS: BP 119/69
[2017-04-16] MEDS: IPRATRPIUM/ALBUTEROL 0.5/2.5MG 3 ML NEBU. NEB SCH ×4 (06:28→21:54)
[2017-04-16] MEDS ORDERED: buPROPion XL 150 MG TAB.ER.24H PO SCH (09:00)
--- NOTE | 2017-04-16 09:15 | NUR ---
Behavior Intervention Response and Plan: BIRP Note: Behavior: Assumed Care of patient, patient located in Day Room at shift change. Patient exhibited the following behavior Disorganized, Resistive, Non Compliant with Meds. Brief assessment on rounds of vital signs, medication needs, lab studies, and pain. Treatment plan problems 1 & 2. Intervention: Patient assessed and the following interventions initiated safety checks 15 Minute Checks Cognitive Assessment , Head to toe Assessment , Medications. Response: After interactions and interventions patient responded in the following manner, Calm , Appropriate ,Compliant. Continue to assess behaviors and condition will continue to monitor throughout the shift as needed. Patient educated on ADL's, and hand hygiene. Plan: Continue to monitor Master Treatment Plan for patient's progress toward short term goals of Medication Compliance, No harm To self/ others, carbonator goals to return to previous living setting vs placement. Continue to assess patient for changes in above assessment. Monitor for medication needs, pain, and safety concerns. Hourly rounding performed to ensure safe environment.
[2017-04-16] MEDS: PANTOPRAZOLE 40 MG TABLET. PO SCH ×2 (09:47→19:16)
[2017-04-16] MEDS: CHOLECALCIFEROL (VITAMIN D3) 1,000 UNIT TABLET PO SCH (09:47)
[2017-04-16] MEDS: ASPIRIN 81 MG TAB.CHEW PO SCH (09:47)
[2017-04-16] MEDS: TAMSULOSIN 0.4 MG CAP.ER.24H. PO SCH ×2 (09:47→19:19)
[2017-04-16] MEDS: GABAPENTIN 300 MG CAPSULE. PO SCH ×3 (09:47→19:19)
[2017-04-16] MEDS: DOCUSATE SODIUM 100 MG CAPSULE PO SCH ×2 (09:47→19:19)
[2017-04-16] MEDS: LACTOBACILLUS RHAMNOSUS GG 1 CAPSULE. PO SCH ×2 (09:47→19:16)
[2017-04-16] MEDS: CLOPIDOGREL BISULFATE 75 MG TABLET PO SCH (09:47)
[2017-04-16] MEDS: FOLIC ACID 1 MG TABLET PO SCH (09:47)
[2017-04-16] MEDS: buPROPion 75 MG TABLET PO SCH ×3 (09:48→12:15)
[2017-04-16] MEDS: POLYETHYLENE GLYCOL 3350 17 GM PACKET. PO SCH (09:48)
[2017-04-16] MEDS: cefTRIAXone IM 1 GM VIAL IM SCH (10:59)
--- NOTE | 2017-04-16 12:15 | NUR ---
Attempted to provide patient's 12:00 buspar crushed in a boost. Patient refused the boost. Will monitor for behaviours Addendum: 04/16/17 at 1319 by ALEKS ANTONIO II, RN Correction: the medication was bupropion, not buspar
[2017-04-16 15:55] VITALS: BP 138/74
[2017-04-16] MEDS: FUROSEMIDE 40 MG TABLET PO SCH (16:53)
[2017-04-16] MEDS: ISOSORBIDE MONONITRATE ER 30 MG TAB.ER.24H PO SCH (19:19)
--- NOTE | 2017-04-16 20:20 | PDOC ---
Exam Note: Harjeet Note: Please also refer to the separate dictated note~for this date of service dictated separately.~Patient seen individually. Discussed the patient with Nursing staff reviewed the chart.~Reviewed interim history and current functioning. Reviewed vital signs,~Labs/ Radiology~and current medications noted below. Continue current treatment with the changes noted in the dictated addendum note Assessment: Vital Signs: Vital Signs Date Time Temp Pulse Resp B/P (MAP) Pulse Ox O2 Delivery O2 Flow Rate FiO2 04/16/17 19:19 100 138/74 04/16/17 16:28 96 Nasal Cannula 2.0 04/16/17 15:55 97.9 20 I&O Intake and Output 04/16/17 07:00 Intake Total 720 ml Balance 720 ml Intake Oral 720 ml # Bowel Movements 1 Current Medications: Meds: Current Medications Acetaminophen (Tylenol) 650 mg PRN Q4HRS PRN PO PAIN / TEMP; Start 04/06/17 at 15:15 Aspirin (Children'S Aspirin) 81 mg DAILY PO Last administered on 04/16/17 09:47 ; Start 04/07/17 at 09:00 Vitamin D (Vitamin D3) 2,000 unit DAILY PO Last administered on 04/16/17 09:47 ; Start 04/07/17 at 09:00 Clopidogrel Bisulfate (Plavix) 75 mg DAILY PO Last administered on 04/16/17 09: 47; Start 04/07/17 at 09:00 Cyanocobalamin (Vitamin B-12) 1,000 mcg QMONTH SQ ; Start 05/06/17 at 09:00 Folic Acid (Folic Acid) 1 mg DAILY PO Last administered on 04/16/17at 09:47; Start 04/07/17 at 09:00 Furosemide (Lasix) 20 mg 3X/WEEK PO Last administered on 04/15/17at 10:26; Start 04/08/17 at 09:00 Furosemide (Lasix) 40 mg QMTUTHSA PO Last administered on 04/16/17at 16:53; Start 04/06/17 at 16:00 Gabapentin (Neurontin) 300 mg TID PO Last administered on 04/16/17 19:19; Start 04/06/17 at 21:00 Multi-Ingred Cream/Lotion/Oil/ Oint (Hydrocerin) 1 francia PRN BID PRN TP Dry Skin ; Start 04/06/17 at 15:15 Nitroglycerin (Nitrostat) 0.4 mg PRN Q5MIN PRN SL CHEST PAIN; Start 04/06/17 at 15:15 Pantoprazole Sodium (Protonix) 40 mg BID PO Last administered on 04/16/17 19:16 ; Start 04/06/17 at 21:00 Sertraline HCl (Zoloft) 75 mg DAILY PO Last administered on 04/15/17 10:24; Start 04/07/17 at 09:00; Stop 04/15/17 at 17:45; Status DC Tamsulosin HCl (Flomax) 0.4 mg BID PO Last administered on 04/16/17 19:19; Start 04/06/17 at 21:00 Isosorbide Mononitrate (Imdur) 30 mg HS PO Last administered on 04/16/17 19:19 ; Start 04/06/17 at 21:00 Risperidone (RisperDAL CONSTA) 25 mg Q2WKS IM Last administered on 04/11/17 10: 17; Start 04/11/17 at 09:00 Ceftriaxone Sodium (Rocephin Im) 1 gm DAILY IM Last administered on 04/16/17 10 :59; Start 04/10/17 at 19:00 Lactobacillus Rhamnosus (Culturelle) 1 cap BID PO Last administered on 19:16; Start 04/10/17 at 21:00 Magnesium Hydroxide (Milk Of Magnesia) 2,400 mg PRN DAILY PRN PO CONSTIPATION Last administered on 04/13/17 14:30; Start 04/10/17 at 19:00 Albuterol/ Ipratropium (Duoneb) 3 ml RTQID NEB Last administered on 04/16/17 16 :28; Start 04/13/17 at 20:00 Docusate Sodium (Colace) 100 mg BID PO Last administered on 04/16/17 19:19; Start 04/13/17 at 21:00 Polyethylene Glycol (miraLAX) 17 gm DAILY PO Last administered on 04/16/17 09: 48; Start 04/14/17 at 09:00 Bupropion HCl (Wellbutrin Xl) 150 mg DAILY PO ; Start 04/16/17 at 09:00; Stop 2/ 6/18 at 09:00; Status DC Bupropion HCl (Wellbutrin) 75 mg BID@0900,1200 PO Last administered on at 09:48; Start 04/16/17 at 09:00; Stop 04/16/17 at 18:51; Status DC Bupropion HCl (Wellbutrin) 75 mg DAILY@1200 PO ; Start 04/17/17 at 12:00 Bupropion HCl (Wellbutrin) 150 mg DAILY PO ; Start 04/17/17 at 09:00 Active Scripts Active Reported Risperdal Consta (Risperidone Microspheres) 37.5 Mg/2 Ml Disp.syrin 25 Mg IM Q2WKS Zoloft (Sertraline Hcl) 25 Mg Tablet 75 Mg PO DAILY Furosemide 40 Mg Tablet 40 Mg PO QMTUTHSA Tylenol (Acetaminophen) 325 Mg Tablet 650 Mg PO PRN Q4HRS PRN Nitrostat (Nitroglycerin) 0.4 Mg Tab.subl 0.4 Mg SL PRN Q5MIN PRN Eucerin Creme (Mineral Oil/Petrolatum,White) 120 Gm Cream..g. 1 Francia TP PRN PRN Gabapentin 300 Mg Capsule 300 Mg PO TID Vitamin D3 (Cholecalciferol (Vitamin D3)) 1,000 Unit Tablet 2,000 Unit PO DAILY Flomax (Tamsulosin Hcl) 0.4 Mg Cap.er.24h 0.4 Mg PO BID Simethicone 80 Mg Tab.chew 120 Mg PO BID Protonix (Pantoprazole Sodium) 40 Mg Tablet.dr 40 Mg PO BID Cyanocobalamin Injection (Cyanocobalamin (Vitamin B-12)) 1,000 Mcg/1 Ml Vial 1, 000 Mcg SQ QMONTH Once monthly on the Furosemide 20 Mg Tablet 20 Mg PO 3X/WEEK On Saturday, Saturday, & Saturday Folic Acid 1 Mg Tablet 1 Mg PO DAILY Plavix (Clopidogrel Bisulfate) 75 Mg Tablet 75 Mg PO DAILY Cetirizine Hcl 10 Mg Tablet 10 Mg PO DAILY Aspirin 81 Mg Tab.chew 81 Mg PO DAILY Metoprolol Tartrate 25 Mg Tablet 12.5 Mg PO BID Isosorbide Dinitrate 30 Mg Tablet 30 Mg PO HS I have reviewed the current psychotropics carefully including drug interactions. Risk benefit ratio favors no change other than as noted in my dictated progress note. Diagnosis: Problems: (1) Congestive heart failure (CHF) (2) Dehydration (3) Renal insufficiency (4) Elevated creatine kinase (5) Major depressive disorder (6) Schizoaffective disorder (7) Schizophrenia, disorganized, subchronic with acute exacerbation CHELY LAMB MD Apr 16, 2017 20:20
--- NOTE | 2017-04-16 21:42 | NUR ---
Behavior Intervention Response and Plan: BIRP Note: Behavior: Assumed Care of patient, patient located in Day Room at shift change. Patient exhibited the following behavior Withdrawn, Resistive, Drowsy. Brief assessment on rounds of vital signs, medication needs, lab studies, and pain. Treatment plan problems Alteration in Mood and Fall Risk. Intervention: Patient assessed and the following interventions initiated safety checks 15 Minute Checks Personal Alarm in place , Cognitive Assessment , Medications. Response: After interactions and interventions patient responded in the following manner, Disorganized , Resistive ,Withdrawn. Continue to assess behaviors and condition will continue to monitor throughout the shift as needed. Patient educated on ADL's, and hand hygiene. Plan: Continue to monitor Master Treatment Plan for patient's progress toward short term goals of Decreased Agitation, Medication Compliance, long-term goals to return to previous living setting vs placement. Continue to assess patient for changes in above assessment. Monitor for medication needs, pain, and safety concerns. Hourly rounding performed to ensure safe environment.
--- NOTE | 2017-04-17 00:21 | PN ---
DATE: 04/15/2017 This late entry 04/15/2017, covers elements not covered in my initial note 04/15/2017. I met with the patient evening of 04/15/2017. The patient often refuses his meds and food, did eat some breakfast, often refuses to do things for himself even if he can. Lung sounds are better. REVIEW OF SYSTEMS: Ambulation impaired, in wheelchair. No CV, , pulmonary, eye system symptoms on review. MENTAL STATUS EXAM: Oriented to himself and situation. Speech, moderate latency, often responses monosyllabic. Abstraction fair, computation impaired, language function intact, attention span short. Mood and affect remains somewhat withdrawn. LABORATORY DATA: Reviewed. IMPRESSION: Schizoaffective disorder, bipolar type, mixed versus depressed with psychotic features. Rest unchanged. PLAN: Change Wellbutrin-XL 150 mg a day to Wellbutrin 75 mg a.m. and noon as most of his meds are given crushed. Continue Risperdal Consta, Neurontin as before. May need to increase Wellbutrin in due course. MAN Horace LAMB MD DR: ESTEFANY/aubrey JOB#: [id number] / [id number]
[2017-04-17] MEDS: IPRATRPIUM/ALBUTEROL 0.5/2.5MG 3 ML NEBU. NEB SCH ×4 (05:53→21:34)
[2017-04-17 06:22] VITALS: BP 116/53
[2017-04-17 06:24] VITALS: BP 116/53
--- NOTE | 2017-04-17 09:40 | NUR ---
Offered patient morning medications, he refused. Attempted patient education, stating that refusing his meds could cause him problems, such as increased pain from not taking gabapentin. Patient continues to refuse his medications. Will attempt to provide later.
--- NOTE | 2017-04-17 09:40 | NUR ---
Behavior Intervention Response and Plan: BIRP Note: Behavior: Assumed Care of patient, patient located in Day Room at shift change. Patient exhibited the following behavior Disorganized, Resistive, Non Compliant with Meds. Brief assessment on rounds of vital signs, medication needs, lab studies, and pain. Treatment plan problems 1 & 2. Intervention: Patient assessed and the following interventions initiated safety checks 15 Minute Checks Cognitive Assessment , Head to toe Assessment , Medications. Response: After interactions and interventions patient responded in the following manner, Calm , Appropriate ,Compliant. Continue to assess behaviors and condition will continue to monitor throughout the shift as needed. Patient educated on ADL's, and hand hygiene. Plan: Continue to monitor Master Treatment Plan for patient's progress toward short term goals of Medication Compliance, No harm To self/ others, aluminum pourer goals to return to previous living setting vs placement. Continue to assess patient for changes in above assessment. Monitor for medication needs, pain, and safety concerns. Hourly rounding performed to ensure safe environment.
[2017-04-17] MEDS: LACTOBACILLUS RHAMNOSUS GG 1 CAPSULE. PO SCH ×3 (10:45→19:13)
[2017-04-17] MEDS: TAMSULOSIN 0.4 MG CAP.ER.24H. PO SCH ×3 (10:45→19:13)
[2017-04-17] MEDS: PANTOPRAZOLE 40 MG TABLET. PO SCH ×3 (10:45→19:13)
[2017-04-17] MEDS: FOLIC ACID 1 MG TABLET PO SCH ×2 (10:45→10:47)
[2017-04-17] MEDS: CLOPIDOGREL BISULFATE 75 MG TABLET PO SCH ×2 (10:45→10:48)
[2017-04-17] MEDS: DOCUSATE SODIUM 100 MG CAPSULE PO SCH ×3 (10:45→19:13)
[2017-04-17] MEDS: buPROPion 75 MG TABLET PO SCH ×3 (10:45→11:48)
[2017-04-17] MEDS: ASPIRIN 81 MG TAB.CHEW PO SCH ×2 (10:45→10:47)
[2017-04-17] MEDS: GABAPENTIN 300 MG CAPSULE. PO SCH ×4 (10:45→19:13)
[2017-04-17] MEDS: CHOLECALCIFEROL (VITAMIN D3) 1,000 UNIT TABLET PO SCH ×2 (10:45→10:47)
[2017-04-17] MEDS: POLYETHYLENE GLYCOL 3350 17 GM PACKET. PO SCH ×2 (10:45→10:48)
[2017-04-17] MEDS: FUROSEMIDE 20 MG TABLET PO SCH ×2 (10:45→10:47)
--- NOTE | 2017-04-17 10:45 | NUR ---
Patient provided morning meds crushed in a cup with Boost. Patient is refusing to drink the Boost. Will continue to attempt to provide morning medications.
--- NOTE | 2017-04-17 11:30 | NUR ---
Patient is still refusing to take his morning medications. Will non-administer them and report to MD.
--- NOTE | 2017-04-17 15:00 | NUR ---
WEEKLY THERAPEUTIC RECREATION NOTE Date of Admission: 04/04/2017 Date of AT Assessment: 04/07/2017 Goal aimed: to increase socialization and engagement Initial goal: Pt. will participate in at least one group a day. Weekly progress towards goal: on track Group participation level: minimal Behaviors observed: Pt. often sitting alone, no interest in activities but does engage about once a day. Pt. does better with one on one groups. Plan: no changes to goal
[2017-04-17 16:17] VITALS: BP 140/72
[2017-04-17] MEDS: ISOSORBIDE MONONITRATE ER 30 MG TAB.ER.24H PO SCH (19:15)
--- NOTE | 2017-04-17 19:20 | PDOC ---
Exam Note: Harjeet Note: Please also refer to the separate dictated note~for this date of service dictated separately.~Patient seen individually. Discussed the patient with Nursing staff reviewed the chart.~Reviewed interim history and current functioning. Reviewed vital signs,~Labs/ Radiology~and current medications noted below. Continue current treatment with the changes noted in the dictated addendum note Assessment: Vital Signs: Vital Signs Date Time Temp Pulse Resp B/P (MAP) Pulse Ox O2 Delivery O2 Flow Rate FiO2 04/17/17 19:15 92 140/72 04/17/17 16:41 97 Nasal Cannula 2.0 04/17/17 16:17 98.3 18 I&O Intake and Output 04/17/17 07:00 Intake Total 840 ml Balance 840 ml Intake Oral 840 ml # Bowel Movements 1 Current Medications: Meds: Current Medications Acetaminophen (Tylenol) 650 mg PRN Q4HRS PRN PO PAIN / TEMP; Start 04/06/17 at 15:15 Aspirin (Children'S Aspirin) 81 mg DAILY PO Last administered on 04/16/17 09:47 ; Start 04/07/17 at 09:00 Vitamin D (Vitamin D3) 2,000 unit DAILY PO Last administered on 04/16/17 09:47 ; Start 04/07/17 at 09:00 Clopidogrel Bisulfate (Plavix) 75 mg DAILY PO Last administered on 04/16/17 09: 47; Start 04/07/17 at 09:00 Cyanocobalamin (Vitamin B-12) 1,000 mcg QMONTH SQ ; Start 05/06/17 at 09:00 Folic Acid (Folic Acid) 1 mg DAILY PO Last administered on 04/16/17 09:47; Start 04/07/17 at 09:00 Furosemide (Lasix) 20 mg 3X/WEEK PO Last administered on 04/15/17at 10:26; Start 04/08/17 at 09:00 Furosemide (Lasix) 40 mg QMTUTHSA PO Last administered on 04/16/17at 16:53; Start 04/06/17 at 16:00 Gabapentin (Neurontin) 300 mg TID PO Last administered on 04/17/17at 19:13; Start 04/06/17 at 21:00 Multi-Ingred Cream/Lotion/Oil/ Oint (Hydrocerin) 1 francia PRN BID PRN TP Dry Skin ; Start 04/06/17 at 15:15 Nitroglycerin (Nitrostat) 0.4 mg PRN Q5MIN PRN SL CHEST PAIN; Start 04/06/17 at 15:15 Pantoprazole Sodium (Protonix) 40 mg BID PO Last administered on 04/17/17 19:13 ; Start 04/06/17 at 21:00 Sertraline HCl (Zoloft) 75 mg DAILY PO Last administered on 04/15/17 10:24; Start 04/07/17 at 09:00; Stop 04/15/17 at 17:45; Status DC Tamsulosin HCl (Flomax) 0.4 mg BID PO Last administered on 04/17/17 19:13; Start 04/06/17 at 21:00 Isosorbide Mononitrate (Imdur) 30 mg HS PO Last administered on 04/17/17 19:15 ; Start 04/06/17 at 21:00 Risperidone (RisperDAL CONSTA) 25 mg Q2WKS IM Last administered on 04/11/17 10: 17; Start 04/11/17 at 09:00; Stop 04/17/17 at 18:40; Status DC Ceftriaxone Sodium (Rocephin Im) 1 gm DAILY IM Last administered on 04/16/17 10 :59; Start 04/10/17 at 19:00; Stop 04/17/17 at 07:22; Status DC Lactobacillus Rhamnosus (Culturelle) 1 cap BID PO Last administered on 19:13; Start 04/10/17 at 21:00 Magnesium Hydroxide (Milk Of Magnesia) 2,400 mg PRN DAILY PRN PO CONSTIPATION Last administered on 04/13/17 14:30; Start 04/10/17 at 19:00 Albuterol/ Ipratropium (Duoneb) 3 ml RTQID NEB Last administered on 04/17/17 16 :41; Start 04/13/17 at 20:00 Docusate Sodium (Colace) 100 mg BID PO Last administered on 04/17/17 19:13; Start 04/13/17 at 21:00 Polyethylene Glycol (miraLAX) 17 gm DAILY PO Last administered on 04/16/17 09: 48; Start 04/14/17 at 09:00 Bupropion HCl (Wellbutrin Xl) 150 mg DAILY PO ; Start 04/16/17 at 09:00; Stop 04/16/17 at 09:00; Status DC Bupropion HCl (Wellbutrin) 75 mg BID@0900,1200 PO Last administered on at 09:48; Start 04/16/17 at 09:00; Stop 04/16/17 at 18:51; Status DC Bupropion HCl (Wellbutrin) 75 mg DAILY@1200 PO Last administered on 04/17/17at 11 :48; Start 04/17/17 at 12:00 Bupropion HCl (Wellbutrin) 150 mg DAILY PO ; Start 04/17/17 at 09:00 Risperidone (RisperDAL CONSTA) 37.5 mg Q2WKS IM ; Start 04/25/17 at 09:00 Active Scripts Active Reported Risperdal Consta (Risperidone Microspheres) 37.5 Mg/2 Ml Disp.syrin 25 Mg IM Q2WKS Zoloft (Sertraline Hcl) 25 Mg Tablet 75 Mg PO DAILY Furosemide 40 Mg Tablet 40 Mg PO QMTUTHSA Tylenol (Acetaminophen) 325 Mg Tablet 650 Mg PO PRN Q4HRS PRN Nitrostat (Nitroglycerin) 0.4 Mg Tab.subl 0.4 Mg SL PRN Q5MIN PRN Eucerin Creme (Mineral Oil/Petrolatum,White) 120 Gm Cream..g. 1 Francia TP PRN PRN Gabapentin 300 Mg Capsule 300 Mg PO TID Vitamin D3 (Cholecalciferol (Vitamin D3)) 1,000 Unit Tablet 2,000 Unit PO DAILY Flomax (Tamsulosin Hcl) 0.4 Mg Cap.er.24h 0.4 Mg PO BID Simethicone 80 Mg Tab.chew 120 Mg PO BID Protonix (Pantoprazole Sodium) 40 Mg Tablet.dr 40 Mg PO BID Cyanocobalamin Injection (Cyanocobalamin (Vitamin B-12)) 1,000 Mcg/1 Ml Vial 1, 000 Mcg SQ QMONTH Once monthly on the Furosemide 20 Mg Tablet 20 Mg PO 3X/WEEK On Saturday, Saturday, & Saturday Folic Acid 1 Mg Tablet 1 Mg PO DAILY Plavix (Clopidogrel Bisulfate) 75 Mg Tablet 75 Mg PO DAILY Cetirizine Hcl 10 Mg Tablet 10 Mg PO DAILY Aspirin 81 Mg Tab.chew 81 Mg PO DAILY Metoprolol Tartrate 25 Mg Tablet 12.5 Mg PO BID Isosorbide Dinitrate 30 Mg Tablet 30 Mg PO HS I have reviewed the current psychotropics carefully including drug interactions. Risk benefit ratio favors no change other than as noted in my dictated progress note. Diagnosis: Problems: (1) Congestive heart failure (CHF) (2) Dehydration (3) Renal insufficiency (4) Elevated creatine kinase (5) Major depressive disorder (6) Schizoaffective disorder (7) Schizophrenia, disorganized, subchronic with acute exacerbation CHELY LAMB MD Apr 17, 2017 19:20
--- NOTE | 2017-04-17 22:24 | NUR ---
Behavior Intervention Response and Plan: BIRP Note: Behavior: Assumed Care of patient, patient located in at shift change. Patient exhibited the following behavior , Disorganized, Resistive. Brief assessment on rounds of vital signs, medication needs, lab studies, and pain. Treatment plan problems Alteration in Mood and Fall Risk. Intervention: Patient assessed and the following interventions initiated safety checks 15 Minute Checks Personal Alarm in place , Cognitive Assessment , Medications. Response: After interactions and interventions patient responded in the following manner, Disorganized , Resistive ,Drowsy. Continue to assess behaviors and condition will continue to monitor throughout the shift as needed. Patient educated on ADL's, and hand hygiene. Plan: Continue to monitor Master Treatment Plan for patient's progress toward short term goals of Decreased Agitation, Medication Compliance, correction goals to return to previous living setting vs placement. Continue to assess patient for changes in above assessment. Monitor for medication needs, pain, and safety concerns. Hourly rounding performed to ensure safe environment.
--- NOTE | 2017-04-17 23:29 | PN ---
DATE: 04/16/2017 This is a late entry for 04/16/2017 and covers elements not covered in my initial note of 04/16/2017. I met with the patient the evening of 04/16/2017. The patient slept 7-1/4 hours previous evening, refuses almost everything, but he is doing a little more for himself, refused his supper as I met with them, did eat some breakfast and lunch. REVIEW OF SYSTEMS: Ambulation impaired, in wheelchair. No CV, , pulmonary, eye system symptoms on review. Reliability varies. MENTAL STATUS EXAM: Oriented to himself and situation. Speech, often responses monosyllabic. Abstraction fair, computation impaired, language function intact, attention span short. Mood and affect withdrawn. LABORATORY DATA: Reviewed. IMPRESSION: Unchanged from initial note. Schizoaffective disorder, bipolar type, mixed with psychotic features. Rest unchanged. PLAN: Increase Wellbutrin from 75 mg b.i.d. to 150 mg in the morning and 75 mg in the afternoon. Continue rest unchanged. MAN Horace LAMB MD DR: ESTEFANY/aubrey JOB#: [id number] / [id number]
[2017-04-18] MEDS: IPRATRPIUM/ALBUTEROL 0.5/2.5MG 3 ML NEBU. NEB SCH ×4 (06:00→21:41)
[2017-04-18 06:01] VITALS: BP 149/75
--- NOTE | 2017-04-18 09:30 | NUR ---
Behavior Intervention Response and Plan: BIRP Note: Behavior: Assumed Care of patient, patient located in Day Room at shift change. Patient exhibited the following behavior Disorganized, Non Compliant with Meds, Resistive. Brief assessment on rounds of vital signs, medication needs, lab studies, and pain. Treatment plan problems 1 & 2. Intervention: Patient assessed and the following interventions initiated safety checks 15 Minute Checks Cognitive Assessment , Head to toe Assessment , Medications. Response: After interactions and interventions patient responded in the following manner, Calm , Appropriate ,Compliant. Continue to assess behaviors and condition will continue to monitor throughout the shift as needed. Patient educated on ADL's, and hand hygiene. 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 Continue to assess patient for changes in above assessment. Monitor for medication needs, pain, and safety concerns. Hourly rounding performed to ensure safe environment.
[2017-04-18] MEDS: CHOLECALCIFEROL (VITAMIN D3) 1,000 UNIT TABLET PO SCH (10:15)
[2017-04-18] MEDS: buPROPion 75 MG TABLET PO SCH ×2 (10:15→11:51)
[2017-04-18] MEDS: TAMSULOSIN 0.4 MG CAP.ER.24H. PO SCH ×2 (10:15→19:18)
[2017-04-18] MEDS: GABAPENTIN 300 MG CAPSULE. PO SCH ×3 (10:15→19:18)
[2017-04-18 10:16] LABS: BASO # 0.1 x10^3/uL (0.0-0.2); BASO % 2 % (0-3); EOS # 0.1 x10^3/uL (0.0-0.7); EOS % 1 % (0-3); HEMOGLOBIN 11.5 g/dL (13.0-17.5); LYMPH # 0.6 x10^3/uL (1.0-4.8); LYMPH % 10 % (24-48); MEAN CORPUSCULAR HEMOGLOBIN 25 pg (25-35); MEAN CORPUSCULAR HGB CONC 32 g/dL (31-37); MEAN CORPUSCULAR VOLUME 78 fL (79-100); MONO # 0.5 x10^3/uL (0.0-1.1); MONO % 9 % (0-9); NEUT # 4.4 x10^3uL (1.8-7.7); NEUT % 78 % (31-73); PLATELET COUNT 186 x10^3/uL (140-400); RED BLOOD COUNT 4.62 x10^6/uL (4.30-5.70); RED CELL DISTRIBUTION WIDTH 18.5 % (11.5-14.5); WHITE BLOOD COUNT 5.7 x10^3/uL (4.0-11.0)
[2017-04-18] MEDS: CLOPIDOGREL BISULFATE 75 MG TABLET PO SCH (10:16)
[2017-04-18] MEDS: PANTOPRAZOLE 40 MG TABLET. PO SCH ×2 (10:16→19:18)
[2017-04-18] MEDS: DOCUSATE SODIUM 100 MG CAPSULE PO SCH ×2 (10:16→19:18)
[2017-04-18] MEDS: FUROSEMIDE 40 MG TABLET PO SCH (10:16)
[2017-04-18] MEDS: FOLIC ACID 1 MG TABLET PO SCH (10:16)
[2017-04-18] MEDS: POLYETHYLENE GLYCOL 3350 17 GM PACKET. PO SCH (10:16)
[2017-04-18] MEDS: LACTOBACILLUS RHAMNOSUS GG 1 CAPSULE. PO SCH ×2 (10:16→19:18)
[2017-04-18] MEDS: ASPIRIN 81 MG TAB.CHEW PO SCH (10:16)
[2017-04-18 10:29] LABS: ALBUMIN 3.2 g/dL (3.4-5.0); ALBUMIN/GLOBULIN RATIO 0.7 (1.0-1.7); CALCIUM 9.1 mg/dL (8.5-10.1); CREATININE 1.4 mg/dL (0.7-1.3); GFR 49.7; MAGNESIUM 2.3 mg/dL (1.8-2.4); TOTAL BILIRUBIN 0.4 mg/dL (0.2-1.0); TOTAL PROTEIN 8.1 g/dL (6.4-8.2)
[2017-04-18 15:28] VITALS: BP 130/78
--- NOTE | 2017-04-18 20:22 | PDOC ---
Exam Note: Harjeet Note: Please also refer to the separate dictated note~for this date of service dictated separately.~Patient seen individually. Discussed the patient with Nursing staff reviewed the chart.~Reviewed interim history and current functioning. Reviewed vital signs,~Labs/ Radiology~and current medications noted below. Continue current treatment with the changes noted in the dictated addendum note Assessment: Vital Signs: Vital Signs Date Time Temp Pulse Resp B/P (MAP) Pulse Ox O2 Delivery O2 Flow Rate FiO2 04/18/17 16:08 Nasal Cannula 2.0 04/18/17 15:28 89 16 130/78 (95) 97 04/18/17 06:01 96.7 I&O Intake and Output 04/18/17 07:00 Intake Total 480 ml Balance 480 ml Intake Oral 480 ml Labs: Laboratory Tests Test 04/18/17 10:09 White Blood Count 5.7 x10^3/uL (4.0-11.0) Red Blood Count 4.62 x10^6/uL (4.30-5.70) Hemoglobin 11.5 g/dL (13.0-17.5) L Hematocrit 36.0 % (39.0-53.0) L Mean Corpuscular Volume 78 fL (79-100) L Mean Corpuscular Hemoglobin 25 pg (25-35) Mean Corpuscular Hemoglobin Concent 32 g/dL (31-37) Red Cell Distribution Width 18.5 % (11.5-14.5) H Platelet Count 186 x10^3/uL (140-400) Neutrophils (%) (Auto) 78 % (31-73) H Lymphocytes (%) (Auto) 10 % (24-48) L Monocytes (%) (Auto) 9 % (0-9) Eosinophils (%) (Auto) 1 % (0-3) Basophils (%) (Auto) 2 % (0-3) Neutrophils # (Auto) 4.4 x10^3uL (1.8-7.7) Lymphocytes # (Auto) 0.6 x10^3/uL (1.0-4.8) L Monocytes # (Auto) 0.5 x10^3/uL (0.0-1.1) Eosinophils # (Auto) 0.1 x10^3/uL (0.0-0.7) Basophils # (Auto) 0.1 x10^3/uL (0.0-0.2) Sodium Level 139 mmol/L (136-145) Potassium Level 4.0 mmol/L (3.5-5.1) Chloride Level 99 mmol/L (98-107) Carbon Dioxide Level 34 mmol/L (21-32) H Anion Gap 6 (6-14) Blood Urea Nitrogen 26 mg/dL (8-26) Creatinine 1.4 mg/dL (0.7-1.3) H Estimated GFR (Cockcroft-Gault) 49.7 BUN/Creatinine Ratio 19 (6-20) Glucose Level 131 mg/dL (70-99) H Calcium Level 9.1 mg/dL (8.5-10.1) Magnesium Level 2.3 mg/dL (1.8-2.4) Total Bilirubin 0.4 mg/dL (0.2-1.0) Aspartate Amino Transferase (AST) 31 U/L (15-37) Alanine Aminotransferase (ALT) 26 U/L (16-63) Alkaline Phosphatase 86 U/L (46-116) Total Protein 8.1 g/dL (6.4-8.2) Albumin 3.2 g/dL (3.4-5.0) L Albumin/Globulin Ratio 0.7 (1.0-1.7) L Current Medications: Meds: Current Medications Acetaminophen (Tylenol) 650 mg PRN Q4HRS PRN PO PAIN / TEMP; Start 04/06/17 at 15:15 Aspirin (Children'S Aspirin) 81 mg DAILY PO Last administered on 04/18/17 10:16 ; Start 04/07/17 at 09:00 Vitamin D (Vitamin D3) 2,000 unit DAILY PO Last administered on 04/18/17 10:15 ; Start 04/07/17 at 09:00 Clopidogrel Bisulfate (Plavix) 75 mg DAILY PO Last administered on 04/18/17 10: 16; Start 04/07/17 at 09:00 Cyanocobalamin (Vitamin B-12) 1,000 mcg QMONTH SQ ; Start 05/06/17 at 09:00 Folic Acid (Folic Acid) 1 mg DAILY PO Last administered on 04/18/17 10:16; Start 04/07/17 at 09:00 Furosemide (Lasix) 20 mg 3X/WEEK PO Last administered on 04/15/17 10:26; Start 04/08/17 at 09:00 Furosemide (Lasix) 40 mg QMTUTHSA PO Last administered on 04/18/17 10:16; Start 04/06/17 at 16:00 Gabapentin (Neurontin) 300 mg TID PO Last administered on 04/18/17 19:18; Start 04/06/17 at 21:00 Multi-Ingred Cream/Lotion/Oil/ Oint (Hydrocerin) 1 francia PRN BID PRN TP Dry Skin ; Start 04/06/17 at 15:15 Nitroglycerin (Nitrostat) 0.4 mg PRN Q5MIN PRN SL CHEST PAIN; Start 04/06/17 at 15:15 Pantoprazole Sodium (Protonix) 40 mg BID PO Last administered on 04/18/17 19:18 ; Start 04/06/17 at 21:00 Sertraline HCl (Zoloft) 75 mg DAILY PO Last administered on 04/15/17 10:24; Start 04/07/17 at 09:00; Stop 04/15/17 at 17:45; Status DC Tamsulosin HCl (Flomax) 0.4 mg BID PO Last administered on 04/18/17 19:18; Start 04/06/17 at 21:00 Isosorbide Mononitrate (Imdur) 30 mg HS PO Last administered on 04/17/17 19:15 ; Start 04/06/17 at 21:00 Risperidone (RisperDAL CONSTA) 25 mg Q2WKS IM Last administered on 04/11/17 10: 17; Start 04/11/17 at 09:00; Stop 04/17/17 at 18:40; Status DC Ceftriaxone Sodium (Rocephin Im) 1 gm DAILY IM Last administered on 04/16/17 10 :59; Start 04/10/17 at 19:00; Stop 04/17/17 at 07:22; Status DC Lactobacillus Rhamnosus (Culturelle) 1 cap BID PO Last administered on 19:18; Start 04/10/17 at 21:00 Magnesium Hydroxide (Milk Of Magnesia) 2,400 mg PRN DAILY PRN PO CONSTIPATION Last administered on 04/13/17 14:30; Start 04/10/17 at 19:00 Albuterol/ Ipratropium (Duoneb) 3 ml RTQID NEB Last administered on 04/18/17at 16 :06; Start 04/13/17 at 20:00 Docusate Sodium (Colace) 100 mg BID PO Last administered on 04/18/17at 19:18; Start 04/13/17 at 21:00 Polyethylene Glycol (miraLAX) 17 gm DAILY PO Last administered on 04/18/17at 10: 16; Start 04/14/17 at 09:00 Bupropion HCl (Wellbutrin Xl) 150 mg DAILY PO ; Start 04/16/17 at 09:00; Stop 04/16/17 at 09:00; Status DC Bupropion HCl (Wellbutrin) 75 mg BID@0900,1200 PO Last administered on at 09:48; Start 04/16/17 at 09:00; Stop 04/16/17 at 18:51; Status DC Bupropion HCl (Wellbutrin) 75 mg DAILY@1200 PO Last administered on 04/18/17at 11 :51; Start 04/17/17 at 12:00; Stop 04/18/17 at 12:01; Status DC Bupropion HCl (Wellbutrin) 150 mg DAILY PO Last administered on 04/18/17at 10:15 ; Start 04/17/17 at 09:00; Stop 04/18/17 at 12:01; Status DC Risperidone (RisperDAL CONSTA) 37.5 mg Q2WKS IM ; Start 04/25/17 at 09:00 Bupropion HCl (Wellbutrin) 150 mg BID@0900,1200 PO ; Start 04/19/17 at 09:00 Active Scripts Active Reported Risperdal Consta (Risperidone Microspheres) 37.5 Mg/2 Ml Disp.syrin 25 Mg IM Q2WKS Zoloft (Sertraline Hcl) 25 Mg Tablet 75 Mg PO DAILY Furosemide 40 Mg Tablet 40 Mg PO QMTUTHSA Tylenol (Acetaminophen) 325 Mg Tablet 650 Mg PO PRN Q4HRS PRN Nitrostat (Nitroglycerin) 0.4 Mg Tab.subl 0.4 Mg SL PRN Q5MIN PRN Eucerin Creme (Mineral Oil/Petrolatum,White) 120 Gm Cream..g. 1 Francia TP PRN PRN Gabapentin 300 Mg Capsule 300 Mg PO TID Vitamin D3 (Cholecalciferol (Vitamin D3)) 1,000 Unit Tablet 2,000 Unit PO DAILY Flomax (Tamsulosin Hcl) 0.4 Mg Cap.er.24h 0.4 Mg PO BID Simethicone 80 Mg Tab.chew 120 Mg PO BID Protonix (Pantoprazole Sodium) 40 Mg Tablet.dr 40 Mg PO BID Cyanocobalamin Injection (Cyanocobalamin (Vitamin B-12)) 1,000 Mcg/1 Ml Vial 1, 000 Mcg SQ QMONTH Once monthly on the Furosemide 20 Mg Tablet 20 Mg PO 3X/WEEK On Saturday, Saturday, & Saturday Folic Acid 1 Mg Tablet 1 Mg PO DAILY Plavix (Clopidogrel Bisulfate) 75 Mg Tablet 75 Mg PO DAILY Cetirizine Hcl 10 Mg Tablet 10 Mg PO DAILY Aspirin 81 Mg Tab.chew 81 Mg PO DAILY Metoprolol Tartrate 25 Mg Tablet 12.5 Mg PO BID Isosorbide Dinitrate 30 Mg Tablet 30 Mg PO HS I have reviewed the current psychotropics carefully including drug interactions. Risk benefit ratio favors no change other than as noted in my dictated progress note. Diagnosis: Problems: (1) Congestive heart failure (CHF) (2) Dehydration (3) Renal insufficiency (4) Elevated creatine kinase (5) Major depressive disorder (6) Schizoaffective disorder (7) Schizophrenia, disorganized, subchronic with acute exacerbation CHELY LAMB MD Apr 18, 2017 20:22
[2017-04-18] MEDS: ISOSORBIDE MONONITRATE ER 30 MG TAB.ER.24H PO SCH (21:00)
--- NOTE | 2017-04-18 22:49 | NUR ---
Behavior Intervention Response and Plan: BIRP Note: Behavior: Assumed Care of patient, patient located in Day Room at shift change. Patient exhibited the following behavior Calm, Non Compliant, Resistive. Brief assessment on rounds of vital signs, medication needs, lab studies, and pain. Treatment plan problems . Intervention: Patient assessed and the following interventions initiated safety checks 15 Minute Checks Head to toe Assessment , Cognitive Assessment , Medications. Response: After interactions and interventions patient responded in the following manner, Withdrawn , Irritable ,Disorganized. Continue to assess behaviors and condition will continue to monitor throughout the shift as needed. Patient educated on ADL's, and hand hygiene. 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 Continue to assess patient for changes in above assessment. Monitor for medication needs, pain, and safety concerns. Hourly rounding performed to ensure safe environment.
[2017-04-19] MEDS: IPRATRPIUM/ALBUTEROL 0.5/2.5MG 3 ML NEBU. NEB SCH ×4 (05:47→21:51)
[2017-04-19 05:59] VITALS: BP 122/54
[2017-04-19] MEDS: FUROSEMIDE 20 MG TABLET PO SCH (07:50)
[2017-04-19] MEDS: PANTOPRAZOLE 40 MG TABLET. PO SCH ×2 (07:50→19:12)
[2017-04-19] MEDS: CLOPIDOGREL BISULFATE 75 MG TABLET PO SCH (07:50)
[2017-04-19] MEDS: POLYETHYLENE GLYCOL 3350 17 GM PACKET. PO SCH ×2 (07:50→09:00)
[2017-04-19] MEDS: ASPIRIN 81 MG TAB.CHEW PO SCH (07:51)
[2017-04-19] MEDS: LACTOBACILLUS RHAMNOSUS GG 1 CAPSULE. PO SCH ×3 (07:51→19:12)
[2017-04-19] MEDS: CHOLECALCIFEROL (VITAMIN D3) 1,000 UNIT TABLET PO SCH ×2 (07:51→09:00)
[2017-04-19] MEDS: TAMSULOSIN 0.4 MG CAP.ER.24H. PO SCH ×2 (07:51→19:12)
[2017-04-19] MEDS: GABAPENTIN 300 MG CAPSULE. PO SCH ×3 (07:51→19:13)
[2017-04-19] MEDS: DOCUSATE SODIUM 100 MG CAPSULE PO SCH ×3 (07:51→19:13)
[2017-04-19] MEDS: FOLIC ACID 1 MG TABLET PO SCH ×2 (07:51→09:00)
[2017-04-19] MEDS: buPROPion 75 MG TABLET PO SCH ×2 (07:52→12:00)
--- NOTE | 2017-04-19 09:33 | NUR ---
Behavior Intervention Response and Plan: BIRP Note: Behavior: Assumed Care of patient, patient located in Dining Room at shift change. Patient exhibited the following behavior Disorganized, Non Compliant, Withdrawn. Brief assessment on rounds of vital signs, medication needs, lab studies, and pain. Treatment plan problems . Intervention: Patient assessed and the following interventions initiated safety checks 15 Minute Checks Cognitive Assessment , Head to toe Assessment , Medications. Response: After interactions and interventions patient responded in the following manner, Disorganized , Calm ,Non Compliant. Continue to assess behaviors and condition will continue to monitor throughout the shift as needed. Patient educated on ADL's, and hand hygiene. Plan: Continue to monitor Master Treatment Plan for patient's progress toward short term goals of Decreased Anxiety, Improved Mood, care home goals to return to previous living setting vs placement. Continue to assess patient for changes in above assessment. Monitor for medication needs, pain, and safety concerns. Hourly rounding performed to ensure safe environment.
--- NOTE | 2017-04-19 15:45 | NUR ---
pt up in wc for meals. ate little breakfast. drank some of boost with meds in it. refused afternoon meds. withdrawn. does not attempt to verbalize often. o2 in place.
[2017-04-19 16:01] VITALS: BP 150/59
[2017-04-19] MEDS: ISOSORBIDE MONONITRATE ER 30 MG TAB.ER.24H PO SCH (19:12)
--- NOTE | 2017-04-19 19:41 | PDOC ---
Exam Note: Harjeet Note: Please also refer to the separate dictated note~for this date of service dictated separately.~Patient seen individually. Discussed the patient with Nursing staff reviewed the chart.~Reviewed interim history and current functioning. Reviewed vital signs,~Labs/ Radiology~and current medications noted below. Continue current treatment with the changes noted in the dictated addendum note Assessment: Vital Signs: Vital Signs Date Time Temp Pulse Resp B/P (MAP) Pulse Ox O2 Delivery O2 Flow Rate FiO2 04/19/17 19:12 82 162/79 04/19/17 16:01 97.8 19 94 2.0 04/19/17 15:50 Nasal Cannula I&O Intake and Output 04/19/17 07:00 Intake Total 400 ml Balance 400 ml Intake Oral 400 ml Current Medications: Meds: Current Medications Acetaminophen (Tylenol) 650 mg PRN Q4HRS PRN PO PAIN / TEMP; Start 04/06/17 at 15:15 Aspirin (Children'S Aspirin) 81 mg DAILY PO Last administered on 04/19/17at 07:51 ; Start 04/07/17 at 09:00 Vitamin D (Vitamin D3) 2,000 unit DAILY PO Last administered on 04/18/17 10:15 ; Start 04/07/17 at 09:00 Clopidogrel Bisulfate (Plavix) 75 mg DAILY PO Last administered on 04/19/17 07: 50; Start 04/07/17 at 09:00 Cyanocobalamin (Vitamin B-12) 1,000 mcg QMONTH SQ ; Start 05/06/17 at 09:00 Folic Acid (Folic Acid) 1 mg DAILY PO Last administered on 04/18/17at 10:16; Start 04/07/17 at 09:00 Furosemide (Lasix) 20 mg 3X/WEEK PO Last administered on 04/19/17at 07:50; Start 04/08/17 at 09:00 Furosemide (Lasix) 40 mg QMTUTHSA PO Last administered on 04/18/17 10:16; Start 04/06/17 at 16:00 Gabapentin (Neurontin) 300 mg TID PO Last administered on 04/19/17at 19:13; Start 04/06/17 at 21:00 Multi-Ingred Cream/Lotion/Oil/ Oint (Hydrocerin) 1 francia PRN BID PRN TP Dry Skin ; Start 04/06/17 at 15:15 Nitroglycerin (Nitrostat) 0.4 mg PRN Q5MIN PRN SL CHEST PAIN; Start 04/06/17 at 15:15 Pantoprazole Sodium (Protonix) 40 mg BID PO Last administered on 04/19/17 19:12 ; Start 04/06/17 at 21:00 Sertraline HCl (Zoloft) 75 mg DAILY PO Last administered on 04/15/17 10:24; Start 04/07/17 at 09:00; Stop 04/15/17 at 17:45; Status DC Tamsulosin HCl (Flomax) 0.4 mg BID PO Last administered on 04/19/17 19:12; Start 04/06/17 at 21:00 Isosorbide Mononitrate (Imdur) 30 mg HS PO Last administered on 04/19/17 19:12 ; Start 04/06/17 at 21:00 Risperidone (RisperDAL CONSTA) 25 mg Q2WKS IM Last administered on 04/11/17 10: 17; Start 04/11/17 at 09:00; Stop 04/17/17 at 18:40; Status DC Ceftriaxone Sodium (Rocephin Im) 1 gm DAILY IM Last administered on 04/16/17 10 :59; Start 04/10/17 at 19:00; Stop 04/17/17 at 07:22; Status DC Lactobacillus Rhamnosus (Culturelle) 1 cap BID PO Last administered on 19:12; Start 04/10/17 at 21:00 Magnesium Hydroxide (Milk Of Magnesia) 2,400 mg PRN DAILY PRN PO CONSTIPATION Last administered on 04/13/17 14:30; Start 04/10/17 at 19:00 Albuterol/ Ipratropium (Duoneb) 3 ml RTQID NEB Last administered on 04/19/17 15 :48; Start 04/13/17 at 20:00 Docusate Sodium (Colace) 100 mg BID PO Last administered on 04/19/17 19:13; Start 04/13/17 at 21:00 Polyethylene Glycol (miraLAX) 17 gm DAILY PO Last administered on 04/18/17 10: 16; Start 04/14/17 at 09:00 Bupropion HCl (Wellbutrin Xl) 150 mg DAILY PO ; Start 04/16/17 at 09:00; Stop 04/16/17 at 09:00; Status DC Bupropion HCl (Wellbutrin) 75 mg BID@0900,1200 PO Last administered on at 09:48; Start 04/16/17 at 09:00; Stop 04/16/17 at 18:51; Status DC Bupropion HCl (Wellbutrin) 75 mg DAILY@1200 PO Last administered on 04/18/17at 11 :51; Start 04/17/17 at 12:00; Stop 04/18/17 at 12:01; Status DC Bupropion HCl (Wellbutrin) 150 mg DAILY PO Last administered on 04/18/17at 10:15 ; Start 04/17/17 at 09:00; Stop 04/18/17 at 12:01; Status DC Risperidone (RisperDAL CONSTA) 37.5 mg Q2WKS IM ; Start 04/25/17 at 09:00 Bupropion HCl (Wellbutrin) 150 mg BID@0900,1200 PO Last administered on at 07:52; Start 04/19/17 at 09:00 Megestrol Acetate (Megace) 100 mg TIDWMEALS PO ; Start 04/20/17 at 08:00 Active Scripts Active Reported Risperdal Consta (Risperidone Microspheres) 37.5 Mg/2 Ml Disp.syrin 25 Mg IM Q2WKS Zoloft (Sertraline Hcl) 25 Mg Tablet 75 Mg PO DAILY Furosemide 40 Mg Tablet 40 Mg PO QMTUTHSA Tylenol (Acetaminophen) 325 Mg Tablet 650 Mg PO PRN Q4HRS PRN Nitrostat (Nitroglycerin) 0.4 Mg Tab.subl 0.4 Mg SL PRN Q5MIN PRN Eucerin Creme (Mineral Oil/Petrolatum,White) 120 Gm Cream..g. 1 Francia TP PRN PRN Gabapentin 300 Mg Capsule 300 Mg PO TID Vitamin D3 (Cholecalciferol (Vitamin D3)) 1,000 Unit Tablet 2,000 Unit PO DAILY Flomax (Tamsulosin Hcl) 0.4 Mg Cap.er.24h 0.4 Mg PO BID Simethicone 80 Mg Tab.chew 120 Mg PO BID Protonix (Pantoprazole Sodium) 40 Mg Tablet.dr 40 Mg PO BID Cyanocobalamin Injection (Cyanocobalamin (Vitamin B-12)) 1,000 Mcg/1 Ml Vial 1, 000 Mcg SQ QMONTH Once monthly on the Furosemide 20 Mg Tablet 20 Mg PO 3X/WEEK On Saturday, Saturday, & Saturday Folic Acid 1 Mg Tablet 1 Mg PO DAILY Plavix (Clopidogrel Bisulfate) 75 Mg Tablet 75 Mg PO DAILY Cetirizine Hcl 10 Mg Tablet 10 Mg PO DAILY Aspirin 81 Mg Tab.chew 81 Mg PO DAILY Metoprolol Tartrate 25 Mg Tablet 12.5 Mg PO BID Isosorbide Dinitrate 30 Mg Tablet 30 Mg PO HS I have reviewed the current psychotropics carefully including drug interactions. Risk benefit ratio favors no change other than as noted in my dictated progress note. Diagnosis: Problems: (1) Renal insufficiency (2) Elevated creatine kinase (3) Major depressive disorder (4) Schizoaffective disorder (5) Schizophrenia, disorganized, subchronic with acute exacerbation CHELY LAMB MD Apr 19, 2017 19:41
--- NOTE | 2017-04-19 21:15 | NUR ---
Behavior Intervention Response and Plan: BIRP Note: Behavior: Assumed Care of patient, patient located in Day Room at shift change. Patient exhibited the following behavior Disorganized, Non Compliant, Resistive. Brief assessment on rounds of vital signs, medication needs, lab studies, and pain. Treatment plan problems Alteration in Mood and Fall Risk. Intervention: Patient assessed and the following interventions initiated safety checks 15 Minute Checks Cognitive Assessment , Medications , Oral Hydration. Response: After interactions and interventions patient responded in the following manner, Resistive , Withdrawn ,Non Compliant with Meds. Continue to assess behaviors and condition will continue to monitor throughout the shift as needed. Patient educated on ADL's, and hand hygiene. Plan: Continue to monitor Master Treatment Plan for patient's progress toward short term goals of Decreased Agitation, Medication Compliance, penitentiary goals to return to previous living setting vs placement. Continue to assess patient for changes in above assessment. Monitor for medication needs, pain, and safety concerns. Hourly rounding performed to ensure safe environment.
--- NOTE | 2017-04-20 00:49 | PN ---
DATE: 04/17/2017 This late entry of 04/17/2017 covers elements not covered in my initial note of 04/17/2017. SUBJECTIVE: I met with the patient in the evening of 04/17/2017. The patient is resistive to his medications in the morning, fed himself breakfast, lunch, refused dinner as I met with him. REVIEW OF SYSTEMS: Ambulation impaired, in wheelchair. No CV, , pulmonary, eye system symptoms on review. MENTAL STATUS EXAM: Oriented to himself and situation. Speech, often responses monosyllabic, not very interactive, abstraction fair, computation impaired, language function intact. Mood and affect remains withdrawn, still somewhat paranoid. LABORATORY DATA: Reviewed. IMPRESSION: Schizoaffective disorder, bipolar type, mixed with psychotic features. PLAN: Increase Risperdal Consta to 37.5 mg q. 2 weeks. Continue Wellbutrin, which has been adjusted and maintain Neurontin for now. MAN Horace LAMB MD DR: ESTEFANY/aubrey JOB#: [id number] / [id number]
[2017-04-20] MEDS: IPRATRPIUM/ALBUTEROL 0.5/2.5MG 3 ML NEBU. NEB SCH ×4 (05:42→20:00)
--- NOTE | 2017-04-20 05:46 | NUR ---
Nursing Note Patient very resistive/combative with staff during cares this morning. Patient yelling at staff, attempting to hit staff and refusing to allow cares. Patient removing nasal canula repeatedly. Patient is currently sitting in day room.
[2017-04-20 05:56] VITALS: BP 113/62
--- NOTE | 2017-04-20 07:31 | PN ---
DATE: 04/18/2017 PSYCHIATRIC PROGRESS NOTE This is a late entry for 04/18/2017, covers elements not covered in my initial note of 04/18/2017. Met with the patient evening of 04/18/2017 and staffed at a treatment team meeting with the entire team morning of 04/18/2017. The patient is resistive, very somatically preoccupied, refusing his supper stating "he can't eat," refused his medications at times. REVIEW OF SYSTEMS: Ambulation impaired, in wheelchair. Some shortness of breath. No CV, , eye system symptoms on review. MENTAL STATUS EXAM: Oriented to himself and situation. Speech is coherent, abstraction fair, mood and affect withdrawn, still somewhat paranoid. No active suicidal or homicidal ideation. LABORATORY DATA: Reviewed. IMPRESSION: Schizoaffective disorder, bipolar type, mixed. PLAN: Increase Wellbutrin to 150 mg twice a day. Continue Rest unchanged. Risperdal Consta was increased. MAN Horace LAMB MD DR: ESTEFANY/aubrey JOB#: [id number] / [id number]
[2017-04-20] MEDS: ASPIRIN 81 MG TAB.CHEW PO SCH (07:32)
[2017-04-20] MEDS: PANTOPRAZOLE 40 MG TABLET. PO SCH ×2 (07:32→20:31)
[2017-04-20] MEDS: GABAPENTIN 300 MG CAPSULE. PO SCH ×3 (07:32→20:30)
[2017-04-20] MEDS: CHOLECALCIFEROL (VITAMIN D3) 1,000 UNIT TABLET PO SCH (07:32)
[2017-04-20] MEDS: TAMSULOSIN 0.4 MG CAP.ER.24H. PO SCH ×2 (07:32→20:29)
[2017-04-20] MEDS: DOCUSATE SODIUM 100 MG CAPSULE PO SCH ×2 (07:32→20:31)
[2017-04-20] MEDS: LACTOBACILLUS RHAMNOSUS GG 1 CAPSULE. PO SCH ×2 (07:32→20:29)
[2017-04-20] MEDS: FOLIC ACID 1 MG TABLET PO SCH (07:32)
[2017-04-20] MEDS: POLYETHYLENE GLYCOL 3350 17 GM PACKET. PO SCH (07:33)
[2017-04-20] MEDS: CLOPIDOGREL BISULFATE 75 MG TABLET PO SCH (07:33)
[2017-04-20] MEDS: buPROPion 75 MG TABLET PO SCH ×2 (07:35→13:37)
[2017-04-20] MEDS: MEGESTROL 400 MG/10 ML ORAL.SUSP. PO SCH ×3 (07:36→18:21)
--- NOTE | 2017-04-20 09:36 | NUR ---
Behavior Intervention Response and Plan: BIRP Note: Behavior: Assumed Care of patient, patient located in Dining Room at shift change. Patient exhibited the following behavior Disorganized, Non Compliant, Withdrawn. Brief assessment on rounds of vital signs, medication needs, lab studies, and pain. Treatment plan problems . Intervention: Patient assessed and the following interventions initiated safety checks 15 Minute Checks Cognitive Assessment , Head to toe Assessment , Medications. Response: After interactions and interventions patient responded in the following manner, Disorganized , Calm ,Non Compliant. Continue to assess behaviors and condition will continue to monitor throughout the shift as needed. Patient educated on ADL's, and hand hygiene. Plan: Continue to monitor Master Treatment Plan for patient's progress toward short term goals of Decreased Anxiety, Improved Mood, [facility] goals to return to previous living setting vs placement. Continue to assess patient for changes in above assessment. Monitor for medication needs, pain, and safety concerns. Hourly rounding performed to ensure safe environment.
--- NOTE | 2017-04-20 16:18 | NUR ---
Pt has taken some meds hidden if food. has minimal po intake. refuses to keep o2 on. sats 83% on RA. sit quietly in wc. does not initiate conversation.
[2017-04-20 16:22] VITALS: BP 146/76
[2017-04-20] MEDS: FUROSEMIDE 40 MG TABLET PO SCH (18:20)
--- NOTE | 2017-04-20 18:23 | NUR ---
RT unavailable due to illness
[2017-04-20] MEDS: ISOSORBIDE MONONITRATE ER 30 MG TAB.ER.24H PO SCH (20:31)
[2017-04-20] MEDS: MIRTAZAPINE 7.5 MG TABLET. PO SCH (20:32)
--- NOTE | 2017-04-20 21:29 | NUR ---
Behavior Intervention Response and Plan: BIRP Note: Behavior: Assumed Care of patient, patient located in Day Room at shift change. Patient exhibited the following behavior Calm, Disorganized, Non Compliant with Meds. Brief assessment on rounds of vital signs, medication needs, lab studies, and pain. Treatment plan problems :1-2 Intervention: Patient assessed and the following interventions initiated safety checks 15 Minute Checks Cognitive Assessment , Head to toe Assessment , Medications. Response: After interactions and interventions patient responded in the following manner, Non Compliant , Disorganized ,Resistive. Continue to assess behaviors and condition will continue to monitor throughout the shift as needed. Patient educated on ADL's, and hand hygiene. Pt has refused his meds offered whole & crushed in a carli. milkshake. Pt gives no reason for refusal other than: I can't...I'm in hell...." Plan: Continue to monitor Master Treatment Plan for patient's progress toward short term goals of Medication Compliance, Improved Mood, residential goals to return to previous living setting vs placement. Continue to assess patient for changes in above assessment. Monitor for medication needs, pain, and safety concerns. Hourly rounding performed to ensure safe environment.
--- NOTE | 2017-04-20 21:38 | PDOC ---
Exam Note: Harjeet Note: Please also refer to the separate dictated note~for this date of service dictated separately.~Patient seen individually. Discussed the patient with Nursing staff reviewed the chart.~Reviewed interim history and current functioning. Reviewed vital signs,~Labs/ Radiology~and current medications noted below. Continue current treatment with the changes noted in the dictated addendum note Assessment: Vital Signs: Vital Signs Date Time Temp Pulse Resp B/P (MAP) Pulse Ox O2 Delivery O2 Flow Rate FiO2 04/20/17 20:31 88 146/76 04/20/17 18:10 97 Nasal Cannula 5.0 04/20/17 16:22 97.5 20 I&O Intake and Output 04/20/17 07:00 Intake Total 540 ml Balance 540 ml Intake Oral 540 ml Current Medications: Meds: Current Medications Acetaminophen (Tylenol) 650 mg PRN Q4HRS PRN PO PAIN / TEMP; Start 04/06/17 at 15:15 Aspirin (Children'S Aspirin) 81 mg DAILY PO Last administered on 04/20/17 07: 32; Start 04/07/17 at 09:00 Vitamin D (Vitamin D3) 2,000 unit DAILY PO Last administered on 04/20/17 07:32 ; Start 04/07/17 at 09:00 Clopidogrel Bisulfate (Plavix) 75 mg DAILY PO Last administered on 04/20/17 07 :33; Start 04/07/17 at 09:00 Cyanocobalamin (Vitamin B-12) 1,000 mcg QMONTH SQ ; Start 05/06/17 at 09:00 Folic Acid (Folic Acid) 1 mg DAILY PO Last administered on 04/20/17at 07:32; Start 04/07/17 at 09:00 Furosemide (Lasix) 20 mg 3X/WEEK PO Last administered on 04/19/17at 07:50; Start 04/08/17 at 09:00 Furosemide (Lasix) 40 mg QMTUTHSA PO Last administered on 04/20/17 18:20; Start 04/06/17 at 16:00 Gabapentin (Neurontin) 300 mg TID PO Last administered on 04/20/17at 20:30; Start 04/06/17 at 21:00 Multi-Ingred Cream/Lotion/Oil/ Oint (Hydrocerin) 1 francia PRN BID PRN TP Dry Skin ; Start 04/06/17 at 15:15 Nitroglycerin (Nitrostat) 0.4 mg PRN Q5MIN PRN SL CHEST PAIN; Start 04/06/17 at 15:15 Pantoprazole Sodium (Protonix) 40 mg BID PO Last administered on 04/20/17 20: 31; Start 04/06/17 at 21:00 Sertraline HCl (Zoloft) 75 mg DAILY PO Last administered on 04/15/17 10:24; Start 04/07/17 at 09:00; Stop 04/15/17 at 17:45; Status DC Tamsulosin HCl (Flomax) 0.4 mg BID PO Last administered on 04/20/17 20:29; Start 04/06/17 at 21:00 Isosorbide Mononitrate (Imdur) 30 mg HS PO Last administered on 04/20/17 20:31 ; Start 04/06/17 at 21:00 Risperidone (RisperDAL CONSTA) 25 mg Q2WKS IM Last administered on 04/11/17 10: 17; Start 04/11/17 at 09:00; Stop 04/17/17 at 18:40; Status DC Ceftriaxone Sodium (Rocephin Im) 1 gm DAILY IM Last administered on 04/16/17 10 :59; Start 04/10/17 at 19:00; Stop 04/17/17 at 07:22; Status DC Lactobacillus Rhamnosus (Culturelle) 1 cap BID PO Last administered on 20:29; Start 04/10/17 at 21:00 Magnesium Hydroxide (Milk Of Magnesia) 2,400 mg PRN DAILY PRN PO CONSTIPATION Last administered on 04/13/17 14:30; Start 04/10/17 at 19:00 Albuterol/ Ipratropium (Duoneb) 3 ml RTQID NEB Last administered on 04/20/17 18:10; Start 04/13/17 at 20:00 Docusate Sodium (Colace) 100 mg BID PO Last administered on 04/20/17 20:31; Start 04/13/17 at 21:00 Polyethylene Glycol (miraLAX) 17 gm DAILY PO Last administered on 04/20/17 07: 33; Start 04/14/17 at 09:00 Bupropion HCl (Wellbutrin Xl) 150 mg DAILY PO ; Start 04/16/17 at 09:00; Stop 04/16/17 at 09:00; Status DC Bupropion HCl (Wellbutrin) 75 mg BID@0900,1200 PO Last administered on at 09:48; Start 04/16/17 at 09:00; Stop 04/16/17 at 18:51; Status DC Bupropion HCl (Wellbutrin) 75 mg DAILY@1200 PO Last administered on 04/18/17at 11 :51; Start 04/17/17 at 12:00; Stop 04/18/17 at 12:01; Status DC Bupropion HCl (Wellbutrin) 150 mg DAILY PO Last administered on 04/18/17at 10:15 ; Start 04/17/17 at 09:00; Stop 04/18/17 at 12:01; Status DC Risperidone (RisperDAL CONSTA) 37.5 mg Q2WKS IM ; Start 04/25/17 at 09:00 Bupropion HCl (Wellbutrin) 150 mg BID@0900,1200 PO Last administered on at 13:37; Start 04/19/17 at 09:00 Megestrol Acetate (Megace) 100 mg TIDWMEALS PO Last administered on 04/20/17at 18:21; Start 04/20/17 at 08:00 Mirtazapine (Remeron) 7.5 mg QHS PO Last administered on 04/20/17at 20:32; Start 04/20/17 at 21:00 Active Scripts Active Reported Risperdal Consta (Risperidone Microspheres) 37.5 Mg/2 Ml Disp.syrin 25 Mg IM Q2WKS Zoloft (Sertraline Hcl) 25 Mg Tablet 75 Mg PO DAILY Furosemide 40 Mg Tablet 40 Mg PO QMTUTHSA Tylenol (Acetaminophen) 325 Mg Tablet 650 Mg PO PRN Q4HRS PRN Nitrostat (Nitroglycerin) 0.4 Mg Tab.subl 0.4 Mg SL PRN Q5MIN PRN Eucerin Creme (Mineral Oil/Petrolatum,White) 120 Gm Cream..g. 1 Francia TP PRN PRN Gabapentin 300 Mg Capsule 300 Mg PO TID Vitamin D3 (Cholecalciferol (Vitamin D3)) 1,000 Unit Tablet 2,000 Unit PO DAILY Flomax (Tamsulosin Hcl) 0.4 Mg Cap.er.24h 0.4 Mg PO BID Simethicone 80 Mg Tab.chew 120 Mg PO BID Protonix (Pantoprazole Sodium) 40 Mg Tablet.dr 40 Mg PO BID Cyanocobalamin Injection (Cyanocobalamin (Vitamin B-12)) 1,000 Mcg/1 Ml Vial 1, 000 Mcg SQ QMONTH Once monthly on the Furosemide 20 Mg Tablet 20 Mg PO 3X/WEEK On Saturday, Saturday, & Saturday Folic Acid 1 Mg Tablet 1 Mg PO DAILY Plavix (Clopidogrel Bisulfate) 75 Mg Tablet 75 Mg PO DAILY Cetirizine Hcl 10 Mg Tablet 10 Mg PO DAILY Aspirin 81 Mg Tab.chew 81 Mg PO DAILY Metoprolol Tartrate 25 Mg Tablet 12.5 Mg PO BID Isosorbide Dinitrate 30 Mg Tablet 30 Mg PO HS I have reviewed the current psychotropics carefully including drug interactions. Risk benefit ratio favors no change other than as noted in my dictated progress note. Diagnosis: Problems: (1) Renal insufficiency (2) Elevated creatine kinase (3) Major depressive disorder (4) Schizoaffective disorder (5) Schizophrenia, disorganized, subchronic with acute exacerbation CHELY LAMB MD Apr 20, 2017 21:38
--- NOTE | 2017-04-21 02:18 | NUR ---
Nsg Note: Pt was not cooperative w/ nsg assessment AEB not taking deep breaths when asked nor answering questions. He also would not take his meds either whole or crushed. Pt finally took them crushed in a small amt. of boost mixed w/ ice cream for a female CNA PER DIEM. It took him over 3hrs to take his meds w/ extreme amt. of encouragement. Pt had to wear mittens for approx. 2hr secondary to removing his O2 & not allowing staff to replace it while his sPo2 was in the 80's. PT was satting 92% on 3L PNC. Will cont. to monitor
[2017-04-21 05:53] VITALS: BP 104/53
[2017-04-21] MEDS: IPRATRPIUM/ALBUTEROL 0.5/2.5MG 3 ML NEBU. NEB SCH ×4 (06:23→22:52)
[2017-04-21] MEDS: CLOPIDOGREL BISULFATE 75 MG TABLET PO SCH (07:38)
[2017-04-21] MEDS: buPROPion 75 MG TABLET PO SCH ×2 (07:38→13:55)
[2017-04-21] MEDS: POLYETHYLENE GLYCOL 3350 17 GM PACKET. PO SCH ×2 (07:38→08:40)
[2017-04-21] MEDS: CHOLECALCIFEROL (VITAMIN D3) 1,000 UNIT TABLET PO SCH ×2 (07:39→08:41)
[2017-04-21] MEDS: MEGESTROL 400 MG/10 ML ORAL.SUSP. PO SCH ×3 (07:39→17:58)
[2017-04-21] MEDS: DOCUSATE SODIUM 100 MG CAPSULE PO SCH ×3 (07:40→20:53)
[2017-04-21] MEDS: TAMSULOSIN 0.4 MG CAP.ER.24H. PO SCH ×2 (07:40→20:53)
[2017-04-21] MEDS: PANTOPRAZOLE 40 MG TABLET. PO SCH ×3 (07:40→20:53)
[2017-04-21] MEDS: GABAPENTIN 300 MG CAPSULE. PO SCH ×3 (07:40→20:53)
[2017-04-21] MEDS: FOLIC ACID 1 MG TABLET PO SCH ×2 (07:40→08:40)
[2017-04-21] MEDS: LACTOBACILLUS RHAMNOSUS GG 1 CAPSULE. PO SCH ×3 (07:40→20:54)
[2017-04-21] MEDS: ASPIRIN 81 MG TAB.CHEW PO SCH ×2 (07:40→08:40)
--- NOTE | 2017-04-21 08:43 | NUR ---
Behavior Intervention Response and Plan: BIRP Note: Behavior: Assumed Care of patient, patient located in Dining Room at shift change. Patient exhibited the following behavior Disorganized, Non Compliant, Withdrawn. Brief assessment on rounds of vital signs, medication needs, lab studies, and pain. Treatment plan problems . Intervention: Patient assessed and the following interventions initiated safety checks 15 Minute Checks Cognitive Assessment , Head to toe Assessment , Medications. Response: After interactions and interventions patient responded in the following manner, Disorganized , Calm ,Non Compliant. Continue to assess behaviors and condition will continue to monitor throughout the shift as needed. Patient educated on ADL's, and hand hygiene. Plan: Continue to monitor Master Treatment Plan for patient's progress toward short term goals of Decreased Anxiety, Improved Mood, snf goals to return to previous living setting vs placement. Continue to assess patient for changes in above assessment. Monitor for medication needs, pain, and safety concerns. Hourly rounding performed to ensure safe environment.
--- NOTE | 2017-04-21 15:34 | NUR ---
RT was tied up in ER
--- NOTE | 2017-04-21 15:59 | NUR ---
pt up in wc. did not get up for breakfast but did take an ice cream with most of meds. up for lunch. pt actually ate a mod amount of food for lunch. still withdrawn and doesn't talk much. brother called and asked for update. brother is actually in hospital now himself. asked brother about his code status being Full. brother stated he "didn't want his brother to just ". Left message for ALEXYS.
[2017-04-21 16:07] VITALS: BP 123/60
--- NOTE | 2017-04-21 20:43 | PDOC ---
Exam Note: Harjeet Note: Please also refer to the separate dictated note~for this date of service dictated separately.~Patient seen individually. Discussed the patient with Nursing staff reviewed the chart.~Reviewed interim history and current functioning. Reviewed vital signs,~Labs/ Radiology~and current medications noted below. Continue current treatment with the changes noted in the dictated addendum note Assessment: Vital Signs: Vital Signs Date Time Temp Pulse Resp B/P (MAP) Pulse Ox O2 Delivery O2 Flow Rate FiO2 04/21/17 16:07 96.8 94 22 123/60 (81) 97 04/21/17 15:35 Nasal Cannula 2.0 I&O Intake and Output 04/21/17 07:00 Intake Total 120 ml Balance 120 ml Intake Oral 120 ml Current Medications: Meds: Current Medications Acetaminophen (Tylenol) 650 mg PRN Q4HRS PRN PO PAIN / TEMP; Start 04/06/17 at 15:15 Aspirin (Children'S Aspirin) 81 mg DAILY PO Last administered on 04/20/17 07: 32; Start 04/07/17 at 09:00 Vitamin D (Vitamin D3) 2,000 unit DAILY PO Last administered on 04/20/17at 07:32 ; Start 04/07/17 at 09:00 Clopidogrel Bisulfate (Plavix) 75 mg DAILY PO Last administered on 04/21/17at 07 :38; Start 04/07/17 at 09:00 Cyanocobalamin (Vitamin B-12) 1,000 mcg QMONTH SQ ; Start 05/06/17 at 09:00 Folic Acid (Folic Acid) 1 mg DAILY PO Last administered on 04/20/17at 07:32; Start 04/07/17 at 09:00 Furosemide (Lasix) 20 mg 3X/WEEK PO Last administered on 04/19/17at 07:50; Start 04/08/17 at 09:00 Furosemide (Lasix) 40 mg QMTUTHSA PO Last administered on 04/20/17at 18:20; Start 04/06/17 at 16:00 Gabapentin (Neurontin) 300 mg TID PO Last administered on 04/21/17at 14:00; Start 04/06/17 at 21:00 Multi-Ingred Cream/Lotion/Oil/ Oint (Hydrocerin) 1 francia PRN BID PRN TP Dry Skin ; Start 04/06/17 at 15:15 Nitroglycerin (Nitrostat) 0.4 mg PRN Q5MIN PRN SL CHEST PAIN; Start 04/06/17 at 15:15 Pantoprazole Sodium (Protonix) 40 mg BID PO Last administered on 04/20/17 20: 31; Start 04/06/17 at 21:00 Sertraline HCl (Zoloft) 75 mg DAILY PO Last administered on 04/15/17 10:24; Start 04/07/17 at 09:00; Stop 04/15/17 at 17:45; Status DC Tamsulosin HCl (Flomax) 0.4 mg BID PO Last administered on 04/21/17 07:40; Start 04/06/17 at 21:00 Isosorbide Mononitrate (Imdur) 30 mg HS PO Last administered on 04/20/17 20:31 ; Start 04/06/17 at 21:00 Risperidone (RisperDAL CONSTA) 25 mg Q2WKS IM Last administered on 04/11/17 10: 17; Start 04/11/17 at 09:00; Stop 04/17/17 at 18:40; Status DC Ceftriaxone Sodium (Rocephin Im) 1 gm DAILY IM Last administered on 04/16/17at 10 :59; Start 04/10/17 at 19:00; Stop 04/17/17 at 07:22; Status DC Lactobacillus Rhamnosus (Culturelle) 1 cap BID PO Last administered on 20:29; Start 04/10/17 at 21:00 Magnesium Hydroxide (Milk Of Magnesia) 2,400 mg PRN DAILY PRN PO CONSTIPATION Last administered on 04/13/17 14:30; Start 04/10/17 at 19:00 Albuterol/ Ipratropium (Duoneb) 3 ml RTQID NEB Last administered on 04/21/17 15:35; Start 04/13/17 at 20:00 Docusate Sodium (Colace) 100 mg BID PO Last administered on 04/20/17 20:31; Start 04/13/17 at 21:00 Polyethylene Glycol (miraLAX) 17 gm DAILY PO Last administered on 04/20/17 07: 33; Start 04/14/17 at 09:00 Bupropion HCl (Wellbutrin Xl) 150 mg DAILY PO ; Start 04/16/17 at 09:00; Stop 04/16/17 at 09:00; Status DC Bupropion HCl (Wellbutrin) 75 mg BID@0900,1200 PO Last administered on at 09:48; Start 04/16/17 at 09:00; Stop 04/16/17 at 18:51; Status DC Bupropion HCl (Wellbutrin) 75 mg DAILY@1200 PO Last administered on 04/18/17at 11 :51; Start 04/17/17 at 12:00; Stop 04/18/17 at 12:01; Status DC Bupropion HCl (Wellbutrin) 150 mg DAILY PO Last administered on 04/18/17at 10:15 ; Start 04/17/17 at 09:00; Stop 04/18/17 at 12:01; Status DC Risperidone (RisperDAL CONSTA) 37.5 mg Q2WKS IM ; Start 04/25/17 at 09:00 Bupropion HCl (Wellbutrin) 150 mg BID@0900,1200 PO Last administered on at 13:55; Start 04/19/17 at 09:00 Megestrol Acetate (Megace) 100 mg TIDWMEALS PO Last administered on 04/21/17at 17:58; Start 04/20/17 at 08:00 Mirtazapine (Remeron) 7.5 mg QHS PO Last administered on 04/20/17at 20:32; Start 04/20/17 at 21:00 Active Scripts Active Reported Risperdal Consta (Risperidone Microspheres) 37.5 Mg/2 Ml Disp.syrin 25 Mg IM Q2WKS Zoloft (Sertraline Hcl) 25 Mg Tablet 75 Mg PO DAILY Furosemide 40 Mg Tablet 40 Mg PO QMTUTHSA Tylenol (Acetaminophen) 325 Mg Tablet 650 Mg PO PRN Q4HRS PRN Nitrostat (Nitroglycerin) 0.4 Mg Tab.subl 0.4 Mg SL PRN Q5MIN PRN Eucerin Creme (Mineral Oil/Petrolatum,White) 120 Gm Cream..g. 1 Francia TP PRN PRN Gabapentin 300 Mg Capsule 300 Mg PO TID Vitamin D3 (Cholecalciferol (Vitamin D3)) 1,000 Unit Tablet 2,000 Unit PO DAILY Flomax (Tamsulosin Hcl) 0.4 Mg Cap.er.24h 0.4 Mg PO BID Simethicone 80 Mg Tab.chew 120 Mg PO BID Protonix (Pantoprazole Sodium) 40 Mg Tablet.dr 40 Mg PO BID Cyanocobalamin Injection (Cyanocobalamin (Vitamin B-12)) 1,000 Mcg/1 Ml Vial 1, 000 Mcg SQ QMONTH Once monthly on the Furosemide 20 Mg Tablet 20 Mg PO 3X/WEEK On Saturday, Saturday, & Saturday Folic Acid 1 Mg Tablet 1 Mg PO DAILY Plavix (Clopidogrel Bisulfate) 75 Mg Tablet 75 Mg PO DAILY Cetirizine Hcl 10 Mg Tablet 10 Mg PO DAILY Aspirin 81 Mg Tab.chew 81 Mg PO DAILY Metoprolol Tartrate 25 Mg Tablet 12.5 Mg PO BID Isosorbide Dinitrate 30 Mg Tablet 30 Mg PO HS I have reviewed the current psychotropics carefully including drug interactions. Risk benefit ratio favors no change other than as noted in my dictated progress note. Diagnosis: Problems: (1) Congestive heart failure (CHF) (2) Dehydration (3) Renal insufficiency (4) Elevated creatine kinase (5) Major depressive disorder (6) Schizoaffective disorder (7) Schizophrenia, disorganized, subchronic with acute exacerbation CHELY LAMB MD Apr 21, 2017 20:43
[2017-04-21] MEDS: MIRTAZAPINE 7.5 MG TABLET. PO SCH (20:53)
[2017-04-21] MEDS: ISOSORBIDE MONONITRATE ER 30 MG TAB.ER.24H PO SCH ×2 (20:54→21:27)
--- NOTE | 2017-04-22 01:32 | NUR ---
Behavior Intervention Response and Plan: BIRP Note: Behavior: Assumed Care of patient, patient located in Day Room at shift change. Patient exhibited the following behavior Calm, Non Compliant, Somatic. Brief assessment on rounds of vital signs, medication needs, lab studies, and pain. Treatment plan problems: 1-2 Intervention: Patient assessed and the following interventions initiated safety checks 15 Minute Checks Cognitive Assessment , Head to toe Assessment , Medications. Response: After interactions and interventions patient responded in the following manner, Disorganized , Defensive ,Resistive. Continue to assess behaviors and condition will continue to monitor throughout the shift as needed. Patient educated on ADL's, and hand hygiene. Pt took his HS meds tonight w/ encouragement crushed in boost/ice cream. Tonight he was observed to be tremulous in bed. VSS: BP 133/58 T 98.2 P 113 sPo2 92% on 3L. Pt provided w/ extra blankets & room temp. adjusted. Plan: Continue to monitor Master Treatment Plan for patient's progress toward short term goals of Medication Compliance, Improved Mood, behavioral specialist goals to return to previous living setting vs placement. Continue to assess patient for changes in above assessment. Monitor for medication needs, pain, and safety concerns. Hourly rounding performed to ensure safe environment.
--- NOTE | 2017-04-22 03:22 | PN ---
DATE: 04/19/2017 This is a late entry 04/19/2017, covers the elements not covered in my initial note 04/19/2017, SUBJECTIVE: I met with the patient in the evening of 04/19/2017. The patient slept 4-3/4 hours previous evening, remains withdrawn, also refuses to eat anything. Labs so far are unremarkable. REVIEW OF SYSTEMS: Shortness of breath, impaired ambulation in the wheelchair. No CV, , GI system symptoms on review. MENTAL STATUS EXAM: Oriented to himself and situation. Speech moderate latency, often responses monosyllabic. Abstraction fair, computation impaired, language function intact, attention span short. Mood and affect somewhat withdrawn. LABORATORY DATA: Reviewed. IMPRESSION: Schizoaffective disorder, bipolar type, mixed, and rest unchanged. PLAN: Start Megace 100 mg thrice a day before meal, continue rest psychotropics unchanged, Risperdal Consta was increased. MAN Horace LAMB MD DR: ESTEFANY/aubrey JOB#: [id number] / [id number]
--- NOTE | 2017-04-22 03:27 | PN ---
DATE: 04/20/2017 This is a late entry 04/20/2017, covers the elements not covered in my initial note, 04/20/2017. SUBJECTIVE: I met with the patient in the evening of 04/20/2017. The patient continues to have poor oral intake, sits in a wheelchair. Stairs, combative with cares. She slept 4 hours the previous evening. REVIEW OF SYSTEMS: Ambulation impaired, in a wheelchair; shortness of breath, on O2 supplements. No CV, , eye, ENT system symptoms on review, not very verbal. MENTAL STATUS EXAM: Oriented to himself and situation. Speech, often responses monosyllabic. Abstraction fair, computation impaired, language function intact, attention span short. Mood and affect withdrawn. LABORATORY DATA: Reviewed. IMPRESSION: Schizoaffective disorder, bipolar type, mixed with psychotic features. Rest unchanged. PLAN: Start Remeron 7.5 mg by mouth at bedtime. Continue Megace, the rest of the psychotropics, and increased Risperdal Consta. MAN Horace LAMB MD DR: ESTEFANY/aubrey JOB#: [id number] / [id number]
--- NOTE | 2017-04-22 05:56 | NUR ---
Nsg Note: Pt's BP 117/61 T 98.5 P 104 R 18 sPo2 98% on 2L o2 PNC. O2 increased to 3L. Will cont. to monitor.
[2017-04-22 06:06] VITALS: BP 117/61
[2017-04-22] MEDS: IPRATRPIUM/ALBUTEROL 0.5/2.5MG 3 ML NEBU. NEB SCH ×4 (06:31→20:00)
[2017-04-22] MEDS: CLOPIDOGREL BISULFATE 75 MG TABLET PO SCH (07:48)
[2017-04-22] MEDS: TAMSULOSIN 0.4 MG CAP.ER.24H. PO SCH ×2 (07:48→21:07)
[2017-04-22] MEDS: ASPIRIN 81 MG TAB.CHEW PO SCH (07:48)
[2017-04-22] MEDS: GABAPENTIN 300 MG CAPSULE. PO SCH ×3 (07:48→21:08)
[2017-04-22] MEDS: PANTOPRAZOLE 40 MG TABLET. PO SCH ×2 (07:48→21:08)
[2017-04-22] MEDS: buPROPion 75 MG TABLET PO SCH ×2 (07:49→11:56)
[2017-04-22] MEDS: MEGESTROL 400 MG/10 ML ORAL.SUSP. PO SCH ×3 (08:00→15:31)
[2017-04-22] MEDS: POLYETHYLENE GLYCOL 3350 17 GM PACKET. PO SCH (09:00)
[2017-04-22] MEDS: FUROSEMIDE 20 MG TABLET PO SCH (09:00)
[2017-04-22] MEDS: FOLIC ACID 1 MG TABLET PO SCH (09:00)
[2017-04-22] MEDS: DOCUSATE SODIUM 100 MG CAPSULE PO SCH ×2 (09:00→21:07)
[2017-04-22] MEDS: LACTOBACILLUS RHAMNOSUS GG 1 CAPSULE. PO SCH ×2 (09:00→21:07)
[2017-04-22] MEDS: CHOLECALCIFEROL (VITAMIN D3) 1,000 UNIT TABLET PO SCH (09:00)
[2017-04-22 09:43] LABS: BASO # 0.1 x10^3/uL (0.0-0.2); BASO % 1 % (0-3); EOS % 0 % (0-3); HEMATOCRIT 36.6 % (39.0-53.0); HEMOGLOBIN 11.7 g/dL (13.0-17.5); LYMPH # 0.8 x10^3/uL (1.0-4.8); LYMPH % 7 % (24-48); MEAN CORPUSCULAR HEMOGLOBIN 25 pg (25-35); MEAN CORPUSCULAR HGB CONC 32 g/dL (31-37); MEAN CORPUSCULAR VOLUME 78 fL (79-100); MONO # 0.6 x10^3/uL (0.0-1.1); MONO % 6 % (0-9); NEUT # 9.1 x10^3uL (1.8-7.7); NEUT % 86 % (31-73); PLATELET COUNT 171 x10^3/uL (140-400); RED BLOOD COUNT 4.69 x10^6/uL (4.30-5.70); RED CELL DISTRIBUTION WIDTH 18.7 % (11.5-14.5); WHITE BLOOD COUNT 10.6 x10^3/uL (4.0-11.0)
[2017-04-22 09:54] LABS: ALBUMIN 3.2 g/dL (3.4-5.0); ALBUMIN/GLOBULIN RATIO 0.7 (1.0-1.7); CALCIUM 9.1 mg/dL (8.5-10.1); CREATININE 1.6 mg/dL (0.7-1.3); GFR 42.6; POTASSIUM 3.7 mmol/L (3.5-5.1); TOTAL BILIRUBIN 0.5 mg/dL (0.2-1.0); TOTAL PROTEIN 8.1 g/dL (6.4-8.2)
--- NOTE | 2017-04-22 09:58 | NUR ---
Behavior Intervention Response and Plan: BIRP Note: Behavior: Assumed Care of patient, patient located in Day Room at shift change. Patient exhibited the following behavior Calm, cooperative, compliant. Brief assessment on rounds of vital signs, medication needs, lab studies, and pain. Treatment plan problems: 1-2 Intervention: Patient assessed and the following interventions initiated safety checks 15 Minute Checks Cognitive Assessment , Head to toe Assessment , Medications. Response: After interactions and interventions patient responded in the following manner, calm, cooperative, compliant. Continue to assess behaviors and condition will continue to monitor throughout the shift as needed. Patient educated on ADL's, and hand hygiene. Pt took his HS meds tonight w/ encouragement crushed in boost/ice cream. Tonight he was observed to be tremulous in bed. VSS: BP 133/58 T 98.2 P 113 sPo2 92% on 3L. Pt provided w/ extra blankets & room temp. adjusted. Plan: Continue to monitor Master Treatment Plan for patient's progress toward short term goals of Medication Compliance, Improved Mood, staff weapons officer goals to return to previous living setting vs placement. Continue to assess patient for changes in above assessment. Monitor for medication needs, pain, and safety concerns. Hourly rounding performed to ensure safe environment.
[2017-04-22 10:38] LABS: % BANDS 1 % (0-9); % BASOS 1 % (0-3); % LYMPHS 8 % (24-48); % MONOS 4 % (0-10); % SEGS 85 % (35-66); OVALOCYTES OCC; PLATELET CLUMP PRESENT; PLT ESTIMATE ADEQUATE (ADEQUATE); SCHISTOCYTES OCC; STOMATOCYTES OCC
[2017-04-22 10:40] VITALS: BP 123/68
--- NOTE | 2017-04-22 10:40 | NUR ---
Pt has had elevated HR. elevated WBC's, seg neutrophils, and BUN. bp stable Dr. Moncada paged new orders for UA and CXR.
[2017-04-22 11:19] LABS: BACTERIA,URINE 0 /HPF (0-FEW); BILIRUBIN,URINE NEG (NEG); CLARITY,URINE HAZY; COLOR,URINE AMBER; GLUCOSE,URINE NEG (NEG); NITRITE,URINE NEG (NEG); RBC,URINE RARE /HPF (0-2); SQUAMOUS EPITHELIAL CELL,UR OCC /LPF; UROBILINOGEN,URINE 1 mg/dL (0.2 mg/dL)
--- NOTE | 2017-04-22 11:21 | RAD ---
EXAM: Chest one view. HISTORY: Leukocytosis, tachycardia. COMPARISON: April 12, 2017. FINDINGS: A frontal view of the chest is obtained. There is a mild airspace infiltrate in the right base. There is no pneumothorax or pleural effusion. The heart is not enlarged. Changes of anterior and posterior cervical fusion are noted. There are atherosclerotic calcifications of the aorta. IMPRESSION: 1. Mild right basilar pneumonia. Electronically signed by: Hugo Gaviria MD (04/22/2017 11:17 AM) [id number]
--- NOTE | 2017-04-22 11:42 | NUR ---
Dr. Moncada paged with CXR results new order for levaquin 500mg PO daily X 10 days.
[2017-04-22] MEDS: levoFLOXacin 500 MG TABLET PO SCH (11:56)
[2017-04-22] MEDS: FUROSEMIDE 40 MG TABLET PO SCH (15:30)
[2017-04-22 16:32] VITALS: BP 127/71
[2017-04-22] MEDS: IV DEXTROSE 5 %-0.45 % NACL 1,000 ML IV SCH (18:53)
[2017-04-22] MEDS: MIRTAZAPINE 7.5 MG TABLET. PO SCH (21:07)
[2017-04-22] MEDS: ISOSORBIDE MONONITRATE ER 30 MG TAB.ER.24H PO SCH (21:08)
--- NOTE | 2017-04-22 22:39 | PDOC ---
Exam Note: Harjeet Note: Please also refer to the separate dictated note~for this date of service dictated separately.~Patient seen individually. Discussed the patient with Nursing staff reviewed the chart.~Reviewed interim history and current functioning. Reviewed vital signs,~Labs/ Radiology~and current medications noted below. Continue current treatment with the changes noted in the dictated addendum note Assessment: Vital Signs: Vital Signs Date Time Temp Pulse Resp B/P (MAP) Pulse Ox O2 Delivery O2 Flow Rate FiO2 04/22/17 21:08 100 127/71 04/22/17 16:54 97 Nasal Cannula 2.0 04/22/17 16:32 98.2 18 I&O Intake and Output 04/22/17 07:00 Intake Total 360 ml Balance 360 ml Intake Oral 360 ml Labs: Laboratory Tests Test 04/22/17 09:24 04/22/17 10:51 White Blood Count 10.6 x10^3/uL (4.0-11.0) # Red Blood Count 4.69 x10^6/uL (4.30-5.70) Hemoglobin 11.7 g/dL (13.0-17.5) L Hematocrit 36.6 % (39.0-53.0) L Mean Corpuscular Volume 78 fL (79-100) L Mean Corpuscular Hemoglobin 25 pg (25-35) Mean Corpuscular Hemoglobin Concent 32 g/dL (31-37) Red Cell Distribution Width 18.7 % (11.5-14.5) H Platelet Count 171 x10^3/uL (140-400) Neutrophils (%) (Auto) 86 % (31-73) H Lymphocytes (%) (Auto) 7 % (24-48) L Monocytes (%) (Auto) 6 % (0-9) Eosinophils (%) (Auto) 0 % (0-3) Basophils (%) (Auto) 1 % (0-3) Neutrophils # (Auto) 9.1 x10^3uL (1.8-7.7) H Lymphocytes # (Auto) 0.8 x10^3/uL (1.0-4.8) L Monocytes # (Auto) 0.6 x10^3/uL (0.0-1.1) Eosinophils # (Auto) 0.0 x10^3/uL (0.0-0.7) Basophils # (Auto) 0.1 x10^3/uL (0.0-0.2) Segmented Neutrophils % 85 % (35-66) H Band Neutrophils % 1 % (0-9) Lymphocytes % 8 % (24-48) L Monocytes % 4 % (0-10) Basophils % 1 % (0-3) Platelet Estimate Adequate (ADEQUATE) Platelet Clumps, EDTA Present Ovalocytes Occ Stomatocytes Occ Schistocytes Occ Sodium Level 142 mmol/L (136-145) Potassium Level 3.7 mmol/L (3.5-5.1) Chloride Level 103 mmol/L (98-107) Carbon Dioxide Level 29 mmol/L (21-32) Anion Gap 10 (6-14) Blood Urea Nitrogen 33 mg/dL (8-26) H Creatinine 1.6 mg/dL (0.7-1.3) H Estimated GFR (Cockcroft-Gault) 42.6 BUN/Creatinine Ratio 21 (6-20) H Glucose Level 137 mg/dL (70-99) H Calcium Level 9.1 mg/dL (8.5-10.1) Total Bilirubin 0.5 mg/dL (0.2-1.0) Aspartate Amino Transferase (AST) 33 U/L (15-37) Alanine Aminotransferase (ALT) 24 U/L (16-63) Alkaline Phosphatase 84 U/L (46-116) Total Protein 8.1 g/dL (6.4-8.2) Albumin 3.2 g/dL (3.4-5.0) L Albumin/Globulin Ratio 0.7 (1.0-1.7) L Urine Collection Type Unknown Urine Color Michell Urine Clarity Hazy Urine pH 7.0 Urine Specific [place] 1.020 Urine Protein 30 mg/dl (NEG-TRACE) Urine Glucose (UA) Neg mg/dL (NEG) Urine Ketones (Stick) Trace mg/dL (NEG) Urine Blood Neg (NEG) Urine Nitrite Neg (NEG) Urine Bilirubin Neg (NEG) Urine Urobilinogen Dipstick 1 mg/dL (0.2 mg/dL) Urine Leukocyte Esterase Neg (NEG) Urine RBC Rare /HPF (0-2) Urine WBC 1-4 /HPF (0-4) Urine Squamous Epithelial Cells Occ /LPF Urine Transitional Epithelial Cells Occ /LPF Urine Bacteria 0 /HPF (0-FEW) Urine Mucus Mod /LPF Current Medications: Meds: Current Medications Acetaminophen (Tylenol) 650 mg PRN Q4HRS PRN PO PAIN / TEMP; Start 04/06/17 at 15:15 Aspirin (Children'S Aspirin) 81 mg DAILY PO Last administered on 04/22/17 07: 48; Start 04/07/17 at 09:00 Vitamin D (Vitamin D3) 2,000 unit DAILY PO Last administered on 04/20/17 07:32 ; Start 04/07/17 at 09:00 Clopidogrel Bisulfate (Plavix) 75 mg DAILY PO Last administered on 04/22/17 07 :48; Start 04/07/17 at 09:00 Cyanocobalamin (Vitamin B-12) 1,000 mcg QMONTH SQ ; Start 05/06/17 at 09:00 Folic Acid (Folic Acid) 1 mg DAILY PO Last administered on 04/20/17 07:32; Start 04/07/17 at 09:00 Furosemide (Lasix) 20 mg 3X/WEEK PO Last administered on 04/19/17at 07:50; Start 04/08/17 at 09:00 Furosemide (Lasix) 40 mg QMTUTHSA PO Last administered on 04/22/17 15:30; Start 04/06/17 at 16:00 Gabapentin (Neurontin) 300 mg TID PO Last administered on 04/22/17 21:08; Start 04/06/17 at 21:00 Multi-Ingred Cream/Lotion/Oil/ Oint (Hydrocerin) 1 francia PRN BID PRN TP Dry Skin ; Start 04/06/17 at 15:15 Nitroglycerin (Nitrostat) 0.4 mg PRN Q5MIN PRN SL CHEST PAIN; Start 04/06/17 at 15:15 Pantoprazole Sodium (Protonix) 40 mg BID PO Last administered on 04/22/17 21: 08; Start 04/06/17 at 21:00 Sertraline HCl (Zoloft) 75 mg DAILY PO Last administered on 04/15/17 10:24; Start 04/07/17 at 09:00; Stop 04/15/17 at 17:45; Status DC Tamsulosin HCl (Flomax) 0.4 mg BID PO Last administered on 04/22/17 21:07; Start 04/06/17 at 21:00 Isosorbide Mononitrate (Imdur) 30 mg HS PO Last administered on 04/22/17 21:08 ; Start 04/06/17 at 21:00 Risperidone (RisperDAL CONSTA) 25 mg Q2WKS IM Last administered on 04/11/17at 10: 17; Start 04/11/17 at 09:00; Stop 04/17/17 at 18:40; Status DC Ceftriaxone Sodium (Rocephin Im) 1 gm DAILY IM Last administered on 04/16/17at 10 :59; Start 04/10/17 at 19:00; Stop 04/17/17 at 07:22; Status DC Lactobacillus Rhamnosus (Culturelle) 1 cap BID PO Last administered on 21:07; Start 04/10/17 at 21:00 Magnesium Hydroxide (Milk Of Magnesia) 2,400 mg PRN DAILY PRN PO CONSTIPATION Last administered on 04/13/17 14:30; Start 04/10/17 at 19:00 Albuterol/ Ipratropium (Duoneb) 3 ml RTQID NEB Last administered on 04/22/17at 16:53; Start 04/13/17 at 20:00 Docusate Sodium (Colace) 100 mg BID PO Last administered on 04/22/17 21:07; Start 04/13/17 at 21:00 Polyethylene Glycol (miraLAX) 17 gm DAILY PO Last administered on 04/20/17at 07: 33; Start 04/14/17 at 09:00 Bupropion HCl (Wellbutrin Xl) 150 mg DAILY PO ; Start 04/16/17 at 09:00; Stop 04/16/17 at 09:00; Status DC Bupropion HCl (Wellbutrin) 75 mg BID@0900,1200 PO Last administered on at 09:48; Start 04/16/17 at 09:00; Stop 04/16/17 at 18:51; Status DC Bupropion HCl (Wellbutrin) 75 mg DAILY@1200 PO Last administered on 04/18/17at 11 :51; Start 04/17/17 at 12:00; Stop 04/18/17 at 12:01; Status DC Bupropion HCl (Wellbutrin) 150 mg DAILY PO Last administered on 2/8/18at 10:15 ; Start 04/17/17 at 09:00; Stop 04/18/17 at 12:01; Status DC Risperidone (RisperDAL CONSTA) 37.5 mg Q2WKS IM ; Start 04/25/17 at 09:00 Bupropion HCl (Wellbutrin) 150 mg BID@0900,1200 PO Last administered on at 11:56; Start 04/19/17 at 09:00 Megestrol Acetate (Megace) 100 mg TIDWMEALS PO Last administered on 04/22/17at 15:31; Start 04/20/17 at 08:00 Mirtazapine (Remeron) 7.5 mg QHS PO Last administered on 04/22/17at 21:07; Start 04/20/17 at 21:00 Levofloxacin (Levaquin) 500 mg DAILY06 PO Last administered on 04/22/17at 11:56 ; Start 04/22/17 at 12:00; Stop 05/02/17 at 11:59 Dextrose/Sodium Chloride 1,000 ml @ 75 mls/hr [id number] IV Last administered on 04/22/17at 18:53; Start 04/22/17 at 18:30 Active Scripts Active Reported Risperdal Consta (Risperidone Microspheres) 37.5 Mg/2 Ml Disp.syrin 25 Mg IM Q2WKS Zoloft (Sertraline Hcl) 25 Mg Tablet 75 Mg PO DAILY Furosemide 40 Mg Tablet 40 Mg PO QMTUTHSA Tylenol (Acetaminophen) 325 Mg Tablet 650 Mg PO PRN Q4HRS PRN Nitrostat (Nitroglycerin) 0.4 Mg Tab.subl 0.4 Mg SL PRN Q5MIN PRN Eucerin Creme (Mineral Oil/Petrolatum,White) 120 Gm Cream..g. 1 Francia TP PRN PRN Gabapentin 300 Mg Capsule 300 Mg PO TID Vitamin D3 (Cholecalciferol (Vitamin D3)) 1,000 Unit Tablet 2,000 Unit PO DAILY Flomax (Tamsulosin Hcl) 0.4 Mg Cap.er.24h 0.4 Mg PO BID Simethicone 80 Mg Tab.chew 120 Mg PO BID Protonix (Pantoprazole Sodium) 40 Mg Tablet.dr 40 Mg PO BID Cyanocobalamin Injection (Cyanocobalamin (Vitamin B-12)) 1,000 Mcg/1 Ml Vial 1, 000 Mcg SQ QMONTH Once monthly on the Furosemide 20 Mg Tablet 20 Mg PO 3X/WEEK On Saturday, Saturday, & Saturday Folic Acid 1 Mg Tablet 1 Mg PO DAILY Plavix (Clopidogrel Bisulfate) 75 Mg Tablet 75 Mg PO DAILY Cetirizine Hcl 10 Mg Tablet 10 Mg PO DAILY Aspirin 81 Mg Tab.chew 81 Mg PO DAILY Metoprolol Tartrate 25 Mg Tablet 12.5 Mg PO BID Isosorbide Dinitrate 30 Mg Tablet 30 Mg PO HS I have reviewed the current psychotropics carefully including drug interactions. Risk benefit ratio favors no change other than as noted in my dictated progress note. Diagnosis: Problems: (1) Major depressive disorder (2) Schizoaffective disorder (3) Schizophrenia, disorganized, subchronic with acute exacerbation CHELY LAMB MD Apr 22, 2017 22:39
--- NOTE | 2017-04-23 05:55 | PN ---
DATE: 04/21/2017 PSYCHIATRIC PROGRESS NOTE This late entry 04/21/2017 covers elements, not covered in the initial note 04/21/2017. I met with the patient evening of 04/21/2017. The patient ate better at lunchtime, minimal rest of the day. Takes his meds in ice cream. Request mittens last night because he takes off his oxygen, ate some lunch, nothing for supper. REVIEW OF SYSTEMS: Ambulation impaired, in wheelchair, shortness of breath, on O2 supplements. No CV, , eye, ENT system symptoms on review. Reliability varies. MENTAL STATUS EXAM: Oriented to himself and situation. Speech moderate latency, often responses monosyllabic. Abstraction fair, computation impaired, language function intact. Mood and affect withdrawn. LABORATORY DATA: Reviewed. IMPRESSION: Schizoaffective disorder, bipolar type, mixed with psychotic features. Rest unchanged. PLAN: Continue current psychotropics including Megace to stimulate appetite. Encourage compliance with treatment. CHELY LAMB MD DR: ESTEFANY/aubrey JOB#: [id number] / [id number]
[2017-04-23] MEDS: levoFLOXacin 500 MG TABLET PO SCH ×2 (06:07→08:10)
[2017-04-23] MEDS: IPRATRPIUM/ALBUTEROL 0.5/2.5MG 3 ML NEBU. NEB SCH ×4 (06:14→20:54)
[2017-04-23 06:44] VITALS: BP 134/69
[2017-04-23] MEDS: IV DEXTROSE 5 %-0.45 % NACL 1,000 ML IV SCH ×2 (07:36→20:53)
[2017-04-23 08:02] LABS: CALCIUM 8.8 mg/dL (8.5-10.1); CREATININE 1.4 mg/dL (0.7-1.3); GFR 49.7; POTASSIUM 3.8 mmol/L (3.5-5.1)
[2017-04-23] MEDS: LACTOBACILLUS RHAMNOSUS GG 1 CAPSULE. PO SCH ×2 (08:09→19:10)
[2017-04-23] MEDS: TAMSULOSIN 0.4 MG CAP.ER.24H. PO SCH ×2 (08:09→19:10)
[2017-04-23] MEDS: FUROSEMIDE 40 MG TABLET PO SCH (08:09)
[2017-04-23] MEDS: GABAPENTIN 300 MG CAPSULE. PO SCH ×3 (08:09→19:10)
[2017-04-23] MEDS: MEGESTROL 400 MG/10 ML ORAL.SUSP. PO SCH ×3 (08:09→16:34)
[2017-04-23] MEDS: PANTOPRAZOLE 40 MG TABLET. PO SCH ×2 (08:09→19:10)
[2017-04-23] MEDS: DOCUSATE SODIUM 100 MG CAPSULE PO SCH ×2 (08:10→19:10)
[2017-04-23] MEDS: ASPIRIN 81 MG TAB.CHEW PO SCH (08:10)
[2017-04-23] MEDS: buPROPion 75 MG TABLET PO SCH ×2 (08:10→12:23)
[2017-04-23] MEDS: FOLIC ACID 1 MG TABLET PO SCH (08:10)
[2017-04-23] MEDS: POLYETHYLENE GLYCOL 3350 17 GM PACKET. PO SCH (08:10)
[2017-04-23] MEDS: CHOLECALCIFEROL (VITAMIN D3) 1,000 UNIT TABLET PO SCH (08:10)
[2017-04-23] MEDS: CLOPIDOGREL BISULFATE 75 MG TABLET PO SCH (08:10)
--- NOTE | 2017-04-23 09:27 | NUR ---
Behavior Intervention Response and Plan: BIRP Note: Behavior: Assumed Care of patient, patient located in Day Room at shift change. Patient exhibited the following behavior Calm, Compliant, Cooperative. Brief assessment on rounds of vital signs, medication needs, lab studies, and pain. Treatment plan problems 1 and 2. Intervention: Patient assessed and the following interventions initiated safety checks 15 Minute Checks Cognitive Assessment , Head to toe Assessment , Medications. Response: After interactions and interventions patient responded in the following manner, Calm , Appropriate ,Compliant. Continue to assess behaviors and condition will continue to monitor throughout the shift as needed. Patient educated on ADL's, and hand hygiene. Plan: Continue to monitor Master Treatment Plan for patient's progress toward short term goals of Medication Compliance, Improved Mood, residential goals to return to previous living setting vs placement. Continue to assess patient for changes in above assessment. Monitor for medication needs, pain, and safety concerns. Hourly rounding performed to ensure safe environment.
--- NOTE | 2017-04-23 09:29 | NUR ---
IV continues to run @75ml per hour. Bag changed at 0830. Will continue to monitor.
--- NOTE | 2017-04-23 10:07 | NUR ---
SW faxed updated clinical notes to pt's facility.
[2017-04-23 16:03] VITALS: BP 116/76
[2017-04-23] MEDS: MIRTAZAPINE 7.5 MG TABLET. PO SCH (19:10)
--- NOTE | 2017-04-23 20:13 | PDOC ---
Exam Note: Harjeet Note: Please also refer to the separate dictated note~for this date of service dictated separately.~Patient seen individually. Discussed the patient with Nursing staff reviewed the chart.~Reviewed interim history and current functioning. Reviewed vital signs,~Labs/ Radiology~and current medications noted below. Continue current treatment with the changes noted in the dictated addendum note Assessment: Vital Signs: Vital Signs Date Time Temp Pulse Resp B/P (MAP) Pulse Ox O2 Delivery O2 Flow Rate FiO2 04/23/17 16:57 97 Nasal Cannula 2.0 04/23/17 16:03 98.2 103 16 116/76 (89) I&O Intake and Output 04/23/17 07:00 Intake Total 1080 ml Balance 1080 ml Intake Oral 1080 ml Labs: Laboratory Tests Test 04/23/17 07:44 Sodium Level 139 mmol/L (136-145) Potassium Level 3.8 mmol/L (3.5-5.1) Chloride Level 102 mmol/L (98-107) Carbon Dioxide Level 29 mmol/L (21-32) Anion Gap 8 (6-14) Blood Urea Nitrogen 26 mg/dL (8-26) Creatinine 1.4 mg/dL (0.7-1.3) H Estimated GFR (Cockcroft-Gault) 49.7 Glucose Level 92 mg/dL (70-99) Calcium Level 8.8 mg/dL (8.5-10.1) Current Medications: Meds: Current Medications Acetaminophen (Tylenol) 650 mg PRN Q4HRS PRN PO PAIN / TEMP; Start 04/06/17 at 15:15 Aspirin (Children'S Aspirin) 81 mg DAILY PO Last administered on 04/23/17at 08: 10; Start 04/07/17 at 09:00 Vitamin D (Vitamin D3) 2,000 unit DAILY PO Last administered on 04/23/17at 08:10 ; Start 04/07/17 at 09:00 Clopidogrel Bisulfate (Plavix) 75 mg DAILY PO Last administered on 04/23/17at 08 :10; Start 04/07/17 at 09:00 Cyanocobalamin (Vitamin B-12) 1,000 mcg QMONTH SQ ; Start 05/06/17 at 09:00 Folic Acid (Folic Acid) 1 mg DAILY PO Last administered on 04/23/17at 08:10; Start 04/07/17 at 09:00 Furosemide (Lasix) 20 mg 3X/WEEK PO Last administered on 04/19/17 07:50; Start 04/08/17 at 09:00 Furosemide (Lasix) 40 mg QMTUTHSA PO Last administered on 04/23/17 08:09; Start 04/06/17 at 16:00 Gabapentin (Neurontin) 300 mg TID PO Last administered on 04/23/17 19:10; Start 04/06/17 at 21:00 Multi-Ingred Cream/Lotion/Oil/ Oint (Hydrocerin) 1 francia PRN BID PRN TP Dry Skin ; Start 04/06/17 at 15:15 Nitroglycerin (Nitrostat) 0.4 mg PRN Q5MIN PRN SL CHEST PAIN; Start 04/06/17 at 15:15 Pantoprazole Sodium (Protonix) 40 mg BID PO Last administered on 04/23/17 19: 10; Start 04/06/17 at 21:00 Sertraline HCl (Zoloft) 75 mg DAILY PO Last administered on 04/15/17 10:24; Start 04/07/17 at 09:00; Stop 04/15/17 at 17:45; Status DC Tamsulosin HCl (Flomax) 0.4 mg BID PO Last administered on 04/23/17 19:10; Start 04/06/17 at 21:00 Isosorbide Mononitrate (Imdur) 30 mg HS PO Last administered on 04/22/17 21:08 ; Start 04/06/17 at 21:00 Risperidone (RisperDAL CONSTA) 25 mg Q2WKS IM Last administered on 04/11/17 10: 17; Start 04/11/17 at 09:00; Stop 04/17/17 at 18:40; Status DC Ceftriaxone Sodium (Rocephin Im) 1 gm DAILY IM Last administered on 04/16/17 10 :59; Start 04/10/17 at 19:00; Stop 04/17/17 at 07:22; Status DC Lactobacillus Rhamnosus (Culturelle) 1 cap BID PO Last administered on 19:10; Start 04/10/17 at 21:00 Magnesium Hydroxide (Milk Of Magnesia) 2,400 mg PRN DAILY PRN PO CONSTIPATION Last administered on 04/13/17 14:30; Start 04/10/17 at 19:00 Albuterol/ Ipratropium (Duoneb) 3 ml RTQID NEB Last administered on 04/23/17 16:56; Start 04/13/17 at 20:00 Docusate Sodium (Colace) 100 mg BID PO Last administered on 04/23/17 19:10; Start 04/13/17 at 21:00 Polyethylene Glycol (miraLAX) 17 gm DAILY PO Last administered on 04/23/17 08: 10; Start 04/14/17 at 09:00 Bupropion HCl (Wellbutrin Xl) 150 mg DAILY PO ; Start 04/16/17 at 09:00; Stop 04/16/17 at 09:00; Status DC Bupropion HCl (Wellbutrin) 75 mg BID@0900,1200 PO Last administered on 09:48; Start 04/16/17 at 09:00; Stop 04/16/17 at 18:51; Status DC Bupropion HCl (Wellbutrin) 75 mg DAILY@1200 PO Last administered on 04/18/17 11 :51; Start 04/17/17 at 12:00; Stop 04/18/17 at 12:01; Status DC Bupropion HCl (Wellbutrin) 150 mg DAILY PO Last administered on 04/18/17 10:15 ; Start 04/17/17 at 09:00; Stop 04/18/17 at 12:01; Status DC Risperidone (RisperDAL CONSTA) 37.5 mg Q2WKS IM ; Start 04/25/17 at 09:00 Bupropion HCl (Wellbutrin) 150 mg BID@0900,1200 PO Last administered on 12:23; Start 04/19/17 at 09:00 Megestrol Acetate (Megace) 100 mg TIDWMEALS PO Last administered on 04/23/17 16:34; Start 04/20/17 at 08:00 Mirtazapine (Remeron) 7.5 mg QHS PO Last administered on 04/23/17 19:10; Start 04/20/17 at 21:00 Levofloxacin (Levaquin) 500 mg DAILY06 PO Last administered on 04/23/17at 08:10 ; Start 04/22/17 at 12:00; Stop 05/02/17 at 11:59 Dextrose/Sodium Chloride 1,000 ml @ 75 mls/hr [id number] IV Last administered on 04/23/17at 07:36; Start 04/22/17 at 18:30 Active Scripts Active Reported Risperdal Consta (Risperidone Microspheres) 37.5 Mg/2 Ml Disp.syrin 25 Mg IM Q2WKS Zoloft (Sertraline Hcl) 25 Mg Tablet 75 Mg PO DAILY Furosemide 40 Mg Tablet 40 Mg PO QMTUTHSA Tylenol (Acetaminophen) 325 Mg Tablet 650 Mg PO PRN Q4HRS PRN Nitrostat (Nitroglycerin) 0.4 Mg Tab.subl 0.4 Mg SL PRN Q5MIN PRN Eucerin Creme (Mineral Oil/Petrolatum,White) 120 Gm Cream..g. 1 Francia TP PRN PRN Gabapentin 300 Mg Capsule 300 Mg PO TID Vitamin D3 (Cholecalciferol (Vitamin D3)) 1,000 Unit Tablet 2,000 Unit PO DAILY Flomax (Tamsulosin Hcl) 0.4 Mg Cap.er.24h 0.4 Mg PO BID Simethicone 80 Mg Tab.chew 120 Mg PO BID Protonix (Pantoprazole Sodium) 40 Mg Tablet.dr 40 Mg PO BID Cyanocobalamin Injection (Cyanocobalamin (Vitamin B-12)) 1,000 Mcg/1 Ml Vial 1, 000 Mcg SQ QMONTH Once monthly on the Furosemide 20 Mg Tablet 20 Mg PO 3X/WEEK On Saturday, Saturday, & Saturday Folic Acid 1 Mg Tablet 1 Mg PO DAILY Plavix (Clopidogrel Bisulfate) 75 Mg Tablet 75 Mg PO DAILY Cetirizine Hcl 10 Mg Tablet 10 Mg PO DAILY Aspirin 81 Mg Tab.chew 81 Mg PO DAILY Metoprolol Tartrate 25 Mg Tablet 12.5 Mg PO BID Isosorbide Dinitrate 30 Mg Tablet 30 Mg PO HS I have reviewed the current psychotropics carefully including drug interactions. Risk benefit ratio favors no change other than as noted in my dictated progress note. Diagnosis: Problems: (1) Congestive heart failure (CHF) (2) Dehydration (3) Renal insufficiency (4) Elevated creatine kinase (5) Major depressive disorder (6) Schizoaffective disorder (7) Schizophrenia, disorganized, subchronic with acute exacerbation CHELY LAMB MD Apr 23, 2017 20:13
[2017-04-23] MEDS: ISOSORBIDE MONONITRATE ER 30 MG TAB.ER.24H PO SCH (21:46)
--- NOTE | 2017-04-23 23:58 | PN ---
DATE: 04/22/2017 This is a late entry for 04/22/2017 and covers the elements not covered in my initial note of 04/22/2017. SUBJECTIVE: I met with the patient in the evening of 04/22/2017. The patient continues to have very poor oral intake, somewhat withdrawn. We are checking with Dr. Moncada. Essentially, he has been on hospice care in the past whether it may be back to considering that once again. He is still somewhat paranoid. REVIEW OF SYSTEMS: Ambulation impaired, in wheelchair, he is on O2 supplements. No CV, , GI system symptoms on review. MENTAL STATUS EXAM: Oriented to himself and situation. Speech moderate latency, often responses monosyllabic. Abstraction fair, computation impaired, language function intact, still somewhat paranoid. No active suicidal or homicidal ideation. IMPRESSION: Schizoaffective disorder, bipolar type, depressed. Rest unchanged. PLAN: Continue current psychotropics. Consider hospice care. We have added Megace to help stimulate appetite so far with limited results as well. MAN Horace LAMB MD DR: ESTEFANY/aubrey JOB#: [id number] / [id number]
--- NOTE | 2017-04-24 00:06 | NUR ---
Behavior Intervention Response and Plan: BIRP Note: Behavior: Assumed Care of patient, patient located in Day Room at shift change. Patient exhibited the following behavior Calm, Disorganized, Resistive. Brief assessment on rounds of vital signs, medication needs, lab studies, and pain. Treatment plan problems Alteration in Mood and Fall Risk. Intervention: Patient assessed and the following interventions initiated safety checks 15 Minute Checks Cognitive Assessment , Medications , Nutrition. Response: After interactions and interventions patient responded in the following manner, Calm , Compliant ,Cooperative. Continue to assess behaviors and condition will continue to monitor throughout the shift as needed. Patient educated on ADL's, and hand hygiene. 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 Continue to assess patient for changes in above assessment. Monitor for medication needs, pain, and safety concerns. Hourly rounding performed to ensure safe environment.
[2017-04-24] MEDS: MAGNESIUM HYDROXIDE 2,400 MG/30 ML ORAL.SUSP. PO PRN (05:27)
--- NOTE | 2017-04-24 05:31 | NUR ---
Nursing Note Patient is complaining of abdominal discomfort both when resting and when palpated. Patient abdomen is distended. Patient last documented bowel movement was on 04/16/17. PRN Milk of Magnesia given per PRN order.
[2017-04-24] MEDS: IPRATRPIUM/ALBUTEROL 0.5/2.5MG 3 ML NEBU. NEB SCH ×4 (05:41→21:46)
[2017-04-24 06:29] VITALS: BP 149/65
[2017-04-24] MEDS: levoFLOXacin 500 MG TABLET PO SCH (07:31)
[2017-04-24] MEDS: MEGESTROL 400 MG/10 ML ORAL.SUSP. PO SCH ×3 (07:31→17:14)
[2017-04-24] MEDS: LACTOBACILLUS RHAMNOSUS GG 1 CAPSULE. PO SCH ×2 (07:33→20:08)
[2017-04-24] MEDS: PANTOPRAZOLE 40 MG TABLET. PO SCH ×2 (07:33→20:08)
[2017-04-24] MEDS: ASPIRIN 81 MG TAB.CHEW PO SCH (07:33)
[2017-04-24] MEDS: GABAPENTIN 300 MG CAPSULE. PO SCH ×3 (07:34→20:08)
[2017-04-24] MEDS: CLOPIDOGREL BISULFATE 75 MG TABLET PO SCH (07:34)
[2017-04-24] MEDS: buPROPion 75 MG TABLET PO SCH ×2 (07:34→12:32)
[2017-04-24] MEDS: FUROSEMIDE 20 MG TABLET PO SCH (07:34)
[2017-04-24] MEDS: TAMSULOSIN 0.4 MG CAP.ER.24H. PO SCH ×2 (07:34→20:08)
[2017-04-24] MEDS: FOLIC ACID 1 MG TABLET PO SCH (07:34)
[2017-04-24] MEDS: CHOLECALCIFEROL (VITAMIN D3) 1,000 UNIT TABLET PO SCH (07:35)
[2017-04-24] MEDS: POLYETHYLENE GLYCOL 3350 17 GM PACKET. PO SCH (07:35)
[2017-04-24] MEDS: DOCUSATE SODIUM 100 MG CAPSULE PO SCH ×2 (07:35→20:08)
[2017-04-24] MEDS: IV DEXTROSE 5 %-0.45 % NACL 1,000 ML IV SCH ×2 (10:30→23:50)
--- NOTE | 2017-04-24 15:00 | NUR ---
WEEKLY THERAPEUTIC RECREATION NOTE Date of Admission: 04/04/2017 Date of AT Assessment: 04/07/2017 Goal aimed: to increase socialization and engagement Initial goal: Pt. will participate in at least one group a day. Weekly progress towards goal: did not meet Group participation level: minimal Behaviors observed: usually sitting away from group, says he can't do anything but will direct others to engage in activities. Plan: no changes to goal
--- NOTE | 2017-04-24 15:00 | NUR ---
Behavior Intervention Response and Plan: BIRP Note: Behavior: Assumed Care of patient, patient located in Day Room at shift change. Patient exhibited the following behavior Calm, Resistive, Withdrawn. Brief assessment on rounds of vital signs, medication needs, lab studies, and pain. Treatment plan problems Alteration in Mood and Fall Risk. Intervention: Patient assessed and the following interventions initiated safety checks 15 Minute Checks Medications , Head to toe Assessment , Cognitive Assessment. Response: After interactions and interventions patient responded in the following manner, Resistive , Withdrawn ,Calm. Continue to assess behaviors and condition will continue to monitor throughout the shift as needed. Patient educated on ADL's, and hand hygiene. 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 Continue to assess patient for changes in above assessment. Monitor for medication needs, pain, and safety concerns. Hourly rounding performed to ensure safe environment.
[2017-04-24 16:49] VITALS: BP 153/71
--- NOTE | 2017-04-24 19:13 | PDOC ---
Exam Note: Harjeet Note: Please also refer to the separate dictated note~for this date of service dictated separately.~Patient seen individually. Discussed the patient with Nursing staff reviewed the chart.~Reviewed interim history and current functioning. Reviewed vital signs,~Labs/ Radiology~and current medications noted below. Continue current treatment with the changes noted in the dictated addendum note Assessment: Vital Signs: Vital Signs Date Time Temp Pulse Resp B/P (MAP) Pulse Ox O2 Delivery O2 Flow Rate FiO2 04/24/17 16:49 96.2 104 22 153/71 (98) 96 2.0 04/24/17 11:42 Nasal Cannula I&O Intake and Output 04/24/17 07:00 Intake Total 1120 ml Balance 1120 ml Intake Oral 1120 ml Current Medications: Meds: Current Medications Acetaminophen (Tylenol) 650 mg PRN Q4HRS PRN PO PAIN / TEMP; Start 04/06/17 at 15:15 Aspirin (Children'S Aspirin) 81 mg DAILY PO Last administered on 04/24/17 07: 33; Start 04/07/17 at 09:00 Vitamin D (Vitamin D3) 2,000 unit DAILY PO Last administered on 04/24/17at 07:35 ; Start 04/07/17 at 09:00 Clopidogrel Bisulfate (Plavix) 75 mg DAILY PO Last administered on 04/24/17 07 :34; Start 04/07/17 at 09:00 Cyanocobalamin (Vitamin B-12) 1,000 mcg QMONTH SQ ; Start 05/06/17 at 09:00 Folic Acid (Folic Acid) 1 mg DAILY PO Last administered on 04/24/17at 07:34; Start 04/07/17 at 09:00 Furosemide (Lasix) 20 mg 3X/WEEK PO Last administered on 04/24/17at 07:34; Start 04/08/17 at 09:00 Furosemide (Lasix) 40 mg QMTUTHSA PO Last administered on 04/23/17at 08:09; Start 04/06/17 at 16:00 Gabapentin (Neurontin) 300 mg TID PO Last administered on 04/24/17at 14:00; Start 04/06/17 at 21:00 Multi-Ingred Cream/Lotion/Oil/ Oint (Hydrocerin) 1 francia PRN BID PRN TP Dry Skin ; Start 04/06/17 at 15:15 Nitroglycerin (Nitrostat) 0.4 mg PRN Q5MIN PRN SL CHEST PAIN; Start 04/06/17 at 15:15 Pantoprazole Sodium (Protonix) 40 mg BID PO Last administered on 04/24/17 07: 33; Start 04/06/17 at 21:00 Sertraline HCl (Zoloft) 75 mg DAILY PO Last administered on 04/15/17 10:24; Start 04/07/17 at 09:00; Stop 04/15/17 at 17:45; Status DC Tamsulosin HCl (Flomax) 0.4 mg BID PO Last administered on 04/24/17 07:34; Start 04/06/17 at 21:00 Isosorbide Mononitrate (Imdur) 30 mg HS PO Last administered on 04/22/17at 21:08 ; Start 04/06/17 at 21:00; Stop 04/23/17 at 21:20; Status DC Risperidone (RisperDAL CONSTA) 25 mg Q2WKS IM Last administered on 04/11/17at 10: 17; Start 04/11/17 at 09:00; Stop 04/17/17 at 18:40; Status DC Ceftriaxone Sodium (Rocephin Im) 1 gm DAILY IM Last administered on 04/16/17 10 :59; Start 04/10/17 at 19:00; Stop 04/17/17 at 07:22; Status DC Lactobacillus Rhamnosus (Culturelle) 1 cap BID PO Last administered on 07:33; Start 04/10/17 at 21:00 Magnesium Hydroxide (Milk Of Magnesia) 2,400 mg PRN DAILY PRN PO CONSTIPATION Last administered on 04/24/17 05:27; Start 04/10/17 at 19:00 Albuterol/ Ipratropium (Duoneb) 3 ml RTQID NEB Last administered on 04/24/17 11:42; Start 04/13/17 at 20:00 Docusate Sodium (Colace) 100 mg BID PO Last administered on 04/24/17 07:35; Start 04/13/17 at 21:00 Polyethylene Glycol (miraLAX) 17 gm DAILY PO Last administered on 04/24/17 07: 35; Start 04/14/17 at 09:00 Bupropion HCl (Wellbutrin Xl) 150 mg DAILY PO ; Start 04/16/17 at 09:00; Stop 04/16/17 at 09:00; Status DC Bupropion HCl (Wellbutrin) 75 mg BID@0900,1200 PO Last administered on at 09:48; Start 04/16/17 at 09:00; Stop 04/16/17 at 18:51; Status DC Bupropion HCl (Wellbutrin) 75 mg DAILY@1200 PO Last administered on 04/18/17at 11 :51; Start 04/17/17 at 12:00; Stop 04/18/17 at 12:01; Status DC Bupropion HCl (Wellbutrin) 150 mg DAILY PO Last administered on 04/18/17at 10:15 ; Start 04/17/17 at 09:00; Stop 04/18/17 at 12:01; Status DC Risperidone (RisperDAL CONSTA) 37.5 mg Q2WKS IM ; Start 04/25/17 at 09:00 Bupropion HCl (Wellbutrin) 150 mg BID@0900,1200 PO Last administered on at 12:32; Start 04/19/17 at 09:00 Megestrol Acetate (Megace) 100 mg TIDWMEALS PO Last administered on 04/24/17at 17:14; Start 04/20/17 at 08:00 Mirtazapine (Remeron) 7.5 mg QHS PO Last administered on 04/23/17at 19:10; Start 04/20/17 at 21:00; Stop 04/24/17 at 18:13; Status DC Levofloxacin (Levaquin) 500 mg DAILY06 PO Last administered on 04/24/17at 07:31 ; Start 04/22/17 at 12:00; Stop 05/02/17 at 11:59 Dextrose/Sodium Chloride 1,000 ml @ 75 mls/hr [id number] IV Last administered on 04/23/17at 20:53; Start 04/22/17 at 18:30 Isosorbide Mononitrate (Imdur) 30 mg HS PO Last administered on 04/23/17at 21:46 ; Start 04/23/17 at 21:30 Mirtazapine (Remeron) 15 mg QHS PO ; Start 04/24/17 at 21:00 Active Scripts Active Reported Risperdal Consta (Risperidone Microspheres) 37.5 Mg/2 Ml Disp.syrin 25 Mg IM Q2WKS Zoloft (Sertraline Hcl) 25 Mg Tablet 75 Mg PO DAILY Furosemide 40 Mg Tablet 40 Mg PO QMTUTHSA Tylenol (Acetaminophen) 325 Mg Tablet 650 Mg PO PRN Q4HRS PRN Nitrostat (Nitroglycerin) 0.4 Mg Tab.subl 0.4 Mg SL PRN Q5MIN PRN Eucerin Creme (Mineral Oil/Petrolatum,White) 120 Gm Cream..g. 1 Francia TP PRN PRN Gabapentin 300 Mg Capsule 300 Mg PO TID Vitamin D3 (Cholecalciferol (Vitamin D3)) 1,000 Unit Tablet 2,000 Unit PO DAILY Flomax (Tamsulosin Hcl) 0.4 Mg Cap.er.24h 0.4 Mg PO BID Simethicone 80 Mg Tab.chew 120 Mg PO BID Protonix (Pantoprazole Sodium) 40 Mg Tablet.dr 40 Mg PO BID Cyanocobalamin Injection (Cyanocobalamin (Vitamin B-12)) 1,000 Mcg/1 Ml Vial 1, 000 Mcg SQ QMONTH Once monthly on the Furosemide 20 Mg Tablet 20 Mg PO 3X/WEEK On Saturday, Saturday, & Saturday Folic Acid 1 Mg Tablet 1 Mg PO DAILY Plavix (Clopidogrel Bisulfate) 75 Mg Tablet 75 Mg PO DAILY Cetirizine Hcl 10 Mg Tablet 10 Mg PO DAILY Aspirin 81 Mg Tab.chew 81 Mg PO DAILY Metoprolol Tartrate 25 Mg Tablet 12.5 Mg PO BID Isosorbide Dinitrate 30 Mg Tablet 30 Mg PO HS I have reviewed the current psychotropics carefully including drug interactions. Risk benefit ratio favors no change other than as noted in my dictated progress note. Diagnosis: Problems: (1) Congestive heart failure (CHF) (2) Dehydration (3) Renal insufficiency (4) Elevated creatine kinase (5) Major depressive disorder (6) Schizoaffective disorder (7) Schizophrenia, disorganized, subchronic with acute exacerbation CHELY LAMB MD Apr 24, 2017 19:13
[2017-04-24] MEDS: ISOSORBIDE MONONITRATE ER 30 MG TAB.ER.24H PO SCH (20:14)
[2017-04-24] MEDS: MIRTAZAPINE 15 MG TABLET PO SCH (20:15)
--- NOTE | 2017-04-24 20:56 | NUR ---
Behavior Intervention Response and Plan: BIRP Note: Behavior: Assumed Care of patient, patient located in Day Room at shift change. Patient exhibited the following behavior Disorganized, Compliant, Cooperative. Brief assessment on rounds of vital signs, medication needs, lab studies, and pain. Treatment plan problems Alteration in Mood and Fall Risk. Intervention: Patient assessed and the following interventions initiated safety checks 15 Minute Checks Personal Alarm in place , Cognitive Assessment , Medications. Response: After interactions and interventions patient responded in the following manner, Calm , Compliant ,Cooperative. Continue to assess behaviors and condition will continue to monitor throughout the shift as needed. Patient educated on ADL's, and hand hygiene. 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 Continue to assess patient for changes in above assessment. Monitor for medication needs, pain, and safety concerns. Hourly rounding performed to ensure safe environment.
--- NOTE | 2017-04-24 22:02 | RAD ---
Examination: CT of the abdomen pelvis without contrast HISTORY: History of abdominal distention COMPARISON: 08/31/2013 Technique: Axial CT images of the abdomen pelvis were performed without contrast. Coronal and sagittal reformats are performed. Exposure: One or more of the following individualized dose reduction techniques were utilized for this examination: 1. Automated exposure control 2. Adjustment of the mA and/or kV according to patient size 3. Use of iterative reconstruction technique FINDINGS: Mild bibasilar lung airspace opacities likely atelectasis or infiltrates. No evidence of free air identified in the abdomen. The visualized noncontrasted liver, spleen, adrenals grossly appears unremarkable. The gallbladder is mildly distended. The stomach is mildly distended. The visualized pancreas grossly appears unremarkable. The small bowel is nondilated. Moderate amount of stool identified in the colon. There is moderate amount of stool identified in the rectum. Few sigmoid colon diverticulosis identified. Urinary bladder is mildly distended. Mildly atrophic appearance of the right kidney. No evidence of hydronephrosis. Examination limited due to motion artifact. Moderate aortic atherosclerosis. Moderate degenerative changes lumbar spine. IMPRESSION: 1. Moderate amount of stool identified in the colon and the rectum. Correlate for fecal impaction. 2. Sigmoid colon diverticulosis. 3. Examination limited due to motion artifact. Electronically signed by: Bucky Fraser MD (04/24/2017 9:57 PM) [facility]
--- NOTE | 2017-04-24 23:11 | PN ---
DATE: 04/23/2017 PSYCHIATRIC PROGRESS NOTE This late entry 04/23/2017 covers elements not covered in my initial note of 04/23/2017. I met with the patient in the evening of 04/23/2017. The patient remains somewhat withdrawn, takes his medications and drinks, has an IV in place. Remains on antibiotics for pneumonia, ate little for his breakfast, lunch, nothing for supper. REVIEW OF SYSTEMS: Shortness of breath on O2 supplements, impaired ambulation in wheelchair. No CV, GI, system symptoms on review. MENTAL STATUS EXAM: Oriented to himself and situation. Speech moderate latency, often responses monosyllabic. Abstraction fair, computation impaired, language function intact, attention span short. Mood and affect withdrawn. LABORATORY DATA: Reviewed. IMPRESSION: Schizoaffective disorder, bipolar type mixed, cognitive disorder, unspecified. Rest unchanged from initial note. PLAN: Continue psychotropics mentioned in my initial note including Megace, adjust as clinically indicated. MAN Horace LAMB MD DR: ESTEFANY/aubrey JOB#: [id number] / [id number]
[2017-04-25] MEDS: MAGNESIUM HYDROXIDE 2,400 MG/30 ML ORAL.SUSP. PO PRN (05:17)
--- NOTE | 2017-04-25 05:17 | NUR ---
Nursing Note Patient complaining of abdominal pain. Patient abdomen is distended. Patient last bowel movement documented on 04/19/17. Patient given PRN Milk of Magnesia per PRN order.
[2017-04-25 06:08] VITALS: BP 121/57
[2017-04-25] MEDS: IPRATRPIUM/ALBUTEROL 0.5/2.5MG 3 ML NEBU. NEB SCH ×4 (06:11→22:03)
[2017-04-25] MEDS: MEGESTROL 400 MG/10 ML ORAL.SUSP. PO SCH ×3 (07:41→16:23)
[2017-04-25] MEDS: PANTOPRAZOLE 40 MG TABLET. PO SCH ×2 (07:42→19:36)
[2017-04-25] MEDS: levoFLOXacin 500 MG TABLET PO SCH (07:42)
[2017-04-25] MEDS: buPROPion 75 MG TABLET PO SCH ×2 (07:42→11:55)
[2017-04-25] MEDS: LACTOBACILLUS RHAMNOSUS GG 1 CAPSULE. PO SCH ×2 (07:43→19:36)
[2017-04-25] MEDS: ASPIRIN 81 MG TAB.CHEW PO SCH (07:43)
[2017-04-25] MEDS: GABAPENTIN 300 MG CAPSULE. PO SCH ×3 (07:43→19:35)
[2017-04-25] MEDS: TAMSULOSIN 0.4 MG CAP.ER.24H. PO SCH ×2 (07:43→19:36)
[2017-04-25] MEDS: CHOLECALCIFEROL (VITAMIN D3) 1,000 UNIT TABLET PO SCH (07:43)
[2017-04-25] MEDS: CLOPIDOGREL BISULFATE 75 MG TABLET PO SCH (07:43)
[2017-04-25] MEDS: POLYETHYLENE GLYCOL 3350 17 GM PACKET. PO SCH ×2 (07:43→19:42)
[2017-04-25] MEDS: DOCUSATE SODIUM 100 MG CAPSULE PO SCH ×2 (07:43→19:35)
[2017-04-25] MEDS: FOLIC ACID 1 MG TABLET PO SCH (07:45)
[2017-04-25] MEDS ORDERED: risperiDONE MICROSPHERES 37.5 MG/2 ML DISP.SYRIN. IM SCH (09:00)
[2017-04-25] MEDS: IV DEXTROSE 5 %-0.45 % NACL 1,000 ML IV SCH (13:10)
[2017-04-25 15:40] VITALS: BP 145/85
[2017-04-25] MEDS: FUROSEMIDE 40 MG TABLET PO SCH (16:21)
--- NOTE | 2017-04-25 17:27 | NUR ---
Behavior Intervention Response and Plan: BIRP Note: Behavior: Assumed Care of patient, patient located in Day Room at shift change. Patient exhibited the following behavior Calm, Compliant, Disorganized. Brief assessment on rounds of vital signs, medication needs, lab studies, and pain. Treatment plan problems Alteration in Mood and Fall Risk. Intervention: Patient assessed and the following interventions initiated safety checks 15 Minute Checks Cognitive Assessment , Head to toe Assessment , Medications. Response: After interactions and interventions patient responded in the following manner, Calm , Cooperative ,Disorganized. Continue to assess behaviors and condition will continue to monitor throughout the shift as needed. Patient educated on ADL's, and hand hygiene. 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 Continue to assess patient for changes in above assessment. Monitor for medication needs, pain, and safety concerns. Hourly rounding performed to ensure safe environment.
[2017-04-25] MEDS: MIRTAZAPINE 15 MG TABLET PO SCH (19:35)
[2017-04-25] MEDS: ISOSORBIDE MONONITRATE ER 30 MG TAB.ER.24H PO SCH (19:36)
--- NOTE | 2017-04-25 19:41 | PDOC ---
Exam Note: Harjeet Note: Please also refer to the separate dictated note~for this date of service dictated separately.~Patient seen individually. Discussed the patient with Nursing staff reviewed the chart.~Reviewed interim history and current functioning. Reviewed vital signs,~Labs/ Radiology~and current medications noted below. Continue current treatment with the changes noted in the dictated addendum note Assessment: Vital Signs: Vital Signs Date Time Temp Pulse Resp B/P (MAP) Pulse Ox O2 Delivery O2 Flow Rate FiO2 04/25/17 19:36 93 145/85 04/25/17 16:40 93 Nasal Cannula 2.0 04/25/17 15:40 97.6 20 I&O Intake and Output 04/25/17 07:00 Intake Total 720 ml Balance 720 ml Intake Oral 720 ml Current Medications: Meds: Current Medications Acetaminophen (Tylenol) 650 mg PRN Q4HRS PRN PO PAIN / TEMP; Start 04/06/17 at 15:15 Aspirin (Children'S Aspirin) 81 mg DAILY PO Last administered on 04/25/17at 07: 43; Start 04/07/17 at 09:00 Vitamin D (Vitamin D3) 2,000 unit DAILY PO Last administered on 04/25/17 07:43 ; Start 04/07/17 at 09:00 Clopidogrel Bisulfate (Plavix) 75 mg DAILY PO Last administered on 04/25/17 07 :43; Start 04/07/17 at 09:00 Cyanocobalamin (Vitamin B-12) 1,000 mcg QMONTH SQ ; Start 05/06/17 at 09:00 Folic Acid (Folic Acid) 1 mg DAILY PO Last administered on 04/25/17at 07:45; Start 04/07/17 at 09:00 Furosemide (Lasix) 20 mg 3X/WEEK PO Last administered on 04/24/17at 07:34; Start 04/08/17 at 09:00 Furosemide (Lasix) 40 mg QMTUTHSA PO Last administered on 04/25/17at 16:21; Start 04/06/17 at 16:00 Gabapentin (Neurontin) 300 mg TID PO Last administered on 04/25/17at 19:35; Start 04/06/17 at 21:00 Multi-Ingred Cream/Lotion/Oil/ Oint (Hydrocerin) 1 francia PRN BID PRN TP Dry Skin ; Start 04/06/17 at 15:15 Nitroglycerin (Nitrostat) 0.4 mg PRN Q5MIN PRN SL CHEST PAIN; Start 04/06/17 at 15:15 Pantoprazole Sodium (Protonix) 40 mg BID PO Last administered on 04/25/17 19: 36; Start 04/06/17 at 21:00 Sertraline HCl (Zoloft) 75 mg DAILY PO Last administered on 04/15/17 10:24; Start 04/07/17 at 09:00; Stop 04/15/17 at 17:45; Status DC Tamsulosin HCl (Flomax) 0.4 mg BID PO Last administered on 04/25/17 19:36; Start 04/06/17 at 21:00 Isosorbide Mononitrate (Imdur) 30 mg HS PO Last administered on 04/22/17 21:08 ; Start 04/06/17 at 21:00; Stop 04/23/17 at 21:20; Status DC Risperidone (RisperDAL CONSTA) 25 mg Q2WKS IM Last administered on 04/11/17 10: 17; Start 04/11/17 at 09:00; Stop 04/17/17 at 18:40; Status DC Ceftriaxone Sodium (Rocephin Im) 1 gm DAILY IM Last administered on 04/16/17 10 :59; Start 04/10/17 at 19:00; Stop 04/17/17 at 07:22; Status DC Lactobacillus Rhamnosus (Culturelle) 1 cap BID PO Last administered on 19:36; Start 04/10/17 at 21:00 Magnesium Hydroxide (Milk Of Magnesia) 2,400 mg PRN DAILY PRN PO CONSTIPATION Last administered on 04/25/17 05:17; Start 04/10/17 at 19:00 Albuterol/ Ipratropium (Duoneb) 3 ml RTQID NEB Last administered on 04/25/17 16:40; Start 04/13/17 at 20:00 Docusate Sodium (Colace) 100 mg BID PO Last administered on 04/25/17 19:35; Start 04/13/17 at 21:00 Polyethylene Glycol (miraLAX) 17 gm DAILY PO Last administered on 04/25/17at 07: 43; Start 04/14/17 at 09:00; Stop 04/25/17 at 18:03; Status DC Bupropion HCl (Wellbutrin Xl) 150 mg DAILY PO ; Start 04/16/17 at 09:00; Stop 04/16/17 at 09:00; Status DC Bupropion HCl (Wellbutrin) 75 mg BID@0900,1200 PO Last administered on at 09:48; Start 04/16/17 at 09:00; Stop 04/16/17 at 18:51; Status DC Bupropion HCl (Wellbutrin) 75 mg DAILY@1200 PO Last administered on 04/18/17 11 :51; Start 04/17/17 at 12:00; Stop 04/18/17 at 12:01; Status DC Bupropion HCl (Wellbutrin) 150 mg DAILY PO Last administered on 04/18/17at 10:15 ; Start 04/17/17 at 09:00; Stop 04/18/17 at 12:01; Status DC Risperidone (RisperDAL CONSTA) 37.5 mg Q2WKS IM Last administered on 04/25/17at 07:46; Start 04/25/17 at 09:00 Bupropion HCl (Wellbutrin) 150 mg BID@0900,1200 PO Last administered on 11:55; Start 04/19/17 at 09:00 Megestrol Acetate (Megace) 100 mg TIDWMEALS PO Last administered on 04/25/17 16:23; Start 04/20/17 at 08:00 Mirtazapine (Remeron) 7.5 mg QHS PO Last administered on 04/23/17at 19:10; Start 04/20/17 at 21:00; Stop 04/24/17 at 18:13; Status DC Levofloxacin (Levaquin) 500 mg DAILY06 PO Last administered on 04/25/17 07:42 ; Start 04/22/17 at 12:00; Stop 05/02/17 at 11:59 Dextrose/Sodium Chloride 1,000 ml @ 75 mls/hr [id number] IV Last administered on 04/23/17at 20:53; Start 04/22/17 at 18:30 Isosorbide Mononitrate (Imdur) 30 mg HS PO Last administered on 04/25/17at 19:36 ; Start 04/23/17 at 21:30 Mirtazapine (Remeron) 15 mg QHS PO Last administered on 04/25/17at 19:35; Start 04/24/17 at 21:00 Polyethylene Glycol (miraLAX) 17 gm BID PO ; Start 04/25/17 at 21:00 Senna/Docusate Sodium (Senna Plus) 2 tab BID PO ; Start 04/25/17 at 21:00 Active Scripts Active Reported Risperdal Consta (Risperidone Microspheres) 37.5 Mg/2 Ml Disp.syrin 25 Mg IM Q2WKS Zoloft (Sertraline Hcl) 25 Mg Tablet 75 Mg PO DAILY Furosemide 40 Mg Tablet 40 Mg PO QMTUTHSA Tylenol (Acetaminophen) 325 Mg Tablet 650 Mg PO PRN Q4HRS PRN Nitrostat (Nitroglycerin) 0.4 Mg Tab.subl 0.4 Mg SL PRN Q5MIN PRN Eucerin Creme (Mineral Oil/Petrolatum,White) 120 Gm Cream..g. 1 Francia TP PRN PRN Gabapentin 300 Mg Capsule 300 Mg PO TID Vitamin D3 (Cholecalciferol (Vitamin D3)) 1,000 Unit Tablet 2,000 Unit PO DAILY Flomax (Tamsulosin Hcl) 0.4 Mg Cap.er.24h 0.4 Mg PO BID Simethicone 80 Mg Tab.chew 120 Mg PO BID Protonix (Pantoprazole Sodium) 40 Mg Tablet.dr 40 Mg PO BID Cyanocobalamin Injection (Cyanocobalamin (Vitamin B-12)) 1,000 Mcg/1 Ml Vial 1, 000 Mcg SQ QMONTH Once monthly on the Furosemide 20 Mg Tablet 20 Mg PO 3X/WEEK On Saturday, Saturday, & Saturday Folic Acid 1 Mg Tablet 1 Mg PO DAILY Plavix (Clopidogrel Bisulfate) 75 Mg Tablet 75 Mg PO DAILY Cetirizine Hcl 10 Mg Tablet 10 Mg PO DAILY Aspirin 81 Mg Tab.chew 81 Mg PO DAILY Metoprolol Tartrate 25 Mg Tablet 12.5 Mg PO BID Isosorbide Dinitrate 30 Mg Tablet 30 Mg PO HS I have reviewed the current psychotropics carefully including drug interactions. Risk benefit ratio favors no change other than as noted in my dictated progress note. Diagnosis: Problems: (1) Major depressive disorder (2) Schizoaffective disorder (3) Schizophrenia, disorganized, subchronic with acute exacerbation CHELY LAMB MD Apr 25, 2017 19:41
[2017-04-25] MEDS: SENNOSIDES/DOCUSATE 8.6/50MG TABLET. PO SCH (19:42)
--- NOTE | 2017-04-25 20:00 | NUR ---
Behavior Intervention Response and Plan: BIRP Note: Behavior: Assumed Care of patient, patient located in Day Room at shift change. Patient exhibited the following behavior Calm, Withdrawn, Resistive. Brief assessment on rounds of vital signs, medication needs, lab studies, and pain. Treatment plan problems . Intervention: Patient assessed and the following interventions initiated safety checks 15 Minute Checks Cognitive Assessment , Head to toe Assessment , Medications. Response: After interactions and interventions patient responded in the following manner, Somatic , Disorganized ,Resistive. Continue to assess behaviors and condition will continue to monitor throughout the shift as needed. Patient educated on ADL's, and hand hygiene. 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 Continue to assess patient for changes in above assessment. Monitor for medication needs, pain, and safety concerns. Hourly rounding performed to ensure safe environment.
[2017-04-26] MEDS: IV DEXTROSE 5 %-0.45 % NACL 1,000 ML IV SCH (02:30)
--- NOTE | 2017-04-26 04:30 | NUR ---
Enema per bucket given tap water with Castile soap, PT tolerated well remained alert during and after. Small amt stool passed.
[2017-04-26] MEDS: levoFLOXacin 500 MG TABLET PO SCH (05:49)
[2017-04-26] MEDS: IPRATRPIUM/ALBUTEROL 0.5/2.5MG 3 ML NEBU. NEB SCH ×5 (05:56→20:30)
[2017-04-26 06:06] VITALS: BP 123/74
[2017-04-26] MEDS: CHOLECALCIFEROL (VITAMIN D3) 1,000 UNIT TABLET PO SCH (07:28)
[2017-04-26] MEDS: MEGESTROL 400 MG/10 ML ORAL.SUSP. PO SCH ×3 (07:28→17:05)
[2017-04-26] MEDS: CLOPIDOGREL BISULFATE 75 MG TABLET PO SCH (07:29)
[2017-04-26] MEDS: PANTOPRAZOLE 40 MG TABLET. PO SCH ×2 (07:29→19:41)
[2017-04-26] MEDS: FUROSEMIDE 20 MG TABLET PO SCH (07:29)
[2017-04-26] MEDS: TAMSULOSIN 0.4 MG CAP.ER.24H. PO SCH ×2 (07:29→19:40)
[2017-04-26] MEDS: DOCUSATE SODIUM 100 MG CAPSULE PO SCH ×2 (07:29→19:41)
[2017-04-26] MEDS: LACTOBACILLUS RHAMNOSUS GG 1 CAPSULE. PO SCH ×2 (07:29→19:40)
[2017-04-26] MEDS: buPROPion 75 MG TABLET PO SCH ×2 (07:29→12:15)
[2017-04-26] MEDS: ASPIRIN 81 MG TAB.CHEW PO SCH (07:30)
[2017-04-26] MEDS: GABAPENTIN 300 MG CAPSULE. PO SCH ×3 (07:31→19:41)
[2017-04-26] MEDS: FOLIC ACID 1 MG TABLET PO SCH (07:31)
[2017-04-26] MEDS: POLYETHYLENE GLYCOL 3350 17 GM PACKET. PO SCH ×2 (07:31→19:40)
[2017-04-26] MEDS: SENNOSIDES/DOCUSATE 8.6/50MG TABLET. PO SCH ×2 (07:33→19:41)
--- NOTE | 2017-04-26 15:00 | NUR ---
Behavior Intervention Response and Plan: BIRP Note: Behavior: Assumed Care of patient, patient located in Dining Room at shift change. Patient exhibited the following behavior Calm, Withdrawn, Disorganized. Brief assessment on rounds of vital signs, medication needs, lab studies, and pain. Treatment plan problems alteration in mood and fall risk. Intervention: Patient assessed and the following interventions initiated safety checks 15 Minute Checks Head to toe Assessment , Cognitive Assessment , Medications. Response: After interactions and interventions patient responded in the following manner, Calm , Withdrawn ,Disorganized. Continue to assess behaviors and condition will continue to monitor throughout the shift as needed. Patient educated on ADL's, and hand hygiene. Plan: Continue to monitor Master Treatment Plan for patient's progress toward short term goals of Medication Compliance, Improved Mood, care home goals to return to previous living setting vs placement. Continue to assess patient for changes in above assessment. Monitor for medication needs, pain, and safety concerns. Hourly rounding performed to ensure safe environment.
[2017-04-26 16:12] VITALS: BP 133/63
[2017-04-26] MEDS: ISOSORBIDE MONONITRATE ER 30 MG TAB.ER.24H PO SCH (19:40)
[2017-04-26] MEDS: MIRTAZAPINE 15 MG TABLET PO SCH (19:41)
--- NOTE | 2017-04-26 19:52 | PDOC ---
Exam Note: Harjeet Note: Please also refer to the separate dictated note~for this date of service dictated separately.~Patient seen individually. Discussed the patient with Nursing staff reviewed the chart.~Reviewed interim history and current functioning. Reviewed vital signs,~Labs/ Radiology~and current medications noted below. Continue current treatment with the changes noted in the dictated addendum note Assessment: Vital Signs: Vital Signs Date Time Temp Pulse Resp B/P (MAP) Pulse Ox O2 Delivery O2 Flow Rate FiO2 04/26/17 19:40 93 133/63 04/26/17 16:12 97.8 18 95 2.0 04/26/17 15:52 Nasal Cannula I&O Intake and Output 04/26/17 07:00 Intake Total 780 ml Balance 780 ml Intake Oral 780 ml Current Medications: Meds: Current Medications Acetaminophen (Tylenol) 650 mg PRN Q4HRS PRN PO PAIN / TEMP; Start 04/06/17 at 15:15 Aspirin (Children'S Aspirin) 81 mg DAILY PO Last administered on 04/26/17 07: 30; Start 04/07/17 at 09:00 Vitamin D (Vitamin D3) 2,000 unit DAILY PO Last administered on 04/26/17 07:28 ; Start 04/07/17 at 09:00 Clopidogrel Bisulfate (Plavix) 75 mg DAILY PO Last administered on 04/26/17 07 :29; Start 04/07/17 at 09:00 Cyanocobalamin (Vitamin B-12) 1,000 mcg QMONTH SQ ; Start 05/06/17 at 09:00 Folic Acid (Folic Acid) 1 mg DAILY PO Last administered on 04/26/17at 07:31; Start 04/07/17 at 09:00 Furosemide (Lasix) 20 mg 3X/WEEK PO Last administered on 04/26/17at 07:29; Start 04/08/17 at 09:00 Furosemide (Lasix) 40 mg QMTUTHSA PO Last administered on 04/25/17at 16:21; Start 04/06/17 at 16:00 Gabapentin (Neurontin) 300 mg TID PO Last administered on 04/26/17at 19:41; Start 04/06/17 at 21:00; Stop 04/26/17 at 21:00 Multi-Ingred Cream/Lotion/Oil/ Oint (Hydrocerin) 1 francia PRN BID PRN TP Dry Skin ; Start 04/06/17 at 15:15 Nitroglycerin (Nitrostat) 0.4 mg PRN Q5MIN PRN SL CHEST PAIN; Start 04/06/17 at 15:15 Pantoprazole Sodium (Protonix) 40 mg BID PO Last administered on 04/26/17 19: 41; Start 04/06/17 at 21:00 Sertraline HCl (Zoloft) 75 mg DAILY PO Last administered on 04/15/17 10:24; Start 04/07/17 at 09:00; Stop 04/15/17 at 17:45; Status DC Tamsulosin HCl (Flomax) 0.4 mg BID PO Last administered on 04/26/17 19:40; Start 04/06/17 at 21:00 Isosorbide Mononitrate (Imdur) 30 mg HS PO Last administered on 04/22/17 21:08 ; Start 04/06/17 at 21:00; Stop 04/23/17 at 21:20; Status DC Risperidone (RisperDAL CONSTA) 25 mg Q2WKS IM Last administered on 04/11/17 10: 17; Start 04/11/17 at 09:00; Stop 04/17/17 at 18:40; Status DC Ceftriaxone Sodium (Rocephin Im) 1 gm DAILY IM Last administered on 04/16/17 10 :59; Start 04/10/17 at 19:00; Stop 04/17/17 at 07:22; Status DC Lactobacillus Rhamnosus (Culturelle) 1 cap BID PO Last administered on 19:40; Start 04/10/17 at 21:00 Magnesium Hydroxide (Milk Of Magnesia) 2,400 mg PRN DAILY PRN PO CONSTIPATION Last administered on 04/25/17 05:17; Start 04/10/17 at 19:00 Albuterol/ Ipratropium (Duoneb) 3 ml RTQID NEB Last administered on 04/26/17 15:52; Start 04/13/17 at 20:00 Docusate Sodium (Colace) 100 mg BID PO Last administered on 04/26/17 19:41; Start 04/13/17 at 21:00 Polyethylene Glycol (miraLAX) 17 gm DAILY PO Last administered on 2/15/18at 07: 43; Start 04/14/17 at 09:00; Stop 04/25/17 at 18:03; Status DC Bupropion HCl (Wellbutrin Xl) 150 mg DAILY PO ; Start 04/16/17 at 09:00; Stop 04/16/17 at 09:00; Status DC Bupropion HCl (Wellbutrin) 75 mg BID@0900,1200 PO Last administered on at 09:48; Start 04/16/17 at 09:00; Stop 04/16/17 at 18:51; Status DC Bupropion HCl (Wellbutrin) 75 mg DAILY@1200 PO Last administered on 04/18/17at 11 :51; Start 04/17/17 at 12:00; Stop 04/18/17 at 12:01; Status DC Bupropion HCl (Wellbutrin) 150 mg DAILY PO Last administered on 04/18/17at 10:15 ; Start 04/17/17 at 09:00; Stop 04/18/17 at 12:01; Status DC Risperidone (RisperDAL CONSTA) 37.5 mg Q2WKS IM Last administered on 04/25/17at 07:46; Start 04/25/17 at 09:00 Bupropion HCl (Wellbutrin) 150 mg BID@0900,1200 PO Last administered on at 12:15; Start 04/19/17 at 09:00 Megestrol Acetate (Megace) 100 mg TIDWMEALS PO Last administered on 04/26/17at 17:05; Start 04/20/17 at 08:00 Mirtazapine (Remeron) 7.5 mg QHS PO Last administered on 04/23/17at 19:10; Start 04/20/17 at 21:00; Stop 04/24/17 at 18:13; Status DC Levofloxacin (Levaquin) 500 mg DAILY06 PO Last administered on 04/26/17at 05:49 ; Start 04/22/17 at 12:00; Stop 05/02/17 at 11:59 Dextrose/Sodium Chloride 1,000 ml @ 75 mls/hr [id number] IV Last administered on 04/23/17at 20:53; Start 04/22/17 at 18:30; Stop 04/26/17 at 14:44; Status DC Isosorbide Mononitrate (Imdur) 30 mg HS PO Last administered on 04/26/17at 19:40 ; Start 04/23/17 at 21:30 Mirtazapine (Remeron) 15 mg QHS PO Last administered on 04/26/17at 19:41; Start 04/24/17 at 21:00 Polyethylene Glycol (miraLAX) 17 gm BID PO Last administered on 04/26/17at 19:40 ; Start 04/25/17 at 21:00 Senna/Docusate Sodium (Senna Plus) 2 tab BID PO Last administered on 04/26/17at 19:41; Start 04/25/17 at 21:00 Gabapentin (Neurontin) 300 mg BID PO ; Start 04/27/17 at 21:00; Stop 04/29/17 at 21:00 Gabapentin (Neurontin) 300 mg DAILY PO ; Start 04/30/17 at 09:00; Stop 05/02/17 at 21:00 Risperidone (RisperDAL) 0.5 mg DAILY PO ; Start 04/27/17 at 09:00 Active Scripts Active Reported Risperdal Consta (Risperidone Microspheres) 37.5 Mg/2 Ml Disp.syrin 25 Mg IM Q2WKS Zoloft (Sertraline Hcl) 25 Mg Tablet 75 Mg PO DAILY Furosemide 40 Mg Tablet 40 Mg PO QMTUTHSA Tylenol (Acetaminophen) 325 Mg Tablet 650 Mg PO PRN Q4HRS PRN Nitrostat (Nitroglycerin) 0.4 Mg Tab.subl 0.4 Mg SL PRN Q5MIN PRN Eucerin Creme (Mineral Oil/Petrolatum,White) 120 Gm Cream..g. 1 Francia TP PRN PRN Gabapentin 300 Mg Capsule 300 Mg PO TID Vitamin D3 (Cholecalciferol (Vitamin D3)) 1,000 Unit Tablet 2,000 Unit PO DAILY Flomax (Tamsulosin Hcl) 0.4 Mg Cap.er.24h 0.4 Mg PO BID Simethicone 80 Mg Tab.chew 120 Mg PO BID Protonix (Pantoprazole Sodium) 40 Mg Tablet.dr 40 Mg PO BID Cyanocobalamin Injection (Cyanocobalamin (Vitamin B-12)) 1,000 Mcg/1 Ml Vial 1, 000 Mcg SQ QMONTH Once monthly on the Furosemide 20 Mg Tablet 20 Mg PO 3X/WEEK On Saturday, Saturday, & Saturday Folic Acid 1 Mg Tablet 1 Mg PO DAILY Plavix (Clopidogrel Bisulfate) 75 Mg Tablet 75 Mg PO DAILY Cetirizine Hcl 10 Mg Tablet 10 Mg PO DAILY Aspirin 81 Mg Tab.chew 81 Mg PO DAILY Metoprolol Tartrate 25 Mg Tablet 12.5 Mg PO BID Isosorbide Dinitrate 30 Mg Tablet 30 Mg PO HS I have reviewed the current psychotropics carefully including drug interactions. Risk benefit ratio favors no change other than as noted in my dictated progress note. Diagnosis: Problems: (1) Congestive heart failure (CHF) (2) Dehydration (3) Renal insufficiency (4) Elevated creatine kinase (5) Major depressive disorder (6) Schizoaffective disorder (7) Schizophrenia, disorganized, subchronic with acute exacerbation CHELY LAMB MD Apr 26, 2017 19:52
--- NOTE | 2017-04-26 20:00 | NUR ---
Behavior Intervention Response and Plan: BIRP Note: Behavior: Assumed Care of patient, patient located in Day Room at shift change. Patient exhibited the following behavior Disorganized, Resistive, Withdrawn. Brief assessment on rounds of vital signs, medication needs, lab studies, and pain. Treatment plan problems . Intervention: Patient assessed and the following interventions initiated safety checks 15 Minute Checks Cognitive Assessment , Head to toe Assessment , Medications. Response: After interactions and interventions patient responded in the following manner, Disorganized , Resistive ,Delusions. Continue to assess behaviors and condition will continue to monitor throughout the shift as needed. Patient educated on ADL's, and hand hygiene. 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 Continue to assess patient for changes in above assessment. Monitor for medication needs, pain, and safety concerns. Hourly rounding performed to ensure safe environment.
[2017-04-27] MEDS: levoFLOXacin 500 MG TABLET PO SCH ×2 (05:13→08:13)
[2017-04-27] MEDS: IPRATRPIUM/ALBUTEROL 0.5/2.5MG 3 ML NEBU. NEB SCH ×4 (05:56→20:00)
[2017-04-27 06:47] VITALS: BP 156/70
[2017-04-27] MEDS: buPROPion 75 MG TABLET PO SCH ×2 (08:10→12:00)
[2017-04-27] MEDS: MEGESTROL 400 MG/10 ML ORAL.SUSP. PO SCH ×3 (08:10→17:00)
[2017-04-27] MEDS: POLYETHYLENE GLYCOL 3350 17 GM PACKET. PO SCH ×2 (08:10→21:00)
[2017-04-27] MEDS: TAMSULOSIN 0.4 MG CAP.ER.24H. PO SCH ×2 (08:10→21:00)
[2017-04-27] MEDS: PANTOPRAZOLE 40 MG TABLET. PO SCH ×2 (08:11→21:00)
[2017-04-27] MEDS: ASPIRIN 81 MG TAB.CHEW PO SCH (08:11)
[2017-04-27] MEDS: FUROSEMIDE 40 MG TABLET PO SCH (08:11)
[2017-04-27] MEDS: SENNOSIDES/DOCUSATE 8.6/50MG TABLET. PO SCH ×2 (08:11→21:00)
[2017-04-27] MEDS: FOLIC ACID 1 MG TABLET PO SCH (08:11)
[2017-04-27] MEDS: CHOLECALCIFEROL (VITAMIN D3) 1,000 UNIT TABLET PO SCH (08:11)
[2017-04-27] MEDS: CLOPIDOGREL BISULFATE 75 MG TABLET PO SCH (08:11)
[2017-04-27] MEDS: LACTOBACILLUS RHAMNOSUS GG 1 CAPSULE. PO SCH ×2 (08:11→21:00)
[2017-04-27] MEDS: DOCUSATE SODIUM 100 MG CAPSULE PO SCH ×2 (08:11→21:00)
--- NOTE | 2017-04-27 08:13 | PN ---
DATE: 04/24/2017 This late entry, 04/24/2017, covers elements not covered in my initial note of 04/24/2017. Met with the patient in the evening of 04/24/2017. The patient slept 5-3/4 hours previous evening, somewhat withdrawn, resistive to medications which have to be given hidden in food. REVIEW OF SYSTEMS: Ambulation impaired, in wheelchair, shortness of breath on 2 liters O2 by nasal cannula. No CV, , GI system symptoms on review. MENTAL STATUS EXAM: Oriented to himself and situation. Speech moderate latency, often responses monosyllabic. Abstraction fair, computation impaired, language function intact. Mood and affect depressed, withdrawn, still somewhat paranoid. No suicidal or homicidal ideation. IMPRESSION: Schizoaffective disorder, bipolar type, depressed, in partial. Rest unchanged. PLAN: Increase Remeron to 15 mg p.o. at bedtime to help with insomnia and anxiety. Continue rest psychotropics unchanged, Risperdal Consta was increased. MAN Horace LAMB MD DR: ESTEFANY/aubrey JOB#: [id number] / [id number]
[2017-04-27] MEDS: risperiDONE 0.5 MG TABLET. PO SCH (08:14)
--- NOTE | 2017-04-27 08:50 | PN ---
DATE: 04/25/2017 This late entry 04/25/2017 covers elements not covered in my initial note 04/25/2017. SUBJECTIVE: I met with the patient in the evening of 04/25/2017. Staffed a treatment team meeting with the entire team morning of 04/25/2017. Reviewed his history at length. Sleeping for about 4-5 hours, slept 5-1/2 hours previous evening. Appetite 40-50%, which is slight improvement. Does not eat much for supper. IV has been held. He cannot use Fleet Enema due to the reaction is somewhat constipated, we will use soap suds enema. REVIEW OF SYSTEMS: Ambulation impaired, in wheelchair, shortness of breath, on O2 two liters by nasal cannula. No CV, , eye system symptoms on review. MENTAL STATUS EXAM: Oriented to himself and situation. Speech moderate latency, often responses monosyllabic. Abstraction fair, computation impaired, language function intact, attention span short. Mood and affect withdrawn. LABORATORY DATA: Reviewed. IMPRESSION: Schizoaffective disorder, bipolar type, depressed with psychotic features in partial remission. PLAN: Continue psychotropics mentioned in my initial note, Risperdal Consta was increased. He is on Megace for appetite stimulation. Remeron together with Wellbutrin. It is unclear what benefit he would get from the Neurontin and we will reduce it to 300 mg twice a day for 3 days, once a day for 3 days and stop it. CHELY LAMB MD DR: ESTEFANY/aubrey JOB#: [id number] / [id number]
--- NOTE | 2017-04-27 11:31 | NUR ---
Behavior Intervention Response and Plan: BIRP Note: Behavior: Assumed Care of patient, patient located in Dining Room at shift change. Patient exhibited the following behavior Disorganized, Irritable, Defensive. Brief assessment on rounds of vital signs, medication needs, lab studies, and pain. Treatment plan problems . Intervention: Patient assessed and the following interventions initiated safety checks 15 Minute Checks Head to toe Assessment , Cognitive Assessment , Medications. Response: After interactions and interventions patient responded in the following manner, Resistive , Non Compliant with Meds ,Agitated. Continue to assess behaviors and condition will continue to monitor throughout the shift as needed. Patient educated on ADL's, and hand hygiene. 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 Continue to assess patient for changes in above assessment. Monitor for medication needs, pain, and safety concerns. Hourly rounding performed to ensure safe environment.
[2017-04-27 18:04] VITALS: BP 159/93
--- NOTE | 2017-04-27 20:00 | NUR ---
Behavior Intervention Response and Plan: BIRP Note: Behavior: Assumed Care of patient, patient located in Day Room at shift change. Patient exhibited the following behavior Disorganized, Resistive, Non Compliant with Meds. Brief assessment on rounds of vital signs, medication needs, lab studies, and pain. Treatment plan problems . Intervention: Patient assessed and the following interventions initiated safety checks 15 Minute Checks Cognitive Assessment , Head to toe Assessment , Medications. Response: After interactions and interventions patient responded in the following manner, Disorganized , Irritable ,Non Compliant with Meds. Continue to assess behaviors and condition will continue to monitor throughout the shift as needed. Patient educated on ADL's, and hand hygiene. Plan: Continue to monitor Master Treatment Plan for patient's progress toward short term goals of Medication Compliance, Decreased Anxiety, longterm goals to return to previous living setting vs placement. Continue to assess patient for changes in above assessment. Monitor for medication needs, pain, and safety concerns. Hourly rounding performed to ensure safe environment.
[2017-04-27] MEDS: ISOSORBIDE MONONITRATE ER 30 MG TAB.ER.24H PO SCH (21:00)
[2017-04-27] MEDS: MIRTAZAPINE ODT 15 MG TAB.RAPDIS. PO SCH (21:00)
[2017-04-27] MEDS: GABAPENTIN 300 MG CAPSULE. PO SCH (21:00)
--- NOTE | 2017-04-27 22:30 | PDOC ---
Exam Note: Harjeet Note: Please also refer to the separate dictated note~for this date of service dictated separately.~Patient seen individually. Discussed the patient with Nursing staff reviewed the chart.~Reviewed interim history and current functioning. Reviewed vital signs,~Labs/ Radiology~and current medications noted below. Continue current treatment with the changes noted in the dictated addendum note Assessment: Vital Signs: Vital Signs Date Time Temp Pulse Resp B/P (MAP) Pulse Ox O2 Delivery O2 Flow Rate FiO2 04/27/17 18:04 97.7 77 18 159/93 (115) 94 04/27/17 15:12 Nasal Cannula 2.0 I&O Intake and Output 04/27/17 07:00 Intake Total 180 ml Balance 180 ml Intake Oral 180 ml # Bowel Movements 1 Current Medications: Meds: Current Medications Acetaminophen (Tylenol) 650 mg PRN Q4HRS PRN PO PAIN / TEMP; Start 04/06/17 at 15:15 Aspirin (Children'S Aspirin) 81 mg DAILY PO Last administered on 04/27/17at 08: 11; Start 04/07/17 at 09:00 Vitamin D (Vitamin D3) 2,000 unit DAILY PO Last administered on 04/27/17at 08:11 ; Start 04/07/17 at 09:00 Clopidogrel Bisulfate (Plavix) 75 mg DAILY PO Last administered on 04/27/17at 08 :11; Start 04/07/17 at 09:00 Cyanocobalamin (Vitamin B-12) 1,000 mcg QMONTH SQ ; Start 05/06/17 at 09:00 Folic Acid (Folic Acid) 1 mg DAILY PO Last administered on 04/27/17at 08:11; Start 04/07/17 at 09:00 Furosemide (Lasix) 20 mg 3X/WEEK PO Last administered on 04/26/17at 07:29; Start 04/08/17 at 09:00 Furosemide (Lasix) 40 mg QMTUTHSA PO Last administered on 04/27/17at 08:11; Start 04/06/17 at 16:00 Gabapentin (Neurontin) 300 mg TID PO Last administered on 04/26/17at 19:41; Start 04/06/17 at 21:00; Stop 04/26/17 at 21:00; Status DC Multi-Ingred Cream/Lotion/Oil/ Oint (Hydrocerin) 1 francia PRN BID PRN TP Dry Skin ; Start 04/06/17 at 15:15 Nitroglycerin (Nitrostat) 0.4 mg PRN Q5MIN PRN SL CHEST PAIN; Start 04/06/17 at 15:15 Pantoprazole Sodium (Protonix) 40 mg BID PO Last administered on 04/27/17at 08: 11; Start 04/06/17 at 21:00 Sertraline HCl (Zoloft) 75 mg DAILY PO Last administered on 04/15/17at 10:24; Start 04/07/17 at 09:00; Stop 04/15/17 at 17:45; Status DC Tamsulosin HCl (Flomax) 0.4 mg BID PO Last administered on 04/27/17at 08:10; Start 04/06/17 at 21:00 Isosorbide Mononitrate (Imdur) 30 mg HS PO Last administered on 04/22/17at 21:08 ; Start 04/06/17 at 21:00; Stop 04/23/17 at 21:20; Status DC Risperidone (RisperDAL CONSTA) 25 mg Q2WKS IM Last administered on 04/11/17at 10: 17; Start 04/11/17 at 09:00; Stop 04/17/17 at 18:40; Status DC Ceftriaxone Sodium (Rocephin Im) 1 gm DAILY IM Last administered on 04/16/17at 10 :59; Start 04/10/17 at 19:00; Stop 04/17/17 at 07:22; Status DC Lactobacillus Rhamnosus (Culturelle) 1 cap BID PO Last administered on at 08:11; Start 04/10/17 at 21:00 Magnesium Hydroxide (Milk Of Magnesia) 2,400 mg PRN DAILY PRN PO CONSTIPATION Last administered on 04/25/17at 05:17; Start 04/10/17 at 19:00 Albuterol/ Ipratropium (Duoneb) 3 ml RTQID NEB Last administered on 04/27/17at 15:12; Start 04/13/17 at 20:00 Docusate Sodium (Colace) 100 mg BID PO Last administered on 04/27/17at 08:11; Start 04/13/17 at 21:00 Polyethylene Glycol (miraLAX) 17 gm DAILY PO Last administered on 04/25/17at 07: 43; Start 04/14/17 at 09:00; Stop 04/25/17 at 18:03; Status DC Bupropion HCl (Wellbutrin Xl) 150 mg DAILY PO ; Start 04/16/17 at 09:00; Stop 04/16/17 at 09:00; Status DC Bupropion HCl (Wellbutrin) 75 mg BID@0900,1200 PO Last administered on at 09:48; Start 04/16/17 at 09:00; Stop 04/16/17 at 18:51; Status DC Bupropion HCl (Wellbutrin) 75 mg DAILY@1200 PO Last administered on 04/18/17at 11 :51; Start 04/17/17 at 12:00; Stop 04/18/17 at 12:01; Status DC Bupropion HCl (Wellbutrin) 150 mg DAILY PO Last administered on 04/18/17at 10:15 ; Start 04/17/17 at 09:00; Stop 04/18/17 at 12:01; Status DC Risperidone (RisperDAL CONSTA) 37.5 mg Q2WKS IM Last administered on 04/25/17at 07:46; Start 04/25/17 at 09:00 Bupropion HCl (Wellbutrin) 150 mg BID@0900,1200 PO Last administered on at 08:10; Start 04/19/17 at 09:00 Megestrol Acetate (Megace) 100 mg TIDWMEALS PO Last administered on 04/27/17at 17:00; Start 04/20/17 at 08:00 Mirtazapine (Remeron) 7.5 mg QHS PO Last administered on 04/23/17at 19:10; Start 04/20/17 at 21:00; Stop 04/24/17 at 18:13; Status DC Levofloxacin (Levaquin) 500 mg DAILY06 PO Last administered on 04/27/17at 08:13 ; Start 04/22/17 at 12:00; Stop 05/02/17 at 11:59 Dextrose/Sodium Chloride 1,000 ml @ 75 mls/hr [id number] IV Last administered on 04/23/17at 20:53; Start 04/22/17 at 18:30; Stop 04/26/17 at 14:44; Status DC Isosorbide Mononitrate (Imdur) 30 mg HS PO Last administered on 04/26/17at 19:40 ; Start 04/23/17 at 21:30 Mirtazapine (Remeron) 15 mg QHS PO Last administered on 04/26/17at 19:41; Start 04/24/17 at 21:00; Stop 04/27/17 at 19:11; Status DC Polyethylene Glycol (miraLAX) 17 gm BID PO Last administered on 04/27/17at 08:10 ; Start 04/25/17 at 21:00 Senna/Docusate Sodium (Senna Plus) 2 tab BID PO Last administered on 04/27/17at 08:11; Start 04/25/17 at 21:00 Gabapentin (Neurontin) 300 mg BID PO ; Start 04/27/17 at 21:00; Stop 04/29/17 at 21:00 Gabapentin (Neurontin) 300 mg DAILY PO ; Start 04/30/17 at 09:00; Stop 05/02/17 at 21:00 Risperidone (RisperDAL) 0.5 mg DAILY PO Last administered on 04/27/17at 08:14; Start 04/27/17 at 09:00 Mirtazapine (Remeron Arabella-Tab) 15 mg QHS PO ; Start 04/27/17 at 21:00 Active Scripts Active Reported Risperdal Consta (Risperidone Microspheres) 37.5 Mg/2 Ml Disp.syrin 25 Mg IM Q2WKS Zoloft (Sertraline Hcl) 25 Mg Tablet 75 Mg PO DAILY Furosemide 40 Mg Tablet 40 Mg PO QMTUTHSA Tylenol (Acetaminophen) 325 Mg Tablet 650 Mg PO PRN Q4HRS PRN Nitrostat (Nitroglycerin) 0.4 Mg Tab.subl 0.4 Mg SL PRN Q5MIN PRN Eucerin Creme (Mineral Oil/Petrolatum,White) 120 Gm Cream..g. 1 Francia TP PRN PRN Gabapentin 300 Mg Capsule 300 Mg PO TID Vitamin D3 (Cholecalciferol (Vitamin D3)) 1,000 Unit Tablet 2,000 Unit PO DAILY Flomax (Tamsulosin Hcl) 0.4 Mg Cap.er.24h 0.4 Mg PO BID Simethicone 80 Mg Tab.chew 120 Mg PO BID Protonix (Pantoprazole Sodium) 40 Mg Tablet.dr 40 Mg PO BID Cyanocobalamin Injection (Cyanocobalamin (Vitamin B-12)) 1,000 Mcg/1 Ml Vial 1, 000 Mcg SQ QMONTH Once monthly on the Furosemide 20 Mg Tablet 20 Mg PO 3X/WEEK On Saturday, Saturday, & Saturday Folic Acid 1 Mg Tablet 1 Mg PO DAILY Plavix (Clopidogrel Bisulfate) 75 Mg Tablet 75 Mg PO DAILY Cetirizine Hcl 10 Mg Tablet 10 Mg PO DAILY Aspirin 81 Mg Tab.chew 81 Mg PO DAILY Metoprolol Tartrate 25 Mg Tablet 12.5 Mg PO BID Isosorbide Dinitrate 30 Mg Tablet 30 Mg PO HS I have reviewed the current psychotropics carefully including drug interactions. Risk benefit ratio favors no change other than as noted in my dictated progress note. Diagnosis: Problems: (1) Congestive heart failure (CHF) (2) Dehydration (3) Renal insufficiency (4) Elevated creatine kinase (5) Major depressive disorder (6) Schizoaffective disorder (7) Schizophrenia, disorganized, subchronic with acute exacerbation CHELY LAMB MD Apr 27, 2017 22:30
[2017-04-28 06:39] VITALS: BP 143/78
[2017-04-28] MEDS: IPRATRPIUM/ALBUTEROL 0.5/2.5MG 3 ML NEBU. NEB SCH ×4 (08:00→21:53)
[2017-04-28] MEDS: risperiDONE 0.5 MG TABLET. PO SCH (08:50)
[2017-04-28] MEDS: levoFLOXacin 500 MG TABLET PO SCH (08:51)
[2017-04-28] MEDS: buPROPion 75 MG TABLET PO SCH ×2 (08:51→11:32)
[2017-04-28] MEDS: GABAPENTIN 300 MG CAPSULE. PO SCH ×2 (08:52→19:50)
[2017-04-28] MEDS: DOCUSATE SODIUM 100 MG CAPSULE PO SCH ×2 (08:56→19:50)
[2017-04-28] MEDS: FOLIC ACID 1 MG TABLET PO SCH (08:56)
[2017-04-28] MEDS: POLYETHYLENE GLYCOL 3350 17 GM PACKET. PO SCH ×2 (08:56→19:51)
[2017-04-28] MEDS: CHOLECALCIFEROL (VITAMIN D3) 1,000 UNIT TABLET PO SCH (08:56)
[2017-04-28] MEDS: TAMSULOSIN 0.4 MG CAP.ER.24H. PO SCH ×2 (08:56→19:50)
[2017-04-28] MEDS: PANTOPRAZOLE 40 MG TABLET. PO SCH ×2 (08:57→19:50)
[2017-04-28] MEDS: CLOPIDOGREL BISULFATE 75 MG TABLET PO SCH (08:57)
[2017-04-28] MEDS: LACTOBACILLUS RHAMNOSUS GG 1 CAPSULE. PO SCH ×2 (08:57→19:49)
[2017-04-28] MEDS: SENNOSIDES/DOCUSATE 8.6/50MG TABLET. PO SCH ×2 (08:57→19:50)
[2017-04-28] MEDS: ASPIRIN 81 MG TAB.CHEW PO SCH (08:57)
[2017-04-28] MEDS: MEGESTROL 400 MG/10 ML ORAL.SUSP. PO SCH ×3 (08:57→16:07)
--- NOTE | 2017-04-28 09:50 | NUR ---
Pt non compliant with am crushed medications. Meds placed in ice cream and eventually consumed after multiple attempts.
--- NOTE | 2017-04-28 10:20 | NUR ---
Behavior Intervention Response and Plan: BIRP Note: Behavior: Assumed Care of patient, patient located in Dining Room at shift change. Patient exhibited the following behavior Disorganized, Irritable, Non Compliant with Meds. Brief assessment on rounds of vital signs, medication needs, lab studies, and pain. Treatment plan problems 1-2. Intervention: Patient assessed and the following interventions initiated safety checks 15 Minute Checks Personal Alarm in place , Cognitive Assessment , Head to toe Assessment. Response: After interactions and interventions patient responded in the following manner, Irritable , Resistive ,Non Compliant with Meds. Continue to assess behaviors and condition will continue to monitor throughout the shift as needed. Patient educated on ADL's, and hand hygiene. 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 Continue to assess patient for changes in above assessment. Monitor for medication needs, pain, and safety concerns. Hourly rounding performed to ensure safe environment.
--- NOTE | 2017-04-28 13:25 | NUR ---
assumed care of patient at 1300. Patient located in dining room.
[2017-04-28 16:04] VITALS: BP 125/60
[2017-04-28] MEDS: MIRTAZAPINE ODT 15 MG TAB.RAPDIS. PO SCH (19:50)
[2017-04-28] MEDS: ISOSORBIDE MONONITRATE ER 30 MG TAB.ER.24H PO SCH (19:50)
--- NOTE | 2017-04-28 20:10 | PDOC ---
Exam Note: Harjeet Note: Please also refer to the separate dictated note~for this date of service dictated separately.~Patient seen individually. Discussed the patient with Nursing staff reviewed the chart.~Reviewed interim history and current functioning. Reviewed vital signs,~Labs/ Radiology~and current medications noted below. Continue current treatment with the changes noted in the dictated addendum note Assessment: Vital Signs: Vital Signs Date Time Temp Pulse Resp B/P (MAP) Pulse Ox O2 Delivery O2 Flow Rate FiO2 04/28/17 19:50 99 125/60 04/28/17 17:09 95 Nasal Cannula 2.0 04/28/17 16:04 98.1 16 I&O Intake and Output 04/28/17 07:00 Intake Total 360 ml Balance 360 ml Intake Oral 360 ml Current Medications: Meds: Current Medications Acetaminophen (Tylenol) 650 mg PRN Q4HRS PRN PO PAIN / TEMP; Start 04/06/17 at 15:15 Aspirin (Children'S Aspirin) 81 mg DAILY PO Last administered on 04/28/17at 08: 57; Start 04/07/17 at 09:00 Vitamin D (Vitamin D3) 2,000 unit DAILY PO Last administered on 04/28/17 08:56 ; Start 04/07/17 at 09:00 Clopidogrel Bisulfate (Plavix) 75 mg DAILY PO Last administered on 04/28/17 08 :57; Start 04/07/17 at 09:00 Cyanocobalamin (Vitamin B-12) 1,000 mcg QMONTH SQ ; Start 05/06/17 at 09:00 Folic Acid (Folic Acid) 1 mg DAILY PO Last administered on 04/28/17at 08:56; Start 04/07/17 at 09:00 Furosemide (Lasix) 20 mg 3X/WEEK PO Last administered on 04/26/17at 07:29; Start 04/08/17 at 09:00 Furosemide (Lasix) 40 mg QMTUTHSA PO Last administered on 04/27/17at 08:11; Start 04/06/17 at 16:00 Gabapentin (Neurontin) 300 mg TID PO Last administered on 04/26/17at 19:41; Start 04/06/17 at 21:00; Stop 04/26/17 at 21:00; Status DC Multi-Ingred Cream/Lotion/Oil/ Oint (Hydrocerin) 1 francia PRN BID PRN TP Dry Skin ; Start 04/06/17 at 15:15 Nitroglycerin (Nitrostat) 0.4 mg PRN Q5MIN PRN SL CHEST PAIN; Start 04/06/17 at 15:15 Pantoprazole Sodium (Protonix) 40 mg BID PO Last administered on 04/28/17 19: 50; Start 04/06/17 at 21:00 Sertraline HCl (Zoloft) 75 mg DAILY PO Last administered on 04/15/17at 10:24; Start 04/07/17 at 09:00; Stop 04/15/17 at 17:45; Status DC Tamsulosin HCl (Flomax) 0.4 mg BID PO Last administered on 04/28/17 19:50; Start 04/06/17 at 21:00 Isosorbide Mononitrate (Imdur) 30 mg HS PO Last administered on 04/22/17at 21:08 ; Start 04/06/17 at 21:00; Stop 04/23/17 at 21:20; Status DC Risperidone (RisperDAL CONSTA) 25 mg Q2WKS IM Last administered on 04/11/17at 10: 17; Start 04/11/17 at 09:00; Stop 04/17/17 at 18:40; Status DC Ceftriaxone Sodium (Rocephin Im) 1 gm DAILY IM Last administered on 04/16/17at 10 :59; Start 04/10/17 at 19:00; Stop 04/17/17 at 07:22; Status DC Lactobacillus Rhamnosus (Culturelle) 1 cap BID PO Last administered on at 19:49; Start 04/10/17 at 21:00 Magnesium Hydroxide (Milk Of Magnesia) 2,400 mg PRN DAILY PRN PO CONSTIPATION Last administered on 04/25/17 05:17; Start 04/10/17 at 19:00 Albuterol/ Ipratropium (Duoneb) 3 ml RTQID NEB Last administered on 04/28/17at 17:09; Start 04/13/17 at 20:00 Docusate Sodium (Colace) 100 mg BID PO Last administered on 04/28/17 19:50; Start 04/13/17 at 21:00 Polyethylene Glycol (miraLAX) 17 gm DAILY PO Last administered on 04/25/17at 07: 43; Start 04/14/17 at 09:00; Stop 04/25/17 at 18:03; Status DC Bupropion HCl (Wellbutrin Xl) 150 mg DAILY PO ; Start 04/16/17 at 09:00; Stop 04/16/17 at 09:00; Status DC Bupropion HCl (Wellbutrin) 75 mg BID@0900,1200 PO Last administered on at 09:48; Start 04/16/17 at 09:00; Stop 04/16/17 at 18:51; Status DC Bupropion HCl (Wellbutrin) 75 mg DAILY@1200 PO Last administered on 04/18/17at 11 :51; Start 04/17/17 at 12:00; Stop 04/18/17 at 12:01; Status DC Bupropion HCl (Wellbutrin) 150 mg DAILY PO Last administered on 04/18/17at 10:15 ; Start 04/17/17 at 09:00; Stop 04/18/17 at 12:01; Status DC Risperidone (RisperDAL CONSTA) 37.5 mg Q2WKS IM Last administered on 04/25/17at 07:46; Start 04/25/17 at 09:00 Bupropion HCl (Wellbutrin) 150 mg BID@0900,1200 PO Last administered on at 11:32; Start 04/19/17 at 09:00 Megestrol Acetate (Megace) 100 mg TIDWMEALS PO Last administered on 04/28/17at 16:07; Start 04/20/17 at 08:00 Mirtazapine (Remeron) 7.5 mg QHS PO Last administered on 04/23/17at 19:10; Start 04/20/17 at 21:00; Stop 04/24/17 at 18:13; Status DC Levofloxacin (Levaquin) 500 mg DAILY06 PO Last administered on 04/28/17at 08:51 ; Start 04/22/17 at 12:00; Stop 05/02/17 at 11:59 Dextrose/Sodium Chloride 1,000 ml @ 75 mls/hr [id number] IV Last administered on 04/23/17at 20:53; Start 04/22/17 at 18:30; Stop 04/26/17 at 14:44; Status DC Isosorbide Mononitrate (Imdur) 30 mg HS PO Last administered on 04/28/17 19:50 ; Start 04/23/17 at 21:30 Mirtazapine (Remeron) 15 mg QHS PO Last administered on 04/26/17at 19:41; Start 04/24/17 at 21:00; Stop 04/27/17 at 19:11; Status DC Polyethylene Glycol (miraLAX) 17 gm BID PO Last administered on 04/28/17at 19:51 ; Start 04/25/17 at 21:00 Senna/Docusate Sodium (Senna Plus) 2 tab BID PO Last administered on 04/28/17 19:50; Start 04/25/17 at 21:00 Gabapentin (Neurontin) 300 mg BID PO Last administered on 04/28/17at 19:50; Start 04/27/17 at 21:00; Stop 04/29/17 at 21:00 Gabapentin (Neurontin) 300 mg DAILY PO ; Start 04/30/17 at 09:00; Stop 05/02/17 at 21:00 Risperidone (RisperDAL) 0.5 mg DAILY PO Last administered on 04/28/17at 08:50; Start 04/27/17 at 09:00 Mirtazapine (Remeron Arabella-Tab) 15 mg QHS PO Last administered on 04/28/17at 19:50 ; Start 04/27/17 at 21:00 Active Scripts Active Reported Risperdal Consta (Risperidone Microspheres) 37.5 Mg/2 Ml Disp.syrin 25 Mg IM Q2WKS Zoloft (Sertraline Hcl) 25 Mg Tablet 75 Mg PO DAILY Furosemide 40 Mg Tablet 40 Mg PO QMTUTHSA Tylenol (Acetaminophen) 325 Mg Tablet 650 Mg PO PRN Q4HRS PRN Nitrostat (Nitroglycerin) 0.4 Mg Tab.subl 0.4 Mg SL PRN Q5MIN PRN Eucerin Creme (Mineral Oil/Petrolatum,White) 120 Gm Cream..g. 1 Francia TP PRN PRN Gabapentin 300 Mg Capsule 300 Mg PO TID Vitamin D3 (Cholecalciferol (Vitamin D3)) 1,000 Unit Tablet 2,000 Unit PO DAILY Flomax (Tamsulosin Hcl) 0.4 Mg Cap.er.24h 0.4 Mg PO BID Simethicone 80 Mg Tab.chew 120 Mg PO BID Protonix (Pantoprazole Sodium) 40 Mg Tablet.dr 40 Mg PO BID Cyanocobalamin Injection (Cyanocobalamin (Vitamin B-12)) 1,000 Mcg/1 Ml Vial 1, 000 Mcg SQ QMONTH Once monthly on the Furosemide 20 Mg Tablet 20 Mg PO 3X/WEEK On Saturday, Saturday, & Saturday Folic Acid 1 Mg Tablet 1 Mg PO DAILY Plavix (Clopidogrel Bisulfate) 75 Mg Tablet 75 Mg PO DAILY Cetirizine Hcl 10 Mg Tablet 10 Mg PO DAILY Aspirin 81 Mg Tab.chew 81 Mg PO DAILY Metoprolol Tartrate 25 Mg Tablet 12.5 Mg PO BID Isosorbide Dinitrate 30 Mg Tablet 30 Mg PO HS I have reviewed the current psychotropics carefully including drug interactions. Risk benefit ratio favors no change other than as noted in my dictated progress note. Diagnosis: Problems: (1) Congestive heart failure (CHF) (2) Dehydration (3) Renal insufficiency (4) Elevated creatine kinase (5) Major depressive disorder (6) Schizoaffective disorder (7) Schizophrenia, disorganized, subchronic with acute exacerbation CHELY LAMB MD Apr 28, 2017 20:09
--- NOTE | 2017-04-28 23:04 | PN ---
DATE: 04/26/2017 This is a late entry of 04/26/2017, covers elements not covered in my initial note of 04/26/2017. SUBJECTIVE: The patient remains paranoid. He has had a poor appetite because he believes there are "evil spirits" in his stomach. REVIEW OF SYSTEMS: Ambulation impaired, in wheelchair; shortness of breath, on O2 supplements. No CV, , GI system symptoms on review. Reliability varies. MENTAL STATUS EXAMINATION: Oriented to himself and situation. Speech, often responses monosyllabic. Abstraction fair. Computation impaired. Language function intact. Mood and affect are withdrawn, depressed, delusional. No active suicidal or homicidal ideation. IMPRESSION: Schizoaffective disorder, bipolar type, mixed with psychotic features; schizophrenia, chronic paranoid with acute exacerbation. PLAN: The patient agrees to start oral Risperdal to get the evil spirits out of his gut and we will initiate 0.5 mg a day. Adjust as indicated. Continue rest. CHELY LAMB MD DR: ESTEFANY/aubrey JOB#: [id number] / [id number]
--- NOTE | 2017-04-28 23:36 | PN ---
DATE: 04/27/2017 This is a late entry of 04/27/2017 covers elements not covered in my initial note 04/27/2017. I met with the patient in the evening of 04/27/2017. The patient had some yogurt in the morning, nothing for lunch, withdrawn, delusional, paranoid, believes there are demons inside him, refused his medications. Staff will try it again by explaining that this will help get rid of the demons and we will also change the Remeron 15 mg at bedtime to SolTab to help with compliance. REVIEW OF SYSTEMS: Ambulation impaired, in wheelchair, shortness of breath on O2 supplements, 2 liters. No CV, , GI, eye, ENT system symptoms on review. MENTAL STATUS EXAM: Oriented to himself and situation. Speech moderate latency, often responses monosyllabic. Abstraction fair, computation impaired, somewhat paranoid, delusional as noted. No suicidal or homicidal ideation. IMPRESSION: Schizoaffective disorder, bipolar type, mixed with psychotic features. PLAN: Continue current psychotropics with changes noted. MAN Horace LAMB MD DR: ESTEFANY/aubrey JOB#: [id number] / [id number]
--- NOTE | 2017-04-29 04:51 | NUR ---
Wound dressings on R elbow and L elbow removed and wounds assessed. New pics taken of both elbows. R elbow - new foam dressing applied and labelled. L elbow - left ROLAND Creases of pt groin pinkened, cream applied as protective barrier. Pt had no other visible wounds or wound dressings. Pt still has bruising on both arms from elbow to wrists.
--- NOTE | 2017-04-29 04:53 | NUR ---
Behavior Intervention Response and Plan: BIRP Note: Behavior: Assumed Care of patient, patient located in Dayroom at shift change. Patient exhibited the following behavior Disorganized, Irritable, Non Compliant with Meds. Brief assessment on rounds of vital signs, medication needs, lab studies, and pain. Treatment plan problems 1-2. Intervention: Patient assessed and the following interventions initiated safety checks 15 Minute Checks Personal Alarm in place , Nutrition , Head to toe Assessment. Response: After interactions and interventions patient responded in the following manner, Irritable , Resistive ,Non Compliant with Meds. Continue to assess behaviors and condition will continue to monitor throughout the shift as needed. Patient educated on ADL's, and hand hygiene. 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 Continue to assess patient for changes in above assessment. Monitor for medication needs, pain, and safety concerns. Hourly rounding performed to ensure safe environment.
[2017-04-29] MEDS: levoFLOXacin 500 MG TABLET PO SCH ×2 (05:36→09:29)
[2017-04-29] MEDS: IPRATRPIUM/ALBUTEROL 0.5/2.5MG 3 ML NEBU. NEB SCH ×4 (06:02→22:00)
[2017-04-29 06:16] VITALS: BP 146/68
[2017-04-29 07:42] LABS: BASO % 1 % (0-3); EOS # 0.1 x10^3/uL (0.0-0.7); EOS % 2 % (0-3); HEMATOCRIT 31.8 % (39.0-53.0); HEMOGLOBIN 10.3 g/dL (13.0-17.5); LYMPH # 0.9 x10^3/uL (1.0-4.8); LYMPH % 20 % (24-48); MEAN CORPUSCULAR HEMOGLOBIN 25 pg (25-35); MEAN CORPUSCULAR HGB CONC 32 g/dL (31-37); MEAN CORPUSCULAR VOLUME 77 fL (79-100); MONO # 0.6 x10^3/uL (0.0-1.1); MONO % 13 % (0-9); NEUT # 2.9 x10^3uL (1.8-7.7); NEUT % 64 % (31-73); PLATELET COUNT 190 x10^3/uL (140-400); RED BLOOD COUNT 4.11 x10^6/uL (4.30-5.70); RED CELL DISTRIBUTION WIDTH 18.5 % (11.5-14.5); WHITE BLOOD COUNT 4.6 x10^3/uL (4.0-11.0)
[2017-04-29 07:59] LABS: ALBUMIN 2.8 g/dL (3.4-5.0); ALBUMIN/GLOBULIN RATIO 0.6 (1.0-1.7); CALCIUM 8.7 mg/dL (8.5-10.1); CREATININE 1.3 mg/dL (0.7-1.3); GFR 54.1; MAGNESIUM 2.2 mg/dL (1.8-2.4); POTASSIUM 3.7 mmol/L (3.5-5.1); TOTAL BILIRUBIN 0.3 mg/dL (0.2-1.0); TOTAL PROTEIN 7.2 g/dL (6.4-8.2)
[2017-04-29] MEDS: risperiDONE 0.5 MG TABLET. PO SCH (09:28)
[2017-04-29] MEDS: buPROPion 75 MG TABLET PO SCH ×2 (09:28→12:08)
[2017-04-29] MEDS: CLOPIDOGREL BISULFATE 75 MG TABLET PO SCH (09:28)
[2017-04-29] MEDS: FUROSEMIDE 40 MG TABLET PO SCH (09:28)
[2017-04-29] MEDS: GABAPENTIN 300 MG CAPSULE. PO SCH ×2 (09:29→19:27)
[2017-04-29] MEDS: MEGESTROL 400 MG/10 ML ORAL.SUSP. PO SCH ×3 (09:29→17:06)
[2017-04-29] MEDS: LACTOBACILLUS RHAMNOSUS GG 1 CAPSULE. PO SCH ×2 (09:29→19:28)
[2017-04-29] MEDS: TAMSULOSIN 0.4 MG CAP.ER.24H. PO SCH ×2 (09:29→19:27)
[2017-04-29] MEDS: POLYETHYLENE GLYCOL 3350 17 GM PACKET. PO SCH ×2 (09:29→19:28)
[2017-04-29] MEDS: SENNOSIDES/DOCUSATE 8.6/50MG TABLET. PO SCH ×2 (09:29→19:27)
[2017-04-29] MEDS: CHOLECALCIFEROL (VITAMIN D3) 1,000 UNIT TABLET PO SCH (09:30)
[2017-04-29] MEDS: DOCUSATE SODIUM 100 MG CAPSULE PO SCH ×2 (09:30→19:27)
[2017-04-29] MEDS: ASPIRIN 81 MG TAB.CHEW PO SCH (09:30)
[2017-04-29] MEDS: PANTOPRAZOLE 40 MG TABLET. PO SCH ×2 (09:30→19:27)
[2017-04-29] MEDS: FOLIC ACID 1 MG TABLET PO SCH (09:30)
[2017-04-29] MEDS: FUROSEMIDE 20 MG TABLET PO SCH (09:31)
--- NOTE | 2017-04-29 11:59 | NUR ---
Behavior Intervention Response and Plan: BIRP Note: Behavior: Assumed Care of patient, patient located in Day Room at shift change. Patient exhibited the following behavior Calm, Irritable, Compliant. Brief assessment on rounds of vital signs, medication needs, lab studies, and pain. Treatment plan problems . Intervention: Patient assessed and the following interventions initiated safety checks 15 Minute Checks Cognitive Assessment , Head to toe Assessment , Medications. Response: After interactions and interventions patient responded in the following manner, Calm , Irritable ,Cooperative. Continue to assess behaviors and condition will continue to monitor throughout the shift as needed. Patient educated on ADL's, and hand hygiene. 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 Continue to assess patient for changes in above assessment. Monitor for medication needs, pain, and safety concerns. Hourly rounding performed to ensure safe environment.
[2017-04-29 16:01] VITALS: BP 142/75
[2017-04-29] MEDS: MIRTAZAPINE ODT 15 MG TAB.RAPDIS. PO SCH (19:28)
[2017-04-29] MEDS: ISOSORBIDE MONONITRATE ER 30 MG TAB.ER.24H PO SCH (19:28)
--- NOTE | 2017-04-29 20:01 | PDOC ---
Exam Note: Harjeet Note: Please also refer to the separate dictated note~for this date of service dictated separately.~Patient seen individually. Discussed the patient with Nursing staff reviewed the chart.~Reviewed interim history and current functioning. Reviewed vital signs,~Labs/ Radiology~and current medications noted below. Continue current treatment with the changes noted in the dictated addendum note Assessment: Vital Signs: Vital Signs Date Time Temp Pulse Resp B/P (MAP) Pulse Ox O2 Delivery O2 Flow Rate FiO2 04/29/17 19:28 99 142/75 04/29/17 16:01 97.4 19 96 2.0 04/29/17 15:50 Nasal Cannula I&O Intake and Output 04/29/17 07:00 Intake Total 480 ml Balance 480 ml Intake Oral 480 ml # Voids 1 # Bowel Movements 1 Labs: Laboratory Tests Test 04/29/17 07:17 White Blood Count 4.6 x10^3/uL (4.0-11.0) # Red Blood Count 4.11 x10^6/uL (4.30-5.70) L Hemoglobin 10.3 g/dL (13.0-17.5) L Hematocrit 31.8 % (39.0-53.0) L Mean Corpuscular Volume 77 fL (79-100) L Mean Corpuscular Hemoglobin 25 pg (25-35) Mean Corpuscular Hemoglobin Concent 32 g/dL (31-37) Red Cell Distribution Width 18.5 % (11.5-14.5) H Platelet Count 190 x10^3/uL (140-400) Neutrophils (%) (Auto) 64 % (31-73) Lymphocytes (%) (Auto) 20 % (24-48) L Monocytes (%) (Auto) 13 % (0-9) H Eosinophils (%) (Auto) 2 % (0-3) Basophils (%) (Auto) 1 % (0-3) Neutrophils # (Auto) 2.9 x10^3uL (1.8-7.7) Lymphocytes # (Auto) 0.9 x10^3/uL (1.0-4.8) L Monocytes # (Auto) 0.6 x10^3/uL (0.0-1.1) Eosinophils # (Auto) 0.1 x10^3/uL (0.0-0.7) Basophils # (Auto) 0.0 x10^3/uL (0.0-0.2) Sodium Level 141 mmol/L (136-145) Potassium Level 3.7 mmol/L (3.5-5.1) Chloride Level 105 mmol/L (98-107) Carbon Dioxide Level 27 mmol/L (21-32) Anion Gap 9 (6-14) Blood Urea Nitrogen 25 mg/dL (8-26) Creatinine 1.3 mg/dL (0.7-1.3) Estimated GFR (Cockcroft-Gault) 54.1 BUN/Creatinine Ratio 19 (6-20) Glucose Level 81 mg/dL (70-99) Calcium Level 8.7 mg/dL (8.5-10.1) Magnesium Level 2.2 mg/dL (1.8-2.4) Total Bilirubin 0.3 mg/dL (0.2-1.0) Aspartate Amino Transferase (AST) 30 U/L (15-37) Alanine Aminotransferase (ALT) 23 U/L (16-63) Alkaline Phosphatase 66 U/L (46-116) Total Protein 7.2 g/dL (6.4-8.2) Albumin 2.8 g/dL (3.4-5.0) L Albumin/Globulin Ratio 0.6 (1.0-1.7) L Current Medications: Meds: Current Medications Acetaminophen (Tylenol) 650 mg PRN Q4HRS PRN PO PAIN / TEMP; Start 04/06/17 at 15:15 Aspirin (Children'S Aspirin) 81 mg DAILY PO Last administered on 04/29/17at 09: 30; Start 04/07/17 at 09:00 Vitamin D (Vitamin D3) 2,000 unit DAILY PO Last administered on 04/29/17at 09:30 ; Start 04/07/17 at 09:00 Clopidogrel Bisulfate (Plavix) 75 mg DAILY PO Last administered on 04/29/17at 09 :28; Start 04/07/17 at 09:00 Cyanocobalamin (Vitamin B-12) 1,000 mcg QMONTH SQ ; Start 05/06/17 at 09:00 Folic Acid (Folic Acid) 1 mg DAILY PO Last administered on 04/29/17at 09:30; Start 04/07/17 at 09:00 Furosemide (Lasix) 20 mg 3X/WEEK PO Last administered on 04/29/17 09:31; Start 04/08/17 at 09:00 Furosemide (Lasix) 40 mg QMTUTHSA PO Last administered on 04/29/17 09:28; Start 04/06/17 at 16:00 Gabapentin (Neurontin) 300 mg TID PO Last administered on 04/26/17at 19:41; Start 04/06/17 at 21:00; Stop 04/26/17 at 21:00; Status DC Multi-Ingred Cream/Lotion/Oil/ Oint (Hydrocerin) 1 francia PRN BID PRN TP Dry Skin ; Start 04/06/17 at 15:15 Nitroglycerin (Nitrostat) 0.4 mg PRN Q5MIN PRN SL CHEST PAIN; Start 04/06/17 at 15:15 Pantoprazole Sodium (Protonix) 40 mg BID PO Last administered on 04/29/17at 19: 27; Start 04/06/17 at 21:00 Sertraline HCl (Zoloft) 75 mg DAILY PO Last administered on 04/15/17at 10:24; Start 04/07/17 at 09:00; Stop 04/15/17 at 17:45; Status DC Tamsulosin HCl (Flomax) 0.4 mg BID PO Last administered on 04/29/17 19:27; Start 04/06/17 at 21:00 Isosorbide Mononitrate (Imdur) 30 mg HS PO Last administered on 04/22/17 21:08 ; Start 04/06/17 at 21:00; Stop 04/23/17 at 21:20; Status DC Risperidone (RisperDAL CONSTA) 25 mg Q2WKS IM Last administered on 04/11/17at 10: 17; Start 04/11/17 at 09:00; Stop 04/17/17 at 18:40; Status DC Ceftriaxone Sodium (Rocephin Im) 1 gm DAILY IM Last administered on 04/16/17 10 :59; Start 04/10/17 at 19:00; Stop 04/17/17 at 07:22; Status DC Lactobacillus Rhamnosus (Culturelle) 1 cap BID PO Last administered on 19:28; Start 04/10/17 at 21:00 Magnesium Hydroxide (Milk Of Magnesia) 2,400 mg PRN DAILY PRN PO CONSTIPATION Last administered on 04/25/17at 05:17; Start 04/10/17 at 19:00 Albuterol/ Ipratropium (Duoneb) 3 ml RTQID NEB Last administered on 04/29/17at 15:50; Start 04/13/17 at 20:00 Docusate Sodium (Colace) 100 mg BID PO Last administered on 04/29/17at 19:27; Start 04/13/17 at 21:00 Polyethylene Glycol (miraLAX) 17 gm DAILY PO Last administered on 04/25/17at 07: 43; Start 04/14/17 at 09:00; Stop 04/25/17 at 18:03; Status DC Bupropion HCl (Wellbutrin Xl) 150 mg DAILY PO ; Start 04/16/17 at 09:00; Stop 04/16/17 at 09:00; Status DC Bupropion HCl (Wellbutrin) 75 mg BID@0900,1200 PO Last administered on at 09:48; Start 04/16/17 at 09:00; Stop 04/16/17 at 18:51; Status DC Bupropion HCl (Wellbutrin) 75 mg DAILY@1200 PO Last administered on 04/18/17at 11 :51; Start 04/17/17 at 12:00; Stop 04/18/17 at 12:01; Status DC Bupropion HCl (Wellbutrin) 150 mg DAILY PO Last administered on 04/18/17at 10:15 ; Start 04/17/17 at 09:00; Stop 04/18/17 at 12:01; Status DC Risperidone (RisperDAL CONSTA) 37.5 mg Q2WKS IM Last administered on 04/25/17at 07:46; Start 04/25/17 at 09:00 Bupropion HCl (Wellbutrin) 150 mg BID@0900,1200 PO Last administered on at 12:08; Start 04/19/17 at 09:00 Megestrol Acetate (Megace) 100 mg TIDWMEALS PO Last administered on 04/29/17at 17:06; Start 04/20/17 at 08:00 Mirtazapine (Remeron) 7.5 mg QHS PO Last administered on 04/23/17at 19:10; Start 04/20/17 at 21:00; Stop 04/24/17 at 18:13; Status DC Levofloxacin (Levaquin) 500 mg DAILY06 PO Last administered on 04/29/17at 09:29 ; Start 04/22/17 at 12:00; Stop 05/02/17 at 11:59 Dextrose/Sodium Chloride 1,000 ml @ 75 mls/hr [id number] IV Last administered on 04/23/17at 20:53; Start 04/22/17 at 18:30; Stop 04/26/17 at 14:44; Status DC Isosorbide Mononitrate (Imdur) 30 mg HS PO Last administered on 04/29/17 19:28 ; Start 04/23/17 at 21:30 Mirtazapine (Remeron) 15 mg QHS PO Last administered on 04/26/17at 19:41; Start 04/24/17 at 21:00; Stop 04/27/17 at 19:11; Status DC Polyethylene Glycol (miraLAX) 17 gm BID PO Last administered on 04/29/17at 19:28 ; Start 04/25/17 at 21:00 Senna/Docusate Sodium (Senna Plus) 2 tab BID PO Last administered on 04/29/17at 19:27; Start 04/25/17 at 21:00 Gabapentin (Neurontin) 300 mg BID PO Last administered on 04/29/17at 19:27; Start 04/27/17 at 21:00; Stop 04/29/17 at 21:00 Gabapentin (Neurontin) 300 mg DAILY PO ; Start 04/30/17 at 09:00; Stop 05/02/17 at 21:00 Risperidone (RisperDAL) 0.5 mg DAILY PO Last administered on 04/29/17at 09:28; Start 04/27/17 at 09:00 Mirtazapine (Remeron Arabella-Tab) 15 mg QHS PO Last administered on 04/29/17 19:28 ; Start 04/27/17 at 21:00 Active Scripts Active Reported Risperdal Consta (Risperidone Microspheres) 37.5 Mg/2 Ml Disp.syrin 25 Mg IM Q2WKS Zoloft (Sertraline Hcl) 25 Mg Tablet 75 Mg PO DAILY Furosemide 40 Mg Tablet 40 Mg PO QMTUTHSA Tylenol (Acetaminophen) 325 Mg Tablet 650 Mg PO PRN Q4HRS PRN Nitrostat (Nitroglycerin) 0.4 Mg Tab.subl 0.4 Mg SL PRN Q5MIN PRN Eucerin Creme (Mineral Oil/Petrolatum,White) 120 Gm Cream..g. 1 Francia TP PRN PRN Gabapentin 300 Mg Capsule 300 Mg PO TID Vitamin D3 (Cholecalciferol (Vitamin D3)) 1,000 Unit Tablet 2,000 Unit PO DAILY Flomax (Tamsulosin Hcl) 0.4 Mg Cap.er.24h 0.4 Mg PO BID Simethicone 80 Mg Tab.chew 120 Mg PO BID Protonix (Pantoprazole Sodium) 40 Mg Tablet.dr 40 Mg PO BID Cyanocobalamin Injection (Cyanocobalamin (Vitamin B-12)) 1,000 Mcg/1 Ml Vial 1, 000 Mcg SQ QMONTH Once monthly on the Furosemide 20 Mg Tablet 20 Mg PO 3X/WEEK On Saturday, Saturday, & Saturday Folic Acid 1 Mg Tablet 1 Mg PO DAILY Plavix (Clopidogrel Bisulfate) 75 Mg Tablet 75 Mg PO DAILY Cetirizine Hcl 10 Mg Tablet 10 Mg PO DAILY Aspirin 81 Mg Tab.chew 81 Mg PO DAILY Metoprolol Tartrate 25 Mg Tablet 12.5 Mg PO BID Isosorbide Dinitrate 30 Mg Tablet 30 Mg PO HS I have reviewed the current psychotropics carefully including drug interactions. Risk benefit ratio favors no change other than as noted in my dictated progress note. Diagnosis: Problems: (1) Congestive heart failure (CHF) (2) Dehydration (3) Renal insufficiency (4) Elevated creatine kinase (5) Major depressive disorder (6) Schizoaffective disorder (7) Schizophrenia, disorganized, subchronic with acute exacerbation CHELY LAMB MD Apr 29, 2017 20:01
--- NOTE | 2017-04-29 23:47 | NUR ---
Behavior Intervention Response and Plan: BIRP Note: Behavior: Assumed Care of patient, patient located in Day Room at shift change. Patient exhibited the following behavior Calm, Disorganized, Delusions. Brief assessment on rounds of vital signs, medication needs, lab studies, and pain. Treatment plan problems . Intervention: Patient assessed and the following interventions initiated safety checks 15 Minute Checks Head to toe Assessment , Cognitive Assessment , Medications. Response: After interactions and interventions patient responded in the following manner, Resistive , Non Compliant ,Irritable. Continue to assess behaviors and condition will continue to monitor throughout the shift as needed. Patient educated on ADL's, and hand hygiene. 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 Continue to assess patient for changes in above assessment. Monitor for medication needs, pain, and safety concerns. Hourly rounding performed to ensure safe environment.
[2017-04-30 06:12] VITALS: BP 158/65
[2017-04-30] MEDS: IPRATRPIUM/ALBUTEROL 0.5/2.5MG 3 ML NEBU. NEB SCH ×4 (06:14→21:56)
[2017-04-30] MEDS: CHOLECALCIFEROL (VITAMIN D3) 1,000 UNIT TABLET PO SCH (09:21)
[2017-04-30] MEDS: MEGESTROL 400 MG/10 ML ORAL.SUSP. PO SCH ×3 (09:21→16:25)
[2017-04-30] MEDS: FUROSEMIDE 40 MG TABLET PO SCH (09:21)
[2017-04-30] MEDS: TAMSULOSIN 0.4 MG CAP.ER.24H. PO SCH ×2 (09:22→19:26)
[2017-04-30] MEDS: FOLIC ACID 1 MG TABLET PO SCH (09:22)
[2017-04-30] MEDS: LACTOBACILLUS RHAMNOSUS GG 1 CAPSULE. PO SCH ×2 (09:22→19:26)
[2017-04-30] MEDS: levoFLOXacin 500 MG TABLET PO SCH (09:22)
[2017-04-30] MEDS: buPROPion 75 MG TABLET PO SCH ×2 (09:22→11:44)
[2017-04-30] MEDS: ASPIRIN 81 MG TAB.CHEW PO SCH (09:22)
[2017-04-30] MEDS: DOCUSATE SODIUM 100 MG CAPSULE PO SCH ×2 (09:22→19:49)
[2017-04-30] MEDS: SENNOSIDES/DOCUSATE 8.6/50MG TABLET. PO SCH ×2 (09:22→19:26)
[2017-04-30] MEDS: CLOPIDOGREL BISULFATE 75 MG TABLET PO SCH (09:22)
[2017-04-30] MEDS: risperiDONE 0.5 MG TABLET. PO SCH (09:22)
[2017-04-30] MEDS: PANTOPRAZOLE 40 MG TABLET. PO SCH ×2 (09:22→19:26)
[2017-04-30] MEDS: POLYETHYLENE GLYCOL 3350 17 GM PACKET. PO SCH ×2 (09:23→19:27)
[2017-04-30] MEDS: GABAPENTIN 300 MG CAPSULE. PO SCH (09:27)
--- NOTE | 2017-04-30 12:35 | NUR ---
Patient has a blood blister on his right hand by his thumb with some minimal drainage. Area is close to being healed, no s/s of infection. Patient reports he got the blister from the "demons", denies pain at this time. Area covered with Kerlix bandage, will continue to monitor.
--- NOTE | 2017-04-30 15:43 | NUR ---
Behavior Intervention Response and Plan: BIRP Note: Behavior: Assumed Care of patient, patient located in Day Room at shift change. Patient exhibited the following behavior Calm, Irritable, Compliant. Brief assessment on rounds of vital signs, medication needs, lab studies, and pain. Treatment plan problems . Intervention: Patient assessed and the following interventions initiated safety checks 15 Minute Checks Cognitive Assessment , Head to toe Assessment , Medications. Response: After interactions and interventions patient responded in the following manner, Calm , Withdrawn ,Cooperative. Continue to assess behaviors and condition will continue to monitor throughout the shift as needed. Patient educated on ADL's, and hand hygiene. 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 Continue to assess patient for changes in above assessment. Monitor for medication needs, pain, and safety concerns. Hourly rounding performed to ensure safe environment.
[2017-04-30 16:36] VITALS: BP 132/70
[2017-04-30] MEDS: MIRTAZAPINE ODT 15 MG TAB.RAPDIS. PO SCH (19:26)
[2017-04-30] MEDS: ISOSORBIDE MONONITRATE ER 30 MG TAB.ER.24H PO SCH (19:27)
--- NOTE | 2017-04-30 20:00 | NUR ---
Behavior Intervention Response and Plan: BIRP Note: Behavior: Assumed Care of patient, patient located in Day Room at shift change. Patient exhibited the following behavior Disorganized, Somatic, Resistive. Brief assessment on rounds of vital signs, medication needs, lab studies, and pain. Treatment plan problems . Intervention: Patient assessed and the following interventions initiated safety checks 15 Minute Checks Cognitive Assessment , Head to toe Assessment , Medications. Response: After interactions and interventions patient responded in the following manner, Compliant , Withdrawn ,Disorganized. Continue to assess behaviors and condition will continue to monitor throughout the shift as needed. Patient educated on ADL's, and hand hygiene. Plan: Continue to monitor Master Treatment Plan for patient's progress toward short term goals of Decreased Anxiety, Medication Compliance, chcf goals to return to previous living setting vs placement. Continue to assess patient for changes in above assessment. Monitor for medication needs, pain, and safety concerns. Hourly rounding performed to ensure safe environment.
--- NOTE | 2017-04-30 20:02 | PDOC ---
Exam Note: Harjeet Note: Please also refer to the separate dictated note~for this date of service dictated separately.~Patient seen individually. Discussed the patient with Nursing staff reviewed the chart.~Reviewed interim history and current functioning. Reviewed vital signs,~Labs/ Radiology~and current medications noted below. Continue current treatment with the changes noted in the dictated addendum note Assessment: Vital Signs: Vital Signs Date Time Temp Pulse Resp B/P (MAP) Pulse Ox O2 Delivery O2 Flow Rate FiO2 04/30/17 19:27 57 132/70 04/30/17 16:36 98.6 18 97 2.0 04/30/17 15:53 Nasal Cannula I&O Intake and Output 04/30/17 07:00 Intake Total 660 ml Balance 660 ml Intake Oral 660 ml Current Medications: Meds: Current Medications Acetaminophen (Tylenol) 650 mg PRN Q4HRS PRN PO PAIN / TEMP; Start 04/06/17 at 15:15 Aspirin (Children'S Aspirin) 81 mg DAILY PO Last administered on 04/30/17 09: 22; Start 04/07/17 at 09:00 Vitamin D (Vitamin D3) 2,000 unit DAILY PO Last administered on 04/30/17 09:21 ; Start 04/07/17 at 09:00 Clopidogrel Bisulfate (Plavix) 75 mg DAILY PO Last administered on 04/30/17 09 :22; Start 04/07/17 at 09:00 Cyanocobalamin (Vitamin B-12) 1,000 mcg QMONTH SQ ; Start 05/06/17 at 09:00 Folic Acid (Folic Acid) 1 mg DAILY PO Last administered on 04/30/17at 09:22; Start 04/07/17 at 09:00 Furosemide (Lasix) 20 mg 3X/WEEK PO Last administered on 04/29/17at 09:31; Start 04/08/17 at 09:00 Furosemide (Lasix) 40 mg QMTUTHSA PO Last administered on 04/30/17at 09:21; Start 04/06/17 at 16:00 Gabapentin (Neurontin) 300 mg TID PO Last administered on 04/26/17at 19:41; Start 04/06/17 at 21:00; Stop 04/26/17 at 21:00; Status DC Multi-Ingred Cream/Lotion/Oil/ Oint (Hydrocerin) 1 francia PRN BID PRN TP Dry Skin ; Start 04/06/17 at 15:15 Nitroglycerin (Nitrostat) 0.4 mg PRN Q5MIN PRN SL CHEST PAIN; Start 04/06/17 at 15:15 Pantoprazole Sodium (Protonix) 40 mg BID PO Last administered on 04/30/17 19: 26; Start 04/06/17 at 21:00 Sertraline HCl (Zoloft) 75 mg DAILY PO Last administered on 04/15/17at 10:24; Start 04/07/17 at 09:00; Stop 04/15/17 at 17:45; Status DC Tamsulosin HCl (Flomax) 0.4 mg BID PO Last administered on 04/30/17 19:26; Start 04/06/17 at 21:00 Isosorbide Mononitrate (Imdur) 30 mg HS PO Last administered on 04/22/17at 21:08 ; Start 04/06/17 at 21:00; Stop 04/23/17 at 21:20; Status DC Risperidone (RisperDAL CONSTA) 25 mg Q2WKS IM Last administered on 04/11/17at 10: 17; Start 04/11/17 at 09:00; Stop 04/17/17 at 18:40; Status DC Ceftriaxone Sodium (Rocephin Im) 1 gm DAILY IM Last administered on 04/16/17 10 :59; Start 04/10/17 at 19:00; Stop 04/17/17 at 07:22; Status DC Lactobacillus Rhamnosus (Culturelle) 1 cap BID PO Last administered on 19:26; Start 04/10/17 at 21:00 Magnesium Hydroxide (Milk Of Magnesia) 2,400 mg PRN DAILY PRN PO CONSTIPATION Last administered on 04/25/17 05:17; Start 04/10/17 at 19:00 Albuterol/ Ipratropium (Duoneb) 3 ml RTQID NEB Last administered on 04/30/17 15:51; Start 04/13/17 at 20:00 Docusate Sodium (Colace) 100 mg BID PO Last administered on 04/30/17 19:49; Start 04/13/17 at 21:00 Polyethylene Glycol (miraLAX) 17 gm DAILY PO Last administered on 2/15/18at 07: 43; Start 04/14/17 at 09:00; Stop 04/25/17 at 18:03; Status DC Bupropion HCl (Wellbutrin Xl) 150 mg DAILY PO ; Start 04/16/17 at 09:00; Stop 04/16/17 at 09:00; Status DC Bupropion HCl (Wellbutrin) 75 mg BID@0900,1200 PO Last administered on at 09:48; Start 04/16/17 at 09:00; Stop 04/16/17 at 18:51; Status DC Bupropion HCl (Wellbutrin) 75 mg DAILY@1200 PO Last administered on 04/18/17at 11 :51; Start 04/17/17 at 12:00; Stop 04/18/17 at 12:01; Status DC Bupropion HCl (Wellbutrin) 150 mg DAILY PO Last administered on 04/18/17at 10:15 ; Start 04/17/17 at 09:00; Stop 04/18/17 at 12:01; Status DC Risperidone (RisperDAL CONSTA) 37.5 mg Q2WKS IM Last administered on 04/25/17at 07:46; Start 04/25/17 at 09:00 Bupropion HCl (Wellbutrin) 150 mg BID@0900,1200 PO Last administered on at 11:44; Start 04/19/17 at 09:00 Megestrol Acetate (Megace) 100 mg TIDWMEALS PO Last administered on 04/30/17at 16:25; Start 04/20/17 at 08:00 Mirtazapine (Remeron) 7.5 mg QHS PO Last administered on 04/23/17at 19:10; Start 04/20/17 at 21:00; Stop 04/24/17 at 18:13; Status DC Levofloxacin (Levaquin) 500 mg DAILY06 PO Last administered on 04/29/17at 09:29 ; Start 04/22/17 at 12:00; Stop 05/02/17 at 11:59 Dextrose/Sodium Chloride 1,000 ml @ 75 mls/hr [id number] IV Last administered on 04/23/17at 20:53; Start 04/22/17 at 18:30; Stop 04/26/17 at 14:44; Status DC Isosorbide Mononitrate (Imdur) 30 mg HS PO Last administered on 04/30/17 19:27 ; Start 04/23/17 at 21:30 Mirtazapine (Remeron) 15 mg QHS PO Last administered on 04/26/17at 19:41; Start 04/24/17 at 21:00; Stop 04/27/17 at 19:11; Status DC Polyethylene Glycol (miraLAX) 17 gm BID PO Last administered on 04/30/17 19:27 ; Start 04/25/17 at 21:00 Senna/Docusate Sodium (Senna Plus) 2 tab BID PO Last administered on 04/30/17 19:26; Start 04/25/17 at 21:00 Gabapentin (Neurontin) 300 mg BID PO Last administered on 04/29/17 19:27; Start 04/27/17 at 21:00; Stop 04/29/17 at 21:00; Status DC Gabapentin (Neurontin) 300 mg DAILY PO Last administered on 04/30/17at 09:27; Start 04/30/17 at 09:00; Stop 05/02/17 at 21:00 Risperidone (RisperDAL) 0.5 mg DAILY PO Last administered on 04/30/17at 09:22; Start 04/27/17 at 09:00; Stop 04/30/17 at 18:28; Status DC Mirtazapine (Remeron Arabella-Tab) 15 mg QHS PO Last administered on 04/30/17 19:26 ; Start 04/27/17 at 21:00 Risperidone (RisperDAL) 1 mg DAILY PO ; Start 05/01/17 at 09:00 Active Scripts Active Reported Risperdal Consta (Risperidone Microspheres) 37.5 Mg/2 Ml Disp.syrin 25 Mg IM Q2WKS Zoloft (Sertraline Hcl) 25 Mg Tablet 75 Mg PO DAILY Furosemide 40 Mg Tablet 40 Mg PO QMTUTHSA Tylenol (Acetaminophen) 325 Mg Tablet 650 Mg PO PRN Q4HRS PRN Nitrostat (Nitroglycerin) 0.4 Mg Tab.subl 0.4 Mg SL PRN Q5MIN PRN Eucerin Creme (Mineral Oil/Petrolatum,White) 120 Gm Cream..g. 1 Francia TP PRN PRN Gabapentin 300 Mg Capsule 300 Mg PO TID Vitamin D3 (Cholecalciferol (Vitamin D3)) 1,000 Unit Tablet 2,000 Unit PO DAILY Flomax (Tamsulosin Hcl) 0.4 Mg Cap.er.24h 0.4 Mg PO BID Simethicone 80 Mg Tab.chew 120 Mg PO BID Protonix (Pantoprazole Sodium) 40 Mg Tablet.dr 40 Mg PO BID Cyanocobalamin Injection (Cyanocobalamin (Vitamin B-12)) 1,000 Mcg/1 Ml Vial 1, 000 Mcg SQ QMONTH Once monthly on the Furosemide 20 Mg Tablet 20 Mg PO 3X/WEEK On Saturday, Saturday, & Saturday Folic Acid 1 Mg Tablet 1 Mg PO DAILY Plavix (Clopidogrel Bisulfate) 75 Mg Tablet 75 Mg PO DAILY Cetirizine Hcl 10 Mg Tablet 10 Mg PO DAILY Aspirin 81 Mg Tab.chew 81 Mg PO DAILY Metoprolol Tartrate 25 Mg Tablet 12.5 Mg PO BID Isosorbide Dinitrate 30 Mg Tablet 30 Mg PO HS I have reviewed the current psychotropics carefully including drug interactions. Risk benefit ratio favors no change other than as noted in my dictated progress note. Diagnosis: Problems: (1) Major depressive disorder (2) Schizoaffective disorder (3) Schizophrenia, disorganized, subchronic with acute exacerbation CHELY LAMB MD Apr 30, 2017 20:02
--- NOTE | 2017-05-01 | PN ---
DATE: 04/29/2017 This is a late entry for 04/29/2017 and covers elements not covered in my initial note of 04/29/2017. I met with the patient evening of 04/29/2017. The patient had some breakfast and lunch, nothing for dinner, took his oral medications, which was quite a change as he took it in chocolate syrup, somewhat delusional, hallucinating, states he is burning. REVIEW OF SYSTEMS: Ambulation impaired, in wheelchair, shortness of breath on O2 supplements. No CV, , GI, eye, ENT system symptoms on review. Reliability poor. MENTAL STATUS EXAM: Oriented to himself and situation. Speech has moderate latency, often responses monosyllabic. Abstraction fair, computation impaired, language function intact, attention span short. Mood and affect withdrawn. IMPRESSION: Schizoaffective disorder, bipolar type. Rest unchanged. PLAN: Continue to encourage compliance with oral psychotropics and he is on Risperdal Consta. MAN Horace LAMB MD DR: ESTEFANY/aubrey JOB#: [id number] / [id number]
--- NOTE | 2017-05-01 00:01 | PN ---
DATE: 04/28/2017 This late entry 04/28/2017 covers elements not covered in my initial note 04/28/2017. Met with the patient in the evening of 04/28/2017. The patient slept well the previous evening. Developed a skin tear from a dressing change. He is still refusing the oral Risperdal and I addressed this with him at great length. He is willing to take it to get rid of the demons "inside me." REVIEW OF SYSTEMS: Ambulation impaired. He is on O2 supplements in wheelchair. No CV, , GI, eye, ENT system symptoms on review. MENTAL STATUS EXAM: Oriented to himself and situation. Speech moderate latency, often responses monosyllabic. Abstraction fair, computation impaired, language function intact, still psychotic. Mood and affect somewhat withdrawn. Appetite is poor. IMPRESSION: Schizoaffective disorder, bipolar type. PLAN: Continue current psychotropics. Encourage compliance with oral Risperdal. CHELY LAMB MD DR: ESTEFANY/aubrey JOB#: [id number] / [id number]
[2017-05-01] MEDS: levoFLOXacin 500 MG TABLET PO SCH (05:41)
[2017-05-01 05:52] VITALS: BP 123/65
[2017-05-01] MEDS: MEGESTROL 400 MG/10 ML ORAL.SUSP. PO SCH ×3 (08:51→16:54)
[2017-05-01] MEDS: POLYETHYLENE GLYCOL 3350 17 GM PACKET. PO SCH ×2 (08:51→19:29)
[2017-05-01] MEDS: PANTOPRAZOLE 40 MG TABLET. PO SCH ×2 (08:52→19:28)
[2017-05-01] MEDS: LACTOBACILLUS RHAMNOSUS GG 1 CAPSULE. PO SCH ×2 (08:52→19:28)
[2017-05-01] MEDS: ASPIRIN 81 MG TAB.CHEW PO SCH (08:52)
[2017-05-01] MEDS: CLOPIDOGREL BISULFATE 75 MG TABLET PO SCH (08:52)
[2017-05-01] MEDS: FOLIC ACID 1 MG TABLET PO SCH (08:52)
[2017-05-01] MEDS: TAMSULOSIN 0.4 MG CAP.ER.24H. PO SCH ×2 (08:52→19:28)
[2017-05-01] MEDS: buPROPion 75 MG TABLET PO SCH ×2 (08:52→11:31)
[2017-05-01] MEDS: GABAPENTIN 300 MG CAPSULE. PO SCH (08:52)
[2017-05-01] MEDS: CHOLECALCIFEROL (VITAMIN D3) 1,000 UNIT TABLET PO SCH (08:53)
[2017-05-01] MEDS: SENNOSIDES/DOCUSATE 8.6/50MG TABLET. PO SCH ×2 (08:53→19:28)
[2017-05-01] MEDS: FUROSEMIDE 20 MG TABLET PO SCH (08:53)
[2017-05-01] MEDS: DOCUSATE SODIUM 100 MG CAPSULE PO SCH ×2 (08:53→19:29)
[2017-05-01] MEDS: risperiDONE 1 MG TABLET. PO SCH (08:54)
--- NOTE | 2017-05-01 10:52 | NUR ---
Behavior Intervention Response and Plan: BIRP Note: Behavior: Assumed Care of patient, patient located in Day Room at shift change. Patient exhibited the following behavior Disorganized, Delusions, Interactive. Brief assessment on rounds of vital signs, medication needs, lab studies, and pain. Treatment plan problems 1-2. Intervention: Patient assessed and the following interventions initiated safety checks 15 Minute Checks Cognitive Assessment , Head to toe Assessment , Medications. Response: After interactions and interventions patient responded in the following manner, Resistive , Compliant ,Cooperative. Continue to assess behaviors and condition will continue to monitor throughout the shift as needed. Patient educated on ADL's, and hand hygiene. Plan: Continue to monitor Master Treatment Plan for patient's progress toward short term goals of Medication Compliance, Improved Mood, director long term care goals to return to previous living setting vs placement. Continue to assess patient for changes in above assessment. Monitor for medication needs, pain, and safety concerns. Hourly rounding performed to ensure safe environment.
[2017-05-01] MEDS: IPRATRPIUM/ALBUTEROL 0.5/2.5MG 3 ML NEBU. NEB SCH ×3 (10:57→21:51)
--- NOTE | 2017-05-01 14:11 | NUR ---
ALEXYS spoke w/Lauro at [facility] regarding target dc for Saturday. SW faxed updated clinical notes and will wait for a transport time for dc to update pt's brother.
--- NOTE | 2017-05-01 15:00 | NUR ---
WEEKLY THERAPEUTIC RECREATION NOTE Date of Admission: 04/04/2017 Date of AT Assessment: 04/07/2017 Goal aimed: to increase socialization and engagement Initial goal: Pt. will participate in at least one group a day. Weekly progress towards goal: did not meet Group participation level: minimal Behaviors observed: Pt. uses oxygen from the wall and usually sits away from group. He has very little interest in groups but will engage sometimes with encouragement and 1:1 attention Plan: no changes to goal
[2017-05-01 16:46] VITALS: BP 129/71
[2017-05-01] MEDS: MIRTAZAPINE ODT 15 MG TAB.RAPDIS. PO SCH (19:28)
[2017-05-01] MEDS: ISOSORBIDE MONONITRATE ER 30 MG TAB.ER.24H PO SCH (19:29)
--- NOTE | 2017-05-01 20:00 | NUR ---
Behavior Intervention Response and Plan: BIRP Note: Behavior: Assumed Care of patient, patient located in Day Room at shift change. Patient exhibited the following behavior Disorganized, Irritable, Resistive. Brief assessment on rounds of vital signs, medication needs, lab studies, and pain. Treatment plan problems . Intervention: Patient assessed and the following interventions initiated safety checks 15 Minute Checks Head to toe Assessment , Head to toe Assessment , Medications. Response: After interactions and interventions patient responded in the following manner, Resistive , Withdrawn ,Somatic. Continue to assess behaviors and condition will continue to monitor throughout the shift as needed. Patient educated on ADL's, and hand hygiene. 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 Continue to assess patient for changes in above assessment. Monitor for medication needs, pain, and safety concerns. Hourly rounding performed to ensure safe environment.
--- NOTE | 2017-05-01 20:02 | PDOC ---
Exam Note: Harjeet Note: Please also refer to the separate dictated note~for this date of service dictated separately.~Patient seen individually. Discussed the patient with Nursing staff reviewed the chart.~Reviewed interim history and current functioning. Reviewed vital signs,~Labs/ Radiology~and current medications noted below. Continue current treatment with the changes noted in the dictated addendum note Assessment: Vital Signs: Vital Signs Date Time Temp Pulse Resp B/P (MAP) Pulse Ox O2 Delivery O2 Flow Rate FiO2 05/01/17 19:29 107 129/71 05/01/17 16:46 98.0 18 93 2.0 05/01/17 16:07 Nasal Cannula I&O Intake and Output 05/01/17 07:00 Intake Total 1200 ml Balance 1200 ml Intake Oral 1200 ml # Voids 1 Current Medications: Meds: Current Medications Acetaminophen (Tylenol) 650 mg PRN Q4HRS PRN PO PAIN / TEMP; Start 04/06/17 at 15:15 Aspirin (Children'S Aspirin) 81 mg DAILY PO Last administered on 05/01/17at 08: 52; Start 04/07/17 at 09:00 Vitamin D (Vitamin D3) 2,000 unit DAILY PO Last administered on 05/01/17at 08:53 ; Start 04/07/17 at 09:00 Clopidogrel Bisulfate (Plavix) 75 mg DAILY PO Last administered on 05/01/17at 08 :52; Start 04/07/17 at 09:00 Cyanocobalamin (Vitamin B-12) 1,000 mcg QMONTH SQ ; Start 05/06/17 at 09:00 Folic Acid (Folic Acid) 1 mg DAILY PO Last administered on 05/01/17at 08:52; Start 04/07/17 at 09:00 Furosemide (Lasix) 20 mg 3X/WEEK PO Last administered on 05/01/17at 08:53; Start 04/08/17 at 09:00 Furosemide (Lasix) 40 mg QMTUTHSA PO Last administered on 04/30/17at 09:21; Start 04/06/17 at 16:00 Gabapentin (Neurontin) 300 mg TID PO Last administered on 04/26/17at 19:41; Start 04/06/17 at 21:00; Stop 04/26/17 at 21:00; Status DC Multi-Ingred Cream/Lotion/Oil/ Oint (Hydrocerin) 1 francia PRN BID PRN TP Dry Skin ; Start 04/06/17 at 15:15 Nitroglycerin (Nitrostat) 0.4 mg PRN Q5MIN PRN SL CHEST PAIN; Start 04/06/17 at 15:15 Pantoprazole Sodium (Protonix) 40 mg BID PO Last administered on 05/01/17at 19: 28; Start 04/06/17 at 21:00 Sertraline HCl (Zoloft) 75 mg DAILY PO Last administered on 04/15/17at 10:24; Start 04/07/17 at 09:00; Stop 04/15/17 at 17:45; Status DC Tamsulosin HCl (Flomax) 0.4 mg BID PO Last administered on 05/01/17 19:28; Start 04/06/17 at 21:00 Isosorbide Mononitrate (Imdur) 30 mg HS PO Last administered on 04/22/17at 21:08 ; Start 04/06/17 at 21:00; Stop 04/23/17 at 21:20; Status DC Risperidone (RisperDAL CONSTA) 25 mg Q2WKS IM Last administered on 04/11/17at 10: 17; Start 04/11/17 at 09:00; Stop 04/17/17 at 18:40; Status DC Ceftriaxone Sodium (Rocephin Im) 1 gm DAILY IM Last administered on 04/16/17at 10 :59; Start 04/10/17 at 19:00; Stop 04/17/17 at 07:22; Status DC Lactobacillus Rhamnosus (Culturelle) 1 cap BID PO Last administered on at 19:28; Start 04/10/17 at 21:00 Magnesium Hydroxide (Milk Of Magnesia) 2,400 mg PRN DAILY PRN PO CONSTIPATION Last administered on 04/25/17at 05:17; Start 04/10/17 at 19:00 Albuterol/ Ipratropium (Duoneb) 3 ml RTQID NEB Last administered on 05/01/17at 16:07; Start 04/13/17 at 20:00 Docusate Sodium (Colace) 100 mg BID PO Last administered on 05/01/17at 19:29; Start 04/13/17 at 21:00 Polyethylene Glycol (miraLAX) 17 gm DAILY PO Last administered on 04/25/17at 07: 43; Start 04/14/17 at 09:00; Stop 04/25/17 at 18:03; Status DC Bupropion HCl (Wellbutrin Xl) 150 mg DAILY PO ; Start 04/16/17 at 09:00; Stop 04/16/17 at 09:00; Status DC Bupropion HCl (Wellbutrin) 75 mg BID@0900,1200 PO Last administered on at 09:48; Start 04/16/17 at 09:00; Stop 04/16/17 at 18:51; Status DC Bupropion HCl (Wellbutrin) 75 mg DAILY@1200 PO Last administered on 04/18/17at 11 :51; Start 04/17/17 at 12:00; Stop 04/18/17 at 12:01; Status DC Bupropion HCl (Wellbutrin) 150 mg DAILY PO Last administered on 04/18/17at 10:15 ; Start 04/17/17 at 09:00; Stop 04/18/17 at 12:01; Status DC Risperidone (RisperDAL CONSTA) 37.5 mg Q2WKS IM Last administered on 04/25/17at 07:46; Start 04/25/17 at 09:00 Bupropion HCl (Wellbutrin) 150 mg BID@0900,1200 PO Last administered on at 11:31; Start 04/19/17 at 09:00 Megestrol Acetate (Megace) 100 mg TIDWMEALS PO Last administered on 05/01/17at 16:54; Start 04/20/17 at 08:00 Mirtazapine (Remeron) 7.5 mg QHS PO Last administered on 04/23/17at 19:10; Start 04/20/17 at 21:00; Stop 04/24/17 at 18:13; Status DC Levofloxacin (Levaquin) 500 mg DAILY06 PO Last administered on 05/01/17at 05:41 ; Start 04/22/17 at 12:00; Stop 05/02/17 at 11:59 Dextrose/Sodium Chloride 1,000 ml @ 75 mls/hr [id number] IV Last administered on 04/23/17at 20:53; Start 04/22/17 at 18:30; Stop 04/26/17 at 14:44; Status DC Isosorbide Mononitrate (Imdur) 30 mg HS PO Last administered on 05/01/17at 19:29 ; Start 04/23/17 at 21:30 Mirtazapine (Remeron) 15 mg QHS PO Last administered on 04/26/17at 19:41; Start 04/24/17 at 21:00; Stop 04/27/17 at 19:11; Status DC Polyethylene Glycol (miraLAX) 17 gm BID PO Last administered on 05/01/17at 19:29 ; Start 04/25/17 at 21:00 Senna/Docusate Sodium (Senna Plus) 2 tab BID PO Last administered on 05/01/17 19:28; Start 04/25/17 at 21:00 Gabapentin (Neurontin) 300 mg BID PO Last administered on 04/29/17at 19:27; Start 04/27/17 at 21:00; Stop 04/29/17 at 21:00; Status DC Gabapentin (Neurontin) 300 mg DAILY PO Last administered on 05/01/17at 08:52; Start 04/30/17 at 09:00; Stop 05/02/17 at 21:00 Risperidone (RisperDAL) 0.5 mg DAILY PO Last administered on 04/30/17at 09:22; Start 04/27/17 at 09:00; Stop 04/30/17 at 18:28; Status DC Mirtazapine (Remeron Arabella-Tab) 15 mg QHS PO Last administered on 05/01/17at 19:28 ; Start 04/27/17 at 21:00 Risperidone (RisperDAL) 1 mg DAILY PO Last administered on 05/01/17at 08:54; Start 05/01/17 at 09:00 Active Scripts Active Reported Risperdal Consta (Risperidone Microspheres) 37.5 Mg/2 Ml Disp.syrin 25 Mg IM Q2WKS Zoloft (Sertraline Hcl) 25 Mg Tablet 75 Mg PO DAILY Furosemide 40 Mg Tablet 40 Mg PO QMTUTHSA Tylenol (Acetaminophen) 325 Mg Tablet 650 Mg PO PRN Q4HRS PRN Nitrostat (Nitroglycerin) 0.4 Mg Tab.subl 0.4 Mg SL PRN Q5MIN PRN Eucerin Creme (Mineral Oil/Petrolatum,White) 120 Gm Cream..g. 1 Francia TP PRN PRN Gabapentin 300 Mg Capsule 300 Mg PO TID Vitamin D3 (Cholecalciferol (Vitamin D3)) 1,000 Unit Tablet 2,000 Unit PO DAILY Flomax (Tamsulosin Hcl) 0.4 Mg Cap.er.24h 0.4 Mg PO BID Simethicone 80 Mg Tab.chew 120 Mg PO BID Protonix (Pantoprazole Sodium) 40 Mg Tablet.dr 40 Mg PO BID Cyanocobalamin Injection (Cyanocobalamin (Vitamin B-12)) 1,000 Mcg/1 Ml Vial 1, 000 Mcg SQ QMONTH Once monthly on the Furosemide 20 Mg Tablet 20 Mg PO 3X/WEEK On Saturday, Saturday, & Saturday Folic Acid 1 Mg Tablet 1 Mg PO DAILY Plavix (Clopidogrel Bisulfate) 75 Mg Tablet 75 Mg PO DAILY Cetirizine Hcl 10 Mg Tablet 10 Mg PO DAILY Aspirin 81 Mg Tab.chew 81 Mg PO DAILY Metoprolol Tartrate 25 Mg Tablet 12.5 Mg PO BID Isosorbide Dinitrate 30 Mg Tablet 30 Mg PO HS I have reviewed the current psychotropics carefully including drug interactions. Risk benefit ratio favors no change other than as noted in my dictated progress note. Diagnosis: Problems: (1) Congestive heart failure (CHF) (2) Dehydration (3) Renal insufficiency (4) Elevated creatine kinase (5) Major depressive disorder (6) Schizoaffective disorder (7) Schizophrenia, disorganized, subchronic with acute exacerbation CHELY LAMB MD May 01, 2017 20:02
--- NOTE | 2017-05-01 21:39 | PN ---
DATE: 04/30/2017 PSYCHIATRIC PROGRESS NOTE This is a late entry of 04/30/2017 covers elements not covered in my initial note of 04/30/2017. HISTORY OF PRESENT ILLNESS: I met with the patient evening of 04/30/2017. The patient did 50% breakfast, lunch, nothing for supper. Little more interactive, asking for coffee with breakfast, quite a change for him, but still delusional. He states he cannot move his arms, believes he has evil spirits in him. REVIEW OF SYSTEMS: Ambulation impaired, in wheelchair, shortness of breath, on O2 supplements. No CV, GI, system symptoms on review. MENTAL STATUS EXAM: Oriented to himself and situation. Speech has some latency, often responses monosyllabic. Abstraction fair, computation impaired, language function intact, attention span short. Mood and affect withdrawn. LABORATORY DATA: Reviewed. IMPRESSION: Schizoaffective disorder, bipolar type, mixed with psychotic features. Rest unchanged. PLAN: Increase oral Risperdal to 1 mg daily. Continue rest unchanged. MAN Horace LAMB MD DR: ESTEFANY/aubrey JOB#: [id number] / [id number]
[2017-05-02] MEDS: levoFLOXacin 500 MG TABLET PO SCH (05:17)
[2017-05-02] MEDS: IPRATRPIUM/ALBUTEROL 0.5/2.5MG 3 ML NEBU. NEB SCH ×4 (06:00→21:47)
[2017-05-02 06:27] VITALS: BP 140/72
[2017-05-02] MEDS: LACTOBACILLUS RHAMNOSUS GG 1 CAPSULE. PO SCH ×2 (08:03→20:21)
[2017-05-02] MEDS: PANTOPRAZOLE 40 MG TABLET. PO SCH ×2 (08:03→20:20)
[2017-05-02] MEDS: SENNOSIDES/DOCUSATE 8.6/50MG TABLET. PO SCH ×2 (08:03→20:21)
[2017-05-02] MEDS: DOCUSATE SODIUM 100 MG CAPSULE PO SCH ×2 (08:03→20:22)
[2017-05-02] MEDS: buPROPion 75 MG TABLET PO SCH ×2 (08:03→11:53)
[2017-05-02] MEDS: TAMSULOSIN 0.4 MG CAP.ER.24H. PO SCH ×2 (08:03→20:22)
[2017-05-02] MEDS: risperiDONE 1 MG TABLET. PO SCH (08:03)
[2017-05-02] MEDS: FOLIC ACID 1 MG TABLET PO SCH (08:03)
[2017-05-02] MEDS: POLYETHYLENE GLYCOL 3350 17 GM PACKET. PO SCH ×2 (08:03→20:22)
[2017-05-02] MEDS: CLOPIDOGREL BISULFATE 75 MG TABLET PO SCH (08:03)
[2017-05-02] MEDS: ASPIRIN 81 MG TAB.CHEW PO SCH (08:03)
[2017-05-02] MEDS: MEGESTROL 400 MG/10 ML ORAL.SUSP. PO SCH ×3 (08:03→16:34)
[2017-05-02] MEDS: GABAPENTIN 300 MG CAPSULE. PO SCH (08:03)
[2017-05-02] MEDS: CHOLECALCIFEROL (VITAMIN D3) 1,000 UNIT TABLET PO SCH (08:04)
--- NOTE | 2017-05-02 12:56 | NUR ---
Behavior Intervention Response and Plan: BIRP Note: Behavior: Assumed Care of patient, patient located in Dining Room at shift change. Patient exhibited the following behavior Irritable, Resistive, Compliant. Brief assessment on rounds of vital signs, medication needs, lab studies, and pain. Treatment plan problems 1-2. Intervention: Patient assessed and the following interventions initiated safety checks 15 Minute Checks Cognitive Assessment , Head to toe Assessment , Medications. Response: After interactions and interventions patient responded in the following manner, Irritable , Withdrawn ,Resistive. Continue to assess behaviors and condition will continue to monitor throughout the shift as needed. Patient educated on ADL's, and hand hygiene. 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 Continue to assess patient for changes in above assessment. Monitor for medication needs, pain, and safety concerns. Hourly rounding performed to ensure safe environment.
--- NOTE | 2017-05-02 13:47 | NUR ---
[facility] Social Work Discharge Planning Form Patient Name KEYSHA SUH Admit Date: 04/06/17 DISCHARGE PLAN Discharge Destination: return to [facility] Transportation: Facility to forklift picker 05/03/17 at 1400 DISCHARGE TO FACILITY Facility: [facility] Address: [address] [place] [id number] Contact Name: PCP: at facility w/in 7-10 days of dc Psychiatrist: at facility w/in 7-10 days of dc
--- NOTE | 2017-05-02 13:50 | NUR ---
SW left message for pt's dpoa/brother, Micky at [phone] requesting call back. ALEXYS did not leave specific information about dc plans on message as it was not a personalized answer machine, it was automated w/only the phone number.
--- NOTE | 2017-05-02 15:31 | NUR ---
Sw met w/ pt as pt sat in day room to discuss plans for pt to dc to facility on the following day. Pt stated he did not want to return to facility. Pt was not able to articulate a reason for not wanting to return to facility, and pt did not necessarily state he wanted to stay at this facility. Pt simply stated he "can't". SW encouraged pt to be excited about returning to his home and his brother would come and visit as soon as he is well.
[2017-05-02 16:27] VITALS: BP 127/84
[2017-05-02] MEDS: FUROSEMIDE 40 MG TABLET PO SCH (16:33)
--- NOTE | 2017-05-02 19:53 | PDOC ---
Exam Note: Harjeet Note: Please also refer to the separate dictated note~for this date of service dictated separately.~Patient seen individually. Discussed the patient with Nursing staff reviewed the chart.~Reviewed interim history and current functioning. Reviewed vital signs,~Labs/ Radiology~and current medications noted below. Continue current treatment with the changes noted in the dictated addendum note Assessment: Vital Signs: Vital Signs Date Time Temp Pulse Resp B/P (MAP) Pulse Ox O2 Delivery O2 Flow Rate FiO2 05/02/17 16:36 98 Nasal Cannula 2.0 05/02/17 16:27 97.9 99 18 127/84 (98) I&O Intake and Output 05/02/17 07:00 Intake Total 1080 ml Balance 1080 ml Intake Oral 1080 ml # Voids 1 Current Medications: Meds: Current Medications Acetaminophen (Tylenol) 650 mg PRN Q4HRS PRN PO PAIN / TEMP; Start 04/06/17 at 15:15 Aspirin (Children'S Aspirin) 81 mg DAILY PO Last administered on 05/02/17at 08: 03; Start 04/07/17 at 09:00 Vitamin D (Vitamin D3) 2,000 unit DAILY PO Last administered on 05/02/17at 08:04 ; Start 04/07/17 at 09:00 Clopidogrel Bisulfate (Plavix) 75 mg DAILY PO Last administered on 05/02/17at 08 :03; Start 04/07/17 at 09:00 Cyanocobalamin (Vitamin B-12) 1,000 mcg QMONTH SQ ; Start 05/06/17 at 09:00 Folic Acid (Folic Acid) 1 mg DAILY PO Last administered on 05/02/17at 08:03; Start 04/07/17 at 09:00 Furosemide (Lasix) 20 mg 3X/WEEK PO Last administered on 05/01/17at 08:53; Start 04/08/17 at 09:00 Furosemide (Lasix) 40 mg QMTUTHSA PO Last administered on 05/02/17at 16:33; Start 04/06/17 at 16:00 Gabapentin (Neurontin) 300 mg TID PO Last administered on 04/26/17at 19:41; Start 04/06/17 at 21:00; Stop 04/26/17 at 21:00; Status DC Multi-Ingred Cream/Lotion/Oil/ Oint (Hydrocerin) 1 francia PRN BID PRN TP Dry Skin ; Start 04/06/17 at 15:15 Nitroglycerin (Nitrostat) 0.4 mg PRN Q5MIN PRN SL CHEST PAIN; Start 04/06/17 at 15:15 Pantoprazole Sodium (Protonix) 40 mg BID PO Last administered on 05/02/17 08: 03; Start 04/06/17 at 21:00 Sertraline HCl (Zoloft) 75 mg DAILY PO Last administered on 04/15/17at 10:24; Start 04/07/17 at 09:00; Stop 04/15/17 at 17:45; Status DC Tamsulosin HCl (Flomax) 0.4 mg BID PO Last administered on 05/02/17 08:03; Start 04/06/17 at 21:00 Isosorbide Mononitrate (Imdur) 30 mg HS PO Last administered on 04/22/17at 21:08 ; Start 04/06/17 at 21:00; Stop 04/23/17 at 21:20; Status DC Risperidone (RisperDAL CONSTA) 25 mg Q2WKS IM Last administered on 04/11/17at 10: 17; Start 04/11/17 at 09:00; Stop 04/17/17 at 18:40; Status DC Ceftriaxone Sodium (Rocephin Im) 1 gm DAILY IM Last administered on 04/16/17 10 :59; Start 04/10/17 at 19:00; Stop 04/17/17 at 07:22; Status DC Lactobacillus Rhamnosus (Culturelle) 1 cap BID PO Last administered on 08:03; Start 04/10/17 at 21:00 Magnesium Hydroxide (Milk Of Magnesia) 2,400 mg PRN DAILY PRN PO CONSTIPATION Last administered on 04/25/17 05:17; Start 04/10/17 at 19:00 Albuterol/ Ipratropium (Duoneb) 3 ml RTQID NEB Last administered on 05/02/17 16:36; Start 04/13/17 at 20:00 Docusate Sodium (Colace) 100 mg BID PO Last administered on 05/02/17 08:03; Start 04/13/17 at 21:00 Polyethylene Glycol (miraLAX) 17 gm DAILY PO Last administered on 2/15/18at 07: 43; Start 04/14/17 at 09:00; Stop 04/25/17 at 18:03; Status DC Bupropion HCl (Wellbutrin Xl) 150 mg DAILY PO ; Start 04/16/17 at 09:00; Stop 04/16/17 at 09:00; Status DC Bupropion HCl (Wellbutrin) 75 mg BID@0900,1200 PO Last administered on at 09:48; Start 04/16/17 at 09:00; Stop 04/16/17 at 18:51; Status DC Bupropion HCl (Wellbutrin) 75 mg DAILY@1200 PO Last administered on 04/18/17at 11 :51; Start 04/17/17 at 12:00; Stop 04/18/17 at 12:01; Status DC Bupropion HCl (Wellbutrin) 150 mg DAILY PO Last administered on 04/18/17at 10:15 ; Start 04/17/17 at 09:00; Stop 04/18/17 at 12:01; Status DC Risperidone (RisperDAL CONSTA) 37.5 mg Q2WKS IM Last administered on 04/25/17at 07:46; Start 04/25/17 at 09:00 Bupropion HCl (Wellbutrin) 150 mg BID@0900,1200 PO Last administered on at 11:53; Start 04/19/17 at 09:00 Megestrol Acetate (Megace) 100 mg TIDWMEALS PO Last administered on 05/02/17at 16:34; Start 04/20/17 at 08:00 Mirtazapine (Remeron) 7.5 mg QHS PO Last administered on 04/23/17at 19:10; Start 04/20/17 at 21:00; Stop 04/24/17 at 18:13; Status DC Levofloxacin (Levaquin) 500 mg DAILY06 PO Last administered on 05/02/17at 05:17 ; Start 04/22/17 at 12:00; Stop 05/02/17 at 11:59; Status DC Dextrose/Sodium Chloride 1,000 ml @ 75 mls/hr [id number] IV Last administered on 04/23/17at 20:53; Start 04/22/17 at 18:30; Stop 04/26/17 at 14:44; Status DC Isosorbide Mononitrate (Imdur) 30 mg HS PO Last administered on 05/01/17at 19:29 ; Start 04/23/17 at 21:30 Mirtazapine (Remeron) 15 mg QHS PO Last administered on 04/26/17at 19:41; Start 04/24/17 at 21:00; Stop 04/27/17 at 19:11; Status DC Polyethylene Glycol (miraLAX) 17 gm BID PO Last administered on 05/02/17at 08:03 ; Start 04/25/17 at 21:00 Senna/Docusate Sodium (Senna Plus) 2 tab BID PO Last administered on 05/02/17 08:03; Start 04/25/17 at 21:00 Gabapentin (Neurontin) 300 mg BID PO Last administered on 04/29/17at 19:27; Start 04/27/17 at 21:00; Stop 04/29/17 at 21:00; Status DC Gabapentin (Neurontin) 300 mg DAILY PO Last administered on 05/02/17at 08:03; Start 04/30/17 at 09:00; Stop 05/02/17 at 21:00 Risperidone (RisperDAL) 0.5 mg DAILY PO Last administered on 04/30/17at 09:22; Start 04/27/17 at 09:00; Stop 04/30/17 at 18:28; Status DC Mirtazapine (Remeron Arabella-Tab) 15 mg QHS PO Last administered on 05/01/17at 19:28 ; Start 04/27/17 at 21:00 Risperidone (RisperDAL) 1 mg DAILY PO Last administered on 05/02/17at 08:03; Start 05/01/17 at 09:00 Active Scripts Active Reported Risperdal Consta (Risperidone Microspheres) 37.5 Mg/2 Ml Disp.syrin 25 Mg IM Q2WKS Zoloft (Sertraline Hcl) 25 Mg Tablet 75 Mg PO DAILY Furosemide 40 Mg Tablet 40 Mg PO QMTUTHSA Tylenol (Acetaminophen) 325 Mg Tablet 650 Mg PO PRN Q4HRS PRN Nitrostat (Nitroglycerin) 0.4 Mg Tab.subl 0.4 Mg SL PRN Q5MIN PRN Eucerin Creme (Mineral Oil/Petrolatum,White) 120 Gm Cream..g. 1 Francia TP PRN PRN Gabapentin 300 Mg Capsule 300 Mg PO TID Vitamin D3 (Cholecalciferol (Vitamin D3)) 1,000 Unit Tablet 2,000 Unit PO DAILY Flomax (Tamsulosin Hcl) 0.4 Mg Cap.er.24h 0.4 Mg PO BID Simethicone 80 Mg Tab.chew 120 Mg PO BID Protonix (Pantoprazole Sodium) 40 Mg Tablet.dr 40 Mg PO BID Cyanocobalamin Injection (Cyanocobalamin (Vitamin B-12)) 1,000 Mcg/1 Ml Vial 1, 000 Mcg SQ QMONTH Once monthly on the Furosemide 20 Mg Tablet 20 Mg PO 3X/WEEK On Saturday, Saturday, & Saturday Folic Acid 1 Mg Tablet 1 Mg PO DAILY Plavix (Clopidogrel Bisulfate) 75 Mg Tablet 75 Mg PO DAILY Cetirizine Hcl 10 Mg Tablet 10 Mg PO DAILY Aspirin 81 Mg Tab.chew 81 Mg PO DAILY Metoprolol Tartrate 25 Mg Tablet 12.5 Mg PO BID Isosorbide Dinitrate 30 Mg Tablet 30 Mg PO HS I have reviewed the current psychotropics carefully including drug interactions. Risk benefit ratio favors no change other than as noted in my dictated progress note. Diagnosis: Problems: (1) Major depressive disorder (2) Schizoaffective disorder (3) Schizophrenia, disorganized, subchronic with acute exacerbation CHELY LAMB MD May 02, 2017 19:53
[2017-05-02] MEDS: MIRTAZAPINE ODT 15 MG TAB.RAPDIS. PO SCH (20:21)
[2017-05-02] MEDS: ISOSORBIDE MONONITRATE ER 30 MG TAB.ER.24H PO SCH (20:22)
--- NOTE | 2017-05-03 00:59 | NUR ---
Behavior Intervention Response and Plan: BIRP Note: Behavior: Assumed Care of patient, patient located in Dining Room at shift change. Patient exhibited the following behavior Irritable, Resistive, Compliant. Brief assessment on rounds of vital signs, medication needs, lab studies, and pain. Treatment plan problems 1-2. Intervention: Patient assessed and the following interventions initiated safety checks 15 Minute Checks Cognitive Assessment , Head to toe Assessment , Medications. Response: After interactions and interventions patient responded in the following manner, Irritable , Withdrawn ,Resistive. Continue to assess behaviors and condition will continue to monitor throughout the shift as needed. Patient educated on ADL's, and hand hygiene. Plan: Continue to monitor Master Treatment Plan for patient's progress toward short term goals of Medication Compliance, Improved Mood, terminal gauger goals to return to previous living setting vs placement. Continue to assess patient for changes in above assessment. Monitor for medication needs, pain, and safety concerns. Hourly rounding performed to ensure safe environment.
[2017-05-03] MEDS: IPRATRPIUM/ALBUTEROL 0.5/2.5MG 3 ML NEBU. NEB SCH ×2 (05:58→10:40)
[2017-05-03 06:20] VITALS: BP 115/73
[2017-05-03] MEDS: MEGESTROL 400 MG/10 ML ORAL.SUSP. PO SCH ×2 (07:55→12:16)
[2017-05-03] MEDS: MAGNESIUM HYDROXIDE 2,400 MG/30 ML ORAL.SUSP. PO PRN (07:55)
[2017-05-03] MEDS: risperiDONE 1 MG TABLET. PO SCH (07:56)
[2017-05-03] MEDS: CHOLECALCIFEROL (VITAMIN D3) 1,000 UNIT TABLET PO SCH (07:56)
[2017-05-03] MEDS: DOCUSATE SODIUM 100 MG CAPSULE PO SCH (07:56)
[2017-05-03] MEDS: buPROPion 75 MG TABLET PO SCH ×2 (07:56→12:16)
[2017-05-03] MEDS: POLYETHYLENE GLYCOL 3350 17 GM PACKET. PO SCH (07:56)
[2017-05-03] MEDS: TAMSULOSIN 0.4 MG CAP.ER.24H. PO SCH (07:56)
[2017-05-03] MEDS: LACTOBACILLUS RHAMNOSUS GG 1 CAPSULE. PO SCH (07:57)
[2017-05-03] MEDS: ASPIRIN 81 MG TAB.CHEW PO SCH (07:57)
[2017-05-03] MEDS: FOLIC ACID 1 MG TABLET PO SCH (07:57)
[2017-05-03] MEDS: PANTOPRAZOLE 40 MG TABLET. PO SCH (07:57)
[2017-05-03] MEDS: CLOPIDOGREL BISULFATE 75 MG TABLET PO SCH (07:57)
[2017-05-03] MEDS: SENNOSIDES/DOCUSATE 8.6/50MG TABLET. PO SCH (07:57)
[2017-05-03] MEDS: FUROSEMIDE 20 MG TABLET PO SCH (07:59)
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
--- NOTE | 2017-05-03 15:08 | NUR ---
Behavior Intervention Response and Plan: BIRP Note: Behavior: Assumed Care of patient, patient located in Dining Room at shift change. Patient exhibited the following behavior Delusions, Resistive, Withdrawn. Brief assessment on rounds of vital signs, medication needs, lab studies, and pain. Treatment plan problems 1-2. Intervention: Patient assessed and the following interventions initiated safety checks 15 Minute Checks Cognitive Assessment , Head to toe Assessment , Medications. Response: After interactions and interventions patient responded in the following manner, Withdrawn , Irritable ,Cooperative. Continue to assess behaviors and condition will continue to monitor throughout the shift as needed. Patient educated on ADL's, and hand hygiene. Plan: Continue to monitor Master Treatment Plan for patient's progress toward short term goals of Medication Compliance, Improved Mood, prison goals to return to previous living setting vs placement. Continue to assess patient for changes in above assessment. Monitor for medication needs, pain, and safety concerns. Hourly rounding performed to ensure safe environment.
[2017-05-03 16:04] VITALS: BP 125/73
--- NOTE | 2017-05-03 16:12 | NUR ---
Transition Record was faxed to follow-up provider with the following elements: Reason for admission, procedures, tests, principal diagnosis, pending studies, patient instructions, 01/10 contact information for unit, phone number to obtain pending test results, plan for follow-up care, physician follow-up, advanced directive information, and medication list with dose, duration and instructions. This information was included in the following documents: History and physical, lab results, study results, progress notes, social work planning form, DC instruction form, patient visit summary, and medication reconciliation form. Date & time record faxed: 05/03/17 @ 1300 Record faxed to: Alberto Record discussed with/ report given to: ARRON Vargas
--- NOTE | 2017-05-03 19:13 | PDOC ---
Exam Note: Harjeet Note: Please also refer to the separate dictated note~for this date of service dictated separately.~Patient seen individually. Discussed the patient with Nursing staff reviewed the chart.~Reviewed interim history and current functioning. Reviewed vital signs,~Labs/ Radiology~and current medications noted below. Continue current treatment with the changes noted in the dictated addendum note Assessment: Vital Signs: Vital Signs Date Time Temp Pulse Resp B/P (MAP) Pulse Ox O2 Delivery O2 Flow Rate FiO2 05/03/17 16:04 98.2 107 19 125/73 (90) 96 2.0 05/03/17 10:41 Nasal Cannula I&O Intake and Output 05/03/17 07:00 Intake Total 840 ml Balance 840 ml Intake Oral 840 ml # Voids 1 Current Medications: Meds: Current Medications Acetaminophen (Tylenol) 650 mg PRN Q4HRS PRN PO PAIN / TEMP; Start 04/06/17 at 15:15; Stop 05/03/17 at 16:14; Status DC Aspirin (Children'S Aspirin) 81 mg DAILY PO Last administered on 05/03/17at 07: 57; Start 04/07/17 at 09:00; Stop 05/03/17 at 16:14; Status DC Vitamin D (Vitamin D3) 2,000 unit DAILY PO Last administered on 05/03/17at 07:56 ; Start 04/07/17 at 09:00; Stop 05/03/17 at 16:14; Status DC Clopidogrel Bisulfate (Plavix) 75 mg DAILY PO Last administered on 05/03/17at 07 :57; Start 04/07/17 at 09:00; Stop 05/03/17 at 16:14; Status DC Cyanocobalamin (Vitamin B-12) 1,000 mcg QMONTH SQ ; Start 05/06/17 at 09:00; Stop 05/06/17 at 09:00; Status DC Folic Acid (Folic Acid) 1 mg DAILY PO Last administered on 05/03/17at 07:57; Start 04/07/17 at 09:00; Stop 05/03/17 at 16:14; Status DC Furosemide (Lasix) 20 mg 3X/WEEK PO Last administered on 05/03/17at 07:59; Start 04/08/17 at 09:00; Stop 05/03/17 at 16:14; Status DC Furosemide (Lasix) 40 mg QMTUTHSA PO Last administered on 05/02/17at 16:33; Start 04/06/17 at 16:00; Stop 05/03/17 at 16:14; Status DC Gabapentin (Neurontin) 300 mg TID PO Last administered on 04/26/17at 19:41; Start 04/06/17 at 21:00; Stop 04/26/17 at 21:00; Status DC Multi-Ingred Cream/Lotion/Oil/ Oint (Hydrocerin) 1 francia PRN BID PRN TP Dry Skin ; Start 04/06/17 at 15:15; Stop 05/03/17 at 16:14; Status DC Nitroglycerin (Nitrostat) 0.4 mg PRN Q5MIN PRN SL CHEST PAIN; Start 04/06/17 at 15:15; Stop 05/03/17 at 16:14; Status DC Pantoprazole Sodium (Protonix) 40 mg BID PO Last administered on 05/03/17at 07: 57; Start 04/06/17 at 21:00; Stop 05/03/17 at 16:14; Status DC Sertraline HCl (Zoloft) 75 mg DAILY PO Last administered on 04/15/17at 10:24; Start 04/07/17 at 09:00; Stop 04/15/17 at 17:45; Status DC Tamsulosin HCl (Flomax) 0.4 mg BID PO Last administered on 05/03/17at 07:56; Start 04/06/17 at 21:00; Stop 05/03/17 at 16:14; Status DC Isosorbide Mononitrate (Imdur) 30 mg HS PO Last administered on 04/22/17at 21:08 ; Start 04/06/17 at 21:00; Stop 04/23/17 at 21:20; Status DC Risperidone (RisperDAL CONSTA) 25 mg Q2WKS IM Last administered on 04/11/17at 10: 17; Start 04/11/17 at 09:00; Stop 04/17/17 at 18:40; Status DC Ceftriaxone Sodium (Rocephin Im) 1 gm DAILY IM Last administered on 04/16/17at 10 :59; Start 04/10/17 at 19:00; Stop 04/17/17 at 07:22; Status DC Lactobacillus Rhamnosus (Culturelle) 1 cap BID PO Last administered on at 07:57; Start 04/10/17 at 21:00; Stop 05/03/17 at 16:14; Status DC Magnesium Hydroxide (Milk Of Magnesia) 2,400 mg PRN DAILY PRN PO CONSTIPATION Last administered on 05/03/17at 07:55; Start 04/10/17 at 19:00; Stop 05/03/17 at 16:14; Status DC Albuterol/ Ipratropium (Duoneb) 3 ml RTQID NEB Last administered on 05/03/17at 10:40; Start 04/13/17 at 20:00; Stop 05/03/17 at 16:14; Status DC Docusate Sodium (Colace) 100 mg BID PO Last administered on 05/03/17at 07:56; Start 04/13/17 at 21:00; Stop 05/03/17 at 16:14; Status DC Polyethylene Glycol (miraLAX) 17 gm DAILY PO Last administered on 04/25/17at 07: 43; Start 04/14/17 at 09:00; Stop 04/25/17 at 18:03; Status DC Bupropion HCl (Wellbutrin Xl) 150 mg DAILY PO ; Start 04/16/17 at 09:00; Stop 04/16/17 at 09:00; Status DC Bupropion HCl (Wellbutrin) 75 mg BID@0900,1200 PO Last administered on at 09:48; Start 04/16/17 at 09:00; Stop 04/16/17 at 18:51; Status DC Bupropion HCl (Wellbutrin) 75 mg DAILY@1200 PO Last administered on 04/18/17at 11 :51; Start 04/17/17 at 12:00; Stop 04/18/17 at 12:01; Status DC Bupropion HCl (Wellbutrin) 150 mg DAILY PO Last administered on 04/18/17at 10:15 ; Start 04/17/17 at 09:00; Stop 04/18/17 at 12:01; Status DC Risperidone (RisperDAL CONSTA) 37.5 mg Q2WKS IM Last administered on 04/25/17at 07:46; Start 04/25/17 at 09:00; Stop 05/03/17 at 16:14; Status DC Bupropion HCl (Wellbutrin) 150 mg BID@0900,1200 PO Last administered on at 12:16; Start 04/19/17 at 09:00; Stop 05/03/17 at 16:14; Status DC Megestrol Acetate (Megace) 100 mg TIDWMEALS PO Last administered on 05/03/17at 12:16; Start 04/20/17 at 08:00; Stop 05/03/17 at 16:14; Status DC Mirtazapine (Remeron) 7.5 mg QHS PO Last administered on 04/23/17at 19:10; Start 04/20/17 at 21:00; Stop 04/24/17 at 18:13; Status DC Levofloxacin (Levaquin) 500 mg DAILY06 PO Last administered on 05/02/17at 05:17 ; Start 04/22/17 at 12:00; Stop 05/02/17 at 11:59; Status DC Dextrose/Sodium Chloride 1,000 ml @ 75 mls/hr [id number] IV Last administered on 04/23/17at 20:53; Start 04/22/17 at 18:30; Stop 04/26/17 at 14:44; Status DC Isosorbide Mononitrate (Imdur) 30 mg HS PO Last administered on 05/02/17at 20:22 ; Start 04/23/17 at 21:30; Stop 05/03/17 at 16:14; Status DC Mirtazapine (Remeron) 15 mg QHS PO Last administered on 04/26/17at 19:41; Start 04/24/17 at 21:00; Stop 04/27/17 at 19:11; Status DC Polyethylene Glycol (miraLAX) 17 gm BID PO Last administered on 05/03/17at 07:56 ; Start 04/25/17 at 21:00; Stop 05/03/17 at 16:14; Status DC Senna/Docusate Sodium (Senna Plus) 2 tab BID PO Last administered on 05/03/17at 07:57; Start 04/25/17 at 21:00; Stop 05/03/17 at 16:14; Status DC Gabapentin (Neurontin) 300 mg BID PO Last administered on 04/29/17at 19:27; Start 04/27/17 at 21:00; Stop 04/29/17 at 21:00; Status DC Gabapentin (Neurontin) 300 mg DAILY PO Last administered on 05/02/17at 08:03; Start 04/30/17 at 09:00; Stop 05/02/17 at 21:00; Status DC Risperidone (RisperDAL) 0.5 mg DAILY PO Last administered on 04/30/17at 09:22; Start 04/27/17 at 09:00; Stop 04/30/17 at 18:28; Status DC Mirtazapine (Remeron Arabella-Tab) 15 mg QHS PO Last administered on 05/02/17at 20:21 ; Start 04/27/17 at 21:00; Stop 05/03/17 at 16:14; Status DC Risperidone (RisperDAL) 1 mg DAILY PO Last administered on 05/03/17at 07:56; Start 05/01/17 at 09:00; Stop 05/03/17 at 16:14; Status DC Active Scripts Active Reported Risperdal Consta (Risperidone Microspheres) 37.5 Mg/2 Ml Disp.syrin 25 Mg IM Q2WKS Last dose administered on 04/25 Zoloft (Sertraline Hcl) 25 Mg Tablet 75 Mg PO DAILY Tylenol (Acetaminophen) 325 Mg Tablet 650 Mg PO PRN Q4HRS PRN MDD 4000mg/24hrs Nitrostat (Nitroglycerin) 0.4 Mg Tab.subl 0.4 Mg SL PRN Q5MIN PRN Eucerin Creme (Mineral Oil/Petrolatum,White) 120 Gm Cream..g. 1 Francia TP PRN PRN Gabapentin 300 Mg Capsule 300 Mg PO TID Vitamin D3 (Cholecalciferol (Vitamin D3)) 1,000 Unit Tablet 2,000 Unit PO DAILY Flomax (Tamsulosin Hcl) 0.4 Mg Cap.er.24h 0.4 Mg PO BID Protonix (Pantoprazole Sodium) 40 Mg Tablet.dr 40 Mg PO BID Cyanocobalamin Injection (Cyanocobalamin (Vitamin B-12)) 1,000 Mcg/1 Ml Vial 1, 000 Mcg SQ QMONTH Once monthly on the Furosemide 20 Mg Tablet 20 Mg PO 3X/WEEK On Saturday, Saturday, & Saturday Folic Acid 1 Mg Tablet 1 Mg PO DAILY Plavix (Clopidogrel Bisulfate) 75 Mg Tablet 75 Mg PO DAILY Aspirin 81 Mg Tab.chew 81 Mg PO DAILY Isosorbide Dinitrate 30 Mg Tablet 30 Mg PO HS I have reviewed the current psychotropics carefully including drug interactions. Risk benefit ratio favors no change other than as noted in my dictated progress note. Diagnosis: Problems: (1) Major depressive disorder (2) Schizoaffective disorder (3) Schizophrenia, disorganized, subchronic with acute exacerbation CHELY LAMB MD May 03, 2017 19:13
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
--- NOTE | 2017-05-04 01:39 | PN ---
DATE: 05/02/2017 PSYCHIATRIC PROGRESS NOTE This late entry 05/02/2017 covers elements not covered in my initial note 05/02/2017. SUBJECTIVE: Met with the patient individually and staffed. The treatment team is meeting with the entire team morning of 05/02/2017. Overall, the patient remains somewhat withdrawn, delusional, believes he is burning, being pricked by needles, resistive with meds assessment, but appetite is better. He is more compliant with the oral meds than a few days back, which in itself is an improvement. REVIEW OF SYSTEMS: Ambulation impaired, in wheelchair, shortness of breath on O2 supplements. No CV, , GI system symptoms on review. MENTAL STATUS EXAM: Oriented to himself and situation. Speech is moderate latency, often responses monosyllabic. Abstraction fair, computation is impaired, language function intact, attention span short. Mood and affect is withdrawn. LABORATORY DATA: Reviewed. IMPRESSION: Schizoaffective disorder, bipolar type, mixed with psychotic features. PLAN: Continue psychotropics mentioned in my initial note. MAN Horace LAMB MD DR: ESTEFANY/aubrey JOB#: [id number] / [id number]
--- NOTE | 2017-05-05 08:46 | DS ---
DATE OF DISCHARGE: 05/03/2017 DISCHARGE SUMMARY/PSYCHIATRIC PROGRESS NOTE This is a late entry, date of service 05/02/2017 covers elements not covered in my initial 05/02/2017. REASON FOR ADMISSION: Please refer to the admission history for details. Briefly, the patient is a 72-year-old male referred back to us from [facility] by his primary care physician on account of refusing medications, not eating, being withdrawn, delusional, believed there were spirits in his inside which were preventing him from eating. He was extremely psychotic and failed outpatient psychiatric interventions, complaining of burning and pinprick by needles, resistive to cares resulting in this referral. SIGNIFICANT FINDINGS AND CLINICAL COURSE: Following admission, the patient was seen daily individually by myself, followed medically per Dr. Fountain/Dr Moncada. The patient was extremely resistive to oral psychotropics. He was continued on Risperdal Consta, which was gradually increased on account of his ongoing psychosis. Gradually mood appeared to stabilize. He was less psychotic and seemed to be doing better on a combination of Risperdal Consta 37.5 mg IM every 2 weeks, Wellbutrin 150 mg b.i.d., Neurontin 300 mg 3 times a day, Megace was added 100 mg t.i.d. with meals to help stimulate his appetite. Oral Risperdal 1 mg daily, Remeron SolTab 15 mg at bedtime. CONDITION AT DISCHARGE: Improved prior to discharge, 05/02/2017. REVIEW OF SYSTEMS: Ambulation impaired, in wheelchair on oxygen supplements. No CV, , eye, ENT system symptoms on review. Reliability varies. MENTAL STATUS EXAM: Oriented to himself and situation. Speech moderate latency, often responses monosyllabic. Abstraction fair, computation impaired, language function intact. Mood and affect withdrawn. No suicidal or homicidal ideation prior to discharge. FINAL DIAGNOSES: Schizoaffective disorder, bipolar type, mixed with psychotic features; major depressive disorder with psychotic features; anxiety disorder, unspecified; cognitive disorder, unspecified. Rest unchanged from admission. DISCHARGE MEDICATIONS: Please refer to the MRAD. DISCHARGE INSTRUCTIONS: Outpatient psychiatric and medical followup [facility] [place]. CHELY LAMB MD DR: ESTEFANY/aubrey JOB#: [id number] / [id number]
[2017-05-06] MEDS ORDERED: CYANOCOBALAMIN (VITAMIN B-12) 1,000 MCG/ML VIAL SQ SCH (09:00)
== END 2017-05-03 15:30 | disposition home or self-care (01) | DRG 885 ==
LOC: GEROPSY 13:50 → EEVIPCON 13:50
PROVIDERS: ADMIT Psychiatry & Neurology Psychiatry; ATTEND Psychiatry & Neurology Psychiatry
DX: F25.0 Schizoaffective disorder, bipolar type (principal); N17.9 Acute kidney failure, unspecified; I95.9 Hypotension, unspecified; J18.9 Pneumonia, unspecified organism; R64 Cachexia; G62.9 Polyneuropathy, unspecified; F44.4 Conversion disorder with motor symptom or deficit; I11.0 Hypertensive heart disease with heart failure; I50.9 Heart failure, unspecified; E86.0 Dehydration; J44.9 Chronic obstructive pulmonary disease, unspecified; F41.9 Anxiety disorder, unspecified; I34.0 Nonrheumatic mitral (valve) insufficiency; N40.0 Benign prostatic hyperplasia without lower urinary tract symptoms; R73.9 Hyperglycemia, unspecified; B95.62 Methicillin resistant Staphylococcus aureus infection as the cause of diseases classified elsewhere; Z53.29 Procedure and treatment not carried out because of patient's decision for other reasons; K59.00 Constipation, unspecified; F10.21 Alcohol dependence, in remission; Z66 Do not resuscitate; G47.00 Insomnia, unspecified; F63.9 Impulse disorder, unspecified; F03.90 Unspecified dementia, unspecified severity, without behavioral disturbance, psychotic disturbance, mood disturbance, and anxiety; F09 Unspecified mental disorder due to known physiological condition; G89.29 Other chronic pain; I25.10 Atherosclerotic heart disease of native coronary artery without angina pectoris; Z88.8 Allergy status to other drugs, medicaments and biological substances; Z79.899 Other long term (current) drug therapy; Z87.891 Personal history of nicotine dependence; Z91.19 Patient's noncompliance with other medical treatment and regimen; Z91.81 History of falling; Z87.440 Personal history of urinary (tract) infections
CPT/HCPCS: 36415; 71045; 74150; 80048; 80053; 81001; 83735; 85007; 85025; 87086; 87186; 94640; 94760; J0696; J2794; J7620; 92610